=== PATIENT | female | born 1945 | race Caucasian/White ===

== ENCOUNTER 2019-05-21 06:50 | Observation (INO) | payer MEDICARE ==
[~2019-05-21] VITALS: Ht 149.9 cm; Wt 64.4 kg
--- OUTSIDE RECORDS SUMMARY | ~2019-05-21 | XMS | Clinical Summary ---
Demographics + + + | Address | [address] | | | [place] [address] | + + + | Home Phone | | + + + | Preferred Language | Unknown | + + + | Marital Status | | + + + | Shinto Affiliation | Unknown | + + + | Race | Unknown | + + + | Ethnic Group | Unknown | + + + Author + + + | Author | [employer] (Historical as of | | | 03-02-19) | + + + | Organization | [facility] [employer] (Historical as of | | | 03-02-19) | + + + | Address | Unknown | + + + | Phone | Unavailable | + + + Support + + +---------+ + | Name | Relationship | Address | Phone | + + +---------+ + | Sreedhar Nelson | ECON | Unknown | | + + +---------+ + Care Team Providers + +------+ + | Care Sleep Lab Technician Name | Role | Phone | + +------+ + | Tori Aquino MD | PP | | + +------+ + Allergies + + + + + + | Active Allergy | Reactions | Severity | Noted | Comments | | | | | Date | | + + + + + + | Morphine | Other (See Comments) | Medium | 08/15/19 | Nervous | | | | | 19 | | + + + + + + | Statins | Muscle Pain | | 08/15/19 | | | | | | 19 | | + + + + + + Current Medications + + +-------+---------+------+------+-------+ | Prescription | Sig. | Disp. | Refills | Star | End | Statu | | | | | | t | Date | s | | | | | | Date | | | + + +-------+---------+------+------+-------+ | pravastatin | Take 20 mg by mouth | | | | | Activ | | (PRAVACHOL) 20 MG | daily. | | | | | e | | tablet | | | | | | | + + +-------+---------+------+------+-------+ | gabapentin | Take 100 mg by mouth | | | | | Activ | | (NEURONTIN) 100 MG | 3 (three) times | | | | | e | | capsule | daily. | | | | | | + + +-------+---------+------+------+-------+ | | Take 1 tablet by | | | | | Activ | | losartan-hydrochloro | mouth daily. | | | | | e | | thiazide (HYZAAR) | | | | | | | | 100-25 MG per tablet | | | | | | | + + +-------+---------+------+------+-------+ | vitamin E 400 UNIT | Take 400 Units by | | | | | Activ | | capsule | mouth daily. | | | | | e | + + +-------+---------+------+------+-------+ | Ascorbic Acid | Take 1 capsule by | | | | | Activ | | (VITAMIN C) 500 MG | mouth daily. | | | | | e | | CAPS | | | | | | | + + +-------+---------+------+------+-------+ | amLODIPine | Take 5 mg by mouth | | | | | Activ | | (NORVASC) 5 MG | daily. | | | | | e | | tablet | | | | | | | + + +-------+---------+------+------+-------+ | cyanocobalamin | Take 1,000 mcg by | | | | | Activ | | (VITAMIN B-12) 1000 | mouth daily. | | | | | e | | MCG tablet | | | | | | | + + +-------+---------+------+------+-------+ | aspirin 81 MG | Take 81 mg by mouth | | | | | Activ | | tablet | daily. | | | | | e | + + +-------+---------+------+------+-------+ | omeprazole | Take 20 mg by mouth | | | | | Activ | | (PRILOSEC) 20 MG | every morning before | | | | | e | | capsule | breakfast. | | | | | | + + +-------+---------+------+------+-------+ | PRAMIPEXOLE | Take 0.25 mg by | | | | | Activ | | DIHYDROCHLORIDE PO | mouth every other | | | | | e | | | day. | | | | | | + + +-------+---------+------+------+-------+ | Cholecalciferol | Take 1,000 Units by | | | | | Activ | | 1000 units capsule | mouth daily. | | | | | e | + + +-------+---------+------+------+-------+ | fish oil omega-3 | Take 1 g by mouth | | | | | Activ | | fatty acids 1000 MG | daily. | | | | | e | | capsule | | | | | | | + + +-------+---------+------+------+-------+ | Naproxen Sodium | Take by mouth as | | | | | Activ | | (ALEVE PO) | needed. | | | | | e | + + +-------+---------+------+------+-------+ Active Problems + + + | Problem | Noted Date | + + + | Essential hypertension | 08/15/2018 | + + + | Coronary artery calcification | 08/15/2018 | + + + | PVC (premature ventricular contraction) | 08/15/2018 | + + + | Fibromyalgia | 08/15/2018 | + + + Family History + + +------+ + | Medical History | Relation | Name | Comments | + + +------+ + | Stroke | Father | | | + + +------+ + | Cancer | Mother | | lung, thyroid | + + +------+ + + +------+ + + | Relation | Name | Status | Comments | + +------+ + + | Father | | | | + +------+ + + | Mother | | | | + +------+ + + Social History + +-------+ +--------+------+ | Tobacco Use | Types | Packs/Day | Years | Date | | | | | Used | | + +-------+ +--------+------+ | Current Every Day | | 0.75 | | | | Smoker | | | | | + +-------+ +--------+------+ + +---+---+---+ | Smokeless Tobacco: | | | | | Never Used | | | | + +---+---+---+ + + +---------+ + | Alcohol Use | Drinks/We | oz/Week | Comments | | | ek | | | + + +---------+ + | No | | | | + + +---------+ + + + + | Sex Assigned at | Date Recorded | | | | + + + | Not on file | | + + + Last Filed Vital Signs + + + + | Vital Sign | Reading | Time Taken | + + + + | Blood Pressure | 120/60 | 08/15/2018 12:56 PM PST | + + + + | Pulse | 99 | 08/15/2018 12:56 PM PST | + + + + | Temperature | - | - | + + + + | Respiratory Rate | - | - | + + + + | Oxygen Saturation | 95% | 08/15/2018 12:56 PM PST | + + + + | Inhaled Oxygen | - | - | | Concentration | | | + + + + | Weight | 67.8 kg (149 lb 6.4 | 08/15/2018 12:56 PM PST | | | oz) | | + + + + | Height | 149.9 cm (4' 11") | 08/15/2018 12:56 PM PST | + + + + | Body Mass Index | 30.18 | 08/15/2018 12:56 PM PST | + + + + Plan of Treatment +--------+---------+ + + + | Date | Type | Specialty | Care Team | Description | +--------+---------+ + + + | 08/21/ | Office | | [place] [facility], | | | 2019 | Visit | | [address] | | | | | | [address] [place], | | | | | | [place] [address] | | | | | | [phone] | | | | | | | | +--------+---------+ + + + + + + + + | Health Maintenance | Due Date | Last Done | Comments | + + + + + | Vaccine: | | | | | Dtap/Tdap/Td (1 - | 6 | | | | Tdap) | | | | + + + + + | Breast Cancer | | | | | Screening | 7 | | | | (Mammogram) | | | | + + + + + | Colon Cancer | | | | | Screening | 7 | | | | (Colonoscopy) | | | | + + + + + | Vaccine: Zoster (1 | | | | | of 2) | 7 | | | + + + + + | DEXA SCAN SCREENING | | | | | | 2 | | | + + + + + | Vaccine: | | | | | Pneumococcal 65+ | 2 | | | | Low/Medium Risk (1 | | | | | of 2 - PCV13) | | | | + + + + + | Vaccine: Influenza | | | | | (#1) | 9 | | | + + + + + Results Not on filefrom Last 3 Months Insurance + +--------+ +--------+-------+---------+ | Payer | Benefi | Subscriber | Type | Phone | Address | | | t Plan | ID | | | | | | / | | | | | | | Group | | | | | + +--------+ +--------+-------+---------+ | [place] | [place] - | [id number] | Medica | | | | | MODA | | re | | | | | | | | | | | | | | | | | | | | | | | | | | | | | | | | | | | | | | | | [place] - | | | | | | | [place] | | | | | + +--------+ +--------+-------+---------+ + +--------+ +--------+ + + | Guarantor Name | Accoun | Relation to | Date | Phone | Billing Address | | | t Type | Patient | of | | | | | | | | | | + +--------+ +--------+ + + | JAZ NELSON | Person | Self [birth year] Home: | [address] | | | al/Fam | | 1945 | [phone] [place], [place] | | | [place]lexa | | | [phone] | [phone] | + +--------+ +--------+ + +
--- OUTSIDE RECORDS SUMMARY | ~2019-05-21 | XMS | Clinical Summary ---
Demographics + + + | Address | [address] | | | [address] | | | [place] [address] | + + + | Home Phone | | + + + | Preferred Language | Unknown | + + + | Marital Status | M | + + + | Taoism Affiliation | Unknown | + + + | Race | White | + + + | Ethnic Group | Not or | + + + Author + + + | Author | [facility] | + + + | Organization | [facility] | + + + | Address | [address] | | | [place] [address] | + + + | Phone | Unavailable | + + + Care Team Providers + +------+ + | Care Winery Cellar Hand Name | Role | Phone | + +------+ + | Son Segura MD | PCP | | + +------+ + Conditions or Problems +---------+---------+---------+---------+---------+---------+---------+---------+---------+ | Problem | Problem | Onset | Status | Entry | Provide | Comment | Standar | Annotat | | Name | Code | Date | | Date | r | | d | e | | | | | | | | | Descrip | | | | | | | | | | tion | | +---------+---------+---------+---------+---------+---------+---------+---------+---------+ | OA, | [id number] | | Active | | Claudine | | Degener | | | SHOULDE | | | | /10 | | | ative | | | R, | (SNOMED | | | | Crouche | | joint | | | RIGHT | CT) | | | | r NCMA | | disease | | | | | | | | | | of | | | | | | | | | | shoulde | | | | | | | | | | r | | | | | | | | | | region | | +---------+---------+---------+---------+---------+---------+---------+---------+---------+ | OA, | [id number] | | Active | | Claudine | | Osteoar | | | KNEE, | | | | /10 | | | thritis | | | LEFT | (SNOMED | | | | Crouche | | of | | | | CT) | | | | r NCMA | | knee | | +---------+---------+---------+---------+---------+---------+---------+---------+---------+ | LEG | [id number] | | Active | | Claudine | | Pain in | | | PAIN, | 08 | /07 | | /07 | | | left | | | LEFT | (SNOMED | | | | Crouche | | lower | | | | CT) | | | | r NCMA | | limb | | +---------+---------+---------+---------+---------+---------+---------+---------+---------+ | SHOULDE | [id number] | | Active | | Claudine | | Pain in | | | R PAIN, | | /07 | | /07 | | | right | | | RIGHT | (ICD-10 | | | | Crouche | | shoulde | | | | -CM) | | | | r NCMA | | r | | +---------+---------+---------+---------+---------+---------+---------+---------+---------+ | OTHER | [id number] | | Active | | Lynn | | Screeni | | | SCREENI | 2 | /03 | | /03 | L Benavides | | ng | | | NG | (SNOMED | | | | MD | | mammogr | | | MAMMOGR | CT) | | | | | | aphy | | | AM | | | | | | | | | +---------+---------+---------+---------+---------+---------+---------+---------+---------+ | HYPERCA | [id number] | | Resolve | | Lynn | | Hyperca | | | LCEMIA | 9 | /29 | d | /29 | L Benavides | | lcemia | | | | (SNOMED | | | | MD | | | | | | CT) | | | | | | | | +---------+---------+---------+---------+---------+---------+---------+---------+---------+ | VAGINAL | [id number] | | Resolve | | Lynn | | Vaginal | recent | | | 06 | | d | /10 | L Benavides | | | | | DISCHAR | (SNOMED | | | | MD | | dischar | | | GE | CT) | | | | | | ge | | +---------+---------+---------+---------+---------+---------+---------+---------+---------+ | HAND | [id number] | | Resolve | | Lynn | | Hand | | | PAIN, | 4 | /25 | d | /25 | L Benavides | | pain | | | BILATER | (SNOMED | | | | MD | | | | | AL | CT) | | | | | | | | +---------+---------+---------+---------+---------+---------+---------+---------+---------+ | NICOTIN | [id number] | | Resolve | | Lynn | | Nicotin | | | E | 8 | /23 | d | /23 | L Benavides | | e | | | ADDICTI | (SNOMED | | | | MD | | depende | | | ON | CT) | | | | | | nce | | +---------+---------+---------+---------+---------+---------+---------+---------+---------+ | ARTHRIT | [id number] | | Resolve | | Lynn | | Arthrit | | | IS | | /25 | d | /25 | L Kennedy | | is | | | | (SNOMED | | | | MD | | | | | | CT) | | | | | | | | +---------+---------+---------+---------+---------+---------+---------+---------+---------+ | DEGENER | [id number] | | Resolve | | Lynn | | Osteoar | | | ATIVE | 07 | /10 | d | /10 | L Kennedy | | thritis | | | JOINT | (SNOMED | | | | MD | | of | | | DISEASE | CT) | | | | | | knee | | | , KNEE, | | | | | | | | | | RIGHT, | | | | | | | | | | SEVERE | | | | | | | | | +---------+---------+---------+---------+---------+---------+---------+---------+---------+ | HIP | [id number] | | Resolve | | Lynn | | Hip | | | PAIN, | 2 | /10 | d | /10 | L Benavides | | pain | | | RIGHT | (SNOMED | | | | MD | | | | | | CT) | | | | | | | | +---------+---------+---------+---------+---------+---------+---------+---------+---------+ | DYSURIA | [id number] | | Resolve | | Lynn | | Dysuria | | | | 1 | /11 | d | /11 | L Kennedy | | | | | | (SNOMED | | | | MD | | | | | | CT) | | | | | | | | +---------+---------+---------+---------+---------+---------+---------+---------+---------+ | STATUS, | [id number] | | Resolve | | Lynn | | Implant | | | KNEE | 03 | /11 | d | /11 | L Benavides | | ation | | | JOINT | (SNOMED | | | | MD | | of | | | REPLACE | CT) | | | | | | joint | | | MENT | | | | | | | prosthe | | | | | | | | | | sis | | | | | | | | | | into | | | | | | | | | | knee | | | | | | | | | | joint | | +---------+---------+---------+---------+---------+---------+---------+---------+---------+ | CONSTIP | [id number] | | Resolve | | Lynn | | Constip | | | ATION | 8 | /11 | d | /11 | L Benavides | | ation | | | | (SNOMED | | | | MD | | | | | | CT) | | | | | | | | +---------+---------+---------+---------+---------+---------+---------+---------+---------+ | ABDOMIN | [id number] | | Resolve | | Lynn | | Abdomin | | | AL PAIN | 1 | /21 | d | /21 | L Benavides | | al pain | | | | (SNOMED | | | | MD | | | | | | CT) | | | | | | | | +---------+---------+---------+---------+---------+---------+---------+---------+---------+ | NEOPLAS | [id number] | | Resolve | | Lynn | | Neoplas | | | M, | 4 | /09 | d | /09 | L Benavides | | m of | | | SKIN, | (SNOMED | | | | MD | | uncerta | | | UNCERTA | CT) | | | | | | in | | | IN | | | | | | | behavio | | | BEHAVIO | | | | | | | r of | | | R | | | | | | | skin | | +---------+---------+---------+---------+---------+---------+---------+---------+---------+ | DYSPHAG | [id number] | | Resolve | | Lynn | | Dysphag | | | IA | 0 | /06 | d | /06 | L Benavides | | ia | | | | (SNOMED | | | | MD | | | | | | CT) | | | | | | | | +---------+---------+---------+---------+---------+---------+---------+---------+---------+ | RECTAL | [id number] | | Resolve | | Lynn | | Rectal | | | BLEEDIN | 2 | /06 | d | /06 | L Benavides | | hemorrh | | | G | (SNOMED | | | | MD | | age | | | | CT) | | | | | | | | +---------+---------+---------+---------+---------+---------+---------+---------+---------+ | COLONIC | [id number] | | Resolve | | Lynn | | Adenoma | | | | 06 | /06 | d | /06 | L Kennedy | | tous | | | POLYPS, | (SNOMED | | | | MD | | polyp | | | | CT) | | | | | | of | | | ADENOMA | | | | | | | colon | | | TOUS | | | | | | | | | +---------+---------+---------+---------+---------+---------+---------+---------+---------+ | FAMILY | [id number] | | Resolve | | Lynn | | Family | Niece, | | HISTORY | | | d | | L Kennedy | | history | | | OF | (SNOMED | | | | MD | | of | from it | | COLON | CT) | | | | | | cancer | | | CANCER | | | | | | | of | | | | | | | | | | colon | | +---------+---------+---------+---------+---------+---------+---------+---------+---------+ | HYPERCA | [id number] | | Active | | Lynn | | Hyperca | | | LCEMIA | 9 | /03 | | /03 | L Kennedy | | lcemia | | | | (SNOMED | | | | MD | | | | | | CT) | | | | | | | | +---------+---------+---------+---------+---------+---------+---------+---------+---------+ | HX OF | [id number] | | Active | | Claudine | | History | | | RIGHT | | / | | /02 | | | of | | | KNEE | (SNOMED | | | | Crouche | | operati | | | ARTHROP | CT) | | | | r NCMA | | ve | | | LASTY | | | | | | | procedu | | | | | | | | | | re on | | | | | | | | | | knee | | +---------+---------+---------+---------+---------+---------+---------+---------+---------+ | FAMILY | [id number] | | Removed | | Lynn | | Family | Nijerrica, | | HISTORY | | / | | | Tamanna Benavides | | history | | | OF | (SNOMED | | | | MD | | of | from it | | COLON | CT) | | | | | | cancer | | | CANCER | | | | | | | of | | | | | | | | | | colon | | +---------+---------+---------+---------+---------+---------+---------+---------+---------+ | CONNER | [id number] | | Active | | Lynn | | Conner | | | 'S | 06 | /19 | | /19 | L Benavides | | 's | | | ESOPHAG | (SNOMED | | | | MD | | esophag | | | US | CT) | | | | | | us | | +---------+---------+---------+---------+---------+---------+---------+---------+---------+ | COLONIC | [id number] | | Removed | | Son | | Adenoma | | | | 06 | / | | /06 | Petre | | tous | | | POLYPS, | (SNOMED | | | | MD | | polyp | | | | CT) | | | | | | of | | | ADENOMA | | | | | | | colon | | | TOUS | | | | | | | | | +---------+---------+---------+---------+---------+---------+---------+---------+---------+ | RECTAL | [id number] | | Removed | | Son | | Rectal | | | BLEEDIN | 2 | /06 | | /06 | Petre | | hemorrh | | | G | (SNOMED | | | | MD | | age | | | | CT) | | | | | | | | +---------+---------+---------+---------+---------+---------+---------+---------+---------+ | DYSPHAG | [id number] | | Removed | | Son | | Dysphag | | | IA | 0 | /06 | | /06 | Petre | | ia | | | | (SNOMED | | | | MD | | | | | | CT) | | | | | | | | +---------+---------+---------+---------+---------+---------+---------+---------+---------+ | HEARTBU | [id number] | | Active | | Son | | Heartbu | | | RN | 0 | /06 | | / | Petre | | rn | | | | (SNOMED | | | | MD | | | | | | CT) | | | | | | | | +---------+---------+---------+---------+---------+---------+---------+---------+---------+ | NEOPLAS | [id number] | | Removed | | Lynn | | Neoplas | | | M, | 4 | / | | /09 | L Benavides | | m of | | | SKIN, | (SNOMED | | | | MD | | uncerta | | | UNCERTA | CT) | | | | | | in | | | IN | | | | | | | behavio | | | BEHAVIO | | | | | | | r of | | | R | | | | | | | skin | | +---------+---------+---------+---------+---------+---------+---------+---------+---------+ | COUGH | [id number] | | Resolve | | Lynn | | Cough | | | | 2 | /21 | d | /21 | L Kennedy | | | | | | (SNOMED | | | | MD | | | | | | CT) | | | | | | | | +---------+---------+---------+---------+---------+---------+---------+---------+---------+ | TOBACCO | [id number] | | Active | | Lynn | | Tobacco | | | ABUSE | 5 | /21 | | /21 | L Kennedy | | | | | | (SNOMED | | | | MD | | depende | | | | CT) | | | | | | nce | | | | | | | | | | syndrom | | | | | | | | | | e | | +---------+---------+---------+---------+---------+---------+---------+---------+---------+ | COUGH | [id number] | | Removed | | Lynn | | Cough | | | | 2 | /21 | | /21 | L Kennedy | | | | | | (SNOMED | | | | MD | | | | | | CT) | | | | | | | | +---------+---------+---------+---------+---------+---------+---------+---------+---------+ | ABDOMIN | [id number] | | Removed | | Lynn | | Abdomin | | | AL PAIN | 1 | /21 | | /21 | L Kennedy | | al pain | | | | (SNOMED | | | | MD | | | | | | CT) | | | | | | | | +---------+---------+---------+---------+---------+---------+---------+---------+---------+ | FAMILY | [id number] | | Active | | Lynn | | Family | | | HISTORY | 05 | | | /07 | L Kennedy | | history | | | OF | (SNOMED | | | | MD | | of | | | THYROID | CT) | | | | | | maligna | | | CANCER | | | | | | | nt | | | | | | | | | | neoplas | | | | | | | | | | m of | | | | | | | | | | thyroid | | +---------+---------+---------+---------+---------+---------+---------+---------+---------+ | THYROID | [id number] | | Active | | Lynn | | Thyroid | | | NODULE | 05 | | | /07 | L Kennedy | | nodule | | | | (SNOMED | | | | MD | | | | | | CT) | | | | | | | | +---------+---------+---------+---------+---------+---------+---------+---------+---------+ | CONSTIP | [id number] | | Removed | | Lynn | | Constip | | | ATION | 8 | /11 | | /11 | L Kennedy | | ation | | | | (SNOMED | | | | MD | | | | | | CT) | | | | | | | | +---------+---------+---------+---------+---------+---------+---------+---------+---------+ | STATUS, | [id number] | | Removed | | Lynn | | Implant | | | KNEE | 03 | /11 | | /11 | L Kennedy | | ation | | | JOINT | (SNOMED | | | | MD | | of | | | REPLACE | CT) | | | | | | joint | | | MENT | | | | | | | prosthe | | | | | | | | | | sis | | | | | | | | | | into | | | | | | | | | | knee | | | | | | | | | | joint | | +---------+---------+---------+---------+---------+---------+---------+---------+---------+ | KNEE | [id number] | | Resolve | | Lynn | | Knee | | | PAIN | 3 | /25 | d | /25 | L Benavides | | pain | | | | (SNOMED | | | | MD | | | | | | CT) | | | | | | | | +---------+---------+---------+---------+---------+---------+---------+---------+---------+ | PREOPER | [id number] | | Resolve | | Lynn | | Preoper | | | ATIVE | 05 | /03 | d | /03 | L Kennedy | | ative | | | EXAMINA | (SNOMED | | | | MD | | procedu | | | TION | CT) | | | | | | res | | +---------+---------+---------+---------+---------+---------+---------+---------+---------+ | PREOPER | [id number] | | Resolve | | Lynn | | Preoper | | | ATIVE | 05 | /10 | d | /10 | L Kennedy | | ative | | | EXAMINA | (SNOMED | | | | MD | | procedu | | | TION | CT) | | | | | | res | | +---------+---------+---------+---------+---------+---------+---------+---------+---------+ | DYSURIA | [id number] | | Removed | | Lynn | | Dysuria | | | | 1 | /11 | | /11 | L Benavides | | | | | | (SNOMED | | | | MD | | | | | | CT) | | | | | | | | +---------+---------+---------+---------+---------+---------+---------+---------+---------+ | HIP | [id number] | | Removed | | Alice | | Hip | | | PAIN, | 2 | /10 | | /10 | [place] | | pain | | | RIGHT | (SNOMED | | | | NCMA | | | | | | CT) | | | | | | | | +---------+---------+---------+---------+---------+---------+---------+---------+---------+ | PREOPER | [id number] | | Removed | | Claudine | | Preoper | | | ATIVE | 05 | /10 | | /10 | | | ative | | | EXAMINA | (SNOMED | | | | Crouche | | procedu | | | TION | CT) | | | | r NCMA | | res | | +---------+---------+---------+---------+---------+---------+---------+---------+---------+ | DEGENER | [id number] | | Removed | | Claudine | | Osteoar | | | ATIVE | 07 | /10 | | /10 | | | thritis | | | JOINT | (SNOMED | | | | Crouche | | of | | | DISEASE | CT) | | | | r NCMA | | knee | | | , KNEE, | | | | | | | | | | RIGHT, | | | | | | | | | | SEVERE | | | | | | | | | +---------+---------+---------+---------+---------+---------+---------+---------+---------+ | LEW | R79.89 | | Active | | Lynn | | Other | | | POSITIV | (ICD-10 | | | / | L Kennedy | | specifi | | | E - | -CM) | | | | MD | | ed | | | RHEUM | | | | | | | abnorma | | | EVAL | | | | | | | l | | | NEGATIV | | | | | | | finding | | | E | | | | | | | s of | | | | | | | | | | blood | | | | | | | | | | atmospheric chemist | | | | | | | | | | ry | | +---------+---------+---------+---------+---------+---------+---------+---------+---------+ | PREOPER | [id number] | | Removed | | Lynn | | Preoper | | | ATIVE | 05 | / | | /03 | L Benavides | | ative | | | EXAMINA | (SNOMED | | | | MD | | procedu | | | TION | CT) | | | | | | res | | +---------+---------+---------+---------+---------+---------+---------+---------+---------+ | LEW | [id number] | | Inactiv | | Lynn | | Raised | | | POSITIV | 08 | /03 | e | /03 | L Benavides | | antinuc | | | E | (SNOMED | | | | MD | | lear | | | | CT) | | | | | | antibod | | | | | | | | | | y | | +---------+---------+---------+---------+---------+---------+---------+---------+---------+ | FIBROMY | [id number] | | Active | | Cynthia | | Fibromy | | | ALGIA | 7 | /25 | | /25 | M | | ositis | | | | (SNOMED | | | | [facility] | | | | | | CT) | | | | NCMA | | | | +---------+---------+---------+---------+---------+---------+---------+---------+---------+ | KNEE | [id number] | | Removed | | Cynthia | | Knee | | | PAIN | 3 | /25 | | /25 | M | | pain | | | | (SNOMED | | | | [facility] | | | | | | CT) | | | | NCMA | | | | +---------+---------+---------+---------+---------+---------+---------+---------+---------+ | ARTHRIT | [id number] | | Removed | | Cynthia | | Arthrit | | | IS | | /25 | | /25 | M | | is | | | | (SNOMED | | | | [facility] | | | | | | CT) | | | | NCMA | | | | +---------+---------+---------+---------+---------+---------+---------+---------+---------+ | OSTEOAR | [id number] | | Resolve | | Lynn | | Degener | | | THRITIS | 7 | /12 | d | /12 | L Benavides | | ative | | | , | (SNOMED | | | | MD | | joint | | | HANDS, | CT) | | | | | | disease | | | BILATER | | | | | | | of | | | AL | | | | | | | hand | | +---------+---------+---------+---------+---------+---------+---------+---------+---------+ | OSTEOAR | [id number] | | Resolve | | Lynn | | Osteoar | | | THRITIS | 02 | /24 | d | /24 | L Benavides | | thritis | | | , HIPS, | (SNOMED | | | | MD | | of hip | | | | CT) | | | | | | | | | BILATER | | | | | | | | | | AL | | | | | | | | | +---------+---------+---------+---------+---------+---------+---------+---------+---------+ | HYPERLI | [id number] | | Active | | Lynn | | Hyperli | | | PIDEMIA | 4 | /29 | | /29 | L Benavides | | pidemia | | | - | (SNOMED | | | | MD | | | | | STATIN | CT) | | | | | | | | | INTOLER | | | | | | | | | | ANT | | | | | | | | | +---------+---------+---------+---------+---------+---------+---------+---------+---------+ | HYPERCH | [id number] | | Resolve | | Lynn | | Hyperch | | | OLESTER | 9 | /24 | d | /24 | L Benavides | | olester | | | OLEMIA | (SNOMED | | | | MD | | olemia | | | | CT) | | | | | | | | +---------+---------+---------+---------+---------+---------+---------+---------+---------+ | HYPERCA | [id number] | | Removed | | Lynn | | Hyperca | | | LCEMIA | 9 | /29 | | /29 | L Benavides | | lcemia | | | | (SNOMED | | | | MD | | | | | | CT) | | | | | | | | +---------+---------+---------+---------+---------+---------+---------+---------+---------+ | DEPRESS | [id number] | | Active | | Lynn | | Depress | | | ION | 7 | /29 | | /29 | L Benavides | | james | | | | (SNOMED | | | | MD | | disorde | | | | CT) | | | | | | r | | +---------+---------+---------+---------+---------+---------+---------+---------+---------+ | VISUAL | [id number] | | Resolve | | Lynn | | Visual | | | SCOTOMA | 6 | /24 | d | /24 | L Kennedy | | field | | | TA | (SNOMED | | | | MD | | scotoma | | | | CT) | | | | | | | | +---------+---------+---------+---------+---------+---------+---------+---------+---------+ | BASAL | [id number] | | Resolve | | Lynn | | Basal | | | CELL | 04 | / | d | /22 | L Benavides | | cell | | | CARCINO | (SNOMED | | | | MD | | carcino | | | MA OF | CT) | | | | | | ma of | | | SCALP | | | | | | | scalp | | | AND | | | | | | | | | | SKIN OF | | | | | | | | | | NECK | | | | | | | | | +---------+---------+---------+---------+---------+---------+---------+---------+---------+ | HYPERLI | [id number] | | Resolve | | Lynn | | Hyperli | | | PIDEMIA | 4 | /03 | d | /10 | L Benavides | | pidemia | | | | (SNOMED | | | | MD | | | | | | CT) | | | | | | | | +---------+---------+---------+---------+---------+---------+---------+---------+---------+ | SHOULDE | [id number] | | Resolve | | Lynn | | Shoulde | | | R PAIN | 0 | /10 | d | /10 | L Benavides | | r pain | | | | (SNOMED | | | | MD | | | | | | CT) | | | | | | | | +---------+---------+---------+---------+---------+---------+---------+---------+---------+ | FOOT | [id number] | | Resolve | | Lynn | | Foot | | | PAIN, | 7 | /10 | d | /10 | L Benavides | | pain | | | LEFT | (SNOMED | | | | MD | | | | | | CT) | | | | | | | | +---------+---------+---------+---------+---------+---------+---------+---------+---------+ | PES | [id number] | | Resolve | | Lynn | | Pes | | | PLANUS | 7 | /10 | d | /10 | L Benavides | | planus | | | | (SNOMED | | | | MD | | | | | | CT) | | | | | | | | +---------+---------+---------+---------+---------+---------+---------+---------+---------+ | HAMMER | [id number] | | Resolve | | Lynn | | Hammer | | | TOE | 08 | /10 | d | /10 | L Benavides | | toe | | | | (SNOMED | | | | MD | | | | | | CT) | | | | | | | | +---------+---------+---------+---------+---------+---------+---------+---------+---------+ | SHOULDE | [id number] | | Resolve | | Lynn | | Impinge | | | R | 07 | /10 | d | /13 | L Benavides | | ment | | | IMPINGE | (SNOMED | | | | MD | | syndrom | | | MENT | CT) | | | | | | e of | | | SYNDROM | | | | | | | shoulde | | | E, LEFT | | | | | | | r | | | | | | | | | | region | | +---------+---------+---------+---------+---------+---------+---------+---------+---------+ | ABDOMIN | [id number] | | Resolve | | Lynn | | Abdomin | | | AL PAIN | 1 | /10 | d | /10 | L Benavides | | al pain | | | | (SNOMED | | | | MD | | | | | | CT) | | | | | | | | +---------+---------+---------+---------+---------+---------+---------+---------+---------+ | LOW | [id number] | | Resolve | | Lynn | | Chronic | | | BACK | 09 | /10 | d | /10 | L Kennedy | | low | | | PAIN, | (SNOMED | | | | MD | | back | | | CHRONIC | CT) | | | | | | pain | | +---------+---------+---------+---------+---------+---------+---------+---------+---------+ | URINARY | [id number] | | Resolve | | Lynn | | Increas | | | | 03 | /10 | d | /10 | L Benavides | | ed | | | FREQUEN | (SNOMED | | | | MD | | frequen | | | CY | CT) | | | | | | cy of | | | | | | | | | | urinati | | | | | | | | | | on | | +---------+---------+---------+---------+---------+---------+---------+---------+---------+ | HEMATUR | R31.9 | | Resolve | | Lynn | | Hematur | | | IA | (ICD-10 | | d | /10 | L Benavides | | ia, | | | UNSPECI | -CM) | | | | MD | | unspeci | | | FIED | | | | | | | fied | | +---------+---------+---------+---------+---------+---------+---------+---------+---------+ | HYPERCH | [id number] | | Resolve | | Lynn | | Hyperch | | | OLESTER | 9 | / | d | /25 | L Benavides | | olester | | | OLEMIA | (SNOMED | | | | MD | | olemia | | | | CT) | | | | | | | | +---------+---------+---------+---------+---------+---------+---------+---------+---------+ | ROUTINE | [id number] | | Resolve | | Lynn | | Gynecol | | | | 1 | /01 | d | /01 | L Kennedy | | ogic | | | GYNECOL | (SNOMED | | | | MD | | examina | | | OGICAL | CT) | | | | | | tion | | | EXAMINA | | | | | | | | | | TION | | | | | | | | | +---------+---------+---------+---------+---------+---------+---------+---------+---------+ | OTHER | [id number] | | Resolve | | Lynn | | Screeni | | | SCREENI | 2 | /30 | d | /30 | L Kennedy | | ng | | | NG | (SNOMED | | | | MD | | mammogr | | | MAMMOGR | CT) | | | | | | aphy | | | AM | | | | | | | | | +---------+---------+---------+---------+---------+---------+---------+---------+---------+ | UNSPECI | M12.9 | | Resolve | | Lynn | | Arthrop | | | FIED | (ICD-10 | / | d | | L Benavides | | athy, | | | ARTHROP | -CM) | | | | MD | | unspeci | | | ATHY | | | | | | | fied | | | MULTIPL | | | | | | | | | | E SITES | | | | | | | | | +---------+---------+---------+---------+---------+---------+---------+---------+---------+ | ACTINIC | [id number] | | Resolve | | Lynn | | Actinic | | | | 07 | | d | / | L Kennedy | | | | | KERATOS | (SNOMED | | | | MD | | keratos | | | IS | CT) | | | | | | is | | +---------+---------+---------+---------+---------+---------+---------+---------+---------+ | UNSPECI | [phone] | | Resolve | | Lynn | | Disorde | | | FIED | 6 | /25 | d | /25 | L Benavides | | r of | | | DISORDE | (SNOMED | | | | MD | | autonom | | | R OF | CT) | | | | | | ic | | | AUTONOM | | | | | | | nervous | | | IC | | | | | | | system | | | NERVOUS | | | | | | | | | | SYSTEM | | | | | | | | | +---------+---------+---------+---------+---------+---------+---------+---------+---------+ | NECK | [id number] | | Resolve | | Lynn | | Neck | | | PAIN | 5 | /25 | d | /25 | L Benavides | | pain | | | | (SNOMED | | | | MD | | | | | | CT) | | | | | | | | +---------+---------+---------+---------+---------+---------+---------+---------+---------+ | PLANTAR | [id number] | | Resolve | | Lynn | | Plantar | | | | 2 | /21 | d | /21 | L Benavides | | | | | FIBROMA | (SNOMED | | | | MD | | fascial | | | TOSIS | CT) | | | | | | | | | | | | | | | | fibroma | | | | | | | | | | tosis | | +---------+---------+---------+---------+---------+---------+---------+---------+---------+ | ACCIDEN | [id number] | | Resolve | | Lynn | | Acciden | | | T | 07 | /12 | d | /12 | L Kennedy | | t | | | CAUSED | (SNOMED | | | | MD | | caused | | | BY | [place]) | | | | | | by | | | UNSPECI | | | | | | | firearm | | | FIED | | | | | | | | | | FIREARM | | | | | | | missile | | | | | | | | | | | | | MISSILE | | | | | | | | | +---------+---------+---------+---------+---------+---------+---------+---------+---------+ | NEOPLAS | [id number] | | Resolve | | Lynn | | Neoplas | | | M, | 4 | /12 | d | /12 | L Benavides | | m of | | | SKIN, | (SNOMED | | | | MD | | uncerta | | | UNCERTA | CT) | | | | | | in | | | IN | | | | | | | behavio | | | BEHAVIO | | | | | | | r of | | | R | | | | | | | skin | | +---------+---------+---------+---------+---------+---------+---------+---------+---------+ | ENCOUNT | [id number] | | Resolve | | Lynn | | Removal | | | ER FOR | 1 | /08 | d | /10 | L Benavides | | of | | | REMOVAL | (SNOMED | | | | MD | | suture | | | OF | CT) | | | | | | | | | SUTURES | | | | | | | | | +---------+---------+---------+---------+---------+---------+---------+---------+---------+ | ENCOUNT | [id number] | | Resolve | | Lynn | | Removal | | | ER FOR | 1 | /22 | d | /22 | L Benavides | | of | | | REMOVAL | (SNOMED | | | | MD | | suture | | | OF | CT) | | | | | | | | | SUTURES | | | | | | | | | +---------+---------+---------+---------+---------+---------+---------+---------+---------+ | NEED | Z23 | | Resolve | | Lynn | | Encount | | | PROPHYL | (ICD-10 | /24 | d | /24 | L Benavides | | er for | | | ACTIC | -CM) | | | | MD | | immuniz | | | VACCINA | | | | | | | ation | | | TION&IN | | | | | | | | | | OCULATI | | | | | | | | | | ON FLU | | | | | | | | | +---------+---------+---------+---------+---------+---------+---------+---------+---------+ | TRANSIE | [id number] | | Resolve | | Lynn | | Transie | | | NT | 5 | /24 | d | /24 | L Benavides | | nt | | | VISUAL | (SNOMED | | | | MD | | visual | | | LOSS | CT) | | | | | | loss | | +---------+---------+---------+---------+---------+---------+---------+---------+---------+ | SCREENI | [id number] | | Resolve | | Lynn | | Screeni | | | NG, | 04 | /24 | d | /24 | L Benavides | | ng for | | | COLON | (SNOMED | | | | MD | | maligna | | | CANCER | CT) | | | | | | nt | | | | | | | | | | neoplas | | | | | | | | | | m of | | | | | | | | | | colon | | +---------+---------+---------+---------+---------+---------+---------+---------+---------+ | NEPHREC | Z90.5 | | Active | | Lynn | | Acquire | | | GUS, | (ICD-10 | / | | /13 | L Benavides | | d | | | HX OF - | -CM) | | | | MD | | absence | | | FOR | | | | | | | of | | | NON-MAL | | | | | | | kidney | | | IGNANT | | | | | | | | | | MASS | | | | | | | | | +---------+---------+---------+---------+---------+---------+---------+---------+---------+ | NEPHREC | [id number] | | Inactiv | | Pretty | | Kidney | | | GUS, | | / | e | /13 | [facility] | | excisio | | | HX OF | (SNOMED | | | | en DO | | n | | | | CT) | | | | | | | | +---------+---------+---------+---------+---------+---------+---------+---------+---------+ | FATIGUE | [id number] | | Inactiv | | Pretty | | Fatigue | | | | 1 | | e | | [facility] | | | | | | (SNOMED | | | | en DO | | | | | | CT) | | | | | | | | +---------+---------+---------+---------+---------+---------+---------+---------+---------+ | OTHER | [id number] | | Inactiv | | Pretty | | Screeni | | | SCREENI | 2 | /18 | e | /18 | [facility] | | ng | | | NG | (SNOMED | | | | en DO | | mammogr | | | MAMMOGR | CT) | | | | | | aphy | | | AM | | | | | | | | | +---------+---------+---------+---------+---------+---------+---------+---------+---------+ | SCREENI | [id number] | | Removed | | Pretty | | Screeni | | | NG, | | | | | [facility] | | ng for | | | COLON | (SNOMED | | | | en DO | | maligna | | | CANCER | CT) | | | | | | nt | | | | | | | | | | neoplas | | | | | | | | | | m of | | | | | | | | | | colon | | +---------+---------+---------+---------+---------+---------+---------+---------+---------+ | CARPAL | [id number] | | Inactiv | | Ky | | Carpal | | | TUNNEL | 9 | /15 | e | /15 | Bitter | | tunnel | | | SYNDROM | (SNOMED | | | | MD | | syndrom | | | E | CT) | | | | | | e | | +---------+---------+---------+---------+---------+---------+---------+---------+---------+ | OSTEOAR | [id number] | | Resolve | | Ky | | General | | | THRITIS | 07 | /15 | d | /15 | Bitter | | ized | | | , | (SNOMED | | | | MD | | osteoar | | | GENERAL | CT) | | | | | | thritis | | | IZED, | | | | | | | of the | | | HAND | | | | | | | hand | | +---------+---------+---------+---------+---------+---------+---------+---------+---------+ | TRIGGER | [id number] | | Resolve | | Ky | | Acquire | right | | FINGER | | /23 | d | /23 | Bitter | | d | thumb | | | (SNOMED | | | | MD | | trigger | | | | CT) | | | | | | finger | | +---------+---------+---------+---------+---------+---------+---------+---------+---------+ | NICOTIN | [id number] | | Removed | | Ky | | Nicotin | | | E | 8 | | | / | Bitter | | e | | | ADDICTI | (SNOMED | | | | MD | | depende | | | ON | CT) | | | | | | nce | | +---------+---------+---------+---------+---------+---------+---------+---------+---------+ | TRIGGER | [id number] | | Removed | | Ky | | Acquire | right | | FINGER | | /23 | | /23 | Bitter | | d | thumb | | | (SNOMED | | | | MD | | trigger | | | | CT) | | | | | | finger | | +---------+---------+---------+---------+---------+---------+---------+---------+---------+ | OSTEOAR | [id number] | | Removed | | Pretty | | General | | | THRITIS | 07 | /15 | | /15 | [facility] | | ized | | | , | (SNOMED | | | | en DO | | osteoar | | | GENERAL | CT) | | | | | | thritis | | | IZED, | | | | | | | of the | | | HAND | | | | | | | hand | | +---------+---------+---------+---------+---------+---------+---------+---------+---------+ | CARPAL | [id number] | | Removed | | Pretty | | Carpal | | | TUNNEL | 9 | /15 | | /15 | [facility] | | tunnel | | | SYNDROM | (SNOMED | | | | en DO | | syndrom | | | E | CT) | | | | | | e | | +---------+---------+---------+---------+---------+---------+---------+---------+---------+ | SINUSIT | [id number] | | Inactiv | | Pretty | | Acute | | | IS, | 5 | / | e | /07 | [facility] | | ethmoid | | | ACUTE | (SNOMED | | | | en DO | | al | | | ETHMOID | CT) | | | | | | sinusit | | | AL | | | | | | | is | | +---------+---------+---------+---------+---------+---------+---------+---------+---------+ | SACROIL | [id number] | | Inactiv | | Pretty | | Inflamm | | | IITIS | | | e | | [facility] | | ation | | | | (SNOMED | | | | en DO | | of | | | | CT) | | | | | | sacroil | | | | | | | | | | iac | | | | | | | | | | joint | | +---------+---------+---------+---------+---------+---------+---------+---------+---------+ | OSTEOAR | [id number] | | Removed | | Emelina | | Osteoar | | | THRITIS | | | | | [facility] | | thritis | | | , HIPS, | (SNOMED | | | | MA | | of hip | | | | CT) | | | | | | | | | BILATER | | | | | | | | | | AL | | | | | | | | | +---------+---------+---------+---------+---------+---------+---------+---------+---------+ | HYPERCH | [id number] | | Removed | | Emelina | | Hyperch | | | OLESTER | 9 | /24 | | /24 | [facility] | | olester | | | OLEMIA | (SNOMED | | | | MA | | olemia | | | | CT) | | | | | | | | +---------+---------+---------+---------+---------+---------+---------+---------+---------+ | TRANSIE | [id number] | | Removed | | Emelina | | Transie | | | NT | 5 | /24 | | / | [facility] | | nt | | | VISUAL | (SNOMED | | | | MA | | visual | | | LOSS | CT) | | | | | | loss | | +---------+---------+---------+---------+---------+---------+---------+---------+---------+ | VISUAL | [id number] | | Removed | | Emelina | | Visual | | | SCOTOMA | 6 | /24 | | /24 | [facility] | | field | | | TA | (SNOMED | | | | MA | | scotoma | | | | CT) | | | | | | | | +---------+---------+---------+---------+---------+---------+---------+---------+---------+ | HEADACH | [id number] | | Inactiv | | Emelina | | Headach | | | E | 2 | / | e | / | [facility] | | e | | | | (SNOMED | | | | MA | | | | | | CT) | | | | | | | | +---------+---------+---------+---------+---------+---------+---------+---------+---------+ | NEED | Z23 | | Removed | | Eva | | Encount | | | PROPHYL | (ICD-10 | | | | [place] | | er for | | | ACTIC | -CM) | | | | | | immuniz | | | VACCINA | | | | | | | ation | | | TION&IN | | | | | | | | | | OCULATI | | | | | | | | | | ON FLU | | | | | | | | | +---------+---------+---------+---------+---------+---------+---------+---------+---------+ | VITAMIN | [id number] | | Inactiv | | Pretty | | Vitamin | | | D | 6 | | e | | [facility] | | D | | | DEFICIE | (SNOMED | | | | en DO | | deficie | | | NCY | CT) | | | | | | ncy | | +---------+---------+---------+---------+---------+---------+---------+---------+---------+ | ENCOUNT | [id number] | | Removed | | Pretty | | Removal | | | ER FOR | | / | | | [facility] | | of | | | REMOVAL | (SNOMED | | | | en DO | | suture | | | OF | CT) | | | | | | | | | SUTURES | | | | | | | | | +---------+---------+---------+---------+---------+---------+---------+---------+---------+ | BASAL | [id number] | | Removed | | Lynn | | Basal | | | CELL | | | | | Navera | | cell | | | CARCINO | (SNOMED | | | | | | carcino | | | MA OF | CT) | | | | | | ma of | | | SCALP | | | | | | | scalp | | | AND | | | | | | | | | | SKIN OF | | | | | | | | | | NECK | | | | | | | | | +---------+---------+---------+---------+---------+---------+---------+---------+---------+ | ENCOUNT | [id number] | | Removed | | Emelina | | Removal | | | ER FOR | 1 | /08 | | /10 | [facility] | | of | | | REMOVAL | (SNOMED | | | | MA | | suture | | | OF | CT) | | | | | | | | | SUTURES | | | | | | | | | +---------+---------+---------+---------+---------+---------+---------+---------+---------+ | NEOPLAS | [id number] | | Removed | | Pretty | | Neoplas | | | M, | 4 | / | | / | [facility] | | m of | | | SKIN, | (SNOMED | | | | en DO | | uncerta | | | UNCERTA | CT) | | | | | | in | | | IN | | | | | | | behavio | | | BEHAVIO | | | | | | | r of | | | R | | | | | | | skin | | +---------+---------+---------+---------+---------+---------+---------+---------+---------+ | ACCIDEN | [id number] | | Removed | | Pretty | | Acciden | | | T | 07 | /12 | | /12 | [facility] | | t | | | CAUSED | (SNOMED | | | | en DO | | caused | | | BY | CT) | | | | | | by | | | UNSPECI | | | | | | | firearm | | | FIED | | | | | | | | | | FIREARM | | | | | | | missile | | | | | | | | | | | | | MISSILE | | | | | | | | | +---------+---------+---------+---------+---------+---------+---------+---------+---------+ | KNEE | [id number] | | Inactiv | | Pretty | | Knee | | | PAIN, | 3 | /12 | e | /12 | [facility] | | pain | | | BILATER | (SNOMED | | | | en DO | | | | | AL | CT) | | | | | | | | +---------+---------+---------+---------+---------+---------+---------+---------+---------+ | HIP | [id number] | | Inactiv | | Pretty | | Hip | | | PAIN | 2 | /12 | e | /12 | [facility] | | pain | | | | (SNOMED | | | | en DO | | | | | | CT) | | | | | | | | +---------+---------+---------+---------+---------+---------+---------+---------+---------+ | OSTEOAR | [id number] | | Removed | | Pretty | | Degener | | | THRITIS | 7 | /12 | | /12 | [facility] | | ative | | | , | (SNOMED | | | | en DO | | joint | | | HANDS, | CT) | | | | | | disease | | | BILATER | | | | | | | of | | | AL | | | | | | | hand | | +---------+---------+---------+---------+---------+---------+---------+---------+---------+ | CLAUDIC | [id number] | | Inactiv | | Pretty | | Claudic | | | ATION | 00 | /12 | e | /12 | [facility] | | ation | | | | (SNOMED | | | | en DO | | | | | | CT) | | | | | | | | +---------+---------+---------+---------+---------+---------+---------+---------+---------+ | PERIPHE | [id number] | | Inactiv | | Pretty | | Periphe | | | RAL | | | e | /12 | [facility] | | ral | | | VASCULA | (SNOMED | | | | en DO | | vascula | | | R | CT) | | | | | | r | | | DISEASE | | | | | | | disease | | +---------+---------+---------+---------+---------+---------+---------+---------+---------+ | LEG | [id number] | | Inactiv | | Pretty | | Cramp | | | CRAMPS | 04 | /12 | e | /12 | [facility] | | in | | | | (SNOMED | | | | en DO | | lower | | | | CT) | | | | | | limb | | +---------+---------+---------+---------+---------+---------+---------+---------+---------+ | PLANTAR | [id number] | | Removed | | Lionel | | Plantar | | | | 2 | /21 | | / | Siepert | | | | | FIBROMA | (SNOMED | | | | DPM | | fascial | | | TOSIS | CT) | | | | | | | | | | | | | | | | fibroma | | | | | | | | | | tosis | | +---------+---------+---------+---------+---------+---------+---------+---------+---------+ | MYALGIA | [id number] | | Inactiv | | Pretty | | Muscle | | | | 1 | /20 | e | /20 | [facility] | | pain | | | | (SNOMED | | | | en DO | | | | | | CT) | | | | | | | | +---------+---------+---------+---------+---------+---------+---------+---------+---------+ | NECK | [id number] | | Removed | | Pretty | | Neck | | | PAIN | 5 | /25 | | /25 | [facility] | | pain | | | | (SNOMED | | | | en DO | | | | | | CT) | | | | | | | | +---------+---------+---------+---------+---------+---------+---------+---------+---------+ | HAND | [id number] | | Removed | | Pretty | | Hand | | | PAIN, | 4 | | | / | [facility] | | pain | | | BILATER | (SNOMED | | | | en DO | | | | | AL | CT) | | | | | | | | +---------+---------+---------+---------+---------+---------+---------+---------+---------+ | ARTHRIT | [id number] | | Inactiv | | Pretty | | Arthrit | | | IS | | | e | | [facility] | | is | | | | (SNOMED | | | | en DO | | | | | | CT) | | | | | | | | +---------+---------+---------+---------+---------+---------+---------+---------+---------+ | UNSPECI | [id number] | | Removed | 2012/10 | Pretty | | Disorde | | | FIED | 6 | /25 | | /25 | [facility] | | r of | | | DISORDE | (SNOMED | | | | en DO | | autonom | | | R OF | CT) | | | | | | ic | | | AUTONOM | | | | | | | nervous | | | IC | | | | | | | system | | | NERVOUS | | | | | | | | | | SYSTEM | | | | | | | | | +---------+---------+---------+---------+---------+---------+---------+---------+---------+ | VACCINE | [id number] | | Inactiv | | Pretty | | Influen | | | | 6 | | e | | [facility] | | za | | | AGAINST | (SNOMED | | | | en DO | | vaccina | | | | CT) | | | | | | tion | | | INFLUEN | | | | | | | | | | ZA | | | | | | | | | +---------+---------+---------+---------+---------+---------+---------+---------+---------+ | HYPERCH | [id number] | | Removed | | Pretty | | Hyperch | | | OLESTER | 9 | | | | [facility] | | olester | | | OLEMIA | (SNOMED | | | | en DO | | olemia | | | | CT) | | | | | | | | +---------+---------+---------+---------+---------+---------+---------+---------+---------+ | ACTINIC | [id number] | | Removed | | Pretty | | Actinic | | | | 07 | / | | / | [facility] | | | | | KERATOS | (SNOMED | | | | en DO | | keratos | | | IS | CT) | | | | | | is | | +---------+---------+---------+---------+---------+---------+---------+---------+---------+ | GERD | [id number] | | Active | | Pretty | | Gastroe | | | | 09 | / | | /25 | [facility] | | sophage | | | | (SNOMED | | | | en DO | | al | | | | CT) | | | | | | reflux | | | | | | | | | | disease | | +---------+---------+---------+---------+---------+---------+---------+---------+---------+ | SCREENI | Z13.220 | | Inactiv | | Sandra | | Encount | | | NG FOR | | /30 | e | /30 | [facility] | | er for | | | LIPOID | (ICD-10 | | | | INTAKE CLERK | | screeni | | | DISORDE | -CM) | | | | | | ng for | | | RS | | | | | | | lipoid | | | | | | | | | | disorde | | | | | | | | | | rs | | +---------+---------+---------+---------+---------+---------+---------+---------+---------+ | SCREENI | Z13.1 | | Inactiv | | Sandra | | Encount | | | NG FOR | (ICD-10 | | e | /30 | [facility]ler | | er for | | | DIABETE | -CM) | | | | INTAKE CLERK | | screeni | | | S | | | | | | | ng for | | | MELLITU | | | | | | | diabete | | | S | | | | | | | s | | | | | | | | | | mellitu | | | | | | | | | | s | | +---------+---------+---------+---------+---------+---------+---------+---------+---------+ | UNSPECI | M12.9 | | Removed | | Sandra | | Arthrop | | | FIED | (ICD-10 | /30 | | /30 | [facility] | | athy, | | | ARTHROP | -CM) | | | | INTAKE CLERK | | unspeci | | | ATHY | | | | | | | fied | | | MULTIPL | | | | | | | | | | E SITES | | | | | | | | | +---------+---------+---------+---------+---------+---------+---------+---------+---------+ | ARTHRIT | [id number] | | Inactiv | | Sandra | | Arthrit | | | IS | | /30 | e | /30 | [facility] | | is | | | | (SNOMED | | | | INTAKE CLERK | | | | | | CT) | | | | | | | | +---------+---------+---------+---------+---------+---------+---------+---------+---------+ | OTHER | [id number] | | Removed | | Sandra | | Screeni | | | SCREENI | 2 | /30 | | /30 | [facility] | | ng | | | NG | (SNOMED | | | | INTAKE CLERK | | mammogr | | | MAMMOGR | CT) | | | | | | aphy | | | AM | | | | | | | | | +---------+---------+---------+---------+---------+---------+---------+---------+---------+ | ROUTINE | [id number] | | Removed | | Sandra | | Gynecol | | | | 1 | / | | / | [facility] | | ogic | | | GYNECOL | (SNOMED | | | | INTAKE CLERK | | examina | | | OGICAL | CT) | | | | | | tion | | | EXAMINA | | | | | | | | | | TION | | | | | | | | | +---------+---------+---------+---------+---------+---------+---------+---------+---------+ | HYPERLI | [id number] | | Removed | | Sandra | | Hyperli | | | PIDEMIA | 4 | /03 | | /10 | [facility] | | pidemia | | | | (SNOMED | | | | [employer] | | | | | | CT) | | | | | | | | +---------+---------+---------+---------+---------+---------+---------+---------+---------+ | VAGINAL | [id number] | | Removed | | Lars | | Vaginal | recent | | | 06 | | | | Ramirez | | | | | DISCHAR | (SNOMED | | | | DO | | dischar | | | GE | CT) | | | | | | ge | | +---------+---------+---------+---------+---------+---------+---------+---------+---------+ | HEMATUR | R31.9 | | Removed | | Lars | | Hematur | | | IA | (ICD- | | | | Ramirez | | ia, | | | UNSPECI | -CM) | | | | DO | | unspeci | | | FIED | | | | | | | fied | | +---------+---------+---------+---------+---------+---------+---------+---------+---------+ | URINARY | [id number] | | Removed | | Lars | | Increas | | | | 03 | | | | Ramirez | | ed | | | FREQUEN | (SNOMED | | | | DO | | frequen | | | CY | CT) | | | | | | cy of | | | | | | | | | | urinati | | | | | | | | | | on | | +---------+---------+---------+---------+---------+---------+---------+---------+---------+ | LOW | [id number] | | Removed | | Lars | | Chronic | | | BACK | | | | | Ramirez | | low | | | PAIN, | (SNOMED | | | | DO | | back | | | CHRONIC | CT) | | | | | | pain | | +---------+---------+---------+---------+---------+---------+---------+---------+---------+ | ABDOMIN | [id number] | | Removed | | Carly | | Abdomin | | | AL PAIN | 1 | | | | Tony | | al pain | | | | (SNOMED | | | | FUNERAL HOME MANAGER | | | | | | CT) | | | | | | | | +---------+---------+---------+---------+---------+---------+---------+---------+---------+ | SHOULDE | [id number] | | Removed | | Pretty | | Impinge | | | R | 07 | /10 | | /13 | [facility] | | ment | | | IMPINGE | (SNOMED | | | | en DO | | syndrom | | | MENT | CT) | | | | | | e of | | | SYNDROM | | | | | | | shoulde | | | E, LEFT | | | | | | | r | | | | | | | | | | region | | +---------+---------+---------+---------+---------+---------+---------+---------+---------+ | HAMMER | [id number] | | Removed | | Pretty | | Hammer | | | TOE | 08 | /10 | | /10 | [facility] | | toe | | | | (SNOMED | | | | en DO | | | | | | CT) | | | | | | | | +---------+---------+---------+---------+---------+---------+---------+---------+---------+ | PES | [id number] | | Removed | | Pretty | | Pes | | | PLANUS | 7 | /10 | | /10 | [facility] | | planus | | | | (SNOMED | | | | en DO | | | | | | CT) | | | | | | | | +---------+---------+---------+---------+---------+---------+---------+---------+---------+ | FOOT | [id number] | | Removed | | Pretty | | Foot | | | PAIN, | 7 | /10 | | /10 | [facility] | | pain | | | LEFT | (SNOMED | | | | en DO | | | | | | CT) | | | | | | | | +---------+---------+---------+---------+---------+---------+---------+---------+---------+ | SHOULDE | [id number] | | Removed | | Pretty | | Shoulde | | | R PAIN | 0 | /10 | | /10 | [facility] | | r pain | | | | (SNOMED | | | | en DO | | | | | | CT) | | | | | | | | +---------+---------+---------+---------+---------+---------+---------+---------+---------+ | HYPERTE | [id number] | | Active | | Pretty | | Hyperte | | | NSION, | 3 | /04 | | /04 | [facility] | | nsive | | | UNSPECI | (SNOMED | | | | en DO | | disorde | | | FIED | CT) | | | | | | r | | +---------+---------+---------+---------+---------+---------+---------+---------+---------+ Medications + + + + + + + + | Medication | Instructio | Start Date | Stop Date | Generic | NDC | Provider | | | ns | | | Name | | | + + + + + + + + | BALANCE | 1 po bid | | | BALANCE | | Pretty | | COMPLETE | for hot | | | COMPLETE | | Norah | | | flashes | | | | | DO | + + + + + + + + | LIVALO 2 | 1 tab | | | PITAVASTAT | [phone] | Patience | | MG TABS | three | | | IN CALCIUM | 0 | Ramesh | | | nights a | | | | | NCMA | | | week for | | | | | | | | cholestero | | | | | | | | l - take | | | | | | | | with | | | | | | | | Co-Q-10 | | | | | | | | over the | | | | | | | | counter | | | | | | + + + + + + + + | CEPHALEXIN | 1 cap | | | CEPHALEXIN | [id number] | Lynn L | | 500 MG | twice a | | | | 8 | Kennedy MD | | CAPS | day for 7 | | | | | | | | days | | | | | | + + + + + + + + | BIDROCIRAL | 1 po QOD | | | BIDROCIRAL | | Sandra | | 50 MG | | | | 50 MG | | Collins [employer] | + + + + + + + + | METOPROLOL | 1/2 po | | | METOPROLOL | [id number] | Pretty | | SUCCINATE | daily | | | SUCCINATE | 1 | Norah | | ER 50 MG | | | | | | DO | | [id number] | | | | | | | + + + + + + + + | ASPIRIN 81 | 1 every | | | ASPIRIN | [id number] | Pretty | | MG TABS | other | | | | 0 | Norah | | | night with | | | | | DO | | | food to | | | | | | | | prevent | | | | | | | | mini-strok | | | | | | | | es | | | | | | + + + + + + + + | NITROGLYCE | 1 SL every | | | NITROGLYCE | | Pretty | | RIN 0.4 MG | 5 min as | | | RIN | | Norah | | SUBL | needed for | | | | | DO | | | chest | | | | | | | | pain, max | | | | | | | | 3 doses | | | | | | | | per | | | | | | | | episode | | | | | | + + + + + + + + | CALCIUM | 2 tablets | | | CALCIUM | [id number] | Lynn L | | 600 MG | daily. 1 | | | | 8 | Kennedy MD | | TABS | in morning | | | | | | | | and 1 at | | | | | | | | bedtime | | | | | | + + + + + + + + | MULTI-AIMEE | 1 tab po q | | | MULTIPLE | [id number] | Son | | MIN TABS | day | | | VITAMIN | 0 | Imelda MD | + + + + + + + + | HYZAAR | 1 by mouth | | | LOSARTAN | [id number] | Pretty | | 100-25 MG | every day | | | POTASSIUM- | 0 | Norah | | TABS | for blood | | | HCTZ | | DO | | | pressure | | | | | | + + + + + + + + | ALEVE 220 | 1 po Q day | | | NAPROXEN | [id number] | Isabel | | MG TABS | for | | | SODIUM | 4 | Lucius RICO | | | arthritis | | | | | | | | PRN | | | | | | + + + + + + + + | NASONEX 50 | 2 sprays | | | MOMETASONE | [id number] | Lynn L | | MCG/ACT | each | | | FUROATE | 1 | Kennedy RICO | | SUSP | nostril | | | | | | | | every day | | | | | | + + + + + + + + | METRONIDAZ | 1 bid x 10 | | | METRONIDAZ | [id number] | Sandra | | OLE 500 MG | days | | | OLE | 8 | Collins 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 CLERK | | TABS | | | | | | | + + + + + + + + | ASPIRIN 81 | 1 every | | | ASPIRIN | [id number] | Son | | MG TABS | other day | | | | 0 | Imelda MD | | | by mouth | | | | | | | | every | | | | | | | | other day | | | | | | + + + + + + + + | TYLENOL | 1 po qd | | | ACETAMINOP | [id number] | Pretty | | ARTHRITIS | prn | | | HEN | 0 | Norah | | PAIN 650 | | | | | | DO | | MG CR-TABS | | | | | | | + + + + + + + + | ZITHROMAX | 2 p.o | | | AZITHROMYC | [id number] | Lynn L | | Z-SHAILESH 250 | humphrey 1 | | | IN | 5 | Kennedy MD | | MG TABS | then 1 p.o | | | | | | | | dialy day | | | | | | | | 2 to 5 | | | | | | + + + + + + + + | OXYCODONE- | take 1 | | | OXYCODONE- | [id number] | Lynn L | | ACETAMINOP | tablets by | | | ACETAMINOP | 1 | Kennedy MD | | HEN 10-325 | mouth | | | HEN | | | | MG TABS | every 4-6 | | | | | | | | hours prn | | | | | | | | pain | | | | | | + + + + + + + + | ASPIRIN 81 | 1 QOD by | | | ASPIRIN | [id number] | Pretty | | MG TABS | mouth | | | | 0 | Norah | | | every | | | | | DO | | | other day | | | | | | + + + + + + + + | ALEVE 220 | 1 tab once | | | NAPROXEN | [id number] | Lynn L | | MG TABS | a day as | | | SODIUM | 4 | Knenedy RICO | | | needed for | | | | | | | | arthritis | | | | | | | | pain - | | | | | | | | take with | | | | | | | | food | | | | | | + + + + + + + + | ALEVE 220 | 1 tab once | | | NAPROXEN | [id number] | Lynn L | | MG TABS | a day as | | | SODIUM | 4 | Kennedy MD | | | needed for | | | | | | | | arthritis | | | | | | | | pain - | | | | | | | | take with | | | | | | | | food | | | | | | + + + + + + + + | NORCO | take 1 - 2 | | | HYDROCODON | [id number] | Lynn L | | 10-325 MG | tablets | | | E-ACETAMIN | 0 | Kennedy MD | | TABS | by mouth | | | OPHEN | | | | | every 4-6 | | | | | | | | hours prn | | | | | | | | pain | | | | | | + + + + + + + + | NITROGLYCE | 1 SL every | | | NITROGLYCE | [id number] | Pretty | | RIN 0.4 MG | 5 min as | | | RIN | 5 | Norah | | SUBL | needed for | | | | | DO | | | chest | | | | | | | | pain, max | | | | | | | | 3 doses | | | | | | | | per | | | | | | | | episode | | | | | | + + + + + + + + | PENNSAID | apply to | | | DICLOFENAC | [id number] | Crystal | | 1.5 % SOLN | affected | | | SODIUM | 5 | Noel | | | area qid | | | | | PROTECTIVE SERVICES CASE WORKER | | | prn | | | | | | + + + + + + + + | ASPIRIN 81 | 1 by mouth | | | ASPIRIN | [id number] | Pretty | | MG TABS | every day | | | | 0 | Norah | | | | | | | | DO | + + + + + + + + | EQL | Daily | | | [place] | [phone] | Eva | | VITAMIN | | | | PHOSPHATE- | 2 | Mima | | D-3 HIGH | | | | CHOLECALCI | | | | POTENCY | | | | FEROL | | | | 115-2000 | | | | | | | | MG-UNIT | | | | | | | | TABS | | | | | | | + + + + + + + + | ASCORBIC | 1 po qd | | | ASCORBIC | [id number] | Pretty | | ACID 1000 | | | | ACID | 0 | Norah | | MG TABS | | | | | | DO | + + + + + + + + | HYDROCHLOR | Take 1 po | | | HYDROCHLOR | [id number] | Sandra | | OTHIAZIDE | qod | | | OTHIAZIDE | 0 | Collins INTAKE CLERK | | 25 MG TABS | | | | | | | + + + + + + + + | TYLENOL | 1 po qd | | | ACETAMINOP | [id number] | Pretty | | ARTHRITIS | prn | | | HEN | 0 | Norah | | PAIN 650 | | | | | | DO | | MG CR-TABS | | | | | | | + + + + + + + + | ALEVE 220 | 1 po QD | | | NAPROXEN | [id number] | Pretty | | MG TABS | for | | | SODIUM | 4 | Norah | | | arthritis | | | | | DO | | | PRN | | | | | | + + + + + + + + | PRILOSEC | one po qd | | | OMEPRAZOLE | [id number] | Pretty | | OTC 20 MG | | | | MAGNESIUM | 0 | Norah | | TBEC | | | | | | DO | + + + + + + + + | ALEVE 220 | 1 po bid | | | NAPROXEN | [id number] | Pretty | | MG TABS | for | | | SODIUM | 4 | Norah | | | arthritis | | | | | DO | + + + + + + + + | ASPIRIN 81 | 1 every | | | ASPIRIN | [id number] | Lynn L | | MG TABS | other | | | | 0 | Kennedy MD | | | night with | | | | | | | | food to | | | | | | | | prevent | | | | | | | | mini-strok | | | | | | | | es | | | | | | + + + + + + + + | ALEVE 220 | 1 po bid | | | NAPROXEN | [id number] | Eva | | MG TABS | for | | | SODIUM | 0 | [place] | | | arthritis | | | | | | | | PRN | | | | | | + + + + + + + + | EXFORGE | 1 by mouth | | | EXFORGE | | Sandra | | 5-320 | two times | | | 5-320 | | Collisn INTAKE CLERK | | | per day | | | | | | + + + + + + + + | GABAPENTIN | 1 at hs | | | GABAPENTIN | [id number] | Sandra | | 100 MG | for low | | | | 7 | Kusler [employer] SE[employer]ER | | CAPS | back pain | | | | | | | | may | | | | | | | | incerease | | | | | | | | by one | | | | | | | | caps q 4-5 | | | | | | | | days up | | | | | | | | to 3 at hs | | | | | | | | if no ill | | | | | | | | side | | | | | | | | affects | | | | | | + + + + + + + + | MULTI-AIMEE | 1 tab po q | | | MULTIPLE | [id number] | Lynn L | | MIN TABS | day | | | VITAMIN | 0 | Benavides MD | + + + + + + + + | HYDROCODON | ONE TAB | | | HYDROCODON | [id number] | Ky | | E-ACETAMIN | Q4-6HR PRN | | | E-ACETAMIN | 1 | Bitter MD | | OPHEN | PAIN | | | OPHEN | | | | 7.5-325 MG | | | | | | | | TABS | | | | | | | + + + + + + + + | MOVIPREP | mix and | | | PEG-KCL-NA | [id number] | Lynn L | | 100 GM | drink one | | | CL-NASULF- | 5 | Kennedy MD | | SOLR | set of | | | NA ASC-C | | | | | solution | | | | | | | | 5pm day | | | | | | | | before | | | | | | | | procedure. | | | | | | | | Mix and | | | | | | | | drink 2nd | | | | | | | | set of | | | | | | | | solution 4 | | | | | | | | hours | | | | | | | | before | | | | | | | | check in | | | | | | | | time | | | | | | + + + + + + + + | PRILOSEC | 2 caps | | | OMEPRAZOLE | 7752149003 | Pretty | | 20 MG CPDR | twice | | | | 4 | Norah | | | daily for | | | | | DO | | | 2 weeks, | | | | | | | | then 1 cap | | | | | | | | twice | | | | | | | | daily for | | | | | | | | 2 weeks, | | | | | | | | then 1 cap | | | | | | | | once | | | | | | | | daily | | | | | | + + + + + + + + | NORVASC 5 | one tablet | | | AMLODIPINE | 9603411009 | Pretty | | MG TABS | by mouth | | | BESYLATE | 9 | Norah | | | daily | | | | | DO | + + + + + + + + | LIVALO 4 | 1/2 p.o | | | PITAVASTAT | 6640352578 | Crystal | | MG TABS | daily | | | IN CALCIUM | 0 | Noel | | | | | | | | PROTECTIVE SERVICES CASE WORKER | + + + + + + + + | ASCORBIC | 1 po qd | | | ASCORBIC | [id number] | Emelina | | ACID 1000 | | | | ACID | 0 | Fanugao MA | | MG TABS | | | | | | | + + + + + + + + | EQL | Daily | | | CA | [phone] | Lynn L | | VITAMIN | | | | PHOSPHATE- | 2 | Kennedy MD | | D-3 HIGH | | | | CHOLECALCI | | | | POTENCY | | | | FEROL | | | | 115-2000 | | | | | | | | MG-UNIT | | | | | | | | TABS | | | | | | | + + + + + + + + | BIDROCIRAL | 1 po QOD | | | BIDROCIRAL | | Pretty | | 50 MG | | | | 50 MG | | Norah | | | | | | | | DO | + + + + + + + + | OXYCODONE- | take 1-2 | | | OXYCODONE- | [id number] | Claudine | | ACETAMINOP | tablets by | | | ACETAMINOP | 1 | Croucher | | HEN 10-325 | mouth | | | HEN | | NCMA | | MG TABS | every 4-6 | | | | | | | | hours prn | | | | | | | | pain | | | | | | + + + + + + + + | BALANCE | 1 po bid | | | BALANCE | | Pretty | | COMPLETE | for hot | | | COMPLETE | | Norah | | | flashes | | | | | DO | + + + + + + + + | ATORVASTAT | 07/18 p.o | | | ATORVASTAT | 3535184426 | Pretty | | IN CALCIUM | daily | | | IN CALCIUM | 7 | Norah | | 10 MG | | | | | | DO | | TABS | | | | | | | + + + + + + + + | HYDROCHLOR | Take 1 po | | | HYDROCHLOR | [id number] | Pretty | | OTHIAZIDE | qod | | | OTHIAZIDE | 0 | Norah | | 25 MG TABS | | | | | | DO | + + + + + + + + | EXFORGE | 1 po qd | | | AMLODIPINE | 5516275008 | Sandra | | 5-160 MG | along | | | | 5 | Kusler INTAKE CLERK | | TABS | | | | BESYLATE-V | | | | | 160mg | | | ALSARTAN | | | | | diovan | | | | | | + + + + + + + + | ALEVE 220 | 1 by mouth | | | NAPROXEN | 0527763161 | Pretty | | MG TABS | a day as | | | SODIUM | 0 | Norah | | | needed | | | | | DO | + + + + + + + + | D 1000 | 1,000 | | | CHOLECALCI | 1539773241 | Lynn L | | 1000 UNIT | internatio | | | FEROL | 7 | Benavides MD | | TABS | nal units | | | | | | | | once a day | | | | | | + + + + + + + + | ASPIRIN 81 | 1 by mouth | | | ASPIRIN | 2584138639 | Sandra | | MG TABS | every | | | | 5 | Kusler [employer] | | | other day | | | | | | + + + + + + + + | VITAMIN D | one tablet | | | VITAMIN D | | Sandra | | 2000 UNIT | by mouth | | | 2000 UNIT | | Kusler [employer]ER | | CAPS | daily | | | CAPS | | | | (ERGOCALCI | | | | (ERGOCALCI | | | | FEROL) | | | | FEROL) | | | + + + + + + + + | METOPROLOL | 1/2 po | | | METOPROLOL | [id number] | Pretty | | SUCCINATE | daily | | | SUCCINATE | 1 | Norah | | ER 50 MG | | | | | | DO | | [id number] | | | | | | | + + + + + + + + | CELEBREX | take 1 | | | CELECOXIB | [id number] | Lnyn L | | 100 MG | tablet by | | | | 0 | Benavides MD | | CAPS | mouth once | | | | | | | | daily | | | | | | + + + + + + + + | LIVALO 2 | 07/18 tab by | | | PITAVASTAT | 5619297287 | Cynthia M | | MG TABS | mouth | | | IN CALCIUM | 0 | Mckeon | | | twice a | | | | | NCMA | | | week at | | | | | | | | night for | | | | | | | | cholestero | | | | | | | | l - take | | | | | | | | CoQ-10 | | | | | | | | every | | | | | | | | night | | | | | | + + + + + + + + | ULTRACET | 1 to 2 p.o | | | TRAMADOL-A | 6122818470 | Lynn L | | 37.5-325 | bid prn | | | CETAMINOPH | 8 | Benavides MD | | MG TABS | | | | EN | | | + + + + + + + + | CALCIUM | 2 tablets | | | CALCIUM | 8967199711 | Ky | | 600 MG | daily. 1 | | | | 8 | Bitter MD | | TABS | in morning | | | | | | | | and 1 at | | | | | | | | bedtime | | | | | | + + + + + + + + | PRAVASTATI | take 07/18 | | | PRAVASTATI | [id number] | Sandra | | N SODIUM | po daily | | | N SODIUM | 0 | Collins INTAKE CLERK | | 80 MG TABS | | | | | | | + + + + + + + + | PREMARIN | 1 by mouth | | | ESTROGENS | 4195465480 | Pretty | | 0.625 MG | every day | | | CONJUGATED | 0 | Norah | | TABS | | | | | | DO | + + + + + + + + | LIVALO 2 | 07/18 tab by | | | PITAVASTAT | 9162829285 | Lynn L | | MG TABS | mouth | | | IN CALCIUM | 0 | Benavides MD | | | twice a | | | | | | | | week at | | | | | | | | night for | | | | | | | | cholestero | | | | | | | | l - take | | | | | | | | CoQ-10 | | | | | | | | every | | | | | | | | night | | | | | | + + + + + + + + | SUPREP | mix and | | | NA | [phone] | Esperanza | | BOWEL PREP | drink one | | | SULFATE-K | 1 | Little | | KIT | bottle at | | | SULFATE-MG | | CCMA | | 17.5-3.13- | 5pm day | | | SULF | | | | 1.6 | before | | | | | | | GM/180ML | procedure. | | | | | | | SOLN | mix and | | | | | | | | drink 2nd | | | | | | | | bottle 4 | | | | | | | | hours | | | | | | | | before | | | | | | | | check in | | | | | | | | time | | | | | | + + + + + + + + | MULTI-AIMEE | 1 tab po | | | MULTIPLE | 6778024825 | Pretty | | MIN TABS | qd | | | VITAMIN | 0 | Norah | | | | | | | | DO | + + + + + + + + | DULOXETINE | 1 tablet | | | DULOXETINE | 6827432610 | Patience | | HCL 30 MG | by mouth | | | HCL | 6 | Ramesh | | CPEP | daily | | | | | NCMA | + + + + + + + + | D 1000 | 1,000 | | | CHOLECALCI | 4634042369 | Patience | | 1000 UNIT | internatio | | | FEROL | 7 | Ramesh | | TABS | nal units | | | | | NCMA | | | once a day | | | | | | + + + + + + + + | ALEVE 220 | 1 po Q day | | | NAPROXEN | 9856614369 | Son | | MG TABS | for | | | SODIUM | 4 | Imelda RICO | | | arthritis | | | | | | | | PRN | | | | | | + + + + + + + + | PREMARIN | 1 by mouth | | | ESTROGENS | 1287314389 | Pretty | | 0.625 MG | every day | | | CONJUGATED | 0 | Norah | | TABS | | | | | | DO | + + + + + + + + | ULTRACET | 1 to 2 p.o | | | TRAMADOL-A | 4231398566 | Isabel | | 37.5-325 | bid prn | | | CETAMINOPH | 8 | Lucius MD | | MG TABS | | | | EN | | | + + + + + + + + | LIVALO 4 | 1/2 p.o | | | PITAVASTAT | 7766527015 | Pretty | | MG TABS | daily | | | IN CALCIUM | 0 | Norah | | | | | | | | DO | + + + + + + + + | HYDROCODON | 1 tab once | | | HYDROCODON | 5858339079 | Lynn L | | E-ACETAMIN | a day as | | | E-ACETAMIN | 0 | Kennedy RICO | | OPHEN | needed for | | | OPHEN | | | | 5-325 MG | severe | | | | | | | TABS | back pain | | | | | | | | - she has | | | | | | | | taken | | | | | | | | before | | | | | | + + + + + + + + | GABAPENTIN | 1 cap by | | | GABAPENTIN | 5961706003 | Lynn L | | 100 MG | mouth in | | | | 5 | Kennedy RICO | | CAPS | the | | | | | | | | morning | | | | | | | | for pain | | | | | | + + + + + + + + | ZITHROMAX | 2 p.o | | | AZITHROMYC | 3186178775 | Pretty | | Z-SHAILESH 250 | dialy 1 | | | IN | 5 | Norah | | MG TABS | then 1 p.o | | | | | DO | | | dialy day | | | | | | | | 2 to 5 | | | | | | + + + + + + + + | SUPREP | mix and | | | NA | [phone] | Son | | BOWEL PREP | drink one | | | SULFATE-K | 1 | Petrjenny MD | | KIT | bottle at | | | SULFATE-MG | | | | 17.5-3.13- | 5pm day | | | SULF | | | | 1.6 | before | | | | | | | GM/180ML | procedure. | | | | | | | SOLN | mix and | | | | | | | | drink 2nd | | | | | | | | bottle 4 | | | | | | | | hours | | | | | | | | before | | | | | | | | check in | | | | | | | | time | | | | | | + + + + + + + + | JOSE LUISZAAR | 1 by mouth | | | LOSARTAN | 8136507008 | Lynn L | | 100-25 MG | every day | | | POTASSIUM- | 0 | Kennedy RICO | | TABS | for blood | | | HCTZ | | | | | pressure | | | | | | + + + + + + + + | NORVASC 5 | one tablet | | | AMLODIPINE | 3104596136 | Lynn L | | MG TABS | by mouth | | | BESYLATE | 9 | Kennedy RICO | | | daily | | | | | | + + + + + + + + | PRILOSEC | 2 caps | | | OMEPRAZOLE | 6890586873 | Lynn L | | 20 MG CPDR | twice | | | | 4 | Kennedy RICO | | | daily for | | | | | | | | 2 weeks, | | | | | | | | then 1 cap | | | | | | | | twice | | | | | | | | daily for | | | | | | | | 2 weeks, | | | | | | | | then 1 cap | | | | | | | | once | | | | | | | | daily | | | | | | + + + + + + + + | MIRAPEX | 1 every | | | PRAMIPEXOL | [id number] | Lynn L | | 0.25 MG | other | | | E | 1 | Kennedy RICO | | TABS | night for | | | DIHYDROCHL | | | | | restless | | | ORIDE | | | | | legs | | | | | | + + + + + + + + | HYDROCODON | 1 tab once | | | HYDROCODON | [id number] | Lynn Nolen | | E-ACETAMIN | a day as | | | E-ACETAMIN | 4 | Kennedy RICO | | OPHEN | needed for | | | OPHEN | | | | 5-325 MG | severe | | | | | | | TABS | back pain | | | | | | | | - she has | | | | | | | | taken | | | | | | | | before | | | | | | + + + + + + + + | GABAPENTIN | 1 cap by | | | GABAPENTIN | 7988862807 | Lynn L | | 100 MG | mouth in | | | | 5 | Kennedy MD | | CAPS | the | | | | | | | | morning | | | | | | | | for pain | | | | | | + + + + + + + + | GABAPENTIN | 1 cap by | | | GABAPENTIN | 9738935283 | Magali | | 100 MG | mouth in | | | | 1 | Felix RICO | | CAPS | the | | | | | | | | morning | | | | | | | | and 2 caps | | | | | | | | by mouth | | | | | | | | in the | | | | | | | | evening. | | | | | | + + + + + + + + | NORCO | take 1 - 2 | | | HYDROCODON | [id number] | Magali | | 10-325 MG | tablets | | | E-ACETAMIN | 0 | Felix RICO | | TABS | by mouth | | | OPHEN | | | | | every 4-6 | | | | | | | | hours prn | | | | | | | | pain | | | | | | + + + + + + + + | DULOXETINE | 1 tablet | | | DULOXETINE | [id number] | Lynn L | | HCL 30 MG | by mouth | | | HCL | 6 | Kennedy RICO | | CPEP | daily | | | | | | + + + + + + + + | OXYCODONE- | take 1 | | | OXYCODONE- | 4271101747 | Magali | | ACETAMINOP | tablets by | | | ACETAMINOP | 1 | Felix RICO | | HEN 10-325 | mouth | | | HEN | | | | MG TABS | every 4-6 | | | | | | | | hours prn | | | | | | | | pain | | | | | | + + + + + + + + | CEPHALEXIN | 1 cap | | | CEPHALEXIN | [id number] | Lynn L | | 500 MG | twice a | | | | 8 | Kennedy RICO | | CAPS | day for 7 | | | | | | | | days | | | | | | + + + + + + + + | NORCO | 1-2 po q | | | NORCO | | Lynn L | | 5-325 MG | 12 hrs prn | | | 5-325 MG | | Kennedy RICO | | TABS | | | | TABS | | | | (ACETAMINO | | | | (ACETAMINO | | | | PHEN-HYDRO | | | | PHEN-HYDRO | | | | CODONE) | | | | CODONE) | | | + + + + + + + + | LIVALO 2 | 1 tab | | | PITAVASTAT | 9859465251 | Lynn L | | MG TABS | three | | | IN CALCIUM | 0 | Benavides MD | | | nights a | | | | | | | | week for | | | | | | | | cholestero | | | | | | | | l - take | | | | | | | | with | | | | | | | | Co-Q-10 | | | | | | | | over the | | | | | | | | counter | | | | | | + + + + + + + + | OMEPRAZOLE | 1 by mouth | | | OMEPRAZOLE | 6359548984 | Kal | | 20 MG | two times | | | | 0 | Chyna | | CPDR | per day. | | | | | MD | | | Take one | | | | | | | | hour | | | | | | | | before | | | | | | | | meals | | | | | | + + + + + + + + | CELEBREX | take 1 | | | CELECOXIB | 8939008009 | Lynn L | | 100 MG | tablet by | | | | 0 | Benavides MD | | CAPS | mouth once | | | | | | | | daily | | | | | | + + + + + + + + | MIRAPEX | 1 p.o | | | PRAMIPEXOL | [id number] | Pretty | | 0.25 MG | every | | | E | 0 | Norah | | TABS | other day | | | DIHYDROCHL | | DO | | | - bedtime | | | ORIDE | | | + + + + + + + + | HYZAAR | 1 by mouth | | | LOSARTAN | 0088826854 | Pretty | | 100-25 MG | every day | | | POTASSIUM- | 1 | Norah | | TABS | | | | HCTZ | | DO | + + + + + + + + | PRILOSEC | 1 by mouth | | | OMEPRAZOLE | 7849055380 | Pretty | | 20 MG CPDR | every day | | | | 4 | Norah | | | | | | | | DO | + + + + + + + + | MOVIPREP | mix and | | | PEG-KCL-NA | 1655962160 | Son | | 100 GM | drink one | | | CL-NASULF- | 5 | Petre MD | | SOLR | set of | | | NA ASC-C | | | | | solution | | | | | | | | 5pm day | | | | | | | | before | | | | | | | | procedure. | | | | | | | | Mix and | | | | | | | | drink 2nd | | | | | | | | set of | | | | | | | | solution 4 | | | | | | | | hours | | | | | | | | before | | | | | | | | check in | | | | | | | | time | | | | | | + + + + + + + + | MIRAPEX | 1 p.o qod- | | | PRAMIPEXOL | [id number] | Pretty | | 0.25 MG | bedtime | | | E | 0 | Norah | | TABS | | | | DIHYDROCHL | | DO | | | | | | ORIDE | | | + + + + + + + + | VICODIN | 1-2 po q | | | ACETAMINOP | 4887252573 | Pretty | | 5-500 MG | 12 hrs prn | | | HEN-HYDROC | 4 | Norah | | TABS | | | | ODONE | | DO | + + + + + + + + | HYDROCODON | ONE TAB | | | HYDROCODON | 1438691560 | Ky | | E-ACETAMIN | Q4-6HR PRN | | | E-ACETAMIN | 1 | Bitter MD | | OPHEN | PAIN | | | OPHEN | | | | 7.5-325 MG | | | | | | | | TABS | | | | | | | + + + + + + + + | ATORVASTAT | 1/2 p.o | | | ATORVASTAT | 5217249409 | Pretty | | IN CALCIUM | daily | | | IN CALCIUM | 7 | Norah | | 10 MG | | | | | | DO | | TABS | | | | | | | + + + + + + + + | AUGMENTIN | 2 two | | | AMOXICILLI | 0806784575 | Pretty | | XR | times per | | | N-POT | 1 | Norah | | 1000-62.5 | day | | | CLAVULANAT | | DO | | MG | | | | E | | | | [id number] | | | | | | | + + + + + + + + | NASONEX 50 | 2 sprays | | | MOMETASONE | 4943457289 | Pretty | | MCG/ACT | each | | | FUROATE | 1 | Norah | | SUSP | nostril | | | | | DO | | | every day | | | | | | + + + + + + + + | ULTRACET | 1 to 2 p.o | | | TRAMADOL-A | 6201390441 | Pretty | | 37.5-325 | bid prn | | | CETAMINOPH | 8 | Norah | | MG TABS | | | | EN | | DO | + + + + + + + + | NITROGLYCE | 1 SL every | | | NITROGLYCE | | Pretty | | RIN 0.4 MG | 5 min as | | | RIN | | Norah | | SUBL | needed for | | | | | DO | | | chest | | | | | | | | pain, max | | | | | | | | 3 doses | | | | | | | | per | | | | | | | | episode | | | | | | + + + + + + + + | MIRAPEX | 1 p.o qhs | | | PRAMIPEXOL | [id number] | Pretty | | 0.25 MG | | | | E | 1 | Norah | | TABS | | | | DIHYDROCHL | | DO | | | | | | ORIDE | | | + + + + + + + + | PENNSAID | apply to | | | DICLOFENAC | [id number] | Pretty | | 1.5 % SOLN | affected | | | SODIUM | 5 | Norah | | | area qid | | | | | DO | | | prn | | | | | | + + + + + + + + | LIVALO 4 | 1 p.o | | | PITAVASTAT | [id number] | Pretty | | MG TABS | daily | | | IN CALCIUM | 0 | Norah | | | | | | | | DO | + + + + + + + + | VICODIN | 1-2 po q | | | ACETAMINOP | [id number] | Sandra | | 5-500 MG | 12 hrs | | | HEN-HYDROC | 4 | Sylvesterschaya INTAKE CLERK | | TABS | | | | ODONE | | | + + + + + + + + | DIOVAN 160 | one tablet | | | VALSARTAN | 1453373411 | Sandra | | MG TABS | by mouth | | | | 3 | Sylvestersler INTAKE CLERK | | | daily | | | | | | + + + + + + + + | METOPROLOL | take one | | | METOPROLOL | [id number] | Sandra | | SUCCINATE | po daily | | | SUCCINATE | 1 | Collins INTAKE CLERK | | ER 50 MG | | | | | | | | [id number] | | | | | | | + + + + + + + + | PRAVASTATI | take 07/18 | | | PRAVASTATI | [id number] | Sandra | | N SODIUM | po daily | | | N SODIUM | 0 | Sylvestersler [employer] SE[employer] | | 80 MG TABS | | | | | | | + + + + + + + + | GABAPENTIN | 1 at hs | | | GABAPENTIN | [id number] | Lars | | 100 MG | for low | | | | 7 | Ramirez DO | | CAPS | back pain | | | | | | | | may | | | | | | | | incerease | | | | | | | | by one | | | | | | | | caps q 4-5 | | | | | | | | days up | | | | | | | | to 3 at hs | | | | | | | | if no ill | | | | | | | | side | | | | | | | | affects | | | | | | + + + + + + + + | METRONIDAZ | 1 bid x 10 | | | METRONIDAZ | [id number] | Lars | | OLE 500 MG | days | | | OLE | 8 | Ramirez DO | | TABS | | | | | | | + + + + + + + + | TOPROL XL | 1 by mouth | | | METOPROLOL | [id number] | Pretty | | 50 MG | every day | | | SUCCINATE | 9 | Norah | | [id number]-VLO | | | | | | DO | + + + + + + + + | VICODIN | 1 by mouth | | | ACETAMINOP | [id number] | Pretty | | 5-500 MG | every 4 | | | HEN-HYDROC | 1 | Norah | | TABS | to 6 hours | | | ODONE | | DO | | | as needed | | | | | | + + + + + + + + | DIOVAN 160 | 1/2 po qd | | | VALSARTAN | [id number] | Pretty | | MG TABS | along | | | | 5 | Norah | | | w/exforge | | | | | DO | | | 5/160mg | | | | | | + + + + + + + + | EXFORGE | 1 po qd | | | AMLODIPINE | [id number] | Pretty | | 5-160 MG | along | | | | 5 | Norah | | TABS | w/1/2 | | | BESYLATE-V | | DO | | | 160mg | | | ALSARTAN | | | | | diovan | | | | | | + + + + + + + + | EXFORGE | 1 by mouth | | | EXFORGE | | Pretty | | 5-320 | two times | | | 5-320 | | Norah | | | per day | | | | | DO | + + + + + + + + | NITROGLYCE | 1 SL every | | | NITROGLYCE | [id number] | Aniko | | RIN 0.4 MG | 5 min as | | | RIN | 5 | Angulo RN | | SUBL | needed for | | | | | | | | chest | | | | | | | | pain, max | | | | | | | | 3 doses | | | | | | | | per | | | | | | | | episode | | | | | | + + + + + + + + | EXFORGE | 1 by mouth | | | EXFORGE | | Pretty | | 10320 | two times | | | 10320 | | Norah | | | per day | | | | | DO | + + + + + + + + Medications Administered No information available. Allergies, Adverse Reactions, Alerts + + + + + + + | Allergy Name | Reaction | Start Date | Severity | Status | Provider | | | Description | | | | | + + + + + + + | CYMBALTA | diarrhea | | Critical | | Patience Chandler | | | | | | | NCMA | + + + + + + + | MORPHINE | | | Moderate | No Longer | Claudine | | | | | | Active | Croucher | | | | | | | NCMA | + + + + + + + | MORPHINE | extreme | | Severe | | Ky | | | nervousness | | | | Bitter MD | | | - | | | | | | | hallucinatio | | | | | | | ns | | | | | + + + + + + + | ATORVASTATIN | about | | Critical | | Pretty | | CALCIUM | crippled pt | | | | Norah DO | + + + + + + + | STATIN | fatigue, | | Severe | | Sandra Wagnerler | | | muscle/joint | | | | INTAKE CLERK | | | pain | | | | | + + + + + + + | LOTREL | | | Moderate | | Corynn | | | | | | | Norah MA | + + + + + + + | MORPHINE | | | Moderate | No Longer | Corynn | | | | | | Active | Norah RODRIGUEZ | + + + + + + + Results +------+------+-------+------+-------+------+ + | Date | Name | Value | Unit | Range | Flag | Descriptio | | | | | | | | n | +------+------+-------+------+-------+------+ + + + | Lab Report: VITAMIN D2 D3, 25-HYDROXY | + + + + +------+-------+ +---+ + | | VITD 25OH | 49.1 | | 24.0-80.0 | N | VITAMIN D, | | | TO | | | | | 25 OH, | | | | | | | | TOTAL | + + +------+-------+ +---+ + | | 25HD3 | 49.1 | ng/mL | | N | Vitamin D, | | | | | | | | 25 | | | | | | | | Hydroxy D3 | + + +------+-------+ +---+ + | | 25HD2 | <4.0 | ng/mL | | N | Vitamin D, | | | | | | | | 25 | | | | | | | | Hydroxy D2 | + + +------+-------+ +---+ + + + | Lab Report: Parathyroid Hormone, Intact | + + + + +----+-------+-------+---+ + | | PTHBIOINTA | 42 | pg/mL | 12-88 | N | Parathormo | | | CT | | | | | ne | | | | | | | | (parathyro | | | | | | | | id | | | | | | | | hormone), | | | | | | | | bio-intact | + + +----+-------+-------+---+ + + + | Lab Report: Comprehensive Metabolic Panel, Coronary Risk Panel, Thyroid ... | + + + + +---------+ + +---+ + | | T4, FREE | 1.20 | ng/dL | 0.70-1.60 | N | thyroxine, | | | | | | | | serum, | | | | | | | | free | + + +---------+ + +---+ + | | T3 FREE | 3.30 | pg/mL | 2.18-3.98 | N | triiodothy | | | | | | | | ronine, | | | | | | | | free, | | | | | | | | serum | + + +---------+ + +---+ + | | TSH ULTRA | 1.330 | u[iU]/mL | 0.360-4.80 | N | thyroid | | | | | | 0 | | stimulatin | | | | | | | | g hormone | | | | | | | | (TSH), | | | | | | | | ultra | | | | | | | | sensitive | + + +---------+ + +---+ + | | C-LDL/C-HD | 5.2 | | | N | LDL/HDL | | | L | | | | | ratio, | | | | | | | | serum | + + +---------+ + +---+ + | | CHOL/HDL | 7.8 | | | N | cholestero | | | | | | | | l/HDL | | | | | | | | ratio, | | | | | | | | serum | + + +---------+ + +---+ + | | VLDL | 65 | mg/dL | 6-32 | H | very low | | | | | | | | density | | | | | | | | lipoprotei | | | | | | | | ns | + + +---------+ + +---+ + | | LDL | 207 | mg/dL | 0-110 | H | Cholestero | | | | | | | | l in LDL | | | | | | | | [Mass/volu | | | | | | | | me] in | | | | | | | | Serum or | | | | | | | | Plasma | + + +---------+ + +---+ + | | HDL | 40 | mg/dL | >39 | N | Cholestero | | | | | | | | l in HDL | | | | | | | | [Mass/volu | | | | | | | | me] in | | | | | | | | Serum or | | | | | | | | Plasma | + + +---------+ + +---+ + | | TRIGLYCERI | 328 | mg/dL | 30-160 | H | Triglyceri | | | DE | | | | | de | | | | | | | | [Mass/volu | | | | | | | | me] in | | | | | | | | Serum or | | | | | | | | Plasma | + + +---------+ + +---+ + | | CHOLESTERO | 313 | mg/dL | 50-200 | H | Cholestero | | | L | | | | | l | | | | | | | | [Mass/volu | | | | | | | | me] in | | | | | | | | Serum or | | | | | | | | Plasma | + + +---------+ + +---+ + | | ZZ-GE-UNK | Fasting | | | N | GE use | | | | | | | | only - for | | | | | | | | [employer] | | | | | | | | import | | | | | | | | when terms | | | | | | | | are not | | | | | | | | otherwise | | | | | | | | specified | + + +---------+ + +---+ + | | SGPT (ALT) | 26 | U/L | 12-78 | N | alanine | | | | | | | | aminotrans | | | | | | | | ferase | | | | | | | | (SGPT), | | | | | | | | serum | + + +---------+ + +---+ + | | SGOT (AST) | 20 | U/L | 12-37 | N | aspartate | | | | | | | | aminotrans | | | | | | | | ferase | | | | | | | | (SGOT), | | | | | | | | serum | + + +---------+ + +---+ + | | ALK PHOS | 123 | U/L | 50-136 | N | alkaline | | | | | | | | phosphatas | | | | | | | | e, serum | + + +---------+ + +---+ + | | BILI TOTAL | 0.5 | mg/dL | 0.1-1.0 | N | bilirubin, | | | | | | | | serum, | | | | | | | | total | + + +---------+ + +---+ + | | A/G RATIO | 1.0 | | 0.8-1.8 | N | albumin/gl | | | | | | | | obulin | | | | | | | | ratio, | | | | | | | | serum | + + +---------+ + +---+ + | | GLOBULIN | 4.1 | g/dL | 2.2-4.0 | H | globulins, | | | TOT | | | | | serum, | | | | | | | | total | + + +---------+ + +---+ + | | ALBUMIN | 4.0 | g/dL | 3.4-5.0 | N | albumin, | | | | | | | | serum | + + +---------+ + +---+ + | | PROTEIN, | 8.1 | g/dL | 6.4-8.2 | N | protein, | | | TOT | | | | | total, | | | | | | | | serum | + + +---------+ + +---+ + | | CALCIUM | 10.2 | mg/dL | 8.5-10.1 | H | calcium, | | | | | | | | serum | + + +---------+ + +---+ + | | GFRC | >60 | mL/min/1.7 | 60- | N | Glomerular | | | | | 3m2 | | | | | | | | | | | Filtration | | | | | | | | Rate | | | | | | | | Calculatio | | | | | | | | n | + + +---------+ + +---+ + | | BUN/CREAT | 23.4 % | | 12.0-20.0 | H | urea | | | | | | | | nitrogen/c | | | | | | | | reatinine | | | | | | | | ratio, | | | | | | | | serum | + + +---------+ + +---+ + | | CREATININE | 0.90 | mg/dL | 0.40-1.00 | N | creatinine | | | | | | | | , serum | + + +---------+ + +---+ + | | BUN | 21 | mg/dL | 8-24 | N | urea | | | | | | | | nitrogen, | | | | | | | | blood | + + +---------+ + +---+ + | | GLUCOSE | 101 | mg/dL | 70-99 | H | blood | | | SER | | | | | glucose | + + +---------+ + +---+ + | | ANION GAP | 9 | mmol/L | 6-16 | N | anion gap, | | | | | | | | serum | + + +---------+ + +---+ + | | CO2 | 27 | mmol/L | 21-32 | N | carbon | | | | | | | | dioxide, | | | | | | | | venous | | | | | | | | blood | + + +---------+ + +---+ + | | CHLORIDE | 104 | mmol/L | 98-108 | N | chloride, | | | | | | | | serum | + + +---------+ + +---+ + | | POTASSIUM | 3.9 | mmol/L | 3.5-5.5 | N | potassium, | | | | | | | | serum | + + +---------+ + +---+ + | | SODIUM | 140 | mmol/L | 136-145 | N | sodium, | | | | | | | | serum | + + +---------+ + +---+ + + + | Lab Report: CBC with Auto Diff | + + + + +------+ + +---+ + | | ABSOLUTE | 0.05 | 10*3/uL | 0.00-0.23 | N | Absolute | | | BAS | | | | | Basophils | + + +------+ + +---+ + | | EOS ABSLT | 0.51 | 10*3/uL | 0.00-0.68 | N | Eosinophil | | | | | | | | Absolute | | | | | | | | Count | + + +------+ + +---+ + | | ABSOLUTE | 0.50 | 10*3/uL | 0.16-1.47 | N | Absolute | | | MON | | | | | Monocytes | + + +------+ + +---+ + | | LYMPHOCYTA | 2.32 | 10*3/uL | 0.84-5.20 | N | lymphocyte | | | BS | | | | | s, | | | | | | | | absolute | + + +------+ + +---+ + | | ANC | 4.32 | 10*3/mm3 | 1.96-9.15 | N | neutrophil | | | | | | | | count, | | | | | | | | blood | + + +------+ + +---+ + | | NRBCS/100W | 0.0 | % | 0.0-0.2 | N | nucleated | | | BC | | | | | red blood | | | | | | | | cells as | | | | | | | | percent of | | | | | | | | blood | | | | | | | | leukocytes | + + +------+ + +---+ + | | IMM GRANU | 0 | % | 0-1 | N | immature | | | % | | | | | granulocyt | | | | | | | | es, | | | | | | | | percentage | | | | | | | | of total | | | | | | | | cells, | | | | | | | | blood | + + +------+ + +---+ + | | BASOPHIL % | 1 | % | 0-2 | N | basophils | | | | | | | | as percent | | | | | | | | of blood | | | | | | | | leukocytes | + + +------+ + +---+ + | | EOSINOPHIL | 7 | % | 0-6 | H | eosinophil | | | % | | | | | s as | | | | | | | | percent of | | | | | | | | blood | | | | | | | | leukocytes | + + +------+ + +---+ + | | MONOCYTE % | 7 | % | 4-13 | N | monocytes | | | | | | | | as percent | | | | | | | | of blood | | | | | | | | leukocytes | + + +------+ + +---+ + | | LYMPHS % | 30 | % | 21-46 | N | lymphocyte | | | | | | | | s as | | | | | | | | percent of | | | | | | | | blood | | | | | | | | leukocytes | + + +------+ + +---+ + | | PMN % | 56 | % | 41-73 | N | neutrophil | | | | | | | | s as | | | | | | | | percent of | | | | | | | | blood | | | | | | | | leukocytes | + + +------+ + +---+ + | | MPV | 9.7 | fL | 9.1-12.4 | N | mean | | | | | | | | platelet | | | | | | | | volume | + + +------+ + +---+ + | | PLATELETS | 298 | 10*3/mm3 | 150-400 | N | platelet | | | | | | | | count | + + +------+ + +---+ + | | RDW | 14.2 | % | 11.7-14.2 | N | red blood | | | | | | | | cell | | | | | | | | distributi | | | | | | | | on width | + + +------+ + +---+ + | | RDW-SD | 44.8 | fL | 35.1-46.3 | N | red blood | | | | | | | | cell | | | | | | | | distributi | | | | | | | | on width, | | | | | | | | size | | | | | | | | density | + + +------+ + +---+ + | | MCHC RBC | 32.7 | g/dL | 31.5-36.5 | N | mean | | | | | | | | corpuscula | | | | | | | | r | | | | | | | | hemoglobin | | | | | | | | | | | | | | | | concentrat | | | | | | | | ion, RBC | + + +------+ + +---+ + | | MCH | 28.3 | pg | 26.0-34.0 | N | mean | | | | | | | | corpuscula | | | | | | | | r | | | | | | | | hemoglobin | | | | | | | | , RBC | + + +------+ + +---+ + | | MCV | 87 | fL | 80-100 | N | mean | | | | | | | | corpuscula | | | | | | | | r volume, | | | | | | | | RBC | + + +------+ + +---+ + | | HCT | 44.7 | % | 33.0-51.0 | N | hematocrit | | | | | | | | , blood | + + +------+ + +---+ + | | HGB | 14.6 | g/dL | 11.5-16.0 | N | hemoglobin | | | | | | | | , blood | + + +------+ + +---+ + | | RBC | 5.16 | 10*6/mm3 | 3.80-5.20 | N | erythrocyt | | | | | | | | e (RBC) | | | | | | | | count | + + +------+ + +---+ + | | WBC | 7.72 | 10*3/mm3 | 4.00-11.30 | N | leukocyte | | | | | | | | count, | | | | | | | | blood | + + +------+ + +---+ + + + | Office Visit: Follow up RIGHT shoulder and LEFT knee pain | + + + + + +---+---+---+ + | | ORTHIMAGIN | XR | | | | Imaging | | | G | Shoulder | | | | test | | | | Min | | | | results | | | | 2V-RightPa | | | | pertinent | | | | tient | | | | to | | | | Name: | | | | orthopedic | | | | CHERI WOODS | | | | s | | | | Y Ant | | | | | | | | Phys: | | | | | | | | Hortensia [place] | | | | | | | | ry Mary MD | | | | | | | | Exam | | | | | | | | Date:[facility] | | | | | | | | | | | | | | | | [facility] | | | | | | | | M # | | | | | | | | | | | | | | | | TYPE/EXAM | | | | | | | | | | | | | | | | | | | | | | | | | | | | | | | | | | | | | | | | | | | | | | | | | | | | | | | | [id number] | | | | | | | | 24.001 | | | | | | | | RAD/XR | | | | | | | | Shoulder | | | | | | | | Min | | | | | | | | 2V-Right | | | | | | | | | | | | | | | | Accession: | | | | | | | | | | | | | | | | [id number] | | | | | | | | MMRRIGHT | | | | | | | | SHOULDER | | | | | | | | X-RAY | | | | | | | | 02/22/2017 | | | | | | | | HISTORY: | | | | | | | | Pain.FINDI | | | | | | | | NGS: Four | | | | | | | | views | | | | | | | | obtained. | | | | | | | | There is | | | | | | | | no | | | | | | | | fracture, | | | | | | | | dislocatio | | | | | | | | n, or | | | | | | | | separation | | | | | | | | .No | | | | | | | | abnormal | | | | | | | | focal bone | | | | | | | | lesion. | | | | | | | | Mild | | | | | | | | narrowing | | | | | | | | and | | | | | | | | eburnation | | | | | | | | at the | | | | | | | | glenohumer | | | | | | | | aljoint. | | | | | | | | No | | | | | | | | deformity | | | | | | | | to the | | | | | | | | shape of | | | | | | | | the | | | | | | | | humeral | | | | | | | | head. AC | | | | | | | | joint has | | | | | | | | some | | | | | | | | mildnarrow | | | | | | | | ing and | | | | | | | | eburnation | | | | | | | | . Not well | | | | | | | | profiled | | | | | | | | on the | | | | | | | | images | | | | | | | | obtained.I | | | | | | | | MPRESSION: | | | | | | | | There is | | | | | | | | probably | | | | | | | | some mild | | | | | | | | arthritis | | | | | | | | in both | | | | | | | | the | | | | | | | | glenohumer | | | | | | | | al andAC | | | | | | | | joints. | | | | | | | | Otherwise | | | | | | | | unremarkab | | | | | | | | le | | | | | | | | study.[id number] | | | | | | | | [phone] | | | | | | | | 08Electron | | | | | | | | ically | | | | | | | | Signed On: | | | | | | | | | | | | | | | | 02/22/2017 | | | | | | | | | | | | | | | | 12:53:18El | | | | | | | | ectronical | | | | | | | | ly Signed | | | | | | | | By: LINKE | | | | | | | | Rigo | | | | | | | | LindenDict | | | | | | | | ated by: | | | | | | | | ColinRigo | | | | | | | | neth L MD | | | | | | | | 08/09/17 | | | | | | | | [id number] | | | | | | | | <Electr | | | | | | | | onically | | | | | | | | signed by | | | | | | | | Walter L | | | | | | | | MD Colin | | | | | | | | in OV>CC: | | | | | | | | NO PCP | | | | | | | | DOCTOR; | | | | | | | | [place] | | | | | | | | ry T | | | | | | | | [facility] | | | | | | | | [facility] | | | | | | | | | | | | | | | | [id number] | | | | | | | | [address] | | | | | | | [address] | | | | | | | | [address] | | | | | | | | [address] | | | | | | | | [place], [place] | | | | | | | | [id number] | | | | | + + + +---+---+---+ + | | FALL SCR | 14 | | | | Fall risk | | | | | | | | assessment | + + + +---+---+---+ + | | MEDS | Done | | | | Documentat | | | REVIEW | | | | | ion of | | | | | | | | current | | | | | | | | medication | | | | | | | | s | | | | | | | | (procedure | | | | | | | | ) | + + + +---+---+---+ + | | SMOK | Current | | | | Tobacco | | | STATUS | every day | | | | use CPHS | | | | smoker | | | | | + + + +---+---+---+ + + + | Office Visit: AWV | + + + + + +---+---+---+ + | | SMOK | Current | | | | Tobacco | | | STATUS | every day | | | | use CPHS | | | | smoker | | | | | + + + +---+---+---+ + | | FALL SCR | 8 | | | | Fall risk | | | | | | | | assessment | + + + +---+---+---+ + | | MEDS | Done | | | | Documentat | | | REVIEW | | | | | ion of | | | | | | | | current | | | | | | | | medication | | | | | | | | s | | | | | | | | (procedure | | | | | | | | ) | + + + +---+---+---+ + + + | Rx Refill: Sherrell Request for NEURONTIN 100MG CAPS | + + + +--------+ +---+---+---+ + | | ESM_RR | [phone] | | | B | e-scripts | | | | 1`NEURONTI | | | | messenger | | | | N 100MG | | | | refill | | | | CAPS```90 | | | | request | | | | Unspecifie | | | | | | | | d`90`TAKE | | | | | | | | ONE | | | | | | | | CAPSULE BY | | | | | | | | MOUTH | | | | | | | | EVERY | | | | | | | | MORNING | | | | | | | | FOR | | | | | | | | PAIN``4`0` | | | | | | | | 02/09/2017 | | | | | | | | ` | | | | | | | | 7`[facility] - | | | | | | | | | | | | | | | | [place]*` | | | | | | | | [phone] | | | | | | | | `[id number] | | | | | | | | 24``GABAPE | | | | | | | | NTIN 100MG | | | | | | | | CAPS | | | | | | | | Quantity: | | | | | | | | 90 | | | | | | | | Unspecifie | | | | | | | | d | | | | | | | | Instructio | | | | | | | | ns: TAKE | | | | | | | | ONE | | | | | | | | CAPSULE BY | | | | | | | | MOUTH | | | | | | | | EVERY | | | | | | | | MORNING | | | | | | | | FOR PAIN | | | | | + +--------+ +---+---+---+ + + + | Office Visit | + + + +--------+ +---+---+---+ + | | MEDS | Done | | | | Documentat | | | REVIEW | | | | | ion of | | | | | | | | current | | | | | | | | medication | | | | | | | | s | | | | | | | | (procedure | | | | | | | | ) | + +--------+ +---+---+---+ + | | SMOK | Current | | | | Tobacco | | | STATUS | every day | | | | use CPHS | | | | smoker | | | | | + +--------+ +---+---+---+ + + + | Imaging Report: ENT Ultrasound | + + + +---------+ +---+---+---+ + | | US NECK | Thyroid | | | | ultrasound | | | | ultrasound | | | | of neck | | | | | | | | | | | | report|[place] | | | | | | | | gnostic | | | | | | | | ultrasound | | | | | | | | of | | | | | | | | thyroid | | | | | | | | and soft | | | | | | | | tissues of | | | | | | | | | | | | | | | | neck.|Mult | | | | | | | | iple real | | | | | | | | time | | | | | | | | longitudin | | | | | | | | al and | | | | | | | | transverse | | | | | | | | images | | | | | | | | were | | | | | | | | obtained | | | | | | | | using high | | | | | | | | | | | | | | | | resolution | | | | | | | | grayscale | | | | | | | | and | | | | | | | | color-flow | | | | | | | | | | | | | | | | ultrasound | | | | | | | | with a | | | | | | | | linear | | | | | | | | transducer | | | | | | | | .|9/16 | | | | | | | | USFNA|Thyr | | | | | | | | oid | | | | | | | | nodule|Mar | | | | | | | | y is an | | | | | | | | oval-shape | | | | | | | | d, | | | | | | | | heterogene | | | | | | | | ous, | | | | | | | | nodule in | | | | | | | | the left | | | | | | | | thyroid | | | | | | | | that | | | | | | | | measures 2 | | | | | | | | x 1.5 cm | | | | | | | | in size. | | | | | | | | Multiple | | | | | | | | other | | | | | | | | subcentime | | | | | | | | ter | | | | | | | | nodules | | | | | | | | are noted | | | | | | | | bilaterall | | | | | | | | y.|Probabl | | | | | | | | e | | | | | | | | multinodul | | | | | | | | ar goiter | | | | | | | | with | | | | | | | | dominant | | | | | | | | nodule on | | | | | | | | the left. | | | | | | | | Previous | | | | | | | | FNA was | | | | | | | | benign. | | | | | | | | Continued | | | | | | | | observatio | | | | | | | | n is | | | | | | | | recommende | | | | | | | | d with | | | | | | | | repeat | | | | | | | | ultrasound | | | | | | | | in one | | | | | | | | year.||| | | | | | + +---------+ +---+---+---+ + + + | Office Visit: F/U- Thyroid Nodule | + + + +--------+ +---+---+---+ + | | SMOK | Current | | | | Tobacco | | | STATUS | every day | | | | use CPHS | | | | smoker | | | | | + +--------+ +---+---+---+ + + + | Office Visit | + + + +--------+ +---+---+---+ + | | MEDS | Done | | | | Documentat | | | REVIEW | | | | | ion of | | | | | | | | current | | | | | | | | medication | | | | | | | | s | | | | | | | | (procedure | | | | | | | | ) | + +--------+ +---+---+---+ + | | SMOK | Current | | | | Tobacco | | | STATUS | every day | | | | use CPHS | | | | smoker | | | | | + +--------+ +---+---+---+ + + + | Office Visit: 6 months | + + + +--------+------+---+---+---+ + | | MEDS | Done | | | | Documentat | | | REVIEW | | | | | ion of | | | | | | | | current | | | | | | | | medication | | | | | | | | s | | | | | | | | (procedure | | | | | | | | ) | + +--------+------+---+---+---+ + + + | Rx Refill: eRx Request for HYZAAR 100-25MG TABS | + + + +--------+ +---+---+---+ + | | ESM_RR | [phone] | | | B | e-scripts | | | | 1`HYZAAR | | | | messenger | | | | 100-25MG | | | | refill | | | | TABS```90 | | | | request | | | | Unspecifie | | | | | | | | d`90`TAKE | | | | | | | | ONE TABLET | | | | | | | | BY MOUTH | | | | | | | | EVERY DAY | | | | | | | | FOR BLOOD | | | | | | | | PRESSURE`` | | | | | | | | 4`0`07/25/ | | | | | | | | 2016`05/02 | | | | | | | | /2015`[facility] | | | | | | | | rt - | | | | | | | | [place]*` | | | | | | | | [id number] | | | | | | | | `[id number] | | | | | | | | 30`06210`L | | | | | | | | OSARTAN | | | | | | | | POTASSIUM- | | | | | | | | HCTZ | | | | | | | | 100-25 | | | | | | | | TABS | | | | | | | | Quantity: | | | | | | | | 90 | | | | | | | | Unspecifie | | | | | | | | d | | | | | | | | Instructio | | | | | | | | ns: TAKE | | | | | | | | ONE TABLET | | | | | | | | BY MOUTH | | | | | | | | EVERY DAY | | | | | | | | FOR BLOOD | | | | | | | | PRESSURE | | | | | + +--------+ +---+---+---+ + + + | Rx Refill: eRx Request for NORVASC 5MG TABS | + + + +--------+ +---+---+---+ + | | ESM_RR | [id number] | | | B | e-scripts | | | | 1`NORVASC | | | | messenger | | | | 5MG | | | | refill | | | | TABS```90 | | | | request | | | | Unspecifie | | | | | | | | d`90`TAKE | | | | | | | | ONE TABLET | | | | | | | | BY MOUTH | | | | | | | | EVERY | | | | | | | | DAY``4`0`1 | | | | | | | | 09/05/2015` | | | | | | | | 03/31/2016 | | | | | | | | `[facility] - | | | | | | | | [place]*` | | | | | | | | [phone] | | | | | | | | `[id number] | | | | | | | | 03``AMLODI | | | | | | | | PINE | | | | | | | | BESYLATE | | | | | | | | 5MG TABS | | | | | | | | Quantity: | | | | | | | | 90 | | | | | | | | Unspecifie | | | | | | | | d | | | | | | | | Instructio | | | | | | | | ns: TAKE | | | | | | | | ONE TABLET | | | | | | | | BY MOUTH | | | | | | | | EVERY DAY | | | | | + +--------+ +---+---+---+ + + + | Office Visit: f/u CT | + + + +--------+------+---+---+---+ + | | MEDS | Done | | | | Documentat | | | REVIEW | | | | | ion of | | | | | | | | current | | | | | | | | medication | | | | | | | | s | | | | | | | | (procedure | | | | | | | | ) | + +--------+------+---+---+---+ + + + | Lab Report: CBC With Differential/Platelet, Comp. Metabolic Panel (14) | + + + + + + + +---+ + | | SGPT (ALT) | 13 | U/L | 0-32 | | alanine | | | | | | | | aminotrans | | | | | | | | ferase | | | | | | | | (SGPT), | | | | | | | | serum | + + + + + +---+ + | | SGOT (AST) | 19 | U/L | 0-40 | | aspartate | | | | | | | | aminotrans | | | | | | | | ferase | | | | | | | | (SGOT), | | | | | | | | serum | + + + + + +---+ + | | ALK PHOS | 112 | U/L | 39-117 | | alkaline | | | | | | | | phosphatas | | | | | | | | e, serum | + + + + + +---+ + | | BILI TOTAL | 0.2 | mg/dL | 0.0-1.2 | | bilirubin, | | | | | | | | serum, | | | | | | | | total | + + + + + +---+ + | | ALB/GLOB | 1.7 | | 1.1-2.5 | | albumin/gl | | | S*R | | | | | obulin | | | | | | | | ratio, | | | | | | | | serum, | | | | | | | | from | | | | | | | | reference | | | | | | | | lab | + + + + + +---+ + | | ZZ-GE-UNK | 2.7 | g/dL | 1.5-4.5 | | GE use | | | | | | | | only - for | | | | | | | | [employer] | | | | | | | | import | | | | | | | | when terms | | | | | | | | are not | | | | | | | | otherwise | | | | | | | | specified | + + + + + +---+ + | | ALBUMIN | 4.5 | g/dL | 3.6-4.8 | | albumin, | | | | | | | | serum | + + + + + +---+ + | | PROTEIN, | 7.2 | g/dL | 6.0-8.5 | | protein, | | | TOT | | | | | total, | | | | | | | | serum | + + + + + +---+ + | | CALCIUM | 10.7 | mg/dL | 8.7-10.3 | H | calcium, | | | | | | | | serum | + + + + + +---+ + | | CO2 | 24 | mmol/L | 18-29 | | carbon | | | | | | | | dioxide, | | | | | | | | venous | | | | | | | | blood | + + + + + +---+ + | | CHLORIDE | 99 | mmol/L | 97-106 | | chloride, | | | | | | | | serum | + + + + + +---+ + | | POTASSIUM | 3.9 | mmol/L | 3.5-5.2 | | potassium, | | | | | | | | serum | + + + + + +---+ + | | SODIUM | 141 | mmol/L | 136-144 | | sodium, | | | | | | | | serum | + + + + + +---+ + | | BUN/CREAT | 23 | | 11-26 | | urea | | | | | | | | nitrogen/c | | | | | | | | reatinine | | | | | | | | ratio, | | | | | | | | serum | + + + + + +---+ + | | CREATININE | 0.99 | mg/dL | 0.57-1.00 | | creatinine | | | | | | | | , serum | + + + + + +---+ + | | BUN | 23 | mg/dL | 8-27 | | urea | | | | | | | | nitrogen, | | | | | | | | blood | + + + + + +---+ + | | GLUCOSE | 120 | mg/dL | 65-99 | H | blood | | | SER | | | | | glucose | + + + + + +---+ + | | ZZ-GE-UNK | 0.0 | | 0.0-0.1 | | GE use | | | | x10E3/uL | | | | only - for | | | | | | | | [employer] | | | | | | | | import | | | | | | | | when terms | | | | | | | | are not | | | | | | | | otherwise | | | | | | | | specified | + + + + + +---+ + | | BASOPH | 0.1 | 10*3/mm3 | 0.0-0.2 | | basophil | | | COUNT | X10E3/UL | | | | count, | | | | | | | | blood | + + + + + +---+ + | | EOS COUNT | 0.3 | 10*3/mm3 | 0.0-0.4 | | eosinophil | | | | X10E3/UL | | | | count, | | | | | | | | blood | + + + + + +---+ + | | MONOCYTE | 0.6 | 10*3/mm3 | 0.1-0.9 | | monocyte | | | CNT | X10E3/UL | | | | count, | | | | | | | | blood | + + + + + +---+ + | | LYMPH | 3.3 | 10*3/mm3 | 0.7-3.1 | H | lymphocyte | | | COUNT | X10E3/UL | | | | count, | | | | | | | | blood | + + + + + +---+ + | | NEUTRO | 6.6 | 10*3/mm3 | 1.4-7.0 | | neutrophil | | | COUNT | X10E3/UL | | | | count, | | | | | | | | blood | + + + + + +---+ + | | BASOPHIL % | 1 | % | | | basophils | | | | | | | | as percent | | | | | | | | of blood | | | | | | | | leukocytes | + + + + + +---+ + | | EOSINOPHIL | 3 | % | | | eosinophil | | | % | | | | | s as | | | | | | | | percent of | | | | | | | | blood | | | | | | | | leukocytes | + + + + + +---+ + | | MONOCYTE % | 6 | % | | | monocytes | | | | | | | | as percent | | | | | | | | of blood | | | | | | | | leukocytes | + + + + + +---+ + | | LYMPHS % | 30 | % | | | lymphocyte | | | | | | | | s as | | | | | | | | percent of | | | | | | | | blood | | | | | | | | leukocytes | + + + + + +---+ + | | PMN % | 60 | % | | | neutrophil | | | | | | | | s as | | | | | | | | percent of | | | | | | | | blood | | | | | | | | leukocytes | + + + + + +---+ + | | PLATELETS | 327 | 10*3/mm3 | 150-379 | | platelet | | | | X10E3/UL | | | | count | + + + + + +---+ + | | RDW | 14.1 | % | 12.3-15.4 | | red blood | | | | | | | | cell | | | | | | | | distributi | | | | | | | | on width | + + + + + +---+ + | | MCHC | 33.0 G/DL | % | 31.5-35.7 | | mean | | | | | | | | corpuscula | | | | | | | | r | | | | | | | | hemoglobin | | | | | | | | | | | | | | | | concentrat | | | | | | | | ion, RBC | + + + + + +---+ + | | MCH | 28.5 | pg | 26.6-33.0 | | mean | | | | | | | | corpuscula | | | | | | | | r | | | | | | | | hemoglobin | | | | | | | | , RBC | + + + + + +---+ + | | MCV | 86 | fL | 79-97 | | mean | | | | | | | | corpuscula | | | | | | | | r volume, | | | | | | | | RBC | + + + + + +---+ + | | HCT | 41.8 | % | 34.0-46.6 | | hematocrit | | | | | | | | , blood | + + + + + +---+ + | | HGB | 13.8 | g/dL | 11.1-15.9 | | hemoglobin | | | | | | | | , blood | + + + + + +---+ + | | RBC | 4.85 | 10*6/mm3 | 3.77-5.28 | | erythrocyt | | | | X10E6/UL | | | | e (RBC) | | | | | | | | count | + + + + + +---+ + | | WBC | 10.9 | 10*3/mm3 | 3.4-10.8 | H | leukocyte | | | | X10E3/UL | | | | count, | | | | | | | | blood | + + + + + +---+ + + + | Office Visit: Abdomen pain | + + + +--------+ +---+---+---+ + | | SMOK | Current | | | | Tobacco | | | STATUS | every day | | | | use [facility] | | | | smoker | | | | | + +--------+ +---+---+---+ + | | MEDS | Done | | | | Documentat | | | REVIEW | | | | | ion of | | | | | | | | current | | | | | | | | medication | | | | | | | | s | | | | | | | | (procedure | | | | | | | | ) | + +--------+ +---+---+---+ + + + | Office Visit: F/U- New Prob- Thyroid Nodule | + + + +--------+ +---+---+---+ + | | SMOK | Current | | | | Tobacco | | | STATUS | every day | | | | use [facility] | | | | smoker | | | | | + +--------+ +---+---+---+ + Plan of Care + + + + | Type | Date | Detail | + + + + | Appointment | 01:00 PM | Magali Washington MD, [address] | | | | [facility] [address], | | | | [place], [id number], | | | | | + + + + | Appointment | 11:00 AM | Lynn Benavides MD, [address] | | | | [facility] [address], | | | | [place], [address], | | | | | + + + + | Referral | | PT Evaluation & Treat | | | | [facility], [address] | | | | [address], | | | | [place], [address] | | | | | + + + + | Referral | | PT Evaluation & Treat | | | | [facility], [address] | | | | [address], | | | | [place], [address] | | | | | + + + + | Referral | | PT Evaluation & Treat | | | | [facility], [address] | | | | [address] [place], | | | | [place], [address] | | | | | + + + + +---+ + | | Referral excluded from report: | +---+ + + + + + | Referral | | DEXA Bone Density | | | | Lab - Rad | + + + + | Referral | | DEXA Bone Density | | | | Lab - Rad | + + + + | Referral | | Consult Referral | | | | Aliza Weaver MD, [address] | | [address] [place], | | | | [place], [address] | | | | | + + + + | Referral | | Consult Referral | | | | Son Segura MD, [id number] | | | | [address] | | | | [address], [place], [address] | | | | | | | | | + + + + | Referral | | Consult Referral | | | | MD Chyna Bowden, | | | | [address] [facility], | | | | [place], [address] | | | | | + + + + | Referral | | PT Evaluation & Treat | | | | [facility], [address] | | | | [address] [place] [address], | | | | [place], [address] | | | | | + + + + | Referral | | Consult Referral | | | | MD Kevin Forbes, | | | | [address], | | | | [place], [address] | | | | | + + + + | Referral | | Consult Referral | + + + + | Referral | | Consult Referral | | | | Panda Good MD, [address] | | | | [place] [address], | | | | [place], [address] | | | | | + + + + +---+ + | | Referral excluded from report: | +---+ + + + + + | Referral | | Consult Referral | + + + + +---+ + | | Referral excluded from report: | +---+ + + + + + | Referral | | Consult Referral | | | | Panda Good MD, [address] | | | | [address] [place] [address], | | | | [place], [address] | | | | | + + + + | Referral | | [facility] | [facility] | + + + + | Referral | | [facility] Consult | | | [facility] | + + + + | Referral | | Plastic Surgery Consult | | | | [address] | | | | [address] [place], | | | | [place], [address] | | | | | + + + + | Referral | | Plastic Surgery Consult | | | | [address] | | | | [address] [place] [address], | | | | [place], [address] | | | | | + + + + | Referral | | Neurology Consult | | | | MD Luna Bernal, [address] | | | | [address] [place] [address], | | | | [place], [address] | | | | | + + + + | Referral | | Neurology Consult | | | | MD Luna Bernal, [address] | | | | [address] [place], | | | | [place], [address] | | | | | + + + + | Pending order | | Urine Calcium 24 Hr | + + + + | Pending order | | XR Shoulder min 2V-Rt | + + + + | Pending order | | XR Tibia 2V-Lt | + + + + | Pending order | | Comprehensive Metabolic | | | | Panel | + + + + | Pending order | | DENZEL Dunbar Scr-James | + + + + | Pending order | | Basic Metabolic Panel | + + + + | Pending order | | DENZEL Dunbar Scr-James | + + + + | Pending order | | Vitamin D, 25-OH by | | | | LC-MS/MS | + + + + | Pending order | | PTH (Whole Molecule) | + + + + | Pending order | | CBC w/ Auto Diff | + + + + | Pending order | | Lipid Profile | + + + + | Pending order | | Glyco Hemoglobin, A1C | + + + + | Pending order | | T4 Free | + + + + | Pending order | | T3 Free | + + + + | Pending order | | TSH | + + + + | Pending order | | XR Knee 3V-Rt | + + + + | Pending order | | XR Knee 1 or 2V-Lt | + + + + | Pending order | | EGD (dilation) | + + + + | Pending order | | Colonoscopy diagnostic | + + + + | Pending order | | Lipid Profile | + + + + | Pending order | | Comprehensive Metabolic | | | | Panel | + + + + | Pending order | | XR Chest-2V | + + + + | Pending order | | CT Abdomen and Pelvis-W Con | + + + + | Pending order | | CBC w/ Auto Diff | + + + + | Pending order | | TSH | + + + + | Pending order | | US Thyroid (Soft Tissue | | | | Head/Neck Exam) | + + + + | Pending order | | Basic Metabolic Panel | + + + + | Pending order | | T4 Free | + + + + | Pending order | | T3 Free | + + + + | Pending order | | XR Knee 3V-Rt | + + + + | Pending order | | XR Knee 1 or 2V-Lt | + + + + | Pending order | | XR Knee 3V-Rt | + + + + | Pending order | | Urinalysis Culture If | | | | Indicat | + + + + | Pending order | | XR Knee 1 or 2V-Lt | + + + + | Pending order | | XR Knee 3V-Rt | + + + + | Pending order | | T4 Free | + + + + | Pending order | | T3 Free | + + + + | Pending order | | TSH | + + + + | Pending order | | XR Pelvis-1-2V | + + + + | Pending order | | XR Pelvis-1-2V | + + + + +---+ + | | Pending Order excluded from report: | | | | +---+ + + + + + | Pending order | | XR Hip 2-3V-Left | + + + + +---+ + | | Pending Order excluded from report: | | | | +---+ + + + + + | Pending order | | XR Hip 2-3V-Right | + + + + +---+ + | | Pending Order excluded from report: | | | | +---+ + + + + + | Pending order | | XR Hip 2-3V-Right | + + + + | Pending order | | XR Hip 2-3V-Left | + + + + | Pending order | | Urinalysis Culture If | | | | Indicat | + + + + | Pending order | | Misc Order | + + + + | Pending order | | Type and Screen | | | | (Transfusion Related) | + + + + | Pending order | | PTT-Partial Thromboplastin | | | | Time | + + + + | Pending order | | Prothrombin Time | + + + + | Pending order | | CBC w/ Auto Diff | + + + + | Pending order | | Lipid Profile | + + + + | Pending order | | Basic Metabolic Panel | + + + + | Pending order | | Rheumatoid Factor, Screen | | | | Only | + + + + | Pending order | | XR Knee 1 or 2V-Rt | + + + + | Pending order | | XR Knee 1 or 2V-Lt | + + + + | Pending order | | Sedimentation Rate (ESR) | + + + + | Pending order | | LEW With Reflex Panel If | | | | POS | + + + + | Pending order | | Basic Metabolic Panel | + + + + | Pending order | | PTH (Whole Molecule) | + + + + | Pending order | | Comprehensive Metabolic | | | | Panel | + + + + | Pending order | | T4 Total | + + + + | Pending order | | TSH | + + + + | Pending order | | Lipid Profile | + + + + | Pending order | | CBC w/ Auto Diff | + + + + | Pending order | | Colonoscopy screening | + + + + | Pending order | | MX Mammo Dig Screen-Bilat | + + + + | Pending order | | MX Mammo Dig Screen-Bilat | + + + + | Pending order | | CT Head-W Con | + + + + | Pending order | | CT Head-W Con | + + + + | Pending order | | VL Carotid-Cerebral Duplex | + + + + | Pending order | | CMP (Comprehensive | | | | Metabolic Panel) | + + + + | Pending order | | XR Hip 2V-Rt | + + + + | Pending order | | XR Hip 2V-Lt | + + + + | Pending order | | VL Carotid-Cerebral Duplex | + + + + | Pending order | | CMP (Comprehensive | | | | Metabolic Panel) | + + + + | Pending order | | Vit D, 25 hydroxy | + + + + | Pending order | | Lipid Profile | + + + + | Pending order | | CBC w/ Diff - w/ platelets | + + + + | Pending order | | VL Lower Art Duplex-Lt | + + + + | Pending order | | VL Lower Art Duplex-Rt | + + + + | Pending order | | VL Lower Art Duplex-Lt | + + + + | Pending order | | VL Lower Art Duplex-Rt | + + + + | Pending order | | XR Hand 2V-Lt | + + + + | Pending order | | XR Spine-Cervical 2V | + + + + | Pending order | | XR Hand 2V-Rt | + + + + | Pending order | | MX Mammo Dig Screen-Bilat | + + + + | Pending order | | Rheumatoid Factor (qual) | + + + + | Pending order | | LEW | + + + + | Pending order | | Sedimentation Rate (ESR) | + + + + | Pending order | | T4 Free | + + + + | Pending order | | TSH | + + + + | Pending order | | Lipid Profile | + + + + | Pending order | | CMP (Comprehensive | | | | Metabolic Panel) | + + + + | Pending order | | Other or Misc Test/Lab | + + + + | Pending order | | Genital HSV Culture | + + + + | Pending order | | MX Mammo Dig Screen-Bilat | + + + + | Pending order | | MX Mammo Dig Screen-Bilat | + + + + +---+ + | | Pending Order excluded from report: | | | | +---+ + + + + + | Pending order | | CMP (Comprehensive | | | | Metabolic Panel) | + + + + +---+ + | | Pending Order excluded from report: | | | | +---+ + + + + + | Pending order | | Lipid Profile | + + + + +---+ + | | Pending Order excluded from report: | | | | +---+ + + + +-----+ | Pending order | | TSH | + + +-----+ +---+ + | | Pending Order excluded from report: | | | | +---+ + + + + + | Pending order | | TSH | + + + + | Pending order | | Lipid Profile | + + + + | Pending order | | CMP (Comprehensive | | | | Metabolic Panel) | + + + + | Pending order | | UA Dipstick (Office) | + + + + | Pending order | | UA Dipstick (Office) | + + + + +---+ + | | Pending Order excluded from report: | | | | +---+ + + + + + | Pending order | | CBC w/ Diff - w/ platelets | + + + + | Pending order | | CMP (Comprehensive | | | | Metabolic Panel) | + + + + | Pending order | | X-Ray- Shoulder | + + + + | Pending order | | X-Ray- Foot (3+ views) | + + + + | Patient education | | hydrocodone%2facetaminophen | | | | %20(oral)%20(capsule%2c%20l | | | | iquid%2c%20tablet) | + + + + | Patient education | | Medications | + + + + | Patient education | | Medications | + + + + | Patient education | | knee%20pain, fibromyalgia, | | | | fibromyalgia | + + + + | Patient education | | hypercalcemia | + + + + | Patient education | | gastroesophageal%20reflux%2 | | | | 0disease | + + + + Procedures + + + + + | Code | Procedure Name | Date | Entry Date | + + + + + | CPT-G0439 | Annual Wellness | | | | | Visit (Medicare) | | | | | Subsqnt visit | | | + + + + + | CHEM 8 93167 | Basic Metabolic | | | | | Panel | | | + + + + + | VIT D2+D3 06783 | Vitamin D, 25-OH by | | | | | LC-MS/MS | | | + + + + + | PTH INT 05651 | PTH (Whole | | | | | Molecule) | | | + + + + + | CBC AUTO 26308 | CBC w/ Auto Diff | | | + + + + + | RISK 57387 | Lipid Profile | | | + + + + + | GLYCO HGB 25657 | Glyco Hemoglobin, | | | | | A1C | | | + + + + + | FREE T4 01028 | T4 Free | | | + + + + + | T3 FREE 05241 | T3 Free | | | + + + + + | TSH 06511 | TSH | | | + + + + + | CHEM PROF | Comprehensive | | | | | Metabolic Panel | | | + + + + + | SCT- | Medication | | | | [id number] | Reconcilliation | | | + + + + + | CPT- 43208 | Diagnostic | | | | | Ultrasound Neck | | | | | (41921) | | | + + + + + | SCT- | Medication | | | | [id number] | Reconcilliation | | | + + + + + | RISK 92219 | Lipid Profile | | | + + + + + | 45510 | CT Abdomen and | | | | | Pelvis-W Con | | | + + + + + | CBC AUTO 58365 | CBC w/ Auto Diff | | | + + + + + | CHEM PROF | Comprehensive | | | | | Metabolic Panel | | | + + + + + | 33865 | XR Chest-2V | | | + + + + + | CPT-27422 | FNA with Image | | | | | Guidance (52540) | | | + + + + + | CPT- 53943 | US Guidance for | | | | | Needle Placement | | | | | (01726) | | | + + + + + | CPT-G0439 | Annual Wellness | | | | | Visit (Medicare) | | | | | Subsqnt visit | | | + + + + + | CHEM 8 | Basic Metabolic | | | | | Panel | | | + + + + + | FREE T4 30133 | T4 Free | | | + + + + + | T3 FREE 21199 | T3 Free | | | + + + + + | TSH 59789 | TSH | | | + + + + + | 92920 | US Thyroid (Soft | | | | | Tissue Head/Neck | | | | | Exam) | | | + + + + + | UA CULT IF MULTIPLE | Urinalysis Culture | | | | | If Indicat | | | + + + + + | FREE T4 47742 | T4 Free | | | + + + + + | T3 FREE 08366 | T3 Free | | | + + + + + | TSH 43489 | TSH | | | + + + + + | 74808 | XR Hip 2-3V-Right | | | + + + + + +---+ + | | Order excluded from report: | +---+ + +-------+ + + + | 56108 | XR Pelvis-1-2V | | | +-------+ + + + +---+ + | | Order excluded from report: | +---+ + +-------+ + + + | 54963 | XR Hip 2-3V-Left | | | +-------+ + + + +---+ + | | Order excluded from report: | +---+ + + + + + + | CBC AUTO 58951 | CBC w/ Auto Diff | | | + + + + + | RISK 65031 | Lipid Profile | | | + + + + + | CHEM 8 | Basic Metabolic | | | | | Panel | | | + + + + + | CPT-31536 | Fiberoptic Diag | | | | | Laryng (35463) | | | + + + + + | RA BURTON ONLY 93644 | Rheumatoid Factor, | | | | | Screen Only | | | + + + + + | 78791 | XR Knee 1 or 2V-Rt | | | + + + + + | 95316 | XR Knee 1 or 2V-Lt | | | + + + + + | ESR 77057 | Sedimentation Rate | | | | | (ESR) | | | + + + + + | LEW IF 06934 | LEW With Reflex | | | | | Panel If POS | | | + + + + + | CPT-G0439 | Annual Wellness | | | | | Visit (Medicare) | | | | | Subsqnt visit | | | + + + + + | PTH INT 12338 | PTH (Whole | | | | | Molecule) | | | + + + + + | CHEM 8 | Basic Metabolic | | | | | Panel | | | + + + + + | CPT-95218 | UA Dipstick | | | + + + + + | [id number] | [Recorded for CQM] | | | | | Documentation of | | | | | current medications | | | | | (procedure) | | | + + + + + | [id number] | [facility] Generic Patient | | | | | Encounter Service | | | | | (from patch) | | | + + + + + | [phone] | [Recorded for CQM] | | | | | Documentation of | | | | | current medications | | | | | (procedure) | | | + + + + + | [id number] | [Recorded for CQ] | | | | | Health-related | | | | | behavior | | | + + + + + | CPT-38629 | Lesion, 2-14 | | | | | (41576) | | | + + + + + | [id number] | [Recorded for CQ] | | | | | Documentation of | | | | | current medications | | | | | (procedure) | | | + + + + + | CPT-21941 | Lesion, 1 (64698) | | | + + + + + | CPT-G8427 | Current Medications | | | | | Documented | | | + + + + + | [id number] | [Recorded for CQM] | | | | | Documentation of | | | | | current medications | | | | | (procedure) | | | + + + + + | [id number] | [facility] Generic Patient | | | | | Encounter Service | | | | | (from patch) | | | + + + + + | CPT-G8427 | Current Medications | | | | | Documented | | | + + + + + | [id number] | [Recorded for CQM] | | | | | Smokes tobacco | | | | | daily (finding) | | | + + + + + | [id number] | [Recorded for CQM] | | | | | Current every day | | | | | smoker | | | + + + + + | [id number] | [Recorded for CQM] | | | | | Documentation of | | | | | current medications | | | | | (procedure) | | | + + + + + | [id number] | [Recorded for CQM] | | | | | Tobacco use and | | | | | exposure | | | + + + + + | 641910215 | [Recorded for CQM] | | | | | Smoking cessation | | | | | education | | | | | (procedure) | | | + + + + + | [id number] | [Recorded for CQM] | | | | | Documentation of | | | | | current medications | | | | | (procedure) | | | + + + + + | CPT-Q2038 | Fluzone (Inf) High | | | | | dose Med/Atrio | | | + + + + + | CPT-65429 | Vaccine, Influenza | | | | | >3 yrs (V04.81) | | | + + + + + | CPT-49548 | Biopsy, lesion | | | + + + + + | CPT-21647 | Biopsy, lesion | | | + + + + + | CPT-67939 | X-Ray Heel | | | + + + + + | CPT-G8553 | eRx sent | | | + + + + + | CPT-02591 | Lipid Panel | | | | | (Cholesterol) | | | + + + + + | CPT-49481 | Lesion, 2-14 | | | | | (74297) | | | + + + + + | CPT-02713 | Lesion, 1 (62558) | | | + + + + + | CPT-G0008 | Admin Flu Vac | | | | | (mdc/atrio) | | | + + + + + | CPT-71913 | Lesion, 2-14 | | | | | (82605) | | | + + + + + | CPT-19464 | Lesion, 1 (59488) | | | + + + + + | CPT-40518 | Vaccine, Influenza | | | | | >3 yrs (V04.81) | | | + + + + + | 61930 G0202 | MX Mammo Dig | | | | | Screen-Bilat | | | + + + + + | RA SCREEN 90218 | Rheumatoid Factor | | | | | (qual) | | | + + + + + | LEW 01466 | LEW | | | + + + + + | ESR 87446 | Sedimentation Rate | | | | | (ESR) | | | + + + + + | FREE T4 11739 | T4 Free | | | + + + + + | TSH 35327 | TSH | | | + + + + + | RISK 61723 | Lipid Profile | | | + + + + + | CHEM PROF 82884 | CMP (Comprehensive | | | | | Metabolic Panel) | | | + + + + + | MISC TEST PENDING | Other or Misc | | | | | Test/Lab | | | + + + + + | M GEN HSV 32426 | Genital HSV Culture | | | + + + + + | CPT-22672 | LULY Dipstick | | | + + + + + | 88025 G0202 | MX Mammo Dig | | | | | Screen-Bilat | | | + + + + + +---+ + | | Order excluded from report: | +---+ + + + + + + | CHEM PROF 89829 | CMP (Comprehensive | | | | | Metabolic Panel) | | | + + + + + +---+ + | | Order excluded from report: | +---+ + + + + + + | RISK 54207 | Lipid Profile | | | + + + + + +---+ + | | Order excluded from report: | +---+ + + +-----+ + + | TSH 95921 | TSH | | | + +-----+ + + +---+ + | | Order excluded from report: | +---+ + + + + + + | CPT-56840 | Glucose by monitor | | | + + + + + | CPT-02900 | UA Dipstick | | | + + + + + | CPT-58596 | [facility] | | | | | (Office) | | | + + + + + +---+ + | | Order excluded from report: | +---+ + + + + + + | CPT-33997 | Guiaic Stools ([place] | | | | | Care) | | | + + + + + | CPT-18355 | Inj/Asp Large Joint | | | + + + + + Vital Signs + + +-------+---------+ + | Date | Name | Value | Unit | Description | + + +-------+---------+ + | | BMI (Body Mass | 28.54 | kg/m2 | Body Mass Index | | | Index) | | | [Ratio] | + + +-------+---------+ + | | BP Diastolic | 87 | mm[Hg] | blood pressure, | | | | | | diastolic | + + +-------+---------+ + | | BP Diastolic | 87 | mm[Hg] | blood pressure, | | | | | | diastolic, | | | | | | second | | | | | | observation | + + +-------+---------+ + | | BP Systolic | 133 | mm[Hg] | blood pressure, | | | | | | systolic | + + +-------+---------+ + | | BP Systolic | 133 | mm[Hg] | blood pressure, | | | | | | systolic, | | | | | | second | | | | | | observation | + + +-------+---------+ + | | Heart Rate | 101 | /min | pulse rate E&M | + + +-------+---------+ + | | Height | 60 | [in_us] | height E&M | + + +-------+---------+ + | | Weight Measured | 145.6 | [lb_av] | weight E&M | + + +-------+---------+ + | | BMI (Body Mass | 28.81 | kg/m2 | Body Mass Index | | | Index) | | | [Ratio] | + + +-------+---------+ + | | BP Diastolic | 82 | mm[Hg] | blood pressure, | | | | | | diastolic | + + +-------+---------+ + | | BP Diastolic | 82 | mm[Hg] | blood pressure, | | | | | | diastolic, | | | | | | second | | | | | | observation | + + +-------+---------+ + | | BP Systolic | 144 | mm[Hg] | blood pressure, | | | | | | systolic | + + +-------+---------+ + | | BP Systolic | 144 | mm[Hg] | blood pressure, | | | | | | systolic, | | | | | | second | | | | | | observation | + + +-------+---------+ + | | Heart Rate | 105 | /min | pulse rate E&M | + + +-------+---------+ + | | Height | 60 | [in_us] | height E&M | + + +-------+---------+ + | | Weight Measured | 147 | [lb_av] | weight E&M | + + +-------+---------+ + | | BMI (Body Mass | 28.62 | kg/m2 | Body Mass Index | | | Index) | | | [Ratio] | + + +-------+---------+ + | | BP Diastolic | 90 | mm[Hg] | blood pressure, | | | | | | diastolic | + + +-------+---------+ + | | BP Diastolic | 90 | mm[Hg] | blood pressure, | | | | | | diastolic, | | | | | | second | | | | | | observation | + + +-------+---------+ + | | BP Systolic | 114 | mm[Hg] | blood pressure, | | | | | | systolic | + + +-------+---------+ + | | BP Systolic | 114 | mm[Hg] | blood pressure, | | | | | | systolic, | | | | | | second | | | | | | observation | + + +-------+---------+ + | | Heart Rate | 72 | /min | pulse rate E&M | + + +-------+---------+ + | | Height | 60 | [in_us] | height E&M | + + +-------+---------+ + | | Weight Measured | 146 | [lb_av] | weight E&M | + + +-------+---------+ + | | Height | 60 | [in_us] | height E&M | + + +-------+---------+ + | | BMI (Body Mass | 29.40 | kg/m2 | Body Mass Index | | | Index) | | | [Ratio] | + + +-------+---------+ + | | BP Diastolic | 72 | mm[Hg] | blood pressure, | | | | | | diastolic | + + +-------+---------+ + | | BP Systolic | 112 | mm[Hg] | blood pressure, | | | | | | systolic | + + +-------+---------+ + | | Heart Rate | 76 | /min | pulse rate E&M | + + +-------+---------+ + | | Height | 60 | [in_us] | height E&M | + + +-------+---------+ + | | Weight Measured | 150 | [lb_av] | weight E&M | + + +-------+---------+ + | | BP Diastolic | 80 | mm[Hg] | blood pressure, | | | | | | diastolic | + + +-------+---------+ + | | BP Diastolic | 80 | mm[Hg] | blood pressure, | | | | | | diastolic, | | | | | | second | | | | | | observation | + + +-------+---------+ + | | BP Systolic | 122 | mm[Hg] | blood pressure, | | | | | | systolic | + + +-------+---------+ + | | BP Systolic | 122 | mm[Hg] | blood pressure, | | | | | | systolic, | | | | | | second | | | | | | observation | + + +-------+---------+ + | | Heart Rate | 112 | /min | pulse rate E&M | + + +-------+---------+ + | | BMI (Body Mass | 31.62 | kg/m2 | Body Mass Index | | | Index) | | | [Ratio] | + + +-------+---------+ + | | BP Diastolic | 82 | mm[Hg] | blood pressure, | | | | | | diastolic | + + +-------+---------+ + | | BP Diastolic | 82 | mm[Hg] | blood pressure, | | | | | | diastolic, | | | | | | second | | | | | | observation | + + +-------+---------+ + | | BP Systolic | 130 | mm[Hg] | blood pressure, | | | | | | systolic | + + +-------+---------+ + | | BP Systolic | 130 | mm[Hg] | blood pressure, | | | | | | systolic, | | | | | | second | | | | | | observation | + + +-------+---------+ + | | Heart Rate | 113 | /min | pulse rate E&M | + + +-------+---------+ + | | Weight Measured | 156 | [lb_av] | weight E&M | + + +-------+---------+ + | | BMI (Body Mass | 31.22 | kg/m2 | Body Mass Index | | | Index) | | | [Ratio] | + + +-------+---------+ + | | BP Diastolic | 72 | mm[Hg] | blood pressure, | | | | | | diastolic | + + +-------+---------+ + | | BP Diastolic | 72 | mm[Hg] | blood pressure, | | | | | | diastolic, | | | | | | second | | | | | | observation | + + +-------+---------+ + | | BP Systolic | 124 | mm[Hg] | blood pressure, | | | | | | systolic | + + +-------+---------+ + | | BP Systolic | 124 | mm[Hg] | blood pressure, | | | | | | systolic, | | | | | | second | | | | | | observation | + + +-------+---------+ + | | Body | 97.6 | [degF] | temperature E&M | | | Temperature | | | | + + +-------+---------+ + | | Heart Rate | 110 | /min | pulse rate E&M | + + +-------+---------+ + | | Weight Measured | 154 | [lb_av] | weight E&M | + + +-------+---------+ + | | Height | 59 | [in_us] | height E&M | + + +-------+---------+ + Social History + + + +-------+ + | Concept | Observation | Observation | Units | Start Date | | Description | Name | Value | | | + + + +-------+ + | Current every | SMOK STATUS | Current every | | | | day smoker | | day smoker | | | + + + +-------+ + | Tobacco use and | PAS CIG SMOK | no | | | | exposure | | | | | + + + +-------+ + | Current every | SMOK STATUS | Current every | | | | day smoker | | day smoker | | | + + + +-------+ + | Tobacco use and | PAS CIG SMOK | no | | | | exposure | | | | | + + + +-------+ + | Current every | SMOK STATUS | Current every | | | | day smoker | | day smoker | | | + + + +-------+ + | Tobacco use and | PAS CIG SMOK | no | | | | exposure | | | | | + + + +-------+ + | Current every | SMOK STATUS | Current every | | | | day smoker | | day smoker | | | + + + +-------+ + | Tobacco use and | PAS CIG SMOK | no | | | | exposure | | | | | + + + +-------+ + | Current every | SMOK STATUS | Current every | | | | day smoker | | day smoker | | | + + + +-------+ + | Tobacco use and | PAS CIG SMOK | no | | | | exposure | | | | | + + + +-------+ + | Tobacco use and | PAS CIG SMOK | no | | | | exposure | | | | | + + + +-------+ + | Tobacco use and | PAS CIG SMOK | no | | | | exposure | | | | | + + + +-------+ + | Current every | SMOK STATUS | Current every | | | | day smoker | | day smoker | | | + + + +-------+ + | Tobacco use and | PAS CIG SMOK | no | | | | exposure | | | | | + + + +-------+ + | Current every | SMOK STATUS | Current every | | | | day smoker | | day smoker | | | + + + +-------+ + | Tobacco use and | PAS CIG SMOK | no | | | | exposure | | | | | + + + +-------+ + | Current every | SMOK STATUS | Current every | | | | day smoker | | day smoker | | | + + + +-------+ + | Tobacco use and | PAS CIG SMOK | no | | | | exposure | | | | | + + + +-------+ + | Current every | SMOK STATUS | Current every | | | | day smoker | | day smoker | | | + + + +-------+ + | Tobacco use and | PAS CIG SMOK | no | | | | exposure | | | | | + + + +-------+ + | Current every | SMOK STATUS | Current every | | | | day smoker | | day smoker | | | + + + +-------+ + | Current every | SMOK STATUS | Current every | | | | day smoker | | day smoker | | | + + + +-------+ + | Current every | SMOK STATUS | Current every | | | | day smoker | | day smoker | | | + + + +-------+ + | Current every | SMOK STATUS | Current every | | | | day smoker | | day smoker | | | + + + +-------+ + | Current every | SMOK STATUS | Current every | | | | day smoker | | day smoker | | | + + + +-------+ + | Current every | SMOK STATUS | Current every | | | | day smoker | | day smoker | | | + + + +-------+ + | Current every | SMOK STATUS | Current every | | | | day smoker | | day smoker | | | + + + +-------+ + | Feeling down, | PHQ9 Q2 | 2 | | | | depressed, or | | | | | | hopeless? | | | | | + + + +-------+ + | Little interest | PHQ9 Q1 | 2 | | | | or pleasure in | | | | | | doing things? | | | | | + + + +-------+ + | Tobacco use and | SMOK ADVICE | yes | | | | exposure | | | | | + + + +-------+ + | Health-related | HIV RSK EVAL | No | | | | behavior | | | | | + + + +-------+ + | Current every | SMOK STATUS | current every | | | | day smoker | | day smoker | | | + + + +-------+ + | Tobacco use and | SMOK ADVICE | yes | | | | exposure | | | | | + + + +-------+ + | Tobacco use and | PAS CIG SMOK | no | | | | exposure | | | | | + + + +-------+ + | Tobacco use and | SMOK ADVICE | yes | | | | exposure | | | | | + + + +-------+ +"
--- OUTSIDE RECORDS SUMMARY | ~2019-05-21 | XMS | Clinical Summary ---
Demographics + + + | Address | [address] | | | [place] [address] | + + + | Home Phone | | + + + | Preferred Language | Unknown | + + + | Marital Status | | + + + | Caodaism Affiliation | NON | + + + | Race | White | + + + | Ethnic Group | Unknown | + + + Author + + + | Organization | Unknown | + + + | Address | Unknown | + + + | Phone | Unavailable | + + + Care Team Providers + +------+ + | Care Coding Clerks Supervisor Name | Role | Phone | + +------+ + PCP | Unavailable | + +------+ + Source Comments MARGARITA is fully live on both [facility] Ambulatory and [facility] InPatient.[facility] Allergies Not on File Medications Not on file Active Problems Not on file Social History + +-------+ +--------+------+ | Tobacco Use | Types | Packs/Day | Years | Date | | | | | Used | | + +-------+ +--------+------+ | Never Assessed | | | | | + +-------+ +--------+------+ + + + | Sex Assigned at | Date Recorded | | | | + + + | Not on file | | + + + + + + + | Job Start Date | Occupation | Industry | + + + + | Not on file | Not on file | Not on file | + + + + + + + + | Travel History | Travel Start | Travel End | + + + + + + | No recent travel history available. | + + Last Filed Vital Signs Not on file Plan of Treatment + + + + + | Health Maintenance | Due Date | Last Done | Comments | + + + + + | Pneumococcal | | | | | vaccination (1 of 2 | 2 | | | | - PCV13) | | | | + + + + + | Influenza (Flu) | | | | | vaccination (#1) | 9 | | | + + + + + Results Not on filefrom Last 3 Months"
--- OUTSIDE RECORDS SUMMARY | ~2019-05-21 | XMS | Clinical Summary ---
Demographics + + + | Address | [address] | | | [address] | | | [place] [address] | + + + | Home Phone | | + + + | Preferred Language | Unknown | + + + | Marital Status | M | + + + | Hinduism Affiliation | Unknown | + + + | Race | White | + + + | Ethnic Group | Not or | + + + Author + + + | Author [facility] | + + + | Organization | [facility] | + + + | Address | [address] | | | [place] [address] | + + + | Phone | Unavailable | + + + Care Team Providers + +------+ + | Care Eyelet Maker Name | Role | Phone | + +------+ + | Lynn Benavides MD | PCP | | + +------+ + Conditions or Problems +---------+---------+---------+--------+---------+---------+---------+---------+---------+ | Problem | Problem | Onset | Status | Entry | Provide | Comment | Standar | Annotat | | Name | Code | Date | | Date | r | | d | e | | | | | | | | | Descrip | | | | | | | | | | tion | | +---------+---------+---------+--------+---------+---------+---------+---------+---------+ | OA, | [id number] | | Active | | Claudine | | Degener | | | SHOULDE | 1 | /09 | | /10 | | | ative [...] | | | | region | | +---------+---------+---------+--------+---------+---------+---------+---------+---------+ | OA, | [id number] | | Active | | Claudine | | Osteoar | | | KNEE, | 07 | /09 | | /10 | | | thritis | | | LEFT | (SNOMED | | | | Crouche | | of | | | | CT) | | | | r NCMA | | knee | | +---------+---------+---------+--------+---------+---------+---------+---------+---------+ | LEG | [id number] | | Active | | Claudine | | Pain in | | | PAIN, | 08 | /07 | | /07 | | | left | | | LEFT | (SNOMED | | | | Crouche | | lower | | | | CT) | | | | r NCMA | | limb | | +---------+---------+---------+--------+---------+---------+---------+---------+---------+ | SHOULDE | M25.511 | | Active | | Claudine | | Pain in | | | R PAIN, | | /07 | | /07 | | | right | | | RIGHT | (ICD-10 | | | | Crouche | | shoulde | | | | -CM) | | | | r NCMA | | r | | +---------+---------+---------+--------+---------+---------+---------+---------+---------+ | OTHER | [id number] | | Active | | Lynn | [...] | | | | | | | +---------+---------+---------+--------+---------+---------+---------+---------+---------+ | HYPERCA | [id number] | | Active | | Lynn | | Hyperca | | | LCEMIA | 9 | /03 | | /03 | L Kennedy | | lcemia | | | | (SNOMED | | | | MD | | | | | | CT) | | | | | | | | +---------+---------+---------+--------+---------+---------+---------+---------+---------+ | HX OF | [id number] | | Active | | Claudine | | History | | | RIGHT | 07 | /02 | | /02 | | | of [...] | | | | knee | | +---------+---------+---------+--------+---------+---------+---------+---------+---------+ | GERONIMO | [id number] | | Active | | Lynn | | Geronimo | | | 'S | 06 | /19 | | /19 | L Kennedy | | 's | | | ESOPHAG | (SNOMED | | | | MD | | esophag | | | US | CT) | | | | | | us | | +---------+---------+---------+--------+---------+---------+---------+---------+---------+ | HEARTBU | [id number] | | Active | | Son | | Heartbu | | | RN | 0 | /06 | | /06 | Petre | | rn | | | | (SNOMED | | | | MD | | | | | | CT) | | | | | | | | +---------+---------+---------+--------+---------+---------+---------+---------+---------+ | TOBACCO | [id number] | | Active | | Lynn | | Tobacco | | | ABUSE | | / | | / | L Kennedy | | | | | | (SNOMED | | | | MD | | depende | | | | CT) | | | | | | nce | | | | | | | | | | syndrom | | | | | | | | | | e | | +---------+---------+---------+--------+---------+---------+---------+---------+---------+ | FAMILY | [id number] | | Active | | Lynn | | Family | | | HISTORY | 05 | / | | /07 | L Kennedy | [...] | | | | thyroid | | +---------+---------+---------+--------+---------+---------+---------+---------+---------+ | THYROID | [id number] | | Active | | Lynn | | Thyroid | | | NODULE | | | | /07 | L Benavides | | nodule | | | | (SNOMED | | | | MD | | | | | | CT) | | | | | | | | +---------+---------+---------+--------+---------+---------+---------+---------+---------+ | LEW | R79.89 | | Active | | Lynn | | Other | | | POSITIV | (ICD- | | | /03 | L Benavides | | specifi | | | E [...] | | | | | | | 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 | | | | | | | | | | ry | | +---------+---------+---------+--------+---------+---------+---------+---------+---------+ | FIBROMY | [id number] | | Active | | Cynthia | | Fibromy | | | ALGIA | 7 | / | | /25 | M | | ositis | | | | (SNOMED | | | | Mckeon | | | | | | CT) | | | | NCMA | | | | +---------+---------+---------+--------+---------+---------+---------+---------+---------+ | HYPERLI | [id number] | | Active | | Lynn | [...] | | | | | | | +---------+---------+---------+--------+---------+---------+---------+---------+---------+ | DEPRESS | [id number] | | Active | | Lynn | | Depress | | | ION | 7 | /29 | | /29 | L Benavides | | james | | | | (SNOMED | | | | MD | | disorde | | | | CT) | | | | | | r | | +---------+---------+---------+--------+---------+---------+---------+---------+---------+ | NEPHREC | Z90.5 | | Active [...] | | | | | | | +---------+---------+---------+--------+---------+---------+---------+---------+---------+ | GERD | [id number] | | Active | | Pretty | | Gastroe | | | | | | | | Jorgens | | sophage | | | | (SNOMED | | | | en DO | | al | | | | CT) | | | | | | reflux | | | | | | | | | | disease | | +---------+---------+---------+--------+---------+---------+---------+---------+---------+ | HYPERTE | [id number] | | Active | | Pretty | | Hyperte | | | NSION, | 3 | /04 | | /04 | Jorgens | | nsive | | | UNSPECI | (SNOMED | | | | en DO | | disorde | | | FIED | CT) | | | | | | r | | +---------+---------+---------+--------+---------+---------+---------+---------+---------+ Medications + + + + + + + + | Medication | Instructio | Start Date | Stop Date | Generic | NDC | Provider | | | ns | | | Name | | | + + + + + + + + | ASPIRIN 81 | 1 every | | | ASPIRIN | [id number] | Pretty | | MG TABS | other | | | | 5 | Norah | | | night with [...] SL every | | | NITROGLYCE | [id number] | Pretty | | RIN 0.4 MG | 5 min as | | | RIN | 1 | Norah | | SUBL | needed [...] tab once | | | HYDROCODON | [id number] | Lynn L | | E-ACETAMIN | a day as | | | E-ACETAMIN | 1 | Kennedy RICO | | OPHEN | [...] by mouth | | | LOSARTAN | [id number] | Lynn L | | 100-25 MG | every day | | | POTASSIUM- | 1 | Kennedy RICO | | TABS | for blood | | | HCTZ | | | | | pressure | | | | | | + + + + + + + + | MIRAPEX | 1 every | | | PRAMIPEXOL | [id number] | Lynn L | | 0.25 MG | other | | | E | 0 | Kennedy MD | | TABS | night for | | | DIHYDROCHL | | | | | restless | | | ORIDE | | | | | legs | | | | | | + + + + + + + + | NORVASC 5 | one tablet | | | AMLODIPINE | [id number] | Lynn L | | MG TABS | by mouth | | | BESYLATE | 8 | Kennedy MD | | | daily | | | | | | + + + + + + + + | PRILOSEC | 2 caps | | | OMEPRAZOLE | [id number] | Lynn L | | 20 MG [...] cap by | | | GABAPENTIN | [id number] | Lynn L | | 100 MG | mouth in | | | | 1 | Benavides MD | | CAPS | the | | | | | | | | morning | | | | | | | | for pain | | | | | | + + + + + + + + Medications Administered No information available. Allergies, Adverse Reactions, Alerts + + + + +--------+ + | Allergy Name | Reaction | Start Date | Severity | Status | Provider | | | Description | | | | | + + + + +--------+ + | CYMBALTA | diarrhea | | Critical | | Patience Chandler | | | | | | | NCMA | + + + + +--------+ + | MORPHINE | extreme | | Severe | | Ky | | | nervousness | | | | Bitter MD | | | - | | | | | | | hallucinatio | | | | | | | ns | | | | | + + + + +--------+ + | ATORVASTATIN | about | | Critical | | Pretty | | CALCIUM | crippled pt | | | | Norah DO | + + + + +--------+ + | STATIN | fatigue, | | Severe | | Sandra Guadalupe | | | muscle/joint | | | | STRIP DEBURRER | | | pain | | | | | + + + + +--------+ + | LOTREL | | | Moderate | | Corynn | | | | | | | Norah MA | + + + + +--------+ + Results No information available. Plan of Care + + + + | Type | Date | Detail | + + + + | Referral | | PT Evaluation & Treat | | | | [facility], [address] | | | | [facility] [address], | | | | [place], [address] | | | | | + + + + | Referral | | PT Evaluation & Treat | | | | [facility], [address] | | | | [facility] [address], | | | | [place], [address] | | | | | + + + + | Referral | | Surgical Consult | | | [facility] | + + + + | Referral | | Plastic Surgery Consult | | | | [address] | | | | [place], | | | | [place], [address] | | | | | + + + + | Referral | | Neurology Consult | | | | MD [facility], [address] | | | | [address] [place], | | | | [place], [address] | | | | | + + [...] | + + + + + | [id number] | Overweight | | | + + + + + | CPT- 63964 | Diagnostic | | | | | Ultrasound Neck | | | | | (44060) | | | + + + + + | CPT-G0439 | Annual Wellness | | | | | Visit (Medicare) | | | | | Subsqnt visit | | | + + + + + | CHEM 8 51502 | Basic Metabolic | | | | | Panel | | | + + + + + | VIT D2+D3 27309 | Vitamin D, 25-OH by | | | | | LC-MS/MS | | | + + + + + | PTH INT 32392 | PTH (Whole | | | | | Molecule) | | | + + + + + | CBC AUTO 17976 | CBC w/ Auto Diff | | | + + + + + | RISK 06051 | Lipid Profile | | | + + + + + | GLYCO HGB 86378 | Glyco Hemoglobin, | | | | | A1C | | | + + + + + | FREE T4 54800 | T4 Free | | | + + + + + | T3 FREE 10375 | T3 Free | | | + + + + + | TSH 94775 | TSH | | | + + + + + | CHEM PROF | Comprehensive | | | | | Metabolic Panel | | | + + + + + | O7561 35245 | DENZEL TomoHD Scr-James | | | + + + + + | CPT-08904 | DEXA Bone Density | | | + + + + + | SCT- | Medication | | | | [id number] | Reconcilliation | | | + + + + + | CPT- 38340 | Diagnostic | | | | | Ultrasound Neck | | | | | (96827) | | | + + + + + | SCT- | Medication | | | | [id number] | Reconcilliation | | | + + + + + | RISK 45068 | Lipid Profile | | | + + + + + | 60887 | CT Abdomen and | | | | | Pelvis-W Con | | | + + + + + | CBC AUTO 96561 | CBC w/ Auto Diff | | | + + + + + | CHEM PROF | Comprehensive | | | | | Metabolic Panel | | | + + + + + | 46569 | XR Chest-2V | | | + + + + + | CPT-07783 | FNA with Image | | | | | Guidance (60897) | | | + + + + + | CPT- 79165 | US Guidance for | | | | | Needle Placement | | | | | (72302) | | | + + + + + | CPT-G0439 | Annual Wellness | | | | | Visit (Medicare) | | | | | Subsqnt visit | | | + + + + + | CHEM 8 | Basic Metabolic | | | | | Panel | | | + + + + + | FREE T4 81577 | T4 Free | | | + + + + + | T3 FREE 92698 | T3 Free | | | + + + + + | TSH 63645 | TSH | | | + + + + + | 54676 | US Thyroid (Soft | | | | | Tissue Head/Neck | | | | | Exam) | | | + + + + + | UA CULT IF MULTIPLE | Urinalysis Culture | | | | | If Indicat | | | + + + + + | FREE T4 82370 | T4 Free | | | + + + + + | T3 FREE 57246 | T3 Free | | | + + + + + | TSH 71382 | TSH | | | + + + + + | CBC AUTO 85111 | CBC w/ Auto Diff | | | + + + + + | RISK 34015 | Lipid Profile | | | + + + + + | CHEM 8 | Basic Metabolic | | | | | Panel | | | + + + + + | CPT-64210 | Fiberoptic Diag | | | | | Laryng (17423) | | | + + + + + | RA SC ONLY 23756 | Rheumatoid Factor, | | | | | Screen Only | | | + + + + + | 57884 | XR Knee 1 or 2V-Rt | | | + + + + + | 15788 | XR Knee 1 or 2V-Lt | | | + + + + + | ESR 30672 | Sedimentation Rate | | | | | (ESR) | | | + + + + + | LEW IF 22736 | LEW With Reflex | | | | | Panel If POS | | | + + + + + | CPT-G0439 | Annual Wellness | | | | | Visit (Medicare) | | | | | Subsqnt visit | | | + + + + + | PTH INT 34423 | PTH (Whole | | | | | Molecule) | | | + + + + + | CHEM 8 | Basic Metabolic | | | | | Panel | | | + + + + + | CPT-32506 | UA Dipstick | | | + + + + + | [id number] | [Recorded for CQM] | | | | | Documentation of | | | | | current medications | | | | | (procedure) | | | + + + + + | [id number] | MU Generic Patient | | | | | Encounter Service | | | | | (from patch) | | | + + + + + | [id number] | [Recorded for CQM] | | | | | Documentation of | | | | | current medications | | | | | (procedure) | | | + + + + + | [id number] | [Recorded for CQM] | | | | | Health-related | | | | | behavior | | | + + + + + | CPT-59102 | Lesion, 2-14 | | | | | (38954) | | | + + + + + | [id number] | [Recorded for CQM] | | | | | Documentation of | | | | | current medications | | | | | (procedure) | | | + + + + + | CPT-61694 | Lesion, 1 (81640) | | | + + + + + | CPT-G8427 | Current Medications | | | | | Documented | | | + + + + + | [id number] | [Recorded for CQM] | | | | | Documentation of | | | | | current medications | | | | | (procedure) | | | + + + + + | [id number] | MU Generic Patient | | | | | Encounter Service | | | | | (from patch) | | | + + + + + | CPT-G8427 | Current Medications | | | | | Documented | | | + + + + + | [id number] | [Recorded for CQM] | | | | | Smokes tobacco | | | | | daily (finding) | | | + + + + + | [id number] | [Recorded for CQM] | | | | | Current every day | | | | | smoker | | | + + + + + | [id number] | [Recorded for CQM] | | | | | Documentation of | | | | | current medications | | | | | (procedure) | | | + + + + + | [id number] | [Recorded for CQM] | | | | | Tobacco use and | | | | | exposure | | | + + + + + | [id number] | [Recorded for CQM] | | | | | Smoking cessation | | | | | education | | | | | (procedure) | | | + + + + + | [id number] | [Recorded for CQM] | | | | | Documentation of | | | | | current medications | | | | | (procedure) | | | + + + + + | CPT-Q2038 | Fluzone (Inf) High | | | | | dose Med/Atrio | | | + + + + + | CPT-20725 | Vaccine, Influenza | | | | | >3 yrs (V04.81) | | | + + + + + | CPT-96857 | Biopsy, lesion | | | + + + + + | CPT-25165 | Biopsy, lesion | | | + + + + + | CPT-56881 | X-Ray Heel | | | + + + + + | CPT-G8553 | eRx sent | | | + + + + + | CPT-01941 | Lipid Panel | | | | | (Cholesterol) | | | + + + + + | CPT-00317 | Lesion, 2-14 | | | | | (92456) | | | + + + + + | CPT-16303 | Lesion, 1 (54848) | | | + + + + + | CPT-G0008 | Admin Flu Vac | | | | | (mdc/atrio) | | | + + + + + | CPT-25072 | Lesion, 2-14 | | | | | (47813) | | | + + + + + | CPT-36940 | Lesion, 1 (87390) | | | + + + + + | CPT-85919 | Vaccine, Influenza | | | | | >3 yrs (V04.81) | | | + + + + + | 99155 G0202 | MX Mammo Dig | | | | | Screen-Bilat | | | + + + + + | RA SCREEN 49612 | Rheumatoid Factor | | | | | (qual) | | | + + + + + | LEW 64261 | LEW | | | + + + + + | ESR 75101 | Sedimentation Rate | | | | | (ESR) | | | + + + + + | FREE T4 41092 | T4 Free | | | + + + + + | TSH 38755 | TSH | | | + + + + + | RISK 96391 | Lipid Profile | | | + + + + + | CHEM PROF 20803 | CMP (Comprehensive | | | | | Metabolic Panel) | | | + + + + + | MISC TEST PENDING | Other or Misc | | | | | Test/Lab | | | + + + + + | M GEN HSV 19211 | Genital HSV Culture | | | + + + + + | CPT-94425 | UA Dipstick | | | + + + + + | CPT-46292 | Glucose by monitor | | | + + + + + | CPT-57675 | UA Dipstick | | | + + + + + | CPT-94499 | Guiaic Stools (Basehor | | | | | Care) | | | + + + + + | CPT- | Inj/Asp Large Joint | | | [...]
--- OUTSIDE RECORDS SUMMARY | ~2019-05-21 | XMS | Clinical Summary ---
Demographics + + + | Address | [address] | | | [address] | | | [place] [address] | + + + | Home Phone | | + + + | Preferred Language | Unknown | + + + | Marital Status | M | + + + | Yarsani Affiliation | Unknown | + + + | Race | White | + + + | Ethnic Group | Not or | + + + Author + + + | Author | [facility] | + + + | Organization | [facility] | + + + | Address | [address] | | | [place] [address] | + + + | Phone | Unavailable | + + + Care Team Providers + +------+ + | Care Relay Technician Name | Role | Phone | [...] | | tion | | +---------+---------+---------+---------+---------+---------+---------+---------+---------+ | OTHER | [id number] | | Active | | Lynn | [...] | | | +---------+---------+---------+---------+---------+---------+---------+---------+---------+ | HYPERCA | [id number] | | Resolve | | Lynn | | Hyperca | | | LCEMIA | 9 | /29 | d | /29 | L Benavides | | lcemia | | | | (SNOMED | | | | MD | | | | | | CT) | | | | | | | | +---------+---------+---------+---------+---------+---------+---------+---------+---------+ | VAGINAL | [id number] | | Resolve | | Lynn | | Vaginal | recent | | | 06 | /10 | d | /10 | L Benavides | | | | | DISCHAR | (SNOMED | | | | MD | | dischar | | | GE | CT) | | | | | | ge | | +---------+---------+---------+---------+---------+---------+---------+---------+---------+ | HAND | [id number] | | Resolve | | Lynn | | Hand | | | PAIN, | 4 | /25 | d | /25 | L Benavides | | pain | | | BILATER | (SNOMED | | | | MD | | | | | AL | CT) | | | | | | | | +---------+---------+---------+---------+---------+---------+---------+---------+---------+ | NICOTIN | [id number] | | Resolve | | Lynn | | Nicotin | | | E | 8 | /23 | d | /23 | L Benavides | | e | | | ADDICTI | (SNOMED | | | | MD | | depende | | | ON | CT) | | | | | | nce | | +---------+---------+---------+---------+---------+---------+---------+---------+---------+ | ARTHRIT | [id number] | | Resolve | | Lynn | | Arthrit | | | IS | | /25 | d | /25 | L Benavides | | is | | | | (SNOMED | | | | MD | | | | | | CT) | | | | | | | | +---------+---------+---------+---------+---------+---------+---------+---------+---------+ | DEGENER | [id number] | | Resolve | | Lynn | [...] | | | +---------+---------+---------+---------+---------+---------+---------+---------+---------+ | HIP | [id number] | | Resolve | | Lynn | | Hip | | | PAIN, | 2 | /10 | d | /10 | L Benavides | | pain | | | RIGHT | (SNOMED | | | | MD | | | | | | CT) | | | | | | | | +---------+---------+---------+---------+---------+---------+---------+---------+---------+ | DYSURIA | [id number] | | Resolve | | Lynn | | Dysuria | | | | 1 | /11 | d | /11 | L Benavides | | | | | | (SNOMED | | | | MD | | | | | | CT) | | | | | | | | +---------+---------+---------+---------+---------+---------+---------+---------+---------+ | STATUS, | [id number] | | Resolve | | Lynn | [...] joint | | +---------+---------+---------+---------+---------+---------+---------+---------+---------+ | CONSTIP | [id number] | | Resolve | | Lynn | | Constip | | | ATION | 8 | /11 | d | /11 | L Benavides | | ation | | | | (SNOMED | | | | MD | | | | | | CT) | | | | | | | | +---------+---------+---------+---------+---------+---------+---------+---------+---------+ | ABDOMIN | [id number] | | Resolve | | Lynn | | Abdomin | | | AL PAIN | 1 | / | d | /21 | L Benavides | | al pain | | | | (SNOMED | | | | MD | | | | | | CT) | | | | | | | | +---------+---------+---------+---------+---------+---------+---------+---------+---------+ | NEOPLAS | [id number] | | Resolve | | Lynn | [...] skin | | +---------+---------+---------+---------+---------+---------+---------+---------+---------+ | DYSPHAG | [id number] | | Resolve | | Lynn | | Dysphag | | | IA | 0 | /06 | d | /06 | L Kennedy | | ia | | | | (SNOMED | | | | MD | | | | | | CT) | | | | | | | | +---------+---------+---------+---------+---------+---------+---------+---------+---------+ | RECTAL | [id number] | | Resolve | | Lynn | | Rectal | | | BLEEDIN | 2 | /06 | d | /06 | L Kennedy | | hemorrh | | | G | (SNOMED | | | | MD | | age | | | | CT) | | | | | | | | +---------+---------+---------+---------+---------+---------+---------+---------+---------+ | COLONIC | [id number] | | Resolve | | Lynn | [...] | | | +---------+---------+---------+---------+---------+---------+---------+---------+---------+ | FAMILY | [id number] | | Resolve | | Lynn | [...] colon | | +---------+---------+---------+---------+---------+---------+---------+---------+---------+ | HYPERCA | [id number] | | Active | | Lynn | | Hyperca | | | LCEMIA | 9 | / | | /03 | L Kennedy | | lcemia | | | | (SNOMED | | | | MD | | | | | | CT) | | | | | | | | +---------+---------+---------+---------+---------+---------+---------+---------+---------+ | HX OF | [id number] | | Active | | Claudine | | History | | | RIGHT | | | | /02 | | | of [...] knee | | +---------+---------+---------+---------+---------+---------+---------+---------+---------+ | FAMILY | [id number] | | Removed | | Lynn | | Family | Niece, | | HISTORY | | | | | L Benavides | | history | | | OF | (SNOMED | | | | MD | | of | from it | | COLON | CT) | | | | | | cancer | | | CANCER | | | | | | | of | | | | | | | | | | colon | | +---------+---------+---------+---------+---------+---------+---------+---------+---------+ | CONNER | [id number] | | Active | | Lynn | | Conner | | | 'S | | | | | L Benavides | | 's | | | ESOPHAG | (SNOMED | | | | MD | | esophag | | | US | CT) | | | | | | us | | +---------+---------+---------+---------+---------+---------+---------+---------+---------+ | COLONIC | [id number] | | Removed | | Son | | Adenoma | | | | 06 | | | / | Petre | | tous | | | POLYPS, | (SNOMED | | | | MD | | polyp | | | | CT) | | | | | | of | | | ADENOMA | | | | | | | colon | | | TOUS | | | | | | | | | +---------+---------+---------+---------+---------+---------+---------+---------+---------+ | RECTAL | [id number] | | Removed | | Son | | Rectal | | | BLEEDIN | 2 | / | | /06 | Petre | | hemorrh | | | G | (SNOMED | | | | MD | | age | | | | CT) | | | | | | | | +---------+---------+---------+---------+---------+---------+---------+---------+---------+ | DYSPHAG | [id number] | | Removed | | Son | | Dysphag | | | IA | 0 | | | | Petre | | ia | | | | (SNOMED | | | | MD | | | | | | CT) | | | | | | | | +---------+---------+---------+---------+---------+---------+---------+---------+---------+ | HEARTBU | [id number] | | Active | | Son | | Heartbu | | | RN | 0 | /06 | | | Petre | | rn | | | | (SNOMED | | | | MD | | | | | | CT) | | | | | | | | +---------+---------+---------+---------+---------+---------+---------+---------+---------+ | NEOPLAS | [id number] | | Removed | | Lynn | | Neoplas | | | M, | 4 | /09 | | /09 | L Benavides | [...] skin | | +---------+---------+---------+---------+---------+---------+---------+---------+---------+ | COUGH | [id number] | | Resolve | | Lynn | | Cough | | | | 2 | /21 | d | /21 | L Kennedy | | | | | | (SNOMED | | | | MD | | | | | | CT) | | | | | | | | +---------+---------+---------+---------+---------+---------+---------+---------+---------+ | TOBACCO | [id number] | | Active | | Lynn | [...] e | | +---------+---------+---------+---------+---------+---------+---------+---------+---------+ | COUGH | [id number] | | Removed | | Lynn | | Cough | | | | 2 | | | | L Kennedy | | | | | | (SNOMED | | | | MD | | | | | | CT) | | | | | | | | +---------+---------+---------+---------+---------+---------+---------+---------+---------+ | ABDOMIN | [id number] | | Removed | | Lynn | | Abdomin | | | AL PAIN | 1 | | | | L Kennedy | | al pain | | | | (SNOMED | | | | MD | | | | | | CT) | | | | | | | | +---------+---------+---------+---------+---------+---------+---------+---------+---------+ | FAMILY | [id number] | | Active | | Lynn | | Family | | | HISTORY | 05 | /07 | | /07 | L Benavides | | history | | | [...] thyroid | | +---------+---------+---------+---------+---------+---------+---------+---------+---------+ | THYROID | [id number] | | Active | | Lynn | | Thyroid | | | NODULE | 05 | | | / | L Kennedy | | nodule | | | | (SNOMED | | | | MD | | | | | | CT) | | | | | | | | +---------+---------+---------+---------+---------+---------+---------+---------+---------+ | CONSTIP | [id number] | | Removed | | Lynn | | Constip | | | ATION | 8 | /11 | | /11 | L Kennedy | | ation | | | | (SNOMED | | | | MD | | | | | | CT) | | | | | | | | +---------+---------+---------+---------+---------+---------+---------+---------+---------+ | STATUS, | [id number] | | Removed | | Lynn | | Implant | | | KNEE | 03 | / | | /11 | L Kennedy | [...] joint | | +---------+---------+---------+---------+---------+---------+---------+---------+---------+ | KNEE | [id number] | | Resolve | | Lynn | | Knee | | | PAIN | 3 | /25 | d | /25 | L Kennedy | | pain | | | | (SNOMED | | | | MD | | | | | | CT) | | | | | | | | +---------+---------+---------+---------+---------+---------+---------+---------+---------+ | PREOPER | [id number] | | Resolve | | Lynn | | Preoper | | | ATIVE | 05 | /03 | d | /03 | L Kennedy | | ative | | | EXAMINA | (SNOMED | | | | MD | | procedu | | | TION | CT) | | | | | | res | | +---------+---------+---------+---------+---------+---------+---------+---------+---------+ | PREOPER | [id number] | | Resolve | | Lynn | | Preoper | | | ATIVE | 05 | /10 | d | /10 | L Kennedy | | ative | | | EXAMINA | (SNOMED | | | | MD | | procedu | | | TION | CT) | | | | | | res | | +---------+---------+---------+---------+---------+---------+---------+---------+---------+ | DYSURIA | [id number] | | Removed | | Lynn | | Dysuria | | | | 1 | /11 | | /11 | L Kennedy | | | | | | (SNOMED | | | | MD | | | | | | CT) | | | | | | | | +---------+---------+---------+---------+---------+---------+---------+---------+---------+ | HIP | [id number] | | Removed | | Alice | | Hip | | | PAIN, | 2 | /10 | | /10 | [place] | | pain | | | RIGHT | (SNOMED | | | | NCMA | | | | | | CT) | | | | | | | | +---------+---------+---------+---------+---------+---------+---------+---------+---------+ | PREOPER | [id number] | | Removed | | Claudine | | Preoper | | | ATIVE | 05 | /10 | | /10 | | | ative | | | EXAMINA | (SNOMED | | | | Crouche | | procedu | | | TION | CT) | | | | r NCMA | | res | | +---------+---------+---------+---------+---------+---------+---------+---------+---------+ | DEGENER | [id number] | | Removed | | Claudine | [...] | | | POSITIV | (ICD-10 | / | | /03 | L [...] | | | | | | | 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 | | | | | | | | | | ry | | +---------+---------+---------+---------+---------+---------+---------+---------+---------+ | PREOPER | [id number] | | Removed | | Lynn | | Preoper | | | ATIVE | 05 | /03 | | /03 | L Benavides | | ative | | | EXAMINA | (SNOMED | | | | MD | | procedu | | | TION | CT) | | | | | | res | | +---------+---------+---------+---------+---------+---------+---------+---------+---------+ | LEW | [id number] | | Inactiv | | Lynn | [...] y | | +---------+---------+---------+---------+---------+---------+---------+---------+---------+ | FIBROMY | [id number] | | Active | | Cynthia | | Fibromy | | | ALGIA | 7 | /25 | | /25 | M | | ositis | | | | (SNOMED | | | | [facility] | | | | | | CT) | | | | NCMA | | | | +---------+---------+---------+---------+---------+---------+---------+---------+---------+ | KNEE | [id number] | | Removed | | Cynthia | | Knee | | | PAIN | 3 | /25 | | /25 | M | | pain | | | | (SNOMED | | | | [facility] | | | | | | CT) | | | | NCMA | | | | +---------+---------+---------+---------+---------+---------+---------+---------+---------+ | ARTHRIT | [id number] | | Removed | | Cynthia | | Arthrit | | | IS | | /25 | | /25 | M | | is | | | | (SNOMED | | | | [facility] | | | | | | CT) | | | | NCMA | | | | +---------+---------+---------+---------+---------+---------+---------+---------+---------+ | OSTEOAR | [id number] | | Resolve | | Lynn | [...] hand | | +---------+---------+---------+---------+---------+---------+---------+---------+---------+ | OSTEOAR | [id number] | | Resolve | | Lynn | [...] | | | +---------+---------+---------+---------+---------+---------+---------+---------+---------+ | HYPERLI | [id number] | | Active | | Lynn | | Hyperli | | | PIDEMIA | 4 | / | | /29 | L Benavides | | pidemia | | | - | (SNOMED | | | | MD | | | | | STATIN | CT) | | | | | | | | | INTOLER | | | | | | | | | | ANT | | | | | | | | | +---------+---------+---------+---------+---------+---------+---------+---------+---------+ | HYPERCH | [id number] | | Resolve | | Lynn | | Hyperch | | | OLESTER | 9 | /24 | d | /24 | L Benavides | | olester | | | OLEMIA | (SNOMED | | | | MD | | olemia | | | | CT) | | | | | | | | +---------+---------+---------+---------+---------+---------+---------+---------+---------+ | HYPERCA | [id number] | | Removed | | Lynn | | Hyperca | | | LCEMIA | 9 | /29 | | /29 | L Benavides | | lcemia | | | | (SNOMED | | | | MD | | | | | | CT) | | | | | | | | +---------+---------+---------+---------+---------+---------+---------+---------+---------+ | DEPRESS | [id number] | | Active | | Lynn | | Depress | | | ION | 7 | /29 | | /29 | L Benavides | | james | | | | (SNOMED | | | | MD | | disorde | | | | CT) | | | | | | r | | +---------+---------+---------+---------+---------+---------+---------+---------+---------+ | VISUAL | [id number] | | Resolve | | Lynn | | Visual | | | SCOTOMA | 6 | /24 | d | /24 | L Benavides | | field | | | TA | (SNOMED | | | | MD | | scotoma | | | | CT) | | | | | | | | +---------+---------+---------+---------+---------+---------+---------+---------+---------+ | BASAL | [id number] | | Resolve | | Lynn | | Basal | | | CELL | 04 | | d | | L Benavides | | cell | [...] | | | +---------+---------+---------+---------+---------+---------+---------+---------+---------+ | HYPERLI | [id number] | | Resolve | | Lynn | | Hyperli | | | PIDEMIA | 4 | /03 | d | /10 | L Benavides | | pidemia | | | | (SNOMED | | | | MD | | | | | | CT) | | | | | | | | +---------+---------+---------+---------+---------+---------+---------+---------+---------+ | SHOULDE | [id number] | | Resolve | | Lynn | | Shoulde | | | R PAIN | 0 | /10 | d | /10 | L Benavides | | r pain | | | | (SNOMED | | | | MD | | | | | | CT) | | | | | | | | +---------+---------+---------+---------+---------+---------+---------+---------+---------+ | FOOT | [id number] | | Resolve | | Lynn | | Foot | | | PAIN, | 7 | /10 | d | /10 | L Benavides | | pain | | | LEFT | (SNOMED | | | | MD | | | | | | CT) | | | | | | | | +---------+---------+---------+---------+---------+---------+---------+---------+---------+ | PES | [id number] | | Resolve | | Lynn | | Pes | | | PLANUS | 7 | /10 | d | /10 | L Benavides | | planus | | | | (SNOMED | | | | MD | | | | | | CT) | | | | | | | | +---------+---------+---------+---------+---------+---------+---------+---------+---------+ | HAMMER | [id number] | | Resolve | | Lynn | | Hammer | | | TOE | 08 | /10 | d | /10 | L Benavides | | toe | | | | (SNOMED | | | | MD | | | | | | CT) | | | | | | | | +---------+---------+---------+---------+---------+---------+---------+---------+---------+ | SHOULDE | [id number] | | Resolve | | Lynn | [...] region | | +---------+---------+---------+---------+---------+---------+---------+---------+---------+ | ABDOMIN | [id number] | | Resolve | | Lynn | | Abdomin | | | AL PAIN | 1 | /10 | d | /10 | L Benavides | | al pain | | | | (SNOMED | | | | MD | | | | | | CT) | | | | | | | | +---------+---------+---------+---------+---------+---------+---------+---------+---------+ | LOW | [id number] | | Resolve | | Lynn | | Chronic | | | BACK | 09 | 10 | d | /10 | L Kennedy | | low | | | PAIN, | (SNOMED | | | | MD | | back | | | CHRONIC | CT) | | | | | | pain | | +---------+---------+---------+---------+---------+---------+---------+---------+---------+ | URINARY | [id number] | | Resolve | | Lynn | | Increas | | | | 03 | /10 | d | /10 | L Kennedy | | ed | | | FREQUEN [...] | | IA | (ICD- | | d | /10 | L Benavides | | ia, | | | UNSPECI | -CM) | | | | MD | | unspeci | | | FIED | | | | | | | fied | | +---------+---------+---------+---------+---------+---------+---------+---------+---------+ | HYPERCH | [id number] | | Resolve | | Lynn | | Hyperch | | | OLESTER | 9 | / | d | /25 | L Benavides | | olester | | | OLEMIA | (SNOMED | | | | MD | | olemia | | | | CT) | | | | | | | | +---------+---------+---------+---------+---------+---------+---------+---------+---------+ | ROUTINE | [id number] | | Resolve | | Lynn | | Gynecol | | | | 1 | /01 | d | /01 | L Benavides | | ogic | | | GYNECOL | (SNOMED | | | | MD | | examina | | | OGICAL | CT) | | | | | | tion | | | EXAMINA | | | | | | | | | | TION | | | | | | | | | +---------+---------+---------+---------+---------+---------+---------+---------+---------+ | OTHER | [id number] | | Resolve | | Lynn | | Screeni | | | SCREENI | 2 | /30 | d | /30 | L Benavides | | ng | [...] | FIED | (ICD-10 | /30 | d | /30 | L Benavides | | athy, | | | ARTHROP | -CM) | | | | MD | | unspeci | | | ATHY | | | | | | | fied | | | MULTIPL | | | | | | | | | | E SITES | | | | | | | | | +---------+---------+---------+---------+---------+---------+---------+---------+---------+ | ACTINIC | [id number] | | Resolve | | Lynn | | Actinic | | | | 07 | /25 | d | /25 | L Benavides | | | | | KERATOS | (SNOMED | | | | MD | | keratos | | | IS | CT) | | | | | | is | | +---------+---------+---------+---------+---------+---------+---------+---------+---------+ | UNSPECI | [id number] | | Resolve | | Lynn | | Disorde | | | FIED | 6 | / | d | /25 | [...] | | | +---------+---------+---------+---------+---------+---------+---------+---------+---------+ | NECK | [id number] | | Resolve | | Lynn | | Neck | | | PAIN | 5 | | d | /25 | L Benavides | | pain | | | | (SNOMED | | | | MD | | | | | | CT) | | | | | | | | +---------+---------+---------+---------+---------+---------+---------+---------+---------+ | PLANTAR | [id number] | | Resolve | | Lynn | [...] tosis | | +---------+---------+---------+---------+---------+---------+---------+---------+---------+ | ACCIDEN | [id number] | | Resolve | | Lynn | [...] | | | +---------+---------+---------+---------+---------+---------+---------+---------+---------+ | NEOPLAS | [id number] | | Resolve | | Lynn | | Neoplas | | | M, | 4 | /12 | d | /12 | L Kennedy | | m of | | | [...] skin | | +---------+---------+---------+---------+---------+---------+---------+---------+---------+ | ENCOUNT | [id number] | | Resolve | | Lynn | [...] | | | +---------+---------+---------+---------+---------+---------+---------+---------+---------+ | ENCOUNT | [id number] | | Resolve | | Lynn | | Removal | | | ER FOR | 1 | /22 | d | /22 | L Kennedy | | of | | | REMOVAL [...] | | | +---------+---------+---------+---------+---------+---------+---------+---------+---------+ | TRANSIE | [id number] | | Resolve | | Lynn | | Transie | | | NT | 5 | 24 | d | /24 | L Benavides | | nt | | | VISUAL | (SNOMED | | | | MD | | visual | | | LOSS | CT) | | | | | | loss | | +---------+---------+---------+---------+---------+---------+---------+---------+---------+ | SCREENI | [id number] | | Resolve | | Lynn | [...] | | | +---------+---------+---------+---------+---------+---------+---------+---------+---------+ | NEPHREC | [id number] | | Inactiv | | Pretty | | Kidney | | | GUS, | | | e | | Rah | | ashleeisio | | | HX OF | (SNOMED | | | | en DO | | n | | | | CT) | | | | | | | | +---------+---------+---------+---------+---------+---------+---------+---------+---------+ | FATIGUE | [id number] | | Inactiv | | Pretty | | Fatigue | | | | 1 | | e | | Jorgens | | | | | | (SNOMED | | | | en DO | | | | | | CT) | | | | | | | | +---------+---------+---------+---------+---------+---------+---------+---------+---------+ | OTHER | [id number] | | Inactiv | | Pretty | | Screeni | | | SCREENI | 2 | /18 | e | 18 | Jorgens | | ng | | | NG | (SNOMED | | | | en DO | | mammogr | | | MAMMOGR | CT) | | | | | | aphy | | | AM | | | | | | | | | +---------+---------+---------+---------+---------+---------+---------+---------+---------+ | SCREENI | [id number] | | Removed | | Pretty | | Screeni | | | NG, | 04 | | | | Jorgens | | [...] colon | | +---------+---------+---------+---------+---------+---------+---------+---------+---------+ | CARPAL | [id number] | | Inactiv | | Ky | | Carpal | | | TUNNEL | 9 | /15 | e | /15 | Bitter | | tunnel | | | SYNDROM | (SNOMED | | | | MD | | syndrom | | | E | CT) | | | | | | e | | +---------+---------+---------+---------+---------+---------+---------+---------+---------+ | OSTEOAR | [id number] | | Resolve | | Ky | [...] hand | | +---------+---------+---------+---------+---------+---------+---------+---------+---------+ | TRIGGER | [id number] | | Resolve | | Ky | | Acquire | right | | FINGER | | /23 | d | /23 | Bitter | | d | thumb | | | (SNOMED | | | | MD | | trigger | | | | CT) | | | | | | finger | | +---------+---------+---------+---------+---------+---------+---------+---------+---------+ | NICOTIN | [id number] | | Removed | | Ky | | Nicotin | | | E | 8 | / | | | Bitter | | e | | | ADDICTI | (SNOMED | | | | MD | | depende | | | ON | CT) | | | | | | nce | | +---------+---------+---------+---------+---------+---------+---------+---------+---------+ | TRIGGER | [id number] | | Removed | | Ky | | Acquire | right | | FINGER | | | | | Bitter | | d | thumb | | | (SNOMED | | | | MD | | trigger | | | | CT) | | | | | | finger | | +---------+---------+---------+---------+---------+---------+---------+---------+---------+ | OSTEOAR | [id number] | | Removed | | Pretty | [...] hand | | +---------+---------+---------+---------+---------+---------+---------+---------+---------+ | CARPAL | [id number] | | Removed | | Pretty | | Carpal | | | TUNNEL | 9 | /15 | | /15 | Jorgens | | tunnel | | | SYNDROM | (SNOMED | | | | en DO | | syndrom | | | E | CT) | | | | | | e | | +---------+---------+---------+---------+---------+---------+---------+---------+---------+ | SINUSIT | [id number] | | Inactiv | | Pretty | [...] is | | +---------+---------+---------+---------+---------+---------+---------+---------+---------+ | SACROIL | [id number] | | Inactiv | | Pretty | | Inflamm | | | IITIS | 9 | | e | / | Jorgens | | ation | | | | (SNOMED | | | | en DO | | of | | | | CT) | | | | | | sacroil | | | | | | | | | | iac | | | | | | | | | | joint | | +---------+---------+---------+---------+---------+---------+---------+---------+---------+ | OSTEOAR | [id number] | | Removed | | Emelina | | Osteoar | | | THRITIS | 02 | / | | /24 | Fanug[facility] | | thritis | | | , HIPS, | (SNOMED | | | | MA | | of hip | | | | CT) | | | | | | | | | BILATER | | | | | | | | | | AL | | | | | | | | | +---------+---------+---------+---------+---------+---------+---------+---------+---------+ | HYPERCH | [id number] | | Removed | | Emelina | | Hyperch | | | OLESTER | | | | | [facility] | | olester | | | OLEMIA | (SNOMED | | | | MA | | olemia | | | | CT) | | | | | | | | +---------+---------+---------+---------+---------+---------+---------+---------+---------+ | TRANSIE | [id number] | | Removed | | Emelina | | Transie | | | NT | 5 | / | | / | [facility] | | nt | | | VISUAL | (SNOMED | | | | MA | | visual | | | LOSS | CT) | | | | | | loss | | +---------+---------+---------+---------+---------+---------+---------+---------+---------+ | VISUAL | [id number] | | Removed | | Emelina | | Visual | | | SCOTOMA | 6 | /24 | | /24 | [facility] | | field | | | TA | (SNOMED | | | | MA | | scotoma | | | | CT) | | | | | | | | +---------+---------+---------+---------+---------+---------+---------+---------+---------+ | HEADACH | [id number] | | Inactiv | | Emelina | | Headach | | | E | 2 | | e | / | [facility] | | e | | | | (SNOMED | | | | MA | | | | | | CT) | | | | | | | | +---------+---------+---------+---------+---------+---------+---------+---------+---------+ | NEED | [id number] | | Removed | | Eva | | Encount | | | PROPHYL | (ICD-10 | | | | Mima | | er for | | | [...] | | | +---------+---------+---------+---------+---------+---------+---------+---------+---------+ | VITAMIN | [id number] | | Inactiv | | Pretty | | Vitamin | | | D | 6 | | e | | Jorgens | | D | | | DEFICIE | (SNOMED | | | | en DO | | deficie | | | NCY | CT) | | | | | | ncy | | +---------+---------+---------+---------+---------+---------+---------+---------+---------+ | ENCOUNT | [id number] | | Removed | | Pretty | | Removal | | | ER FOR | | | | | Jorgens | | of | | | REMOVAL | (SNOMED | | | | en DO | | suture | | | OF | CT) | | | | | | | | | SUTURES | | | | | | | | | +---------+---------+---------+---------+---------+---------+---------+---------+---------+ | BASAL | [id number] | | Removed | | Lynn | | Basal | | | CELL | 04 | / | | / | Navera | | cell | | [...] | | | +---------+---------+---------+---------+---------+---------+---------+---------+---------+ | ENCOUNT | [id number] | | Removed | | Emelina | | Removal | | | ER FOR | 1 | /08 | | / | Fanugao | | of | | | REMOVAL | (SNOMED | | | | MA | | suture | | | OF | CT) | | | | | | | | | SUTURES | | | | | | | | | +---------+---------+---------+---------+---------+---------+---------+---------+---------+ | NEOPLAS | [id number] | | Removed | | Pretty | [...] skin | | +---------+---------+---------+---------+---------+---------+---------+---------+---------+ | ACCIDEN | [id number] | | Removed | | Pretty | [...] | | | +---------+---------+---------+---------+---------+---------+---------+---------+---------+ | KNEE | [id number] | | Inactiv | | Pretty | | Knee | | | PAIN, | 3 | /12 | e | /12 | [facility] | | pain | | | BILATER | (SNOMED | | | | en DO | | | | | AL | CT) | | | | | | | | +---------+---------+---------+---------+---------+---------+---------+---------+---------+ | HIP | [id number] | | Inactiv | | Pretty | | Hip | | | PAIN | 2 | /12 | e | /12 | [facility] | | pain | | | | (SNOMED | | | | en DO | | | | | | CT) | | | | | | | | +---------+---------+---------+---------+---------+---------+---------+---------+---------+ | OSTEOAR | [id number] | | Removed | | Pretty | [...] hand | | +---------+---------+---------+---------+---------+---------+---------+---------+---------+ | CLAUDIC | [id number] | | Inactiv | | Pretty | | Claudic | | | ATION | 00 | /12 | e | /12 | [facility] | | ation | | | | (SNOMED | | | | en DO | | | | | | CT) | | | | | | | | +---------+---------+---------+---------+---------+---------+---------+---------+---------+ | PERIPHE | [id number] | | Inactiv | | Pretty | | Periphe | | | RAL | 06 | /12 | e | /12 | [facility] | | ral | | | VASCULA | (SNOMED | | | | en DO | | vascula | | | R | CT) | | | | | | r | | | DISEASE | | | | | | | disease | | +---------+---------+---------+---------+---------+---------+---------+---------+---------+ | LEG | [id number] | | Inactiv | | Pretty | | Cramp | | | CRAMPS | 04 | 12 | e | /12 | [facility] | | in | | | | (SNOMED | | | | en DO | | lower | | | | CT) | | | | | | limb | | +---------+---------+---------+---------+---------+---------+---------+---------+---------+ | PLANTAR | [id number] | | Removed | | Lionel | [...] tosis | | +---------+---------+---------+---------+---------+---------+---------+---------+---------+ | MYALGIA | [id number] | | Inactiv | | Pretty | | Muscle | | | | 1 | /20 | e | /20 | [facility] | | pain | | | | (SNOMED | | | | en DO | | | | | | CT) | | | | | | | | +---------+---------+---------+---------+---------+---------+---------+---------+---------+ | NECK | [id number] | | Removed | | Pretty | | Neck | | | PAIN | 5 | /25 | | /25 | [facility] | | pain | | | | (SNOMED | | | | en DO | | | | | | CT) | | | | | | | | +---------+---------+---------+---------+---------+---------+---------+---------+---------+ | HAND | [id number] | | Removed | | Pretty | | Hand | | | PAIN, | 4 | /25 | | /25 | [facility] | | pain | | | BILATER | (SNOMED | | | | en DO | | | | | AL | CT) | | | | | | | | +---------+---------+---------+---------+---------+---------+---------+---------+---------+ | ARTHRIT | [id number] | | Inactiv | | Pretty | | Arthrit | | | IS | | / | e | | [facility] | | is | | | | (SNOMED | | | | en DO | | | | | | CT) | | | | | | | | +---------+---------+---------+---------+---------+---------+---------+---------+---------+ | UNSPECI | [id number] | | Removed | | Pretty | | Disorde | | | FIED | 6 | | | | [facility] | | r of | [...] | | | +---------+---------+---------+---------+---------+---------+---------+---------+---------+ | VACCINE | [id number] | | Inactiv | | Pretty | [...] | | | +---------+---------+---------+---------+---------+---------+---------+---------+---------+ | HYPERCH | [id number] | | Removed | | Pretty | | Hyperch | | | OLESTER | 9 | | | / | [facility] | | olester | | | OLEMIA | (SNOMED | | | | en DO | | olemia | | | | CT) | | | | | | | | +---------+---------+---------+---------+---------+---------+---------+---------+---------+ | ACTINIC | | | Removed | | Pretty | | Actinic | | | | 07 | / | | / | [facility] | | | | | KERATOS | (SNOMED | | | | en DO | | keratos | | | IS | CT) | | | | | | is | | +---------+---------+---------+---------+---------+---------+---------+---------+---------+ | GERD | [id number] | | Active | | Pretty | | Gastroe | | | | 09 | /25 | | /25 | [facility] [...] | | | NG FOR | | / | e | /30 | Kusler | | er for | | | LIPOID | (ICD-10 | | | | TECHNICAL PRODUCT MANAGER | | screeni | | | DISORDE [...] | | NG FOR | (ICD-10 | /30 | e | /30 | Kusler | | er for | | | DIABETE | -CM) | | | | TECHNICAL PRODUCT MANAGER | | screeni | | | S [...] ARTHROP | -CM) | | | | TECHNICAL PRODUCT MANAGER | | unspeci | | | ATHY | | | | | | | fied | | | MULTIPL | | | | | | | | | | E SITES | | | | | | | | | +---------+---------+---------+---------+---------+---------+---------+---------+---------+ | ARTHRIT | [id number] | | Inactiv | | Sandra | | Arthrit | | | IS | | /30 | e | /30 | Kusler | | is | | | | (SNOMED | | | | TECHNICAL PRODUCT MANAGER | | | | | | CT) | | | | | | | | +---------+---------+---------+---------+---------+---------+---------+---------+---------+ | OTHER | [id number] | | Removed | | Sandra | | Screeni | | | SCREENI | 2 | /30 | | /30 | Kusler | | ng | | | NG | (SNOMED | | | | TECHNICAL PRODUCT MANAGER | | mammogr | | | MAMMOGR | CT) | | | | | | aphy | | | AM | | | | | | | | | +---------+---------+---------+---------+---------+---------+---------+---------+---------+ | ROUTINE | [id number] | | Removed | | Sandra | | Gynecol | | | | 1 | | | | Kusler | | ogic | | | GYNECOL | (SNOMED | | | | TECHNICAL PRODUCT MANAGER | | examina | | | OGICAL | CT) | | | | | | tion | | | EXAMINA | | | | | | | | | | TION | | | | | | | | | +---------+---------+---------+---------+---------+---------+---------+---------+---------+ | HYPERLI | [id number] | | Removed | | Sandra | | Hyperli | | | PIDEMIA | 4 | / | | | Kusler | | pidemia | | | | (SNOMED | | | | ORNAMENTAL IRON WORKER APPRENTICE | | | | | | CT) | | | | | | | | +---------+---------+---------+---------+---------+---------+---------+---------+---------+ | VAGINAL | [id number] | | Removed | | Lars | | Vaginal | recent | | | | | | | Ramirez | | | | | DISCHAR | (SNOMED | | | | DO | | dischar | | | GE | CT) | | | | | | ge | | +---------+---------+---------+---------+---------+---------+---------+---------+---------+ | HEMATUR | R31.9 | | Removed | | Lars | | Hematur | | | IA | (ICD- | | | Ramirez | | ia, | | | UNSPECI | -) | | | | DO | | unspeci | | | FIED | | | | | | | fied | | +---------+---------+---------+---------+---------+---------+---------+---------+---------+ | URINARY | [id number] | | Removed | | Lars | [...] on | | +---------+---------+---------+---------+---------+---------+---------+---------+---------+ | LOW | [id number] | | Removed | | Lars | | Chronic | | | BACK | 09 | | | / | Ramirez | | low | | | PAIN, | (SNOMED | | | | DO | | back | | | CHRONIC | CT) | | | | | | pain | | +---------+---------+---------+---------+---------+---------+---------+---------+---------+ | ABDOMIN | [id number] | | Removed | | Carly | | Abdomin | | | AL PAIN | 1 | | | | Tony | | al pain | | | | (SNOMED | | | | TYPEWRITER OPERATOR AUTOMATIC | | | | | | CT) | | | | | | | | +---------+---------+---------+---------+---------+---------+---------+---------+---------+ | SHOULDE | [id number] | | Removed | | Pretty | | Impinge | | | R | 07 | / | | /13 | [facility] | | [...] region | | +---------+---------+---------+---------+---------+---------+---------+---------+---------+ | HAMMER | [id number] | | Removed | | Pretty | | Hammer | | | TOE | 08 | /10 | | /10 | [facility] | | toe | | | | (SNOMED | | | | en DO | | | | | | CT) | | | | | | | | +---------+---------+---------+---------+---------+---------+---------+---------+---------+ | PES | [id number] | | Removed | | Pretty | | Pes | | | PLANUS | 7 | /10 | | /10 | [facility] | | planus | | | | (SNOMED | | | | en DO | | | | | | CT) | | | | | | | | +---------+---------+---------+---------+---------+---------+---------+---------+---------+ | FOOT | [id number] | | Removed | | Pretty | | Foot | | | PAIN, | 7 | /10 | | /10 | [facility] | | pain | | | LEFT | (SNOMED | | | | en DO | | | | | | CT) | | | | | | | | +---------+---------+---------+---------+---------+---------+---------+---------+---------+ | SHOULDE | [id number] | | Removed | | Pretty | | Shoulde | | | R PAIN | 0 | /10 | | /10 | [facility] | | r pain | | | | (SNOMED | | | | en DO | | | | | | CT) | | | | | | | | +---------+---------+---------+---------+---------+---------+---------+---------+---------+ | HYPERTE | [id number] | | Active | | Pretty | [...] 1 tab | | | PITAVASTAT | [id number] | Patience | | MG TABS | [...] 1 cap | | | CEPHALEXIN | 3580569589 | Lynn L | | 500 MG | twice a | | | | 8 | Benavides MD | | CAPS | day for 7 | | | | | | | | days | | | | | | + + + + + + + + | BIDROCIRAL | 1 po QOD | | | BIDROCIRAL | | Sandra | | 50 MG | | | | 50 MG | | Bernardler ORNAMENTAL IRON WORKER APPRENTICE | + + + + + + + + | METOPROLOL | 1/2 po | | | METOPROLOL | 9593799836 | Pretty | | SUCCINATE | daily | | | SUCCINATE | 1 | Norah | | ER 50 MG | | | | | | DO | | [id number] | | | | | | | + + + + + + + + | ASPIRIN 81 | 1 every | | | ASPIRIN | 0424158366 | Pretty | | MG TABS | [...] 2 tablets | | | CALCIUM | 1205470665 | Lynn L | | 600 MG | daily. 1 | | | | 8 | Kennedy RICO | | TABS | in morning | | | | | | | | and 1 at | | | | | | | | bedtime | | | | | | + + + + + + + + | MULTI-AIMEE | 1 tab po q | | | MULTIPLE | 5217318033 | Son | | MIN TABS | day | | | VITAMIN | 0 | Petrjenny MD | + + + + + + + + | HYZAAR | 1 by mouth | | | LOSARTAN | 0843402138 | Pretty | | 100-25 MG | every day | | | POTASSIUM- | 0 | Norah | | TABS | for blood | | | HCTZ | | DO | | | pressure | | | | | | + + + + + + + + | ALEVE 220 | 1 po Q day | | | NAPROXEN | 9548875459 | Isabel | | MG TABS | for | | | SODIUM | 4 | Lucius RICO | | | arthritis | | | | | | | | PRN | | | | | | + + + + + + + + | NASONEX 50 | 2 sprays | | | MOMETASONE | 5460347523 | Lynn L | | MCG/ACT | each | | | FUROATE | 1 | Kennedy RICO | | SUSP | nostril | | | | | | | | every day | | | | | | + + + + + + + + | METRONIDAZ | 1 bid x 10 | | | METRONIDAZ | 4396048748 | Sandra | | OLE 500 MG | days | | | OLE | 8 | Bernardler TECHNICAL PRODUCT MANAGER | | TABS | | | | | | | + + + + + + + + | ASPIRIN 81 | 1 every | | | ASPIRIN | 2876203216 | Son | | MG TABS | other day | | | | 0 | Tomase MD | | | by mouth | | | | | | | | every | | | | | | | | other day | | | | | | + + + + + + + + | TYLENOL | 1 po qd | | | ACETAMINOP | 6077066070 | Pretty | | ARTHRITIS | prn | | | HEN | 0 | Norah | | PAIN 650 | | | | | | DO | | MG CR-TABS | | | | | | | + + + + + + + + | ZITHROMAX | 2 p.o | | | AZITHROMYC | 5101921911 | Lynn Nolen | | Z-SHAILESH 250 | dialy 1 | | | IN | 5 | Kennedy RICO | | MG TABS | then 1 p.o | | | | | | | | dialy day | | | | | | | | 2 to 5 | | | | | | + + + + + + + + | OXYCODONE- | take 1 | | | OXYCODONE- | 2633181974 | Lynn Nolen | | ACETAMINOP | tablets by | | | ACETAMINOP | 1 | Kennedy RICO | | HEN 10-325 | mouth [...] QOD by | | | ASPIRIN | 6859197665 | Pretty | | MG TABS | mouth | | | | 0 | Norah | | | every | | | | | DO | | | other day | | | | | | + + + + + + + + | ALEVE 220 | 1 tab once | | | NAPROXEN | 9463708791 | Lynn L | | MG TABS [...] tab once | | | NAPROXEN | 1956443731 | Lynn L | | MG TABS [...] - 2 | | | HYDROCODON | 1236229429 | Lynn L | | 10-325 MG [...] SL every | | | NITROGLYCE | 5504569213 | Pretty | | RIN 0.4 MG [...] apply to | | | DICLOFENAC | 2184049360 | Crystal | | 1.5 % SOLN | affected | | | SODIUM | 5 | Noel | | | area qid | | | | | PROFILE SAW SETUP OPERATOR | | | prn | | | | | | + + + + + + + + | ASPIRIN 81 | 1 by mouth | | | ASPIRIN | 7016654351 | Pretty | | MG TABS | every day | | | | 0 | Norah | | | | | | | | DO | + + + + + + + + | EQL | Daily | | | CA | 4423351304 | Eva | | VITAMIN | | [...] po qd | | | ASCORBIC | 3852182208 | Pretty | | ACID 1000 | | | | ACID | 0 | Norah | | MG TABS | | | | | | DO | + + + + + + + + | HYDROCHLOR | Take 1 po | | | HYDROCHLOR | 7296283257 | Sandra | | OTHIAZIDE | qod | | | OTHIAZIDE | 0 | Kusler TECHNICAL PRODUCT MANAGER | | 25 MG TABS | | | | | | | + + + + + + + + | TYLENOL | 1 po qd | | | ACETAMINOP | 4361768320 | Pretty | | ARTHRITIS | prn | | | HEN | 0 | Norah | | PAIN 650 | | | | | | DO | | MG CR-TABS | | | | | | | + + + + + + + + | ALEVE 220 | 1 po QD | | | NAPROXEN | 0666319515 | Pretty | | MG TABS | for | | | SODIUM | 4 | Norah | | | arthritis | | | | | DO | | | PRN | | | | | | + + + + + + + + | PRILOSEC | one po qd | | | OMEPRAZOLE | 8039252271 | Pretty | | OTC 20 MG | | | | MAGNESIUM | 0 | Norah | | TBEC | | | | | | DO | + + + + + + + + | ALEVE 220 | 1 po bid | | | NAPROXEN | 8487126484 | Pretty | | MG TABS | for | | | SODIUM | 4 | Norah | | | arthritis | | | | | DO | + + + + + + + + | ASPIRIN 81 | 1 every | | | ASPIRIN | 5404536616 | Lynn L | | MG TABS | other | | | | 0 | Kennedy RICO | | | night with | | [...] po bid | | | NAPROXEN | 0664416126 | Eva | | MG TABS | for | | | SODIUM | 0 | [place] | | | arthritis | | | | | | | | PRN | | | | | | + + + + + + + + | EXFORGE | 1 by mouth | | | EXFORGE | | Sandra | | 5-320 | two times | | | 5-320 | | Collins TECHNICAL PRODUCT MANAGER | | | per day | | | | | | + + + + + + + + | GABAPENTIN | 1 at hs | | | GABAPENTIN | 3644274925 | Sandra | | 100 MG | for low | | | | 7 | Collins ORNAMENTAL IRON WORKER APPRENTICE | | CAPS | back pain | [...] po q | | | MULTIPLE | 6220774394 | Lynn L | | MIN TABS | day | | | VITAMIN | 0 | Kennedy MD | + + + + + + + + | HYDROCODON | ONE TAB | | | HYDROCODON | 7587502893 | Ky | | E-ACETAMIN | Q4-6HR [...] mix and | | | PEG-KCL-NA | 8767938923 | Lynn L | | 100 GM | drink one | | | CL-NASULF- | 5 | Benavides MD | | SOLR | set of [...] 2 caps | | | OMEPRAZOLE | 4454565474 | Pretty | | 20 MG CPDR [...] one tablet | | | AMLODIPINE | 9218345923 | Pretty | | MG TABS | by mouth | | | BESYLATE | 9 | Norah | | | daily | | | | | DO | + + + + + + + + | LIVALO 4 | 1/2 p.o | | | PITAVASTAT | 5396432641 | Crystal | | MG TABS | daily | | | IN CALCIUM | 0 | Noel | | | | | | | | PROFILE SAW SETUP OPERATOR | + + + + + + + + | ASCORBIC | 1 po qd | | | ASCORBIC | 0488221336 | Emelina | | ACID 1000 | | | | ACID | 0 | Milano [place] | | MG TABS | | | | | | | + + + + + + + + | EQL | Daily | | | CA | 4951864820 | Lynn L | | VITAMIN | | | | PHOSPHATE- | 2 | Kennedy MD | | D-3 HIGH | | | | CHOLECALCI | | | | POTENCY | | | | FEROL | | | | 115-1999 | | | | | | | [...] take 1-2 | | | OXYCODONE- | 5620946951 | Claudine | | ACETAMINOP | tablets by | | | ACETAMINOP | 1 | Samanta | | HEN 10-325 | mouth | [...] + + + + | ATORVASTAT | 2 p.o | | | ATORVASTAT | 7644245101 | Pretty | | IN CALCIUM | daily | | | IN CALCIUM | 7 | Norah | | 10 MG | | | | | | DO | | TABS | | | | | | | + + + + + + + + | HYDROCHLOR | Take 1 po | | | HYDROCHLOR | 5432156023 | Pretty | | OTHIAZIDE | qod | | | OTHIAZIDE | 0 | Norah | | 25 MG TABS | | | | | | DO | + + + + + + + + | EXFORGE | 1 po qd | | | AMLODIPINE | 3188721169 | Sandra | | 5-160 MG | along | | | | 5 | Kusler TECHNICAL PRODUCT MANAGER | | TABS | | | | BESYLATE-V | | | | | 160mg | | | ALSARTAN | | | | | diovan | | | | | | + + + + + + + + | ALEVE 220 | 1 by mouth | | | NAPROXEN | 1025627357 | Pretty | | MG TABS | a day as | | | SODIUM | 0 | Norah | | | needed | | | | | DO | + + + + + + + + | D 1000 | 1,000 | | | CHOLECALCI | 3773563386 | Lynn L | | 1000 UNIT | internatio | | | FEROL | 7 | Benavides MD | | TABS | nal units | | | | | | | | once a day | | | | | | + + + + + + + + | ASPIRIN 81 | 1 by mouth | | | ASPIRIN | 9099389980 | Sandra | | MG TABS | every | | | | 5 | Kusler ORNAMENTAL IRON WORKER APPRENTICE | | | other day | | | | | | + + + + + + + + | VITAMIN D | one tablet | | | VITAMIN D | | Sandra | | 2000 UNIT | by mouth | | | 2000 UNIT | | Collins ORNAMENTAL IRON WORKER APPRENTICE | | CAPS | daily | | | CAPS | | | | (ERGOCALCI | | | | (ERGOCALCI | | | | FEROL) | | | | FEROL) | | | + + + + + + + + | METOPROLOL | 07/18 po | | | METOPROLOL | 7160249314 | Pretty | | SUCCINATE | daily | | | SUCCINATE | 1 | Norah | | ER 50 MG | | | | | | DO | | [id number] | | | | | | | + + + + + + + + | CELEBREX | take 1 | | | CELECOXIB | 0047789728 | Lynn L | | 100 MG | tablet by | | | | 0 | Kennedy MD | | CAPS | mouth once | | | | | | | | daily | | | | | | + + + + + + + + | LIVALO 2 | 07/18 tab by | | | PITAVASTAT | 3777385108 | Cynthia M | | MG TABS [...] 2 p.o | | | TRAMADOL-A | 8590339606 | Lynn L | | 37.5-325 | bid prn | | | CETAMINOPH | 8 | Benavides MD | | MG TABS | | | | EN | | | + + + + + + + + | CALCIUM | 2 tablets | | | CALCIUM | 8660998005 | Ky | | 600 MG | daily. 1 | | | | 8 | Vicente MD | | TABS | in morning | | | | | | | | and 1 at | | | | | | | | bedtime | | | | | | + + + + + + + + | PRAVASTATI | take 07/18 | | | PRAVASTATI | 2065641416 | Sandra | | N SODIUM | po daily | | | N SODIUM | 0 | Bernardler TECHNICAL PRODUCT MANAGER | | 80 MG TABS | | | | | | | + + + + + + + + | PREMARIN | 1 by mouth | | | ESTROGENS | 3689520694 | Pretty | | 0.625 MG | every day | | | CONJUGATED | 0 | Norah | | TABS | | | | | | DO | + + + + + + + + | LIVALO 2 | 07/18 tab by | | | PITAVASTAT | 0990735056 | Lynn L | | MG TABS | mouth | | | IN CALCIUM | 0 | Kennedy MD | | | twice a | [...] mix and | | | NA | 7391245465 | Esperanza | | BOWEL PREP | [...] tab po | | | MULTIPLE | 6397582534 | Pretty | | MIN TABS | qd | | | VITAMIN | 0 | Norah | | | | | | | | DO | + + + + + + + + | DULOXETINE | 1 tablet | | | DULOXETINE | 4155932340 | Patience | | HCL 30 MG | by mouth | | | HCL | 6 | Ramesh | | CPEP | daily | | | | | NCMA | + + + + + + + + | D 1000 | 1,000 | | | CHOLECALCI | 1021187655 | Patience | | 1000 UNIT | internatio | | | FEROL | 7 | Ramesh | | TABS | nal units | | | | | NCMA | | | once a day | | | | | | + + + + + + + + | ALEVE 220 | 1 po Q day | | | NAPROXEN | 9899332362 | Son | | MG TABS | for | | | SODIUM | 4 | Petre MD | | | arthritis | | | | | | | | PRN | | | | | | + + + + + + + + | PREMARIN | 1 by mouth | | | ESTROGENS | 7856587355 | Pretty | | 0.625 MG | every day | | | CONJUGATED | 0 | Norah | | TABS | | | | | | DO | + + + + + + + + | ULTRACET | 1 to 2 p.o | | | TRAMADOL-A | 9372221556 | Isabel | | 37.5-325 | bid prn | | | CETAMINOPH | 8 | Lucius MD | | MG TABS | | | | EN | | | + + + + + + + + | LIVALO 4 | /2 p.o | | | PITAVASTAT | 5511370077 | Pretty | | MG TABS | daily | | | IN CALCIUM | 0 | Norah | | | | | | | | DO | + + + + + + + + | HYDROCODON | 1 tab once | | | HYDROCODON | 9019270786 | Lynn L | | E-ACETAMIN | [...] cap by | | | GABAPENTIN | 0732581722 | Lynn L | | 100 MG [...] 2 p.o | | | AZITHROMYC | 9385834474 | Pretty | | Z-SHAILESH 250 | [...] mix and | | | NA | 9862267455 | Son | | BOWEL PREP | drink one | | | SULFATE-K | 1 | Petre MD | | KIT | bottle at [...] by mouth | | | LOSARTAN | 7340719609 | Lynn Nolen | | 100-25 MG | every day | | | POTASSIUM- | 0 | Kennedy RICO | | TABS | for blood | | | HCTZ | | | | | pressure | | | | | | + + + + + + + + | NORVASC 5 | one tablet | | | AMLODIPINE | 0375709726 | Lynn L | | MG TABS | by mouth | | | BESYLATE | 9 | Kennedy RICO | | | daily | | | | | | + + + + + + + + | PRILOSEC | 2 caps | | | OMEPRAZOLE | 3707595491 | Lynn L | | 20 MG CPDR | twice | | | | 4 | Kennedy MD | | | daily for | | [...] 1 every | | | PRAMIPEXOL | 6315012415 | Lynn L | | 0.25 MG [...] tab once | | | HYDROCODON | 0761014403 | Lynn L | | E-ACETAMIN | a day as | | | E-ACETAMIN | 4 | Kennedy MD | | OPHEN | needed for | [...] cap by | | | GABAPENTIN | 4224272734 | Lynn L | | 100 MG [...] cap by | | | GABAPENTIN | 7548521418 | Magali | | 100 MG | [...] - 2 | | | HYDROCODON | 2039794750 | Magali | | 10-325 MG | [...] 1 tablet | | | DULOXETINE | 8920888346 | Lynn L | | HCL 30 MG | by mouth | | | HCL | 6 | Kennedy RICO | | CPEP | daily | | | | | | + + + + + + + + | OXYCODONE- | take 1 | | | OXYCODONE- | 8463786129 | Magali | | ACETAMINOP | tablets [...] 1 cap | | | CEPHALEXIN | 2486267660 | Lynn L | | 500 MG [...] | | 5-325 MG | | Kennedy MD | | TABS | | | | TABS | | | | (ACETAMINO | | | | (ACETAMINO | | | | PHEN-HYDRO | | | | PHEN-HYDRO | | | | CODONE) | | | | CODONE) | | | + + + + + + + + | LIVALO 2 | 1 tab | | | PITAVASTAT | 3910041027 | Lynn L | | MG TABS | three | | | IN CALCIUM | 0 | Kennedy MD | | | nights a | [...] by mouth | | | OMEPRAZOLE | 8368544725 | Kal | | 20 MG | [...] take 1 | | | CELECOXIB | 1240863643 | Lynn L | | 100 MG | tablet by | | | | 0 | Kennedy RICO | | CAPS | mouth once | | | | | | | | daily | | | | | | + + + + + + + + | MIRAPEX | 1 p.o | | | PRAMIPEXOL | 1870832488 | Pretty | | 0.25 MG | every | | | E | 0 | Norah | | TABS | other day | | | DIHYDROCHL | | DO | | | - bedtime | | | ORIDE | | | + + + + + + + + | HYZAAR | 1 by mouth | | | LOSARTAN | 9352649970 | Pretty | | 100-25 MG | every day | | | POTASSIUM- | 1 | Norah | | TABS | | | | HCTZ | | DO | + + + + + + + + | PRILOSEC | 1 by mouth | | | OMEPRAZOLE | [id number] | Pretty | | 20 MG CPDR | every day | | | | 4 | Norah | | | | | | | | DO | + + + + + + + + | MOVIPREP | mix and | | | PEG-KCL-NA | [id number] | Son | | 100 GM | [...] p.o qod- | | | PRAMIPEXOL | [id number] | Pretty | | 0.25 MG | bedtime | | | E | 0 | Norah | | TABS | | | | DIHYDROCHL | | DO | | | | | | ORIDE | | | + + + + + + + + | VICODIN | 1-2 po q | | | ACETAMINOP | [id number] | Pretty | | 5-500 MG | 12 hrs prn | | | HEN-HYDROC | 4 | Norah | | TABS | | | | ODONE | | DO | + + + + + + + + | HYDROCODON | ONE TAB | | | HYDROCODON | [id number] | Ky | | E-ACETAMIN | Q4-6HR [...] 1/2 p.o | | | ATORVASTAT | [id number] | Pretty | | IN CALCIUM | daily | | | IN CALCIUM | 7 | Norah | | 10 MG | | | | | | DO | | TABS | | | | | | | + + + + + + + + | AUGMENTIN | 2 two | | | AMOXICILLI | [id number] | Pretty | | XR | times per | | | N-POT | 1 | Norah | | 1000-62.5 | day | | | CLAVULANAT | | DO | | MG | | | | E | | | | [id number] | | | | | | | + + + + + + + + | NASONEX 50 | 2 sprays | | | MOMETASONE | [id number] | Pretty | | MCG/ACT | each | | | FUROATE | 1 | Norah | | SUSP | nostril | | | | | DO | | | every day | | | | | | + + + + + + + + | ULTRACET | 1 to 2 p.o | | | TRAMADOL-A | [id number] | Pretty | | 37.5-325 | bid [...] p.o qhs | | | PRAMIPEXOL | [id number] | Pretty | | 0.25 MG | | | | E | 1 | Norah | | TABS | | | | DIHYDROCHL | | DO | | | | | | ORIDE | | | + + + + + + + + | PENNSAID | apply to | | | DICLOFENAC | [id number] | Pretty | | 1.5 % SOLN | affected | | | SODIUM | 5 | Norah | | | area qid | | | | | DO | | | prn | | | | | | + + + + + + + + | LIVALO 4 | 1 p.o | | | PITAVASTAT | [id number] | Pretty | | MG TABS | daily | | | IN CALCIUM | 0 | Norah | | | | | | | | DO | + + + + + + + + | VICODIN | 1-2 po q | | | ACETAMINOP | [id number] | Sandra | | 5-500 MG | 12 hrs | | | HEN-HYDROC | 4 | [employer] | | TABS | | | | ODONE | | | + + + + + + + + | DIOVAN 160 | one tablet | | | VALSARTAN | [id number] | Sandra | | MG TABS | by mouth | | | | 3 | [employer] | | | daily | | | | | | + + + + + + + + | METOPROLOL | take one | | | METOPROLOL | [id number] | Sandra | | SUCCINATE | po daily | | | SUCCINATE | 1 | [employer] | | ER 50 MG | | | | | | | | [id number] | | | | | | | + + + + + + + + | PRAVASTATI | take 07/18 | | | PRAVASTATI | [id number] | Sandra | | N SODIUM | po daily | | | N SODIUM | 0 | [employer] | | 80 MG TABS | | | | | | | + + + + + + + + | GABAPENTIN | 1 at hs | | | GABAPENTIN | [id number] | Lars | | 100 MG | [...] x 10 | | | METRONIDAZ | [id number] | Lars | | OLE 500 MG | days | | | OLE | 8 | Ramirez DO | | TABS | | | | | | | + + + + + + + + | TOPROL XL | 1 by mouth | | | METOPROLOL | [id number] | Pretty | | 50 MG | every day | | | SUCCINATE | 9 | Norah | | [id number] | | | | | | DO | + + + + + + + + | VICODIN | 1 by mouth | | | ACETAMINOP | [id number] | Pretty | | 5-500 MG | every 4 | | | HEN-HYDROC | 1 | Norah | | TABS | to 6 hours | | | ODONE | | DO | | | as needed | | | | | | + + + + + + + + | DIOVAN 160 | 1/2 po qd | | | VALSARTAN | [id number] | Pretty | | MG TABS | along | | | | 5 | Norah | | | w/exforge | | | | | DO | | | 5/160mg | | | | | | + + + + + + + + | EXFORGE | 1 po qd | | | AMLODIPINE | [id number] | Pretty | | 5-160 MG | along | | | | 5 | Norah | | TABS | | | | BESYLATE-V | | DO [...] SL every | | | NITROGLYCE | [id number] | Aniko | | RIN 0.4 MG | 5 min as | | | RIN | 5 | Kev RN | | SUBL | needed for [...] | EXFORGE | | Pretty | | | two times | | | | | Norah | | | per [...] | | 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 | | | | | + + + + + + + | LOTREL | | | Moderate | | Corynn | | | | | | | Norah RODRIGUEZ | + + + [...] n | +------+------+-------+------+-------+------+ + + + | Office Visit: AWV [...] +--------+ +---+---+---+ + | | ESM_RR | [id number] | | | B | e-scripts | [...] | | | | | | | [place]*` | | | | | | | | [id number] | | | | | | | | `[id number] | | | | | | | [...] +--------+ +---+---+---+ + | | ESM_RR | [id number] | | | B | e-scripts | [...] | | | | | | | /2015`Remigioa | | | | | | | | rt - | | | | | | | | [place]*` | | | | | | | | [id number] | | | | | | | | `[id number] | | | | | | | | 30`84607`L | | | | | | | [...] +--------+ +---+---+---+ + | | ESM_RR | [id number] | | | B | e-scripts | [...] | | | | | | | [place]*` | | | | | | | | [id number] | | | | | | | | `[id number] | | | | | | | [...] + +--------+ +---+---+---+ + + + | Lab Report: [id number]-[id number] | + + + + +----+---+---+---+ + | | ZZ-GE-UNK | 1S | | | | GE use | | | [...] | | | specified | + + +----+---+---+---+ + | | MGMRESULTS | 1S | | | | Breast | | | | | | | | Mammogram | | | | | | | | screening | + + +----+---+---+---+ + Plan of Care + + + + | Type | Date | Detail | + + + + | Appointment | 11:00 AM | Magali Washington MD, [address] | | | | [facility] [address], | | | | [place], [address], | | | | | + + + + | Referral | | DEXA Bone Density | + + + + | Referral | | Consult Referral | | | | Aliza Weaver MD, [address] | | | [address], [place], | | | | [place], [address] | | | | | + + + + | Referral | | Consult Referral | | | | Son Segura MD, [address] | | | [address], [place], [address] | | | | | | | | | + + + + | Referral | | Consult Referral | | | | MD Chyna Bowden, | | | | [address] [facility], | | | | [place], [address] | | | | | + + + + | Referral | | PT Evaluation & Treat | | | | [facility], [address] | | | | [address] [place] [address], | | | | [place], [address] | | | | | + + + + | Referral | | Consult Referral | | | | MD Kevin Forbes, | | | | [address], | | | | [place], [address] | | | | | + + + + | Referral | | Consult Referral | + + + + | Referral | | Consult Referral | | | | Panda Good MD, [address] | | [address] [address], | | | | [place], [address] | | | | | + + [...] MD, [address] | | | | [address], | | | | [place], [address] | | | | | + + + + | Referral | | Surgical Consult | | [facility] | + + + + | Referral | | Surgical Consult | | | [facility] | + + + + | Referral | | Plastic Surgery Consult | | | | [address] | [address], [place], | | | | [place], [address] | | | | | + + + + | Referral | | Plastic Surgery Consult | | | | [address] | [address], [place], | | | | [place], [address] | | | | | + + + + | Referral | | Neurology Consult | | | | MD Luna Bernal, [address] | | | [address] [place] [address], | | | | [place], [address] | | | | | + + + + | Referral | | Neurology Consult | | | | MD Luna Bernal, [address] | | | [address] [place], | | | | [place], [address] | | | | | + + + + | Pending order | | Comprehensive Metabolic | | | | Panel | + + + + | Pending order | | Basic Metabolic Panel | + + + + | Pending order | | DENZEL TomoHD Scr-James | + + + + | [...] SCT- | Medication | | | | [id number] | Reconcilliation | | | + + + + + | CPT- 75741 | Diagnostic | | | | | Ultrasound Neck | | | | | (56982) | | | + + + + + | SCT- | Medication | | | | [id number] | Reconcilliation | | | + + + + + | RISK 25013 | Lipid Profile | | | + + + + + | 92851 | CT Abdomen and | | | | | Pelvis-W Con | | | + + + + + | CBC AUTO 60394 | CBC w/ Auto Diff | | | + + + + + | CHEM PROF | Comprehensive | | | | | Metabolic Panel | | | + + + + + | 64081 | XR Chest-2V | | | + + + + + | CPT-78765 | FNA with Image | | | | | Guidance (78853) | | | + + + + + | CPT- 62349 | US Guidance for | | | | | Needle Placement | | | | | (70620) | | | + + + + + | CPT-G0439 | Annual Wellness | | | | | Visit (Medicare) | | | | | Subsqnt visit | | | + + + + + | CHEM 8 | Basic Metabolic | | | | | Panel | | | + + + + + | FREE T4 76679 | T4 Free | | | + + + + + | T3 FREE 99236 | T3 Free | | | + + + + + | TSH 75506 | TSH | | | + + + + + | 60179 | US Thyroid (Soft | | | | | Tissue Head/Neck | | | | | Exam) | | | + + + + + | UA CULT IF MULTIPLE | Urinalysis Culture | | | | | If Indicat | | | + + + + + | FREE T4 35583 | T4 Free | | | + + + + + | T3 FREE 94128 | T3 Free | | | + + + + + | TSH 08621 | TSH | | | + + + + + | 21495 | XR Hip 2-3V-Right | | | + + + + + +---+ + | | Order excluded from report: | +---+ + +-------+ + + + | 08667 | XR Pelvis-1-2V | | | +-------+ + + + +---+ + | | Order excluded from report: | +---+ + +-------+ + + + | 10835 | XR Hip 2-3V-Left | | | +-------+ + + + +---+ + | | Order excluded from report: | +---+ + + + + + + | CBC AUTO 52873 | CBC w/ Auto Diff | | | + + + + + | RISK 73246 | Lipid Profile | | | + + + + + | CHEM 8 | Basic Metabolic | | | | | Panel | | | + + + + + | CPT-00643 | Fiberoptic Diag | | | | | Laryng (87166) | | | + + + + + | RA SC ONLY 30181 | Rheumatoid Factor, | | | | | Screen Only | | | + + + + + | 74318 | XR Knee 1 or 2V-Rt | | | + + + + + | 58547 | XR Knee 1 or 2V-Lt | | | + + + + + | ESR 62304 | Sedimentation Rate | | | | | (ESR) | | | + + + + + | LEW IF 99581 | LEW With Reflex | | | | | Panel If POS | | | + + + + + | CPT-G0439 | Annual Wellness | | | | | Visit (Medicare) | | | | | Subsqnt visit | | | + + + + + | PTH INT 28131 | PTH (Whole | | | | | Molecule) | | | + + + + + | CHEM 8 | Basic Metabolic | | | | | Panel | | | + + + + + | CPT-57729 | LULY Eddyick | | | + + + + + | [id number] | [Recorded for CQM] | | | | | Documentation of | | | | | current medications | | | | | (procedure) | | | + + + + + | [id number] | MU Generic Patient | | | | | Encounter Service | | | | | (from patch) | | | + + + + + | [id number] | [Recorded for CQM] | | | | | Documentation of | | | | | current medications | | | | | (procedure) | | | + + + + + | [id number] | [Recorded for CQM] | | | | | Health-related | | | | | behavior | | | + + + + + | CPT-95160 | Lesion, 2-14 | | | | | (68624) | | | + + + + + | [id number] | [Recorded for CQ] | | | | | Documentation of | | | | | current medications | | | | | (procedure) | | | + + + + + | CPT-32683 | Lesion, 1 (79619) | | | + + + + + | CPT-G8427 | Current Medications | | | | | Documented | | | + + + + + | [id number] | [Recorded for CQ] | | | | | Documentation of | | | | | current medications | | | | | (procedure) | | | + + + + + | [id number] | MU Generic Patient | | | | | Encounter Service | | | | | (from patch) | | | + + + + + | CPT-G8427 | Current Medications | | | | | Documented | | | + + + + + | [id number] | [Recorded for CQM] | | | | | Smokes tobacco | | | | | daily (finding) | | | + + + + + | 711752764 | [Recorded for CQM] | | | | | Current every day | | | | | smoker | | | + + + + + | [id number] | [Recorded for CQM] | | | | | Documentation of | | | | | current medications | | | | | (procedure) | | | + + + + + | [id number] | [Recorded for CQM] | | | | | Tobacco use and | | | | | exposure | | | + + + + + | [id number] | [Recorded for CQM] | | | | | Smoking cessation | | | | | education | | | | | (procedure) | | | + + + + + | [id number] | [Recorded for CQM] | | | | | Documentation of | | | | | current medications | | | | | (procedure) | | | + + + + + | CPT-Q2038 | Fluzone (Inf) High | | | | | dose Med/Atrio | | | + + + + + | CPT-21339 | Vaccine, Influenza | | | | | >3 yrs (V04.81) | | | + + + + + | CPT-13477 | Biopsy, lesion | | | + + + + + | CPT-78549 | Biopsy, lesion | | | + + + + + | CPT-93739 | X-Ray Heel | | | + + + + + | CPT-G8553 | eRx sent | | | + + + + + | CPT-33487 | Lipid Panel | | | | | (Cholesterol) | | | + + + + + | CPT-93914 | Lesion, 2-14 | | | | | (13223) | | | + + + + + | CPT-78111 | Lesion, 1 (47702) | | | + + + + + | CPT-G0008 | Admin Flu Vac | | | | | (mdc/atrio) | | | + + + + + | CPT-38266 | Lesion, 2-14 | | | | | (82289) | | | + + + + + | CPT-52131 | Lesion, 1 (91765) | | | + + + + + | CPT-65275 | Vaccine, Influenza | | | | | >3 yrs (V04.81) | | | + + + + + | 70174 G0202 | MX Mammo Dig | | | | | Screen-Bilat | | | + + + + + | RA SCREEN 44498 | Rheumatoid Factor | | | | | (qual) | | | + + + + + | LEW 78941 | LEW | | | + + + + + | ESR 73183 | Sedimentation Rate | | | | | (ESR) | | | + + + + + | FREE T4 59598 | T4 Free | | | + + + + + | TSH 66895 | TSH | | | + + + + + | RISK 98867 | Lipid Profile | | | + + + + + | CHEM PROF 22973 | CMP (Comprehensive | | | | | Metabolic Panel) | | | + + + + + | MISC TEST PENDING | Other or Misc | | | | | Test/Lab | | | + + + + + | M GEN HSV 24938 | Genital HSV Culture | | | + + + + + | CPT-22927 | UA Dipstick | | | + + + + + | 77994 G0202 | MX Mammo Dig | | | | | Screen-Bilat | | | + + + + + +---+ + | | Order excluded from report: | +---+ + + + + + + | CHEM PROF 44696 | CMP (Comprehensive | | | | | Metabolic Panel) | | | + + + + + +---+ + | | Order excluded from report: | +---+ + + + + + + | RISK 62078 | Lipid Profile | | | + + + + + +---+ + | | Order excluded from report: | +---+ + + +-----+ + + | TSH 93489 | TSH | | | + +-----+ + + +---+ + | | Order excluded from report: | +---+ + + + + + + | CPT-23864 | Glucose by monitor | | | + + + + + | CPT-84482 | UA Dipstick | | | + + + + + | CPT-15555 | UA Dipstick | | | | | (Office) | | | + + + + + +---+ + | | Order excluded from report: | +---+ + + + + + + | CPT-10111 | Guiaic Stools ([place] | | | | | Care) | | | + + + + + | CPT-73337 | Inj/Asp Large Joint | | | [...]
--- OUTSIDE RECORDS SUMMARY | ~2019-05-21 | XMS | Clinical Summary ---
Demographics + + + | Address | [address] | | | [place] [address] | + + + | Home Phone | | + + + | Preferred Language | Unknown | + + + | Marital Status | | + + + | Gnosticist Affiliation | Unknown | + + + | Race | Unknown | + + + | Ethnic Group | Unknown | + + + Author + + + | Author | [facility] | | | and [place] | + + + | Organization | [facility] | | | and [place] | + + + | Address | Unknown | + + + | Phone | Unavailable | + + + Support + + +---------+ + | Name | Relationship | Address | Phone | + + +---------+ + | SREEDHAR NELSON | ECON | Unknown | | + + +---------+ + | Sreedhar Nelson | ECON | Unknown | | + + +---------+ + Care Team Providers + +------+ + | Care Cad Librarian Name | Role | Phone | + +------+ + | Tori Aquino MD | PCP | | + +------+ + Allergies + [...] + + + + | Statins | Myalgia | | 08/15/19 | Muscle Pain | | | | | 19 | | + + + + + + Medications + + + +---------+------+------+-------+ | Medication | Sig | Dispensed | Refills | Star | End | Statu | | | | | | t | Date | s | | | | | | Date | | | + + + +---------+------+------+-------+ | PRAMIPEXOLE | Take 0.25 mg by | | 0 | 07/19 | | Activ | | DIHYDROCHLORIDE PO | mouth every other | | | 0/20 | | e | | | day. | | | 19 | | | + + + +---------+------+------+-------+ | Naproxen Sodium | Take by mouth as | | 0 | 01/3 | | Activ | | (ALEVE PO) | needed. | | | 0/20 | | e | | | | | | 19 | | | + + + +---------+------+------+-------+ | pravastatin | Take 20 mg by mouth | | 0 | 01/3 | | Activ | | (PRAVACHOL) 20 mg | daily. | | | 0/20 | | e | | tablet | | | | 19 | | | + + + +---------+------+------+-------+ | gabapentin | Take 100 mg by mouth | | 0 | 01/3 | | Activ | | (NEURONTIN) 100 mg | 3 (three) times | | | 0/20 | | e | | capsule | daily. | | | 19 | | | + + + +---------+------+------+-------+ | | Take 1 tablet by | | 0 | 01/3 | | Activ | | losartan-hydrochloro | mouth daily. | | | 0/20 | | e | | thiazide (HYZAAR) | | | | 19 | | | | 100-25 MG per tablet | | | | | | | + + + +---------+------+------+-------+ | tocopherol | Take 400 Units by | | 0 | 01/3 | | Activ | | (VITAMIN E) 400 | mouth daily. | | | 0/20 | | e | | units capsule | | | | 19 | | | + + + +---------+------+------+-------+ | Ascorbic Acid | Take 1 capsule by | | 0 | 01/3 | | Activ | | (VITAMIN C) 500 MG | mouth daily. | | | 0/20 | | e | | CAPS | | | | 19 | | | + + + +---------+------+------+-------+ | amLODIPine | Take 5 mg by mouth | | 0 | 01/3 | | Activ | | (NORVASC) 5 mg | daily. | | | 0/20 | | e | | tablet | | | | 19 | | | + + + +---------+------+------+-------+ | cyanocobalamin | Take 1,000 mcg by | | 0 | 01/3 | | Activ | | (VITAMIN B-12) 1000 | mouth daily. | | | 0/20 | | e | | MCG tablet | | | | 19 | | | + + + +---------+------+------+-------+ | aspirin 81 MG | Take 81 mg by mouth | | 0 | 01/3 | | Activ | | tablet | daily. | | | 0/20 | | e | | | | | | 19 | | | + + + +---------+------+------+-------+ | omeprazole | Take 20 mg by mouth | | 0 | 01/3 | | Activ | | (PRILOSEC) 20 mg | every morning before | | | 0/20 | | e | | capsule | breakfast. | | | 19 | | | + + + +---------+------+------+-------+ | cholecalciferol | Take 1,000 Units by | | 0 | 01/3 | | Activ | | (VITAMIN D-3) 1,000 | mouth daily. | | | 0/20 | | e | | units capsule | | | | 19 | | | + + + +---------+------+------+-------+ | Fish Oil 1000 MG | Take 1 g by mouth | | 0 | 01/3 | | Activ | | delayed release | daily. | | | 0/20 | | e | | capsule | | | | 19 | | | + + + +---------+------+------+-------+ Active Problems + + + | Problem [...] | | + +------+ + + | Father [...] | + + Last Filed Vital Signs + + + + | Vital Sign | Reading | Time Taken | + + + + | Blood Pressure | 120/60 | 08/15/2018 1308 PST | + + + + | Pulse | 99 | 08/15/2018 1308 PST | + + + + | Temperature | - | - | + + + + | Respiratory Rate | - | - | + + + + | Oxygen Saturation | - | - | + + + + | Inhaled Oxygen | - | - | | Concentration | | | + + + + | Weight | 67.8 kg (149 lb 6.4 | 08/15/20188 PST | | | oz) | | + + + + | Height | 149.9 cm (4' 11") | 08/15/20181307 PST | + + + + | Body Mass Index | 30.18 | 08/15/20181307 PST | + + + + Plan of Treatment +--------+---------+ + + + | Date | Type | Specialty | Care Team | Description | +--------+---------+ + + + | 08/21/ | Office | Cardiology | Indy Paige, | | | 2019 | Visit | | MD Buck PEREZ | | | | | | [place] | | | | | | [address] | | | | | | | | +--------+---------+ + + + + + + + + | Health Maintenance | Due Date | Last Done | Comments | + + + + + | Hepatitis C | | | | | Screening | 7 | | | + + + + + | Vaccine: | | | | | Dtap/Tdap/Td (1 - | 6 | | | | Tdap) | | | | + + + + + | Colorectal Cancer | | | | | Screening | 7 | | | | (Colonoscopy) | | | | + + + + + | Vaccine: Zoster (1 | | | | | of 2) | 7 | | | + + + + + | Breast Cancer | | | | | Screening | 2 | | | + + [...] | + + + + + | Adult Annual | | | | | Wellness Visit | 9 | | | + + + + + Results Not on filefrom Last 3 Months Advance Directives Patient has advance care planning documents on file. For more information, please contact:[facility] [place] [address]
--- OUTSIDE RECORDS SUMMARY | ~2019-05-21 | XMS | Encounter Summary ---
Demographics + + + | Address | [address] | | | [place] [address] | + + + | Home Phone | | + + + | Preferred Language | Unknown | + + + | Marital Status | | + + + | Restoration Affiliation | NON | + + + | Race | White | + + + | Ethnic Group | Unknown | + + + Author + + + | Author | [facility] | + + + | Organization | [facility] | + + + | Address | Unknown | + + + | Phone | Unavailable | + + + Care Team Providers + +------+ + | Care Channeler Insole Name | Role | Phone | + +------+ + PCP | Unavailable | + +------+ + Encounter Details +--------+ + + + + | Date | Type | Department | Care Team | Description | +--------+ + + + + | 02/27/ | Results | NON-[facility] | Shantal Dunn, | | | 2007 | Only | Department | [facility] | | | | | | [facility] | | | | | | Care [address] | | | | | | [address] | | | | | | [place] [address] | | | | | | [phone] | | | | | | | | +--------+ + + + + Social History + +-------+ +--------+------+ [...] recent travel history available. | + + documented as of this encounter Plan of Treatment Not on filedocumented as of this encounter Procedures + +--------+ + + + | Procedure Name | Priori | Date/Time | Associated Diagnosis | Comments | | | ty | | | | + +--------+ + + + | MAMMOGRAM 2 SIDE | Routin | 02/28/2008 | | Results for this | | [id number] | e | 9:58 AM | | procedure are in the | | | | PDT | | results section. | + +--------+ + + + documented in this encounter Results MAMMOGRAM 2 SIDE [id number] (02/28/2008 9:58 AM PDT) + + | Specimen | + + | | + + + + + | Narrative | Performed At | + + + | BILATERAL DIAGNOSTIC MAMMOGRAM: INDICATION: Bilateral breast pain | [facility] | | laterally. Weak family history of breast cancer (aunt). History | DEPARTMENT OF | | of benign right breast biopsy. History of bilateral breast | RADIOLOGY | | reduction surgery in 1984. FINDINGS: Bilateral MLO and CC views are | | | compared to an 03/05/04 study. There is no evidence of evolving | | | mass or spiculated lesion, clustered malignant-type | | | microcalcifications, skin or nipple retraction, or other signs of | | | malignancy. Small bilateral axillary lymph nodes are again noted. | | | There are faint vascular calcifications in the left breast, as | | | before. IMPRESSION: BI-RADS: 1. No signs of malignancy. Annual | | | mammographic followup is recommended. BI-RADS 1: The final | | | assessment is negative. There is nothing to suggest the presence of | | | malignancy at this time. A negative x-ray report should not delay | | | biopsy if a dominant mass is present. 10% of cancers are not | | | identified by x-ray. #[id number] | | + + + + + | Procedure Note | + + | Interface, Radiology Results - 03/06/2015 1:14 PM PDT BILATERAL DIAGNOSTIC | | MAMMOGRAM:INDICATION: Bilateral breast pain laterally. Weak family history ofbreast | | cancer (aunt). History of benign right breast biopsy. Historyof bilateral breast | | reduction surgery in 1984.FINDINGS: Bilateral MLO and CC views are compared to an | | 03/05/04study. There is no evidence of evolving mass or spiculated lesion,clustered | | malignant-type microcalcifications, skin or nippleretraction, or other signs of | | malignancy. Small bilateral axillarylymph nodes are again noted. There are faint | | vascular calcificationsin the left breast, as before.IMPRESSION:BI-RADS: 1. No signs of | | malignancy. Annual mammographic followup isrecommended.BI-RADS 1: The final | | assessment is negative. There is nothing tosuggest the presence of malignancy at this | | time.A negative x-ray report should not delay biopsy if a dominant mass ispresent. 10% | | of cancers are not identified by x-ray.#[id number] | |recommended. | |BI-RADS 1: The final assessment is negative. There is nothing to | |suggest the presence of malignancy at this time. | |A negative x-ray report should not delay biopsy if a dominant mass is | |present. 10% of cancers are not identified by x-ray. | |#[id number] | + + + +---------+ + + | Performing | Address | City/State/Zipcode | Phone Number | | Organization | | | | + +---------+ + + | [facility] DEPARTMENT OF | | | | | RADIOLOGY | | | | + +---------+ + + documented in this encounter Visit Diagnoses Not on filedocumented in this encounter"
--- OUTSIDE RECORDS SUMMARY | ~2019-05-21 | XMS | Clinical Summary ---
Demographics + + + | Address | [address] | | | [address] | | | [place] [address] | + + + | Home Phone | | + + + | Preferred Language | Unknown | + + + | Marital Status | M | + + + | Yazdanism Affiliation | Unknown | + + + | Race | White | + + + | Ethnic Group | Not or | + + + Author + + + | Author | [facility] | + + + | Organization | [facility] | + + + | Address | [address] | | | [place] [address] | + + + | Phone | Unavailable | + + + Care Team Providers + +------+ + | Care Board Operator Name | Role | Phone | + [...] tion | | +---------+---------+---------+---------+---------+---------+---------+---------+---------+ | OA, | [id number] | | Active | | Claudine | | Degener | | | SHOULDE | 1 | / | | /10 | | | ative [...] region | | +---------+---------+---------+---------+---------+---------+---------+---------+---------+ | OA, | [id number] | | Active | | Claudine | | Osteoar | | | KNEE, | | / | | /10 | | | thritis | | | LEFT | (SNOMED | | | | Crouche | | of | | | | CT) | | | | r NCMA | | knee | | +---------+---------+---------+---------+---------+---------+---------+---------+---------+ | LEG | [id number] | | Active | | Claudine | [...] r | | +---------+---------+---------+---------+---------+---------+---------+---------+---------+ | OTHER | [id number] | | Active | | Lynn | [...] | | | +---------+---------+---------+---------+---------+---------+---------+---------+---------+ | HYPERCA | [id number] | | Resolve | | Lynn | | Hyperca | | | LCEMIA | 9 | /29 | d | /29 | L Benavides | | lcemia | | | | (SNOMED | | | | MD | | | | | | CT) | | | | | | | | +---------+---------+---------+---------+---------+---------+---------+---------+---------+ | VAGINAL | [id number] | | Resolve | | Lynn | | Vaginal | recent | | | 06 | | d | /10 | L Benavides | | | | | DISCHAR | (SNOMED | | | | MD | | dischar | | | GE | CT) | | | | | | ge | | +---------+---------+---------+---------+---------+---------+---------+---------+---------+ | HAND | [id number] | | Resolve | | Lynn | | Hand | | | PAIN, | 4 | /25 | d | /25 | L Benavides | | pain | | | BILATER | (SNOMED | | | | MD | | | | | AL | CT) | | | | | | | | +---------+---------+---------+---------+---------+---------+---------+---------+---------+ | NICOTIN | [id number] | | Resolve | | Lynn | | Nicotin | | | E | 8 | /23 | d | /23 | L Benavides | | e | | | ADDICTI | (SNOMED | | | | MD | | depende | | | ON | CT) | | | | | | nce | | +---------+---------+---------+---------+---------+---------+---------+---------+---------+ | ARTHRIT | [id number] | | Resolve | | Lynn | | Arthrit | | | IS | | /25 | d | /25 | L Kennedy | | is | | | | (SNOMED | | | | MD | | | | | | CT) | | | | | | | | +---------+---------+---------+---------+---------+---------+---------+---------+---------+ | DEGENER | [id number] | | Resolve | | Lynn | [...] | | | +---------+---------+---------+---------+---------+---------+---------+---------+---------+ | HIP | [id number] | | Resolve | | Lynn | | Hip | | | PAIN, | 2 | /10 | d | /10 | L Benavides | | pain | | | RIGHT | (SNOMED | | | | MD | | | | | | CT) | | | | | | | | +---------+---------+---------+---------+---------+---------+---------+---------+---------+ | DYSURIA | [id number] | | Resolve | | Lynn | | Dysuria | | | | 1 | /11 | d | /11 | L Kennedy | | | | | | (SNOMED | | | | MD | | | | | | CT) | | | | | | | | +---------+---------+---------+---------+---------+---------+---------+---------+---------+ | STATUS, | [id number] | | Resolve | | Lynn | [...] joint | | +---------+---------+---------+---------+---------+---------+---------+---------+---------+ | CONSTIP | [id number] | | Resolve | | Lynn | | Constip | | | ATION | 8 | /11 | d | /11 | L Benavides | | ation | | | | (SNOMED | | | | MD | | | | | | CT) | | | | | | | | +---------+---------+---------+---------+---------+---------+---------+---------+---------+ | ABDOMIN | [id number] | | Resolve | | Lynn | | Abdomin | | | AL PAIN | 1 | /21 | d | /21 | L Benavides | | al pain | | | | (SNOMED | | | | MD | | | | | | CT) | | | | | | | | +---------+---------+---------+---------+---------+---------+---------+---------+---------+ | NEOPLAS | [id number] | | Resolve | | Lynn | [...] skin | | +---------+---------+---------+---------+---------+---------+---------+---------+---------+ | DYSPHAG | [id number] | | Resolve | | Lynn | | Dysphag | | | IA | 0 | /06 | d | /06 | L Benavides | | ia | | | | (SNOMED | | | | MD | | | | | | CT) | | | | | | | | +---------+---------+---------+---------+---------+---------+---------+---------+---------+ | RECTAL | [id number] | | Resolve | | Lynn | | Rectal | | | BLEEDIN | 2 | /06 | d | /06 | L Benavides | | hemorrh | | | G | (SNOMED | | | | MD | | age | | | | CT) | | | | | | | | +---------+---------+---------+---------+---------+---------+---------+---------+---------+ | COLONIC | [id number] | | Resolve | | Lynn | [...] | | | +---------+---------+---------+---------+---------+---------+---------+---------+---------+ | FAMILY | [id number] | | Resolve | | Lynn | [...] colon | | +---------+---------+---------+---------+---------+---------+---------+---------+---------+ | HYPERCA | [id number] | | Active | | Lynn | | Hyperca | | | LCEMIA | 9 | / | | /03 | L Kennedy | | lcemia | | | | (SNOMED | | | | MD | | | | | | CT) | | | | | | | | +---------+---------+---------+---------+---------+---------+---------+---------+---------+ | HX OF | [id number] | | Active | | Claudine | | History | | | RIGHT | 07 | / | | /02 | | [...] knee | | +---------+---------+---------+---------+---------+---------+---------+---------+---------+ | FAMILY | [id number] | | Removed | | Lynn | | Family | Nijerrica, | | HISTORY | | | | | Tamanna Benavides | | [...] colon | | +---------+---------+---------+---------+---------+---------+---------+---------+---------+ | CONNER | [id number] | | Active | | Lynn | | Conner | | | 'S | 06 | /19 | | /19 | L Benavides | | 's | | | ESOPHAG | (SNOMED | | | | MD | | esophag | | | US | CT) | | | | | | us | | +---------+---------+---------+---------+---------+---------+---------+---------+---------+ | COLONIC | [id number] | | Removed | | Son | | Adenoma | | | | 06 | /06 | | /06 | Petre [...] | | | +---------+---------+---------+---------+---------+---------+---------+---------+---------+ | RECTAL | [id number] | | Removed | | Son | | Rectal | | | BLEEDIN | 2 | /06 | | /06 | Petre | | hemorrh | | | G | (SNOMED | | | | MD | | age | | | | CT) | | | | | | | | +---------+---------+---------+---------+---------+---------+---------+---------+---------+ | DYSPHAG | [id number] | | Removed | | Son | | Dysphag | | | IA | 0 | /06 | | /06 | Petre | | ia | | | | (SNOMED | | | | MD | | | | | | CT) | | | | | | | | +---------+---------+---------+---------+---------+---------+---------+---------+---------+ | HEARTBU | [id number] | | Active | | Son | | Heartbu | | | RN | 0 | /06 | | / | Petre | | rn | | | | (SNOMED | | | | MD | | | | | | CT) | | | | | | | | +---------+---------+---------+---------+---------+---------+---------+---------+---------+ | NEOPLAS | [id number] | | Removed | | Lynn | [...] skin | | +---------+---------+---------+---------+---------+---------+---------+---------+---------+ | COUGH | [id number] | | Resolve | | Lynn | | Cough | | | | 2 | /21 | d | /21 | L Kennedy | | | | | | (SNOMED | | | | MD | | | | | | CT) | | | | | | | | +---------+---------+---------+---------+---------+---------+---------+---------+---------+ | TOBACCO | [id number] | | Active | | Lynn | [...] e | | +---------+---------+---------+---------+---------+---------+---------+---------+---------+ | COUGH | [id number] | | Removed | | Lynn | | Cough | | | | 2 | /21 | | /21 | L Kennedy | | | | | | (SNOMED | | | | MD | | | | | | CT) | | | | | | | | +---------+---------+---------+---------+---------+---------+---------+---------+---------+ | ABDOMIN | [id number] | | Removed | | Lynn | | Abdomin | | | AL PAIN | 1 | /21 | | /21 | L Kennedy | | al pain | | | | (SNOMED | | | | MD | | | | | | CT) | | | | | | | | +---------+---------+---------+---------+---------+---------+---------+---------+---------+ | FAMILY | [id number] | | Active | | Lynn | | Family | | | HISTORY | 05 | | | | L Kennedy | | history [...] thyroid | | +---------+---------+---------+---------+---------+---------+---------+---------+---------+ | THYROID | [id number] | | Active | | Lynn | | Thyroid | | | NODULE | 05 | | | /07 | L Kennedy | | nodule | | | | (SNOMED | | | | MD | | | | | | CT) | | | | | | | | +---------+---------+---------+---------+---------+---------+---------+---------+---------+ | CONSTIP | [id number] | | Removed | | Lynn | | Constip | | | ATION | 8 | /11 | | /11 | L Kennedy | | ation | | | | (SNOMED | | | | MD | | | | | | CT) | | | | | | | | +---------+---------+---------+---------+---------+---------+---------+---------+---------+ | STATUS, | [id number] | | Removed | | Lynn | [...] joint | | +---------+---------+---------+---------+---------+---------+---------+---------+---------+ | KNEE | [id number] | | Resolve | | Lynn | | Knee | | | PAIN | 3 | /25 | d | /25 | L Benavides | | pain | | | | (SNOMED | | | | MD | | | | | | CT) | | | | | | | | +---------+---------+---------+---------+---------+---------+---------+---------+---------+ | PREOPER | [id number] | | Resolve | | Lynn | | Preoper | | | ATIVE | 05 | /03 | d | /03 | L Kennedy | | ative | | | EXAMINA | (SNOMED | | | | MD | | procedu | | | TION | CT) | | | | | | res | | +---------+---------+---------+---------+---------+---------+---------+---------+---------+ | PREOPER | [id number] | | Resolve | | Lynn | | Preoper | | | ATIVE | 05 | /10 | d | /10 | L Kennedy | | ative | | | EXAMINA | (SNOMED | | | | MD | | procedu | | | TION | CT) | | | | | | res | | +---------+---------+---------+---------+---------+---------+---------+---------+---------+ | DYSURIA | [id number] | | Removed | | Lynn | | Dysuria | | | | 1 | /11 | | /11 | L Benavides | | | | | | (SNOMED | | | | MD | | | | | | CT) | | | | | | | | +---------+---------+---------+---------+---------+---------+---------+---------+---------+ | HIP | [id number] | | Removed | | Alice | | Hip | | | PAIN, | 2 | /10 | | /10 | [place] | | pain | | | RIGHT | (SNOMED | | | | NCMA | | | | | | CT) | | | | | | | | +---------+---------+---------+---------+---------+---------+---------+---------+---------+ | PREOPER | [id number] | | Removed | | Claudine | | Preoper | | | ATIVE | 05 | /10 | | /10 | | | ative | | | EXAMINA | (SNOMED | | | | Crouche | | procedu | | | TION | CT) | | | | r NCMA | | res | | +---------+---------+---------+---------+---------+---------+---------+---------+---------+ | DEGENER | [id number] | | Removed | | Claudine | [...] | | POSITIV | (ICD- | | / | L Kennedy | [...] | | | | | | | team psychologist | | | | | | | | | | ry | | +---------+---------+---------+---------+---------+---------+---------+---------+---------+ | PREOPER | [id number] | | Removed | | Lynn | | Preoper | | | ATIVE | 05 | | | /03 | L Benavides | | ative | | | EXAMINA | (SNOMED | | | | MD | | procedu | | | TION | CT) | | | | | | res | | +---------+---------+---------+---------+---------+---------+---------+---------+---------+ | LEW | [id number] | | Inactiv | | Lynn | [...] y | | +---------+---------+---------+---------+---------+---------+---------+---------+---------+ | FIBROMY | [id number] | | Active | | Cynthia | | Fibromy | | | ALGIA | 7 | /25 | | /25 | M | | ositis | | | | (SNOMED | | | | [facility] | | | | | | CT) | | | | NCMA | | | | +---------+---------+---------+---------+---------+---------+---------+---------+---------+ | KNEE | [id number] | | Removed | | Cynthia | | Knee | | | PAIN | 3 | /25 | | /25 | M | | pain | | | | (SNOMED | | | | [facility] | | | | | | CT) | | | | NCMA | | | | +---------+---------+---------+---------+---------+---------+---------+---------+---------+ | ARTHRIT | [id number] | | Removed | | Cynthia | | Arthrit | | | IS | | /25 | | /25 | M | | is | | | | (SNOMED | | | | [facility] | | | | | | CT) | | | | NCMA | | | | +---------+---------+---------+---------+---------+---------+---------+---------+---------+ | OSTEOAR | [id number] | | Resolve | | Lynn | [...] hand | | +---------+---------+---------+---------+---------+---------+---------+---------+---------+ | OSTEOAR | [id number] | | Resolve | | Lynn | [...] | | | +---------+---------+---------+---------+---------+---------+---------+---------+---------+ | HYPERLI | [id number] | | Active | | Lynn | [...] | | | +---------+---------+---------+---------+---------+---------+---------+---------+---------+ | HYPERCH | [id number] | | Resolve | | Lynn | | Hyperch | | | OLESTER | 9 | /24 | d | /24 | L Benavides | | olester | | | OLEMIA | (SNOMED | | | | MD | | olemia | | | | CT) | | | | | | | | +---------+---------+---------+---------+---------+---------+---------+---------+---------+ | HYPERCA | [id number] | | Removed | | Lynn | | Hyperca | | | LCEMIA | 9 | /29 | | /29 | L Benavides | | lcemia | | | | (SNOMED | | | | MD | | | | | | CT) | | | | | | | | +---------+---------+---------+---------+---------+---------+---------+---------+---------+ | DEPRESS | [id number] | | Active | | Lynn | | Depress | | | ION | 7 | /29 | | /29 | L Benavides | | james | | | | (SNOMED | | | | MD | | disorde | | | | CT) | | | | | | r | | +---------+---------+---------+---------+---------+---------+---------+---------+---------+ | VISUAL | [id number] | | Resolve | | Lynn | | Visual | | | SCOTOMA | 6 | /24 | d | /24 | L Kennedy | | field | | | TA | (SNOMED | | | | MD | | scotoma | | | | CT) | | | | | | | | +---------+---------+---------+---------+---------+---------+---------+---------+---------+ | BASAL | [id number] | | Resolve | | Lnyn | | Basal | | | CELL [...] | | | +---------+---------+---------+---------+---------+---------+---------+---------+---------+ | HYPERLI | [id number] | | Resolve | | Lynn | | Hyperli | | | PIDEMIA | 4 | /03 | d | /10 | L Benavides | | pidemia | | | | (SNOMED | | | | MD | | | | | | CT) | | | | | | | | +---------+---------+---------+---------+---------+---------+---------+---------+---------+ | SHOULDE | [id number] | | Resolve | | Lynn | | Shoulde | | | R PAIN | 0 | /10 | d | /10 | L Benavides | | r pain | | | | (SNOMED | | | | MD | | | | | | CT) | | | | | | | | +---------+---------+---------+---------+---------+---------+---------+---------+---------+ | FOOT | [id number] | | Resolve | | Lynn | | Foot | | | PAIN, | 7 | /10 | d | /10 | L Benavides | | pain | | | LEFT | (SNOMED | | | | MD | | | | | | CT) | | | | | | | | +---------+---------+---------+---------+---------+---------+---------+---------+---------+ | PES | [id number] | | Resolve | | Lynn | | Pes | | | PLANUS | 7 | /10 | d | /10 | L Benavides | | planus | | | | (SNOMED | | | | MD | | | | | | CT) | | | | | | | | +---------+---------+---------+---------+---------+---------+---------+---------+---------+ | HAMMER | [id number] | | Resolve | | Lynn | | Hammer | | | TOE | 08 | /10 | d | /10 | L Benavides | | toe | | | | (SNOMED | | | | MD | | | | | | CT) | | | | | | | | +---------+---------+---------+---------+---------+---------+---------+---------+---------+ | SHOULDE | [id number] | | Resolve | | Lynn | [...] region | | +---------+---------+---------+---------+---------+---------+---------+---------+---------+ | ABDOMIN | [id number] | | Resolve | | Lynn | | Abdomin | | | AL PAIN | 1 | /10 | d | /10 | L Benavides | | al pain | | | | (SNOMED | | | | MD | | | | | | CT) | | | | | | | | +---------+---------+---------+---------+---------+---------+---------+---------+---------+ | LOW | [id number] | | Resolve | | Lynn | | Chronic | | | BACK | 09 | /10 | d | /10 | L Kennedy | | low | | | PAIN, | (SNOMED | | | | MD | | back | | | CHRONIC | CT) | | | | | | pain | | +---------+---------+---------+---------+---------+---------+---------+---------+---------+ | URINARY | [id number] | | Resolve | | Lynn | [...] fied | | +---------+---------+---------+---------+---------+---------+---------+---------+---------+ | HYPERCH | [id number] | | Resolve | | Lynn | | Hyperch | | | OLESTER | 9 | / | d | /25 | L Benavides | | olester | | | OLEMIA | (SNOMED | | | | MD | | olemia | | | | CT) | | | | | | | | +---------+---------+---------+---------+---------+---------+---------+---------+---------+ | ROUTINE | [id number] | | Resolve | | Lynn | [...] | | | +---------+---------+---------+---------+---------+---------+---------+---------+---------+ | OTHER | [id number] | | Resolve | | Lynn | [...] | (ICD-10 | /30 | d | / | L Benavides | | athy, | | | ARTHROP | -CM) | | | | MD | | unspeci | | | ATHY | | | | | | | fied | | | MULTIPL | | | | | | | | | | E SITES | | | | | | | | | +---------+---------+---------+---------+---------+---------+---------+---------+---------+ | ACTINIC | [id number] | | Resolve | | Lynn | | Actinic | | | | 07 | / | d | / | L Kennedy | | | | | KERATOS | (SNOMED | | | | MD | | keratos | | | IS | CT) | | | | | | is | | +---------+---------+---------+---------+---------+---------+---------+---------+---------+ | UNSPECI | [id number] | | Resolve | | Lynn | | Disorde | | | FIED | 6 | /25 | d | /25 | L Kennedy | | r of | | | [...] | | | +---------+---------+---------+---------+---------+---------+---------+---------+---------+ | NECK | [id number] | | Resolve | | Lynn | | Neck | | | PAIN | 5 | /25 | d | /25 | L Benavides | | pain | | | | (SNOMED | | | | MD | | | | | | CT) | | | | | | | | +---------+---------+---------+---------+---------+---------+---------+---------+---------+ | PLANTAR | [id number] | | Resolve | | Lynn | [...] tosis | | +---------+---------+---------+---------+---------+---------+---------+---------+---------+ | ACCIDEN | [id number] | | Resolve | | Lynn | [...] | | | +---------+---------+---------+---------+---------+---------+---------+---------+---------+ | NEOPLAS | [id number] | | Resolve | | Lynn | [...] skin | | +---------+---------+---------+---------+---------+---------+---------+---------+---------+ | ENCOUNT | [id number] | | Resolve | | Lynn | [...] | | | +---------+---------+---------+---------+---------+---------+---------+---------+---------+ | ENCOUNT | [id number] | | Resolve | | Lynn | [...] | | | PROPHYL | (ICD-10 | / | d | /24 | L Benavides [...] | | | +---------+---------+---------+---------+---------+---------+---------+---------+---------+ | TRANSIE | [id number] | | Resolve | | Lynn | | Transie | | | NT | 5 | /24 | d | /24 | L Benavides | | nt | | | VISUAL | (SNOMED | | | | MD | | visual | | | LOSS | CT) | | | | | | loss | | +---------+---------+---------+---------+---------+---------+---------+---------+---------+ | SCREENI | [id number] | | Resolve | | Lynn | [...] | | | GUS, | (ICD-10 | /13 | | /13 | L Benavides | [...] | | | +---------+---------+---------+---------+---------+---------+---------+---------+---------+ | NEPHREC | [id number] | | Inactiv | | Pretty | | Kidney | | | GUS, | | / | e | /13 | Jorgens | | excisio | | | HX OF | (SNOMED | | | | en DO | | n | | | | CT) | | | | | | | | +---------+---------+---------+---------+---------+---------+---------+---------+---------+ | FATIGUE | [id number] | | Inactiv | | Pretty | | Fatigue | | | | 1 | / | e | | Jorgens | | | | | | (SNOMED | | | | en DO | | | | | | CT) | | | | | | | | +---------+---------+---------+---------+---------+---------+---------+---------+---------+ | OTHER | [id number] | | Inactiv | | Pretty | [...] | | | +---------+---------+---------+---------+---------+---------+---------+---------+---------+ | SCREENI | [id number] | | Removed | | Pretty | [...] colon | | +---------+---------+---------+---------+---------+---------+---------+---------+---------+ | CARPAL | [id number] | | Inactiv | | Ky | | Carpal | | | TUNNEL | 9 | /15 | e | /15 | Bitter | | tunnel | | | SYNDROM | (SNOMED | | | | MD | | syndrom | | | E | CT) | | | | | | e | | +---------+---------+---------+---------+---------+---------+---------+---------+---------+ | OSTEOAR | [id number] | | Resolve | | Ky | [...] hand | | +---------+---------+---------+---------+---------+---------+---------+---------+---------+ | TRIGGER | [id number] | | Resolve | | Ky | | Acquire | right | | FINGER | | /23 | d | /23 | Bitter | | d | thumb | | | (SNOMED | | | | MD | | trigger | | | | CT) | | | | | | finger | | +---------+---------+---------+---------+---------+---------+---------+---------+---------+ | NICOTIN | [id number] | | Removed | | Ky | | Nicotin | | | E | 8 | | | | Bitter | | e | | | ADDICTI | (SNOMED | | | | MD | | depende | | | ON | CT) | | | | | | nce | | +---------+---------+---------+---------+---------+---------+---------+---------+---------+ | TRIGGER | [id number] | | Removed | | Ky | | Acquire | right | | FINGER | | /23 | | /23 | Bitter | | d | thumb | | | (SNOMED | | | | MD | | trigger | | | | CT) | | | | | | finger | | +---------+---------+---------+---------+---------+---------+---------+---------+---------+ | OSTEOAR | [id number] | | Removed | | Pretty | [...] hand | | +---------+---------+---------+---------+---------+---------+---------+---------+---------+ | CARPAL | [id number] | | Removed | | Pretty | | Carpal | | | TUNNEL | 9 | /15 | | /15 | Jorgens | | tunnel | | | SYNDROM | (SNOMED | | | | en DO | | syndrom | | | E | CT) | | | | | | e | | +---------+---------+---------+---------+---------+---------+---------+---------+---------+ | SINUSIT | [id number] | | Inactiv | | Pretty | [...] is | | +---------+---------+---------+---------+---------+---------+---------+---------+---------+ | SACROIL | [id number] | | Inactiv | | Pretty | | Inflamm | | | IITIS | | e | | Jorgens | | ation | | | | (SNOMED | | | | en DO | | of | | | | CT) | | | | | | sacroil | | | | | | | | | | iac | | | | | | | | | | joint | | +---------+---------+---------+---------+---------+---------+---------+---------+---------+ | OSTEOAR | [id number] | | Removed | | Emelina | [...] | | | +---------+---------+---------+---------+---------+---------+---------+---------+---------+ | HYPERCH | [id number] | | Removed | | Emelina | | Hyperch | | | OLESTER | 9 | /24 | | /24 | [facility] | | olester | | | OLEMIA | (SNOMED | | | | MA | | olemia | | | | CT) | | | | | | | | +---------+---------+---------+---------+---------+---------+---------+---------+---------+ | TRANSIE | [id number] | | Removed | | Emelina | | Transie | | | NT | 5 | /24 | | / | [facility] | | nt | | | VISUAL | (SNOMED | | | | MA | | visual | | | LOSS | CT) | | | | | | loss | | +---------+---------+---------+---------+---------+---------+---------+---------+---------+ | VISUAL | [id number] | | Removed | | Emelina | | Visual | | | SCOTOMA | 6 | /24 | | /24 | Fan[facility] | | field | | | TA | (SNOMED | | | | MA | | scotoma | | | | CT) | | | | | | | | +---------+---------+---------+---------+---------+---------+---------+---------+---------+ | HEADACH | [id number] | | Inactiv | | Emelina | | Headach | | | E | 2 | / | e | | [facility] | | e | | | | (SNOMED | | | | MA | | | | | | CT) | | | | | | | | +---------+---------+---------+---------+---------+---------+---------+---------+---------+ | NEED | Z23 | | Removed | | Eva | | Encount | | | PROPHYL | (ICD-10 | | | | Peterson | | er for | | | [...] | | | +---------+---------+---------+---------+---------+---------+---------+---------+---------+ | VITAMIN | [id number] | | Inactiv | | Pretty | | Vitamin | | | D | 6 | | e | | Jorgens | | D | | | DEFICIE | (SNOMED | | | | en DO | | deficie | | | NCY | CT) | | | | | | ncy | | +---------+---------+---------+---------+---------+---------+---------+---------+---------+ | ENCOUNT | [id number] | | Removed | | Pretty | [...] | | | +---------+---------+---------+---------+---------+---------+---------+---------+---------+ | BASAL | [id number] | | Removed | | Lynn | [...] | | | +---------+---------+---------+---------+---------+---------+---------+---------+---------+ | ENCOUNT | [id number] | | Removed | | Emelina | [...] | | | +---------+---------+---------+---------+---------+---------+---------+---------+---------+ | NEOPLAS | [id number] | | Removed | | Pretty | [...] skin | | +---------+---------+---------+---------+---------+---------+---------+---------+---------+ | ACCIDEN | [id number] | | Removed | | Pretty | | Acciden | | | T | 07 | / | | /12 | Jorgens | | [...] | | | +---------+---------+---------+---------+---------+---------+---------+---------+---------+ | KNEE | [id number] | | Inactiv | | Pretty | | Knee | | | PAIN, | 3 | /12 | e | /12 | [facility] | | pain | | | BILATER | (SNOMED | | | | en DO | | | | | AL | CT) | | | | | | | | +---------+---------+---------+---------+---------+---------+---------+---------+---------+ | HIP | [id number] | | Inactiv | | Pretty | | Hip | | | PAIN | 2 | /12 | e | /12 | [facility] | | pain | | | | (SNOMED | | | | en DO | | | | | | CT) | | | | | | | | +---------+---------+---------+---------+---------+---------+---------+---------+---------+ | OSTEOAR | [id number] | | Removed | | Pretty | [...] hand | | +---------+---------+---------+---------+---------+---------+---------+---------+---------+ | CLAUDIC | [id number] | | Inactiv | | Pretty | | Claudic | | | ATION | 00 | /12 | e | /12 | [facility] | | ation | | | | (SNOMED | | | | en DO | | | | | | CT) | | | | | | | | +---------+---------+---------+---------+---------+---------+---------+---------+---------+ | PERIPHE | [id number] | | Inactiv | | Pretty | | Periphe | | | RAL | 06 | | e | /12 | [facility] | | ral | | | VASCULA | (SNOMED | | | | en DO | | vascula | | | R | CT) | | | | | | r | | | DISEASE | | | | | | | disease | | +---------+---------+---------+---------+---------+---------+---------+---------+---------+ | LEG | [id number] | | Inactiv | | Pretty | | Cramp | | | CRAMPS | 04 | | e | /12 | [facility] | | in | | | | (SNOMED | | | | en DO | | lower | | | | CT) | | | | | | limb | | +---------+---------+---------+---------+---------+---------+---------+---------+---------+ | PLANTAR | [id number] | | Removed | | Lionel | | Plantar | | | | 2 | / | | | Siepert | | | | | FIBROMA | (SNOMED | | | | DPM | | fascial | | | TOSIS | CT) | | | | | | | | | | | | | | | | fibroma | | | | | | | | | | tosis | | +---------+---------+---------+---------+---------+---------+---------+---------+---------+ | MYALGIA | [id number] | | Inactiv | | Pretty | | Muscle | | | | 1 | / | e | / | [facility] | | pain | | | | (SNOMED | | | | en DO | | | | | | CT) | | | | | | | | +---------+---------+---------+---------+---------+---------+---------+---------+---------+ | NECK | [id number] | | Removed | | Pretty | | Neck | | | PAIN | 5 | /25 | | /25 | [facility] | | pain | | | | (SNOMED | | | | en DO | | | | | | CT) | | | | | | | | +---------+---------+---------+---------+---------+---------+---------+---------+---------+ | HAND | [id number] | | Removed | | Pretty | | Hand | | | PAIN, | 4 | | | / | [facility] | | pain | | | BILATER | (SNOMED | | | | en DO | | | | | AL | CT) | | | | | | | | +---------+---------+---------+---------+---------+---------+---------+---------+---------+ | ARTHRIT | [id number] | | Inactiv | | Pretty | | Arthrit | | | IS | | | e | | [facility] | | is | | | | (SNOMED | | | | en DO | | | | | | CT) | | | | | | | | +---------+---------+---------+---------+---------+---------+---------+---------+---------+ | UNSPECI | [id number] | | Removed | | Pretty | [...] | | | +---------+---------+---------+---------+---------+---------+---------+---------+---------+ | VACCINE | [id number] | | Inactiv | | Pretty | [...] | | | +---------+---------+---------+---------+---------+---------+---------+---------+---------+ | HYPERCH | [id number] | | Removed | | Pretty | | Hyperch | | | OLESTER | 9 | | | | [facility] | | olester | | | OLEMIA | (SNOMED | | | | en DO | | olemia | | | | CT) | | | | | | | | +---------+---------+---------+---------+---------+---------+---------+---------+---------+ | ACTINIC | [id number] | | Removed | | Pretty | | Actinic | | | | 07 | /25 | | /25 | [facility] | | | | | KERATOS | (SNOMED | | | | en DO | | keratos | | | IS | CT) | | | | | | is | | +---------+---------+---------+---------+---------+---------+---------+---------+---------+ | GERD | [id number] | | Active | | Pretty | [...] LIPOID | (ICD-10 | | | | ADMITTING COORDINATOR | | screeni | | | DISORDE [...] DIABETE | -CM) | | | | ADMITTING COORDINATOR | | screeni | | | S [...] | | | FIED | (ICD-10 | 30 | | /30 | Kusler | | athy, | | | ARTHROP | -CM) | | | | ADMITTING COORDINATOR | | unspeci | | | ATHY | | | | | | | fied | | | MULTIPL | | | | | | | | | | E SITES | | | | | | | | | +---------+---------+---------+---------+---------+---------+---------+---------+---------+ | ARTHRIT | [id number] | | Inactiv | | Sandra | | Arthrit | | | IS | | /30 | e | /30 | Kusler | | is | | | | (SNOMED | | | | ADMITTING COORDINATOR | | | | | | CT) | | | | | | | | +---------+---------+---------+---------+---------+---------+---------+---------+---------+ | OTHER | [id number] | | Removed | | Sandra | | Screeni | | | SCREENI | 2 | /30 | | /30 | Kusler | | ng | | | NG | (SNOMED | | | | ADMITTING COORDINATOR | | mammogr | | | MAMMOGR | CT) | | | | | | aphy | | | AM | | | | | | | | | +---------+---------+---------+---------+---------+---------+---------+---------+---------+ | ROUTINE | [id number] | | Removed | | Sandra | | Gynecol | | | | 1 | / | | / | Kusler | | ogic | | | GYNECOL | (SNOMED | | | | ADMITTING COORDINATOR | | examina | | | OGICAL | CT) | | | | | | tion | | | EXAMINA | | | | | | | | | | TION | | | | | | | | | +---------+---------+---------+---------+---------+---------+---------+---------+---------+ | HYPERLI | [id number] | | Removed | | Sandra | | Hyperli | | | PIDEMIA | 4 | /03 | | /10 | Kusler | | pidemia | | | | (SNOMED | | | | MOTORMAN/WOMAN | | | | | | CT) | | | | | | | | +---------+---------+---------+---------+---------+---------+---------+---------+---------+ | VAGINAL | [id number] | | Removed | | Lars | [...] fied | | +---------+---------+---------+---------+---------+---------+---------+---------+---------+ | URINARY | [id number] | | Removed | | Lars | [...] on | | +---------+---------+---------+---------+---------+---------+---------+---------+---------+ | LOW | [id number] | | Removed | | Lars | | Chronic | | | BACK | | | | | Ramirez | | low | | | PAIN, | (SNOMED | | | | DO | | back | | | CHRONIC | CT) | | | | | | pain | | +---------+---------+---------+---------+---------+---------+---------+---------+---------+ | ABDOMIN | [id number] | | Removed | | Carly | | Abdomin | | | AL PAIN | 1 | | | | Tony | | al pain | | | | (SNOMED | | | | COLD MEAT CHEF | | | | | | CT) | | | | | | | | +---------+---------+---------+---------+---------+---------+---------+---------+---------+ | SHOULDE | [id number] | | Removed | | Pretty | [...] region | | +---------+---------+---------+---------+---------+---------+---------+---------+---------+ | HAMMER | [id number] | | Removed | | Pretty | | Hammer | | | TOE | 08 | /10 | | /10 | [facility] | | toe | | | | (SNOMED | | | | en DO | | | | | | CT) | | | | | | | | +---------+---------+---------+---------+---------+---------+---------+---------+---------+ | PES | [id number] | | Removed | | Pretty | | Pes | | | PLANUS | 7 | /10 | | /10 | [facility] | | planus | | | | (SNOMED | | | | en DO | | | | | | CT) | | | | | | | | +---------+---------+---------+---------+---------+---------+---------+---------+---------+ | FOOT | [id number] | | Removed | | Pretty | | Foot | | | PAIN, | 7 | /10 | | /10 | [facility] | | pain | | | LEFT | (SNOMED | | | | en DO | | | | | | CT) | | | | | | | | +---------+---------+---------+---------+---------+---------+---------+---------+---------+ | SHOULDE | [id number] | | Removed | | Pretty | | Shoulde | | | R PAIN | 0 | /10 | | /10 | [facility] | | r pain | | | | (SNOMED | | | | en DO | | | | | | CT) | | | | | | | | +---------+---------+---------+---------+---------+---------+---------+---------+---------+ | HYPERTE | [id number] | | Active | | Pretty | [...] 1 tab | | | PITAVASTAT | [id number] | Patience | | MG TABS | [...] 1 cap | | | CEPHALEXIN | [id number] | Lynn L | | 500 MG | twice a | | | | 1 | Kennedy MD | | CAPS | day for 7 | | | | | | | | days | | | | | | + + + + + + + + | BIDROCIRAL | 1 po QOD | | | BIDROCIRAL | | Sandra | | 50 MG | | | | 50 MG | | Kusler MOTORMAN/WOMAN | + + + + + + + + | METOPROLOL | 1/2 po | | | METOPROLOL | 7741759609 | Pretty | | SUCCINATE | daily | | | SUCCINATE | 1 | Norah | | ER 50 MG | | | | | | DO | | [id number] | | | | | | | + + + + + + + + | ASPIRIN 81 | 1 every | | | ASPIRIN | 0924415922 | Pretty | | MG TABS | [...] SL every | | | NITROGLYCE | 9382687532 | Pretty | | RIN 0.4 MG [...] 2 tablets | | | CALCIUM | 7059799205 | Lynn L | | 600 MG | daily. 1 | | | | 3 | Kennedy RICO | | TABS | in morning | | | | | | | | and 1 at | | | | | | | | bedtime | | | | | | + + + + + + + + | MULTI-AIMEE | 1 tab po q | | | MULTIPLE | 1549543300 | Son | | MIN TABS | day | | | VITAMIN | 0 | Imelda MD | + + + + + + + + | HYZAAR | 1 by mouth | | | LOSARTAN | 7532379945 | Pretty | | 100-25 MG | every day | | | POTASSIUM- | 1 | Norah | | TABS | for blood | | | HCTZ | | DO | | | pressure | | | | | | + + + + + + + + | ALEVE 220 | 1 po Q day | | | NAPROXEN | 6743157448 | Isabel | | MG TABS | for | | | SODIUM | 2 | Lucius MD | | | arthritis | | | | | | | | PRN | | | | | | + + + + + + + + | NASONEX 50 | 2 sprays | | | MOMETASONE | 2473617282 | Lynn L | | MCG/ACT | each | | | FUROATE | 1 | Kennedy MD | | SUSP | nostril | | | | | | | | every day | | | | | | + + + + + + + + | METRONIDAZ | 1 bid x 10 | | | METRONIDAZ | 4343322095 | Sandra | | OLE 500 MG | days | | | OLE | 5 | Sylvestersler ADMITTING COORDINATOR | | TABS | | | | | | | + + + + + + + + | ASPIRIN 81 | 1 every | | | ASPIRIN | 9191585319 | Son | | MG TABS | other day | | | | 5 | Imelda MD | | | by mouth | | | | | | | | every | | | | | | | | other day | | | | | | + + + + + + + + | TYLENOL | 1 po qd | | | ACETAMINOP | 4379348551 | Pretty | | ARTHRITIS | prn | | | HEN | 0 | Norah | | PAIN 650 | | | | | | DO | | MG CR-TABS | | | | | | | + + + + + + + + | ZITHROMAX | 2 p.o | | | AZITHROMYC | 3705928377 | Lynn Nolen | | Z-SHAILESH 250 [...] take 1 | | | OXYCODONE- | 5817127732 | Lynn Nolen | | ACETAMINOP | [...] QOD by | | | ASPIRIN | 4432865297 | Pretty | | MG TABS | mouth | | | | 5 | Norah | | | every | | | | | DO | | | other day | | | | | | + + + + + + + + | ALEVE 220 | 1 tab once | | | NAPROXEN | 2597680585 | Lynn L | | MG TABS | a day as | | | SODIUM | 2 | Kennedy MD | | | needed [...] tab once | | | NAPROXEN | 0952502335 | Lynn L | | MG TABS | a day as | | | SODIUM | 2 | Benavides MD | | | needed for | [...] - 2 | | | HYDROCODON | 9745026124 | Lynn L | | 10-325 MG | tablets | | | E-ACETAMIN | 1 | Kennedy MD | | TABS | [...] SL every | | | NITROGLYCE | 2552682934 | Pretty | | RIN 0.4 MG [...] apply to | | | DICLOFENAC | 2581449793 | Crystal | | 1.5 % SOLN | affected | | | SODIUM | 3 | Noel | | | area qid | | | | | PIT SHOVELER | | | prn | | | | | | + + + + + + + + | ASPIRIN 81 | 1 by mouth | | | ASPIRIN | 3037366881 | Pretty | | MG TABS | every day | | | | 5 | Norah | | | | | | | | DO | + + + + + + + + | EQL | Daily | | | CA | 8274871582 | Eva | | VITAMIN | | | | PHOSPHATE- | 2 | Peterson | | D-3 HIGH | | | [...] po qd | | | ASCORBIC | 0202571908 | Pretty | | ACID 1000 | | | | ACID | 7 | Norah | | MG TABS | | | | | | DO | + + + + + + + + | HYDROCHLOR | Take 1 po | | | HYDROCHLOR | 5776732830 | Sandra | | OTHIAZIDE | qod | | | OTHIAZIDE | 0 | Sylvestersler ADMITTING COORDINATOR | | 25 MG TABS | | | | | | | + + + + + + + + | TYLENOL | 1 po qd | | | ACETAMINOP | 7246868044 | Pretty | | ARTHRITIS | prn | | | HEN | 0 | Norah | | PAIN 650 | | | | | | DO | | MG CR-TABS | | | | | | | + + + + + + + + | ALEVE 220 | 1 po QD | | | NAPROXEN | 9719909079 | Pretty | | MG TABS | for | | | SODIUM | 2 | Norah | | | arthritis | | | | | DO | | | PRN | | | | | | + + + + + + + + | PRILOSEC | one po qd | | | OMEPRAZOLE | 0546070019 | Pretty | | OTC 20 MG | | | | MAGNESIUM | 5 | Norah | | TBEC | | | | | | DO | + + + + + + + + | ALEVE 220 | 1 po bid | | | NAPROXEN | 7995711264 | Pretty | | MG TABS | for | | | SODIUM | 2 | Norah | | | arthritis | | | | | DO | + + + + + + + + | ASPIRIN 81 | 1 every | | | ASPIRIN | 7279720374 | Lynn L | | MG TABS | other | | | | 5 | Kennedy MD | | | night [...] po bid | | | NAPROXEN | 7856290255 | Eva | | MG TABS | for | | | SODIUM | 2 | Mima | | | arthritis | | | | | | | | PRN | | | | | | + + + + + + + + | EXFORGE | 1 by mouth | | | EXFORGE | | Sandra | | 5-320 | two times | | | 5-320 | | Collins ADMITTING COORDINATOR | | | per day | | | | | | + + + + + + + + | GABAPENTIN | 1 at hs | | | GABAPENTIN | 8410445844 | Sandra | | 100 MG | for low | | | | 1 | Bernardler MOTORMAN/WOMAN | | CAPS | back pain | [...] po q | | | MULTIPLE | 5538053330 | Lynn L | | MIN TABS | day | | | VITAMIN | 0 | Kennedy MD | + + + + + + + + | HYDROCODON | ONE TAB | | | HYDROCODON | 3733324241 | Ky | | E-ACETAMIN | Q4-6HR PRN | | | E-ACETAMIN | 1 | Vicente MD | | OPHEN | PAIN | | | OPHEN | | | | 7.5-325 MG | | | | | | | | TABS | | | | | | | + + + + + + + + | MOVIPREP | mix and | | | PEG-KCL-NA | 4690890089 | Lynn L | | 100 GM [...] one tablet | | | AMLODIPINE | 5493858448 | Pretty | | MG TABS | by mouth | | | BESYLATE | 8 | Norah | | | daily | | | | | DO | + + + + + + + + | LIVALO 4 | 1/2 p.o | | | PITAVASTAT | 0713808735 | Crystal | | MG TABS | daily | | | IN CALCIUM | 0 | Noel | | | | | | | | PIT SHOVELER | + + + + + + + + | ASCORBIC | 1 po qd | | | ASCORBIC | 8173007074 | Emelina | | ACID 1000 | | | | ACID | 7 | Claudette MA | | MG TABS | | | | | | | + + + + + + + + | EQL | Daily | | | CA | 2804622088 | Lynn L | | VITAMIN | [...] take 1-2 | | | OXYCODONE- | 5643305235 | Claudine | | ACETAMINOP | tablets by | | | ACETAMINOP | 1 | Heatherucher | | HEN 10-325 | mouth | [...] 1/2 p.o | | | ATORVASTAT | 4096906990 | Pretty | | IN CALCIUM | daily | | | IN CALCIUM | 8 | Norah | | 10 MG | | | | | | DO | | TABS | | | | | | | + + + + + + + + | HYDROCHLOR | Take 1 po | | | HYDROCHLOR | 4102898975 | Pretty | | OTHIAZIDE | qod | | | OTHIAZIDE | 0 | Norah | | 25 MG TABS | | | | | | DO | + + + + + + + + | EXFORGE | 1 po qd | | | AMLODIPINE | 6641481554 | Sandra | | 5-160 MG | along | | | | 5 | Kusler ADMITTING COORDINATOR | | TABS | w/07/18 | | | BESYLATE-V | | | | | 160mg | | | ALSARTAN | | | | | diovan | | | | | | + + + + + + + + | ALEVE 220 | 1 by mouth | | | NAPROXEN | 8129065970 | Pretty | | MG TABS | a day as | | | SODIUM | 2 | Norah | | | needed | | | | | DO | + + + + + + + + | D 1000 | 1,000 | | | CHOLECALCI | 8039379297 | Lynn L | | 1000 UNIT | internatio | | | FEROL | 7 | Benavides MD | | TABS | nal units | | | | | | | | once a day | | | | | | + + + + + + + + | ASPIRIN 81 | 1 by mouth | | | ASPIRIN | 7173253100 | Sandra | | MG TABS | every | | | | 5 | Kusler MOTORMAN/WOMAN | | | other day | | | | | | + + + + + + + + | VITAMIN D | one tablet | | | VITAMIN D | | Sandra | | 2000 UNIT | by mouth | | | 2000 UNIT | | Kusler MOTORMAN/WOMAN | | CAPS | daily | | | CAPS | | | | (ERGOCALCI | | | | (ERGOCALCI | | | | FEROL) | | | | FEROL) | | | + + + + + + + + | METOPROLOL | 1/2 po | | | METOPROLOL | 1970221958 | Pretty | | SUCCINATE | daily | | | SUCCINATE | 1 | Norah | | ER 50 MG | | | | | | DO | | [id number] | | | | | | | + + + + + + + + | CELEBREX | take 1 | | | CELECOXIB | 5188643537 | Lynn L | | 100 MG | tablet by | | | | 1 | Kennedy MD | | CAPS | mouth once | | | | | | | | daily | | | | | | + + + + + + + + | LIVALO 2 | 07/18 tab by | | | PITAVASTAT | 8302455257 | Cynthia M | | MG TABS [...] 2 p.o | | | TRAMADOL-A | 8560250404 | Lynn L | | 37.5-325 | bid prn | | | CETAMINOPH | 0 | Benavides MD | | MG TABS | | | | EN | | | + + + + + + + + | CALCIUM | 2 tablets | | | CALCIUM | 7627994724 | Ky | | 600 MG | daily. 1 | | | | 3 | Bitter MD | | TABS | in morning | | | | | | | | and 1 at | | | | | | | | bedtime | | | | | | + + + + + + + + | PRAVASTATI | take / | | | PRAVASTATI | 8306049081 | Sandra | | N SODIUM | po daily | | | N SODIUM | 0 | Collins ADMITTING COORDINATOR | | 80 MG TABS | | | | | | | + + + + + + + + | PREMARIN | 1 by mouth | | | ESTROGENS | 0214086494 | Pretty | | 0.625 MG | every day | | | CONJUGATED | 1 | Norah | | TABS | | | | | | DO | + + + + + + + + | LIVALO 2 | 07/18 tab by | | | PITAVASTAT | 2650339017 | Lynn L | | MG TABS [...] mix and | | | NA | 4732952263 | Esperanza | | BOWEL PREP | [...] tab po | | | MULTIPLE | 4883918120 | Pretty | | MIN TABS | qd | | | VITAMIN | 0 | Norah | | | | | | | | DO | + + + + + + + + | DULOXETINE | 1 tablet | | | DULOXETINE | 3690927710 | Patience | | HCL 30 MG | by mouth | | | HCL | 6 | Ramesh | | CPEP | daily | | | | | NCMA | + + + + + + + + | D 1000 | 1,000 | | | CHOLECALCI | 4826338918 | Patience | | 1000 UNIT | internatio | | | FEROL | 7 | Ramesh | | TABS | nal units | | | | | NCMA | | | once a day | | | | | | + + + + + + + + | ALEVE 220 | 1 po Q day | | | NAPROXEN | 5853357602 | Son | | MG TABS | for | | | SODIUM | 2 | Petre MD | | | arthritis | | | | | | | | PRN | | | | | | + + + + + + + + | PREMARIN | 1 by mouth | | | ESTROGENS | 8462569524 | Pretty | | 0.625 MG | every day | | | CONJUGATED | 1 | Norah | | TABS | | | | | | DO | + + + + + + + + | ULTRACET | 1 to 2 p.o | | | TRAMADOL-A | 9624516167 | Isabel | | 37.5-325 | bid prn | | | CETAMINOPH | 0 | Lucius MD | | MG TABS | | | | EN | | | + + + + + + + + | LIVALO 4 | 1/2 p.o | | | PITAVASTAT | 8298412361 | Pretty | | MG TABS | [...] 2 caps | | | OMEPRAZOLE | 0597152731 | Lynn L | | 20 MG [...] tab once | | | HYDROCODON | 4928593950 | Lynn L | | E-ACETAMIN | [...] cap by | | | GABAPENTIN | 9717912696 | Lynn L | | 100 MG | mouth in | | | | 1 | Kennedy RICO | | CAPS | the | | | | | | | | morning | | | | | | | | for pain | | | | | | + + + + + + + + | ZITHROMAX | 2 p.o | | | AZITHROMYC | 0946979546 | Pretty | | Z-SHAILESH 250 | [...] mix and | | | NA | 9433110219 | Son | | BOWEL PREP | drink one | | | SULFATE-K | 1 | Imelda MD | | KIT | bottle at [...] + + + + + + | KEIKO | 1 by mouth | | | LOSARTAN | 5896469278 | Lynn L | | 100-25 MG | every day | | | POTASSIUM- | 1 | Kennedy MD | | TABS | for blood | | | HCTZ | | | | | pressure | | | | | | + + + + + + + + | NORVASC 5 | one tablet | | | AMLODIPINE | 1085580727 | Lynn L | | MG TABS | by mouth | | | BESYLATE | 8 | Kennedy RICO | | | daily | | | | | | + + + + + + + + | PRILOSEC | 2 caps | | | OMEPRAZOLE | 8571518748 | Lynn L | | 20 MG [...] 1 every | | | PRAMIPEXOL | 3334807646 | Lynn L | | 0.25 MG | other | | | E | 0 | Kennedy RICO | | TABS | night for | | | DIHYDROCHL | | | | | restless | | | ORIDE | | | | | legs | | | | | | + + + + + + + + | HYDROCODON | 1 tab once | | | HYDROCODON | 6118342030 | Lynn L | | E-ACETAMIN | [...] cap by | | | GABAPENTIN | 7959190336 | Lynn L | | 100 MG | mouth in | | | | 1 | Kennedy RICO | | CAPS | the | | | | | | | | morning | | | | | | | | for pain | | | | | | + + + + + + + + | GABAPENTIN | 1 cap by | | | GABAPENTIN | 6593192345 | Magali | | 100 MG | [...] - 2 | | | HYDROCODON | 5368781652 | Magali | | 10-325 MG | tablets | | | E-ACETAMIN | 1 | Felix RICO | | TABS | by mouth | | | OPHEN | | | | | every 4-6 | | | | | | | | hours prn | | | | | | | | pain | | | | | | + + + + + + + + | DULOXETINE | 1 tablet | | | DULOXETINE | 9771128944 | Lynn L | | HCL 30 MG | by mouth | | | HCL | 6 | Kennedy RICO | | CPEP | daily | | | | | | + + + + + + + + | OXYCODONE- | take 1 | | | OXYCODONE- | 3082630336 | Magali | | ACETAMINOP | tablets [...] 1 cap | | | CEPHALEXIN | 3911361041 | Lynn L | | 500 MG | twice a | | | | 1 | Kennedy RICO | | CAPS | [...] 1 tab | | | PITAVASTAT | 6672277952 | Lynn L | | MG TABS [...] by mouth | | | OMEPRAZOLE | 6217003874 | Kal | | 20 MG | two times | | | | 1 | Chyna | | CPDR | per [...] take 1 | | | CELECOXIB | 2050271134 | Lynn L | | 100 MG | tablet by | | | | 1 | Benavides MD | | CAPS | mouth once | | | | | | | | daily | | | | | | + + + + + + + + | MIRAPEX | 1 p.o | | | PRAMIPEXOL | 7329673317 | Pretty | | 0.25 MG | every | | | E | 0 | Norah | | TABS | other day | | | DIHYDROCHL | | DO | | | - bedtime | | | ORIDE | | | + + + + + + + + | HYZAAR | 1 by mouth | | | LOSARTAN | 0660062114 | Pretty | | 100-25 MG | every day | | | POTASSIUM- | 1 | Norah | | TABS | | | | HCTZ | | DO | + + + + + + + + | PRILOSEC | 1 by mouth | | | OMEPRAZOLE | 6129841751 | Pretty | | 20 MG CPDR | every day | | | | 4 | Norah | | | | | | | | DO | + + + + + + + + | MOVIPREP | mix and | | | PEG-KCL-NA | 3064300086 | Son | | 100 GM | [...] p.o qod- | | | PRAMIPEXOL | 9909051655 | Pretty | | 0.25 MG | bedtime | | | E | 0 | Norah | | TABS | | | | DIHYDROCHL | | DO | | | | | | ORIDE | | | + + + + + + + + | VICODIN | 1-2 po q | | | ACETAMINOP | 9878829233 | Pretty | | 5-500 MG | 12 hrs prn | | | HEN-HYDROC | 4 | Norah | | TABS | | | | ODONE | | DO | + + + + + + + + | HYDROCODON | ONE TAB | | | HYDROCODON | 0372743028 | Ky | | E-ACETAMIN | Q4-6HR [...] 1/2 p.o | | | ATORVASTAT | 1815019722 | Pretty | | IN CALCIUM | daily | | | IN CALCIUM | 8 | Norah | | 10 MG | | | | | | DO | | TABS | | | | | | | + + + + + + + + | AUGMENTIN | 2 two | | | AMOXICILLI | 4741562937 | Pretty | | XR | times per | | | N-POT | 8 | Norah | | 1000-62.5 | day | | | CLAVULANAT | | DO | | MG | | | | E | | | | [id number] | | | | | | | + + + + + + + + | NASONEX 50 | 2 sprays | | | MOMETASONE | [id number] | Pretty | | MCG/ACT | each | | | FUROATE | 1 | Norah | | SUSP | nostril | | | | | DO | | | every day | | | | | | + + + + + + + + | ULTRACET | 1 to 2 p.o | | | TRAMADOL-A | [id number] | Pretty | | 37.5-325 | bid prn | | | CETAMINOPH | 0 | Norah | | MG TABS | | | | EN | | DO | + + + + + + + + | NITROGLYCE | 1 SL every | | | NITROGLYCE | [id number] | Pretty | | RIN 0.4 MG [...] p.o qhs | | | PRAMIPEXOL | [id number] | Pretty | | 0.25 MG | | | | E | 0 | Norah | | TABS | | | | DIHYDROCHL | | DO | | | | | | ORIDE | | | + + + + + + + + | PENNSAID | apply to | | | DICLOFENAC | [id number] | Pretty | | 1.5 % SOLN | affected | | | SODIUM | 3 | Norah | | | area qid | | | | | DO | | | prn | | | | | | + + + + + + + + | LIVALO 4 | 1 p.o | | | PITAVASTAT | [id number] | Pretty | | MG TABS | daily | | | IN CALCIUM | 0 | Norah | | | | | | | | DO | + + + + + + + + | VICODIN | 1-2 po q | | | ACETAMINOP | [id number] | Sandra | | 5-500 MG | 12 hrs | | | HEN-HYDROC | 4 | Collins ADMITTING COORDINATOR | | TABS | | | | ODONE | | | + + + + + + + + | DIOVAN 160 | one tablet | | | VALSARTAN | [id number] | Sandra | | MG TABS | by mouth | | | | 4 | Collins ADMITTING COORDINATOR | | | daily | | | | | | + + + + + + + + | METOPROLOL | take one | | | METOPROLOL | [id number] | Sandra | | SUCCINATE | po daily | | | SUCCINATE | 1 | Collins ADMITTING COORDINATOR | | ER 50 MG | | | | | | | | [id number] | | | | | | | + + + + + + + + | PRAVASTATI | take / | | | PRAVASTATI | [id number] | Sandra | | N SODIUM | po daily | | | N SODIUM | 0 | Collins MOTORMAN/WOMAN | | 80 MG TABS | | | | | | | + + + + + + + + | GABAPENTIN | 1 at hs | | | GABAPENTIN | [id number] | Lars | | 100 MG | for low | | | | 1 | Ramirez DO | | CAPS | [...] x 10 | | | METRONIDAZ | [id number] | Lars | | OLE 500 MG | days | | | OLE | 5 | Ramirez DO | | TABS | | | | | | | + + + + + + + + | TOPROL XL | 1 by mouth | | | METOPROLOL | [id number] | Pretty | | 50 MG | every day | | | SUCCINATE | 5 | Norah | | [id number] | | | | | | DO | + + + + + + + + | VICODIN | 1 by mouth | | | ACETAMINOP | [id number] | Pretty | | 5-500 MG | every 4 | | | HEN-HYDROC | 1 | Norah | | TABS | to 6 hours | | | ODONE | | DO | | | as needed | | | | | | + + + + + + + + | DIOVAN 160 | 1/2 po qd | | | VALSARTAN | [id number] | Pretty | | MG TABS | along | | | | 4 | Norah | | | w/exforge | | | | | DO | | | 5/160mg | | | | | | + + + + + + + + | EXFORGE | 1 po qd | | | AMLODIPINE | [id number] | Pretty | | 5-160 MG | [...] SL every | | | NITROGLYCE | [id number] | Aniko | | RIN 0.4 MG | 5 min as | | | RIN | 1 | Angulo RN | | SUBL | [...] fatigue, | | Severe | | Sandra Sylvestersler | | | muscle/joint | | | | ADMITTING COORDINATOR | | | pain | | | [...] +------+------+-------+------+-------+------+ + + + | Office Visit: [facility]- Thyroid | + + + +--------+ +---+---+---+ + | | SMOK | Current | | | | Tobacco | | | STATUS | every day | | | | use [facility] | | | | smoker | | | | | + +--------+ +---+---+---+ + + + | 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 | + + + +--------+ +---+---+---+ + | | SMOK | Current | | | | Tobacco | | | STATUS | every day | | | | use [facility] | | | | smoker | | | | | + +--------+ +---+---+---+ + + + | Lab Report: [facility] | + + + + +----+---+---+---+ + [...] | screening | + + +----+---+---+---+ + + + | Lab Report: VITAMIN [...] | | orthopedic | | | | WOODS,CHERI | | | | s | | | | Y JEANOrd | | | | | | | | Phys: | | | | | | | | [place] | | | | | | | | ry T MD | | | | | | [...] | | | | | | | [id number] | | | | | | | [...] | | | | | | | [id number] | | | | | | | [...] | | | | | | | [id number] | | | | | | | [...] | | | | | | Rigo Shaw | | | | | | | | neth L MD | | | | | | | | 02/22/17 | | | | | | | | 1256 | | | | | | | | <Electr | | | | | | | | onically | | | | | | | | signed by | | | | | | | | Walter L | | | | | | | | MD oClin | | | | | | | [...] | | | | | | | [id number] | | | | | | | | [address] | | | | | | | | [place] | | | | | | | | [address] | | | | | | | | [address] | | | | | | | | [place], [place] | | | | | | | | [address] | | | | | + + [...] + | Rx Refill: eRx Request for NEURONTIN 100MG CAPS | + + + +--------+ +---+---+---+ + | | ESM_RR | [id number] | | | B | e-scripts | [...] | | | | | | | [place]*` | | | | | | | | [phone] | | | | | | | | `[id number] | | | | | | | [...] +--------+ +---+---+---+ + | | ESM_RR | [id number] | | | B | e-scripts | [...] | | | | | | | [id number] | | | | | | | | `[id number] | | | | | | | | 30`90008`L | | | | | | | [...] +--------+ +---+---+---+ + | | ESM_RR | [id number] | | | B | e-scripts | [...] | | | | | | | [id number] | | | | | | | | `[id number] | | | | | | | [...] NW | | | | Miguel Laboy [facility] [address], | | | | [place], [address] | | | | | + + + + | Referral | | PT Evaluation & Treat | | | | [facility], [address] | | | | Miguel Laboy, [facility] [address], | | | | [place], [address] | | | | | + + + + | Referral | | PT Evaluation & Treat | | | | [facility], [address] | | | | Miguel [address] Laboy, | | | | [place], [address] | | | | | + + + + +---+ + | | Referral excluded from report: | +---+ + + + + + | Referral | | DEXA Bone Density | | | | Lab - Rad | + + + + | Referral | | Consult Referral | | | | Aliza Weaver MD, [address] | | | [address], | | | | [place], [address] | | | | | + + + + | Referral | | Consult Referral | | | | Son Segura MD, [address] | | | | [address] [facility] | | | | [address], [place], [place], [address] | | | | | | | | | + + + + | Referral | | Consult Referral | | | | MD Chyna Bowden, | | | | [address] [facility], | | | | [place], [address] | | | | | + + + + | Referral | | PT Evaluation & Treat | | | | [facility], [address] | | | | Miguel Lab[address] [place] [address], | | | | [place], [address] | | | | | + + + + | Referral | | Consult Referral | | | | MD Kevin Forbes, | | | | [address], | | | | [place], [address] | | | | | + + + + | Referral | | Consult Referral | + + + + | Referral | | Consult Referral | | | | Panda Good MD, [address] | | [address] [place], | | | | [place], [address] | | | | | + + [...] [place], | | | | [place], [address] | | | | | + + + + | Referral | | Surgical Consult | | [facility] | + + + + | Referral | | Surgical Consult | | | | [facility] | + + + + | Referral | | Plastic Surgery Consult | | | | [address] | | [address] [address], | | | | [place], [address] | | | | | + + + + | Referral | | Plastic Surgery Consult | | | | [address] | | [address], | | | | [place], [address] | | | | | + + + + | Referral | | Neurology Consult | | | | MD Luna Bernal, [address] | | | | [address] [place], | | | | [place], [address] | | | | | + + + + | Referral | | Neurology Consult | | | | MD Luna Bernal, [address] | | | | [address] [place], | | | | [place], [address] | | | | | + + [...] | + + + + + | [id number] | Overweight | | | + + + + + | CPT-G0439 | Annual Wellness | | | | | Visit (Medicare) | | | | | Subsqnt visit | | | + + + + + | CHEM 8 96253 | Basic Metabolic | | | | | Panel | | | + + + + + | VIT D2+D3 34867 | Vitamin D, 25-OH by | | | | | LC-MS/MS | | | + + + + + | PTH INT 74538 | PTH (Whole | | | | | Molecule) | | | + + + + + | CBC AUTO 07862 | CBC w/ Auto Diff | | | + + + + + | RISK 95609 | Lipid Profile | | | + + + + + | GLYCO HGB 35841 | Glyco Hemoglobin, | | | | | A1C | | | + + + + + | FREE T4 91637 | T4 Free | | | + + + + + | T3 FREE 39942 | T3 Free | | | + + + + + | TSH 68093 | TSH | | | + + + + + | CHEM PROF | Comprehensive | | | | | Metabolic Panel | | | + + + + + | D1840 91372 | DENZEL TomoHD Scr-James | | | + + + + + | CPT-11973 | DEXA Bone Density | | | + + + + + | SCT- | Medication | | | | [id number] | Reconcilliation | | | + + + + + | CPT- 72886 | Diagnostic | | | | | Ultrasound Neck | | | | | (15266) | | | + + + + + | SCT- | Medication | | | | [id number] | Reconcilliation | | | + + + + + | RISK 03058 | Lipid Profile | | | + + + + + | 95517 | CT Abdomen and | | | | | Pelvis-W Con | | | + + + + + | CBC AUTO 99206 | CBC w/ Auto Diff | | | + + + + + | CHEM PROF | Comprehensive | | | | | Metabolic Panel | | | + + + + + | 33669 | XR Chest-2V | | | + + + + + | CPT-03236 | FNA with Image | | | | | Guidance (14316) | | | + + + + + | CPT- 08437 | US Guidance for | | | | | Needle Placement | | | | | (97421) | | | + + + + + | CPT-G0439 | Annual Wellness | | | | | Visit (Medicare) | | | | | Subsqnt visit | | | + + + + + | CHEM 8 | Basic Metabolic | | | | | Panel | | | + + + + + | FREE T4 72956 | T4 Free | | | + + + + + | T3 FREE 24756 | T3 Free | | | + + + + + | TSH 98615 | TSH | | | + + + + + | 04496 | US Thyroid (Soft | | | | | Tissue Head/Neck | | | | | Exam) | | | + + + + + | UA CULT IF MULTIPLE | Urinalysis Culture | | | | | If Indicat | | | + + + + + | FREE T4 87162 | T4 Free | | | + + + + + | T3 FREE 92602 | T3 Free | | | + + + + + | TSH 72400 | TSH | | | + + + + + | 98243 | XR Hip 2-3V-Right | | | + + + + + +---+ + | | Order excluded from report: | +---+ + +-------+ + + + | 98122 | XR Pelvis-1-2V | | | +-------+ + + + +---+ + | | Order excluded from report: | +---+ + +-------+ + + + | 29606 | XR Hip 2-3V-Left | | | +-------+ + + + +---+ + | | Order excluded from report: | +---+ + + + + + + | CBC AUTO 93606 | CBC w/ Auto Diff | | | + + + + + | RISK 20679 | Lipid Profile | | | + + + + + | CHEM 8 | Basic Metabolic | | | | | Panel | | | + + + + + | CPT-59798 | Fiberoptic Diag | | | | | Laryng (19272) | | | + + + + + | RA SD ONLY 58288 | Rheumatoid Factor, | | | | | Screen Only | | | + + + + + | 81539 | XR Knee 1 or 2V-Rt | | | + + + + + | 34854 | XR Knee 1 or 2V-Lt | | | + + + + + | ESR 93774 | Sedimentation Rate | | | | | (ESR) | | | + + + + + | LEW IF 69320 | LEW With Reflex | | | | | Panel If POS | | | + + + + + | CPT-G0439 | Annual Wellness | | | | | Visit (Medicare) | | | | | Subsqnt visit | | | + + + + + | PTH INT 90230 | PTH (Whole | | | | | Molecule) | | | + + + + + | CHEM 8 | Basic Metabolic | | | | | Panel | | | + + + + + | CPT-67389 | UA Dipstick | | | + + + + + | [id number] | [Recorded for CQ] | | | | | Documentation of | | | | | current medications | | | | | (procedure) | | | + + + + + | [id number] | MU Generic Patient | | | | | Encounter Service | | | | | (from patch) | | | + + + + + | [id number] | [Recorded for CQM] | | | | | Documentation of | | | | | current medications | | | | | (procedure) | | | + + + + + | [id number] | [Recorded for CQM] | | | | | Health-related | | | | | behavior | | | + + + + + | CPT-60469 | Lesion, 2-14 | | | | | (27294) | | | + + + + + | [id number] | [Recorded for CQM] | | | | | Documentation of | | | | | current medications | | | | | (procedure) | | | + + + + + | CPT-82995 | Lesion, 1 (23721) | | | + + + + + | CPT-G8427 | Current Medications | | | | | Documented | | | + + + + + | [id number] | [Recorded for CQM] | | | | | Documentation of | | | | | current medications | | | | | (procedure) | | | + + + + + | [id number] | MU Generic Patient | | | | | Encounter Service | | | | | (from patch) | | | + + + + + | CPT-G8427 | Current Medications | | | | | Documented | | | + + + + + | [id number] | [Recorded for CQM] | | | | | Smokes tobacco | | | | | daily (finding) | | | + + + + + | [id number] | [Recorded for CQM] | | | | | Current every day | | | | | smoker | | | + + + + + | [id number] | [Recorded for CQM] | | | | | Documentation of | | | | | current medications | | | | | (procedure) | | | + + + + + | [id number] | [Recorded for CQM] | | | | | Tobacco use and | | | | | exposure | | | + + + + + | [id number] | [Recorded for CQM] | | | | | Smoking cessation | | | | | education | | | | | (procedure) | | | + + + + + | [id number] | [Recorded for [facility]] | | | | | Documentation of | | | | | current medications | | | | | (procedure) | | | + + + + + | CPT-Q2038 | Fluzone (Inf) High | | | | | dose Med/Atrio | | | + + + + + | CPT-57980 | Vaccine, Influenza | | | | | >3 yrs (V04.81) | | | + + + + + | CPT-32620 | Biopsy, lesion | | | + + + + + | CPT-35596 | Biopsy, lesion | | | + + + + + | CPT-15014 | X-Ray Heel | | | + + + + + | CPT-G8553 | eRx sent | | | + + + + + | CPT-70148 | Lipid Panel | | | | | (Cholesterol) | | | + + + + + | CPT-05301 | Lesion, 2-14 | | | | | (78270) | | | + + + + + | CPT-00226 | Lesion, 1 (46290) | | | + + + + + | CPT-G0008 | Admin Flu Vac | | | | | (mdc/atrio) | | | + + + + + | CPT-17813 | Lesion, 2-14 | | | | | (45260) | | | + + + + + | CPT-54090 | Lesion, 1 (25923) | | | + + + + + | CPT-43426 | Vaccine, Influenza | | | | | >3 yrs (V04.81) | | | + + + + + | 24705 G0202 | MX Mammo Dig | | | | | Screen-Bilat | | | + + + + + | RA SCREEN 30661 | Rheumatoid Factor | | | | | (qual) | | | + + + + + | LEW 14185 | LWE | | | + + + + + | ESR 18133 | Sedimentation Rate | | | | | (ESR) | | | + + + + + | FREE T4 22188 | T4 Free | | | + + + + + | TSH 84006 | TSH | | | + + + + + | RISK 48715 | Lipid Profile | | | + + + + + | CHEM PROF 99083 | CMP (Comprehensive | | | | | Metabolic Panel) | | | + + + + + | MISC TEST PENDING | Other or Misc | | | | | Test/Lab | | | + + + + + | M GEN HSV 63916 | Genital HSV Culture | | | + + + + + | CPT-61770 | LULY Dipstick | | | + + + + + | 56007 G0202 | MX Mammo Dig | | | | | Screen-Bilat | | | + + + + + +---+ + | | Order excluded from report: | +---+ + + + + + + | CHEM PROF 57484 | CMP (Comprehensive | | | | | Metabolic Panel) | | | + + + + + +---+ + | | Order excluded from report: | +---+ + + + + + + | RISK 11944 | Lipid Profile | | | + + + + + +---+ + | | Order excluded from report: | +---+ + + +-----+ + + | TSH 79989 | TSH | | | + +-----+ + + +---+ + | | Order excluded from report: | +---+ + + + + + + | CPT-44995 | Glucose by monitor | | | + + + + + | CPT-71427 | UA Dipstick | | | + + + + + | CPT-78964 | UA Dipstick | | | | | (Office) | | | + + + + + +---+ + | | Order excluded from report: | +---+ + + + + + + | CPT-38258 | Guiaic Stools ([place] | | | | | Care) | [...] rate E&M | + + +-------+---------+ + Social [...]
--- OUTSIDE RECORDS SUMMARY | ~2019-05-21 | XMS | Continuity of Care Document ---
Demographics + + + | Address | [address] | | | [place] [address] | + + + | Home Phone | | + + + | Preferred Language | Unknown | + + + | Marital Status | Unknown | + + + | Anabaptist Affiliation | Unknown | + + + | Race | Unknown | + + + | Ethnic Group | Unknown | + + + Author + + + | Author | [facility] | + + + | Organization | [facility] | + + + | Address | [address] | | | [place] | + + + | Phone | Unavailable | + + + Support + + + + + | Name | Relationship | Address | Phone | + + + + + | Lynn Benavides MD | Caregiver | [address] | | | | | [place] | | + + + + + | Son Segura MD | Caregiver | [address] | | | | | [place] [address] | | + + + + + | TREASURE WOODS | Next Of Kin | [address] | | | | | [place] | | | | | [address] | | + + + + + Care Team Providers + + + + | Care Abatement Worker Name | Role | Phone | + + + + | Lynn Benavides MD | Unavailable | | + + + + Insurance Providers + + + + + | Payer Name | Policy Number | Subscriber Name | Relationship | + + + + + | FAIZAN CHERRY | [id number] | [employer] | SELF | + + + + + Advance Directives + + + + | Directive | Response | Recorded Date/Time | + + + + | Status of Advance | At Home | 11/10/16 8:41am | | Directive/ | | | + + + + Problems Active Medical Problems + + + +--------+ | Problem | Onset Date | Recorded Date | Status | + + + +--------+ | Knee osteoarthritis | Unknown | 09/15/15 | Active | + + + +--------+ Medications Current Home Medications + +------+-------+-------+ + + +--------+ | Medicati | Dose | Units | Route | Directio | Days/Qty | Instruct | Start | | on | | | | ns | | ions | Date | + +------+-------+-------+ + + +--------+ | Amlodipi | 5 | MG | PO | Daily | | | | | ne | | | | | | | | | Besylate | | | | | | | | | | | | | | | | | | (Norvasc | | | | | | | | | ) 5 MG | | | | | | | | | TAB | | | | | | | | + +------+-------+-------+ + + +--------+ | Aspirin | 325 | MG | PO | Twice | 60 | | | | 325 MG | | | | Each Day | | | | | TAB | | | | | | | | + +------+-------+-------+ + + +--------+ | Duloxeti | 30 | MG | PO | Daily | | | | | ne Hcl | | | | | | | | | (Cymbalt | | | | | | | | | a) 30 MG | | | | | | | | | | | | | | | | | | CAPSULE. | | | | | | | | | DR | | | | | | | | + +------+-------+-------+ + + +--------+ | Hctz/Los | 1 | TAB | PO | Daily | | | | | silva | | | | | | | | | (Hyzaar) | | | | | | | | | 100 | | | | | | | | | MG/25 MG | | | | | | | | | TAB | | | | | | | | + +------+-------+-------+ + + +--------+ | Multivit | 1 | TAB | PO | Daily | | | | | amins/Mi | | | | | | | | | nerals | | | | | | | | | (Thera-M | | | | | | | | | | | | | | | | | | Vitamin) | | | | | | | | | 1 EA | | | | | | | | | TAB | | | | | | | | + +------+-------+-------+ + + +--------+ | Omeprazo | 20 | MG | PO | Daily | | | | | le | | | | | | | | | (Prilose | | | | | | | | | c) 20 MG | | | | | | | | | CAPCR | | | | | | | | + +------+-------+-------+ + + +--------+ | Oxycodon | 1-2 | TAB | PO | Every 4 | 60 | | | | e | | | | Hours as | | | | | Hcl/Acet | | | | Needed | | | | | aminophe | | | | PRN PAIN | | | | | n | | | | | | | | | (Percoce | | | | | | | | | t 10-325 | | | | | | | | | Mg | | | | | | | | | Tablet) | | | | | | | | | 1 EACH | | | | | | | | | TABLET | | | | | | | | + +------+-------+-------+ + + +--------+ | Pramipex | 0.25 | MG | PO | Every | | | | | ole | | | | Other | | | | | Di-Hcl | | | | Day | | | | | (Mirapex | | | | | | | | | ) 0.125 | | | | | | | | | MG TAB | | | | | | | | + +------+-------+-------+ + + +--------+ Past Home Medications + + + + + | Medication | Directions | Ordered | Status | + + + + + | Alprazolam (Xanax) | Two Times A Day As | 03/06/07 | Discontinued | | 0.25 Mg Tab Tab, | Needed | | | | 0.25 Mg Po | | | | + + + + + | Aspirin 81 Mg Chew | Daily | Unknown | Discontinued | | Chew, 81 Mg Po | | | | + + + + + | Aspirin 81 Mg Chew | | Unknown | Discontinued | | Chew, | | | | + + + + + | Hydrocodone/Apap | Every 12 Hours as | Unknown | Discontinued | | 5-325 Mg ([place]ane | Needed PRN PAIN | | | | 5-325 Mg) 1 Each | | | | | Tablet Tablet, 1-2 | | | | | Tab Po | | | | + + + + + | Metoprolol | | Unknown | Discontinued | | Succinate (Toprol | | | | | Xl) 50 Mg Tabcr | | | | | Tabcr, | | | | + + + + + | Naproxen Sodium | Daily PRN PAIN | Unknown | Discontinued | | (Aleve) 220 Mg | | | | | Capsule Capsule, | | | | | 220 Mg Po | | | | + + + + + | Nitroglycerin | PRN CHEST PAIN | Unknown | Discontinued | | (Nitroquick) 0.4 Mg | | | | | Tab Tab, 0.4 Mg Sl | | | | + + + + + | Omeprazole | | Unknown | Discontinued | | (Prilosec) 10 Mg | | | | | Capcr Capcr, | | | | + + + + + | Omeprazole | Twice Each Day | Unknown | Discontinued | | (Prilosec) 20 Mg | | | | | Capcr Capcr, | | | | + + + + + | Valsartan (Diovan) | | Unknown | Discontinued | | 80 Mg Tab Tab, | | | | + + + + + Social History + + + + | Problem | Response | Recorded Date | + + + + | MENTAL HEALTH PROBLEMS/ | Yes | 11/10/16 | + + + + + + + + + | Query | Response | Start Date | Stop Date | + + + + + | Smoking status/ | Current Every Day | | | | | Smoker | | | + + + + + Hospital Discharge Instructions No hospital discharge instructions. Plan of Care No plan of care. Functional Status No functional status results. Allergies, Adverse Reactions, Alerts + +---------+ + +--------+ + | Allergen | Type | Severity | Reaction | Status | Last Updated | + +---------+ + +--------+ + | morphine | Allergy | Unknown | LOC CHANGES | Active | 09/15/15 | + +---------+ + +--------+ + | benazepril | Allergy | Mild | COUGH | Active | 09/15/15 | + +---------+ + +--------+ + | amlodipine | Allergy | Mild | COUGH | Active | 09/15/15 | + +---------+ + +--------+ + | atorvastatin | Allergy | Unknown | | Active | 08/24/15 | + +---------+ + +--------+ + | duloxetine | Allergy | Unknown | DIARRHEA | Active | 09/26/16 | + +---------+ + +--------+ + Immunizations No Known History of Immunizations. Vital Signs + + + + | Vital Reading | Collection Date/Time | Result | + + + + | Blood Pressure | 11/10/16 10:38am | 107/63 | + + + + | Blood Pressure Source | 09/17/15 3:53am | Left Arm | + + + + | Patient Temperature | 11/10/16 8:40am | 98.6 | + + + + | Respiratory Rate | 11/10/16 10:38am | 16 | + + + + | Pulse Rate | 11/10/16 10:38am | 101 | + + + + | Bedside Pulse Oximetry | 11/10/16 10:38am | 94 | + + + + | Height | 11/10/16 8:43am | 152.4 cm | + + + + | Height | 11/10/16 8:43am | 5 ft 0 in | + + + + | Weight | 11/10/16 8:43am | 65.68 kg | + + + + | Weight | 11/10/16 8:43am | 144.8 lb | + + + + | Body Mass Index | 11/10/16 8:43am | 28.3 | + + + + Results No known relevant diagnostic tests, laboratory data and/or discharge summary. Procedures No Known History of Procedures. Encounters + + + + + + | Encounter | Location | Arrival/Admit | Discharge/Depar | Attending | | | | Date | t Date | Provider | + + + + + + | Departed | [facility] | 11/10/16 7:49am | 11/10/16 | Son Segura | | Surgical Day | [facility] | | 10:37am | MD | | Care | | | | | + + + + + + + + + | Encounter Diagnosis | Onset Date | + + + | Knee osteoarthritis | | + + +"
--- OUTSIDE RECORDS SUMMARY | ~2019-05-21 | XMS | Clinical Summary ---
Demographics + + + | Address | [address] | | | [address] | | | [place] [address] | + + + | Home Phone | | + + + | Preferred Language | Unknown | + + + | Marital Status | M | + + + | Zoroastrian Affiliation | Unknown | + + + | Race | White | + + + | Ethnic Group | Not or | + + + Author + + + | Author | [facility] | + + + | Organization | [facility] | + + + | Address | [address] | | | [place] [address] | + + + | Phone | Unavailable | + + + Care Team Providers + +------+ + | Care Tool Design Checker Name | Role | Phone | + [...] tion | | +---------+---------+---------+---------+---------+---------+---------+---------+---------+ | OA, | [id number] | | Active | | Claudine | [...] region | | +---------+---------+---------+---------+---------+---------+---------+---------+---------+ | OA, | [id number] | | Active | | Claudine | | Osteoar | | | KNEE, | | / | | /10 | | | thritis | | | LEFT | (SNOMED | | | | Crouche | | of | | | | CT) | | | | r NCMA | | knee | | +---------+---------+---------+---------+---------+---------+---------+---------+---------+ | LEG | [id number] | | Active | | Claudine | [...] r | | +---------+---------+---------+---------+---------+---------+---------+---------+---------+ | OTHER | [id number] | | Active | | Lynn | [...] | | | +---------+---------+---------+---------+---------+---------+---------+---------+---------+ | HYPERCA | [id number] | | Resolve | | Lynn | | Hyperca | | | LCEMIA | 9 | /29 | d | /29 | L Benavides | | lcemia | | | | (SNOMED | | | | MD | | | | | | CT) | | | | | | | | +---------+---------+---------+---------+---------+---------+---------+---------+---------+ | VAGINAL | [id number] | | Resolve | | Lynn | | Vaginal | recent | | | 06 | | d | /10 | L Benavides | | | | | DISCHAR | (SNOMED | | | | MD | | dischar | | | GE | CT) | | | | | | ge | | +---------+---------+---------+---------+---------+---------+---------+---------+---------+ | HAND | [id number] | | Resolve | | Lynn | | Hand | | | PAIN, | 4 | /25 | d | /25 | L Benavides | | pain | | | BILATER | (SNOMED | | | | MD | | | | | AL | CT) | | | | | | | | +---------+---------+---------+---------+---------+---------+---------+---------+---------+ | NICOTIN | [id number] | | Resolve | | Lynn | | Nicotin | | | E | 8 | /23 | d | /23 | L Benavides | | e | | | ADDICTI | (SNOMED | | | | MD | | depende | | | ON | CT) | | | | | | nce | | +---------+---------+---------+---------+---------+---------+---------+---------+---------+ | ARTHRIT | [id number] | | Resolve | | Lynn | | Arthrit | | | IS | | /25 | d | /25 | L Kennedy | | is | | | | (SNOMED | | | | MD | | | | | | CT) | | | | | | | | +---------+---------+---------+---------+---------+---------+---------+---------+---------+ | DEGENER | [id number] | | Resolve | | Lynn | [...] | | | +---------+---------+---------+---------+---------+---------+---------+---------+---------+ | HIP | [id number] | | Resolve | | Lynn | | Hip | | | PAIN, | 2 | /10 | d | /10 | L Benavides | | pain | | | RIGHT | (SNOMED | | | | MD | | | | | | CT) | | | | | | | | +---------+---------+---------+---------+---------+---------+---------+---------+---------+ | DYSURIA | [id number] | | Resolve | | Lynn | | Dysuria | | | | 1 | /11 | d | /11 | L Kennedy | | | | | | (SNOMED | | | | MD | | | | | | CT) | | | | | | | | +---------+---------+---------+---------+---------+---------+---------+---------+---------+ | STATUS, | [id number] | | Resolve | | Lynn | [...] joint | | +---------+---------+---------+---------+---------+---------+---------+---------+---------+ | CONSTIP | [id number] | | Resolve | | Lynn | | Constip | | | ATION | 8 | /11 | d | /11 | L Benavides | | ation | | | | (SNOMED | | | | MD | | | | | | CT) | | | | | | | | +---------+---------+---------+---------+---------+---------+---------+---------+---------+ | ABDOMIN | [id number] | | Resolve | | Lynn | | Abdomin | | | AL PAIN | 1 | /21 | d | /21 | L Benavides | | al pain | | | | (SNOMED | | | | MD | | | | | | CT) | | | | | | | | +---------+---------+---------+---------+---------+---------+---------+---------+---------+ | NEOPLAS | [id number] | | Resolve | | Lynn | [...] skin | | +---------+---------+---------+---------+---------+---------+---------+---------+---------+ | DYSPHAG | [id number] | | Resolve | | Lynn | | Dysphag | | | IA | 0 | /06 | d | /06 | L Benavides | | ia | | | | (SNOMED | | | | MD | | | | | | CT) | | | | | | | | +---------+---------+---------+---------+---------+---------+---------+---------+---------+ | RECTAL | [id number] | | Resolve | | Lynn | | Rectal | | | BLEEDIN | 2 | /06 | d | /06 | L Benavides | | hemorrh | | | G | (SNOMED | | | | MD | | age | | | | CT) | | | | | | | | +---------+---------+---------+---------+---------+---------+---------+---------+---------+ | COLONIC | [id number] | | Resolve | | Lynn | [...] | | | +---------+---------+---------+---------+---------+---------+---------+---------+---------+ | FAMILY | [id number] | | Resolve | | Lynn | [...] colon | | +---------+---------+---------+---------+---------+---------+---------+---------+---------+ | HYPERCA | [id number] | | Active | | Lynn | | Hyperca | | | LCEMIA | 9 | / | | /03 | L Kennedy | | lcemia | | | | (SNOMED | | | | MD | | | | | | CT) | | | | | | | | +---------+---------+---------+---------+---------+---------+---------+---------+---------+ | HX OF | [id number] | | Active | | Claudine | [...] knee | | +---------+---------+---------+---------+---------+---------+---------+---------+---------+ | FAMILY | [id number] | | Removed | | Lynn | [...] colon | | +---------+---------+---------+---------+---------+---------+---------+---------+---------+ | CONNER | [id number] | | Active | | Lynn | | Conner | | | 'S | 06 | /19 | | /19 | L Benavides | | 's | | | ESOPHAG | (SNOMED | | | | MD | | esophag | | | US | CT) | | | | | | us | | +---------+---------+---------+---------+---------+---------+---------+---------+---------+ | COLONIC | [id number] | | Removed | | Son | [...] | | | +---------+---------+---------+---------+---------+---------+---------+---------+---------+ | RECTAL | [id number] | | Removed | | Son | | Rectal | | | BLEEDIN | 2 | /06 | | /06 | Petre | | hemorrh | | | G | (SNOMED | | | | MD | | age | | | | CT) | | | | | | | | +---------+---------+---------+---------+---------+---------+---------+---------+---------+ | DYSPHAG | [id number] | | Removed | | Son | | Dysphag | | | IA | 0 | /06 | | /06 | Petre | | ia | | | | (SNOMED | | | | MD | | | | | | CT) | | | | | | | | +---------+---------+---------+---------+---------+---------+---------+---------+---------+ | HEARTBU | [id number] | | Active | | Son | | Heartbu | | | RN | 0 | /06 | | / | Petre | | rn | | | | (SNOMED | | | | MD | | | | | | CT) | | | | | | | | +---------+---------+---------+---------+---------+---------+---------+---------+---------+ | NEOPLAS | [id number] | | Removed | | Lynn | [...] skin | | +---------+---------+---------+---------+---------+---------+---------+---------+---------+ | COUGH | [id number] | | Resolve | | Lynn | | Cough | | | | 2 | /21 | d | /21 | L Kennedy | | | | | | (SNOMED | | | | MD | | | | | | CT) | | | | | | | | +---------+---------+---------+---------+---------+---------+---------+---------+---------+ | TOBACCO | [id number] | | Active | | Lynn | [...] e | | +---------+---------+---------+---------+---------+---------+---------+---------+---------+ | COUGH | [id number] | | Removed | | Lynn | | Cough | | | | 2 | /21 | | /21 | L Kennedy | | | | | | (SNOMED | | | | MD | | | | | | CT) | | | | | | | | +---------+---------+---------+---------+---------+---------+---------+---------+---------+ | ABDOMIN | [id number] | | Removed | | Lynn | | Abdomin | | | AL PAIN | 1 | /21 | | /21 | L Kennedy | | al pain | | | | (SNOMED | | | | MD | | | | | | CT) | | | | | | | | +---------+---------+---------+---------+---------+---------+---------+---------+---------+ | FAMILY | [id number] | | Active | | Lynn | [...] thyroid | | +---------+---------+---------+---------+---------+---------+---------+---------+---------+ | THYROID | [id number] | | Active | | Lynn | | Thyroid | | | NODULE | 05 | | | /07 | L Kennedy | | nodule | | | | (SNOMED | | | | MD | | | | | | CT) | | | | | | | | +---------+---------+---------+---------+---------+---------+---------+---------+---------+ | CONSTIP | [id number] | | Removed | | Lynn | | Constip | | | ATION | 8 | /11 | | /11 | L Kennedy | | ation | | | | (SNOMED | | | | MD | | | | | | CT) | | | | | | | | +---------+---------+---------+---------+---------+---------+---------+---------+---------+ | STATUS, | [id number] | | Removed | | Lynn | [...] joint | | +---------+---------+---------+---------+---------+---------+---------+---------+---------+ | KNEE | [id number] | | Resolve | | Lynn | | Knee | | | PAIN | 3 | /25 | d | /25 | L Benavides | | pain | | | | (SNOMED | | | | MD | | | | | | CT) | | | | | | | | +---------+---------+---------+---------+---------+---------+---------+---------+---------+ | PREOPER | [id number] | | Resolve | | Lynn | | Preoper | | | ATIVE | 05 | /03 | d | /03 | L Kennedy | | ative | | | EXAMINA | (SNOMED | | | | MD | | procedu | | | TION | CT) | | | | | | res | | +---------+---------+---------+---------+---------+---------+---------+---------+---------+ | PREOPER | [id number] | | Resolve | | Lynn | | Preoper | | | ATIVE | 05 | /10 | d | /10 | L Kennedy | | ative | | | EXAMINA | (SNOMED | | | | MD | | procedu | | | TION | CT) | | | | | | res | | +---------+---------+---------+---------+---------+---------+---------+---------+---------+ | DYSURIA | [id number] | | Removed | | Lynn | | Dysuria | | | | 1 | /11 | | /11 | L Benavides | | | | | | (SNOMED | | | | MD | | | | | | CT) | | | | | | | | +---------+---------+---------+---------+---------+---------+---------+---------+---------+ | HIP | [id number] | | Removed | | Alice | | Hip | | | PAIN, | 2 | /10 | | /10 | [place] | | pain | | | RIGHT | (SNOMED | | | | NCMA | | | | | | CT) | | | | | | | | +---------+---------+---------+---------+---------+---------+---------+---------+---------+ | PREOPER | [id number] | | Removed | | Claudine | | Preoper | | | ATIVE | 05 | /10 | | /10 | | | ative | | | EXAMINA | (SNOMED | | | | Crouche | | procedu | | | TION | CT) | | | | r NCMA | | res | | +---------+---------+---------+---------+---------+---------+---------+---------+---------+ | DEGENER | [id number] | | Removed | | Claudine | [...] | | | | | | | biological chemist | | | | | | | | | | ry | | +---------+---------+---------+---------+---------+---------+---------+---------+---------+ | PREOPER | [id number] | | Removed | | Lynn | | Preoper | | | ATIVE | 05 | | | /03 | L Benavides | | ative | | | EXAMINA | (SNOMED | | | | MD | | procedu | | | TION | CT) | | | | | | res | | +---------+---------+---------+---------+---------+---------+---------+---------+---------+ | LEW | [id number] | | Inactiv | | Lynn | [...] y | | +---------+---------+---------+---------+---------+---------+---------+---------+---------+ | FIBROMY | [id number] | | Active | | Cynthia | | Fibromy | | | ALGIA | 7 | /25 | | /25 | M | | ositis | | | | (SNOMED | | | | [facility] | | | | | | CT) | | | | NCMA | | | | +---------+---------+---------+---------+---------+---------+---------+---------+---------+ | KNEE | [id number] | | Removed | | Cynthia | | Knee | | | PAIN | 3 | /25 | | /25 | M | | pain | | | | (SNOMED | | | | [facility] | | | | | | CT) | | | | NCMA | | | | +---------+---------+---------+---------+---------+---------+---------+---------+---------+ | ARTHRIT | [id number] | | Removed | | Cynthia | | Arthrit | | | IS | | /25 | | /25 | M | | is | | | | (SNOMED | | | | [facility] | | | | | | CT) | | | | NCMA | | | | +---------+---------+---------+---------+---------+---------+---------+---------+---------+ | OSTEOAR | [id number] | | Resolve | | Lynn | [...] hand | | +---------+---------+---------+---------+---------+---------+---------+---------+---------+ | OSTEOAR | [id number] | | Resolve | | Lynn | [...] | | | +---------+---------+---------+---------+---------+---------+---------+---------+---------+ | HYPERLI | [id number] | | Active | | Lynn | | Hyperli | | | PIDEMIA | 4 | /29 | | /29 | L Benvaides | | pidemia | | | - | (SNOMED | | | | MD | | | | | STATIN | CT) | | | | | | | | | INTOLER | | | | | | | | | | ANT | | | | | | | | | +---------+---------+---------+---------+---------+---------+---------+---------+---------+ | HYPERCH | [id number] | | Resolve | | Lynn | | Hyperch | | | OLESTER | 9 | /24 | d | /24 | L Benavides | | olester | | | OLEMIA | (SNOMED | | | | MD | | olemia | | | | CT) | | | | | | | | +---------+---------+---------+---------+---------+---------+---------+---------+---------+ | HYPERCA | [id number] | | Removed | | Lynn | | Hyperca | | | LCEMIA | 9 | /29 | | /29 | L Benavides | | lcemia | | | | (SNOMED | | | | MD | | | | | | CT) | | | | | | | | +---------+---------+---------+---------+---------+---------+---------+---------+---------+ | DEPRESS | [id number] | | Active | | Lynn | | Depress | | | ION | 7 | /29 | | /29 | L Benavides | | james | | | | (SNOMED | | | | MD | | disorde | | | | CT) | | | | | | r | | +---------+---------+---------+---------+---------+---------+---------+---------+---------+ | VISUAL | [id number] | | Resolve | | Lynn | | Visual | | | SCOTOMA | 6 | /24 | d | /24 | L Kennedy | | field | | | TA | (SNOMED | | | | MD | | scotoma | | | | CT) | | | | | | | | +---------+---------+---------+---------+---------+---------+---------+---------+---------+ | BASAL | [id number] | | Resolve | | Lynn | [...] | | | +---------+---------+---------+---------+---------+---------+---------+---------+---------+ | HYPERLI | [id number] | | Resolve | | Lynn | | Hyperli | | | PIDEMIA | 4 | /03 | d | /10 | L Benavides | | pidemia | | | | (SNOMED | | | | MD | | | | | | CT) | | | | | | | | +---------+---------+---------+---------+---------+---------+---------+---------+---------+ | SHOULDE | [id number] | | Resolve | | Lynn | | Shoulde | | | R PAIN | 0 | /10 | d | /10 | L Benavides | | r pain | | | | (SNOMED | | | | MD | | | | | | CT) | | | | | | | | +---------+---------+---------+---------+---------+---------+---------+---------+---------+ | FOOT | [id number] | | Resolve | | Lynn | | Foot | | | PAIN, | 7 | /10 | d | /10 | L Benavides | | pain | | | LEFT | (SNOMED | | | | MD | | | | | | CT) | | | | | | | | +---------+---------+---------+---------+---------+---------+---------+---------+---------+ | PES | [id number] | | Resolve | | Lynn | | Pes | | | PLANUS | 7 | /10 | d | /10 | L Benavides | | planus | | | | (SNOMED | | | | MD | | | | | | CT) | | | | | | | | +---------+---------+---------+---------+---------+---------+---------+---------+---------+ | HAMMER | [id number] | | Resolve | | Lynn | | Hammer | | | TOE | 08 | /10 | d | /10 | L Benavides | | toe | | | | (SNOMED | | | | MD | | | | | | CT) | | | | | | | | +---------+---------+---------+---------+---------+---------+---------+---------+---------+ | SHOULDE | [id number] | | Resolve | | Lynn | [...] region | | +---------+---------+---------+---------+---------+---------+---------+---------+---------+ | ABDOMIN | [id number] | | Resolve | | Lynn | | Abdomin | | | AL PAIN | 1 | /10 | d | /10 | L Benavides | | al pain | | | | (SNOMED | | | | MD | | | | | | CT) | | | | | | | | +---------+---------+---------+---------+---------+---------+---------+---------+---------+ | LOW | [id number] | | Resolve | | Lynn | | Chronic | | | BACK | 09 | /10 | d | /10 | L Kennedy | | low | | | PAIN, | (SNOMED | | | | MD | | back | | | CHRONIC | CT) | | | | | | pain | | +---------+---------+---------+---------+---------+---------+---------+---------+---------+ | URINARY | [id number] | | Resolve | | Lynn | [...] fied | | +---------+---------+---------+---------+---------+---------+---------+---------+---------+ | HYPERCH | [id number] | | Resolve | | Lynn | | Hyperch | | | OLESTER | 9 | / | d | /25 | L Benavides | | olester | | | OLEMIA | (SNOMED | | | | MD | | olemia | | | | CT) | | | | | | | | +---------+---------+---------+---------+---------+---------+---------+---------+---------+ | ROUTINE | [id number] | | Resolve | | Lynn | [...] | | | +---------+---------+---------+---------+---------+---------+---------+---------+---------+ | OTHER | [id number] | | Resolve | | Lynn | [...] | | | +---------+---------+---------+---------+---------+---------+---------+---------+---------+ | ACTINIC | [id number] | | Resolve | | Lynn | | Actinic | | | | 07 | / | d | / | L Kennedy | | | | | KERATOS | (SNOMED | | | | MD | | keratos | | | IS | CT) | | | | | | is | | +---------+---------+---------+---------+---------+---------+---------+---------+---------+ | UNSPECI | [id number] | | Resolve | | Lynn | [...] | | | +---------+---------+---------+---------+---------+---------+---------+---------+---------+ | NECK | [id number] | | Resolve | | Lynn | | Neck | | | PAIN | 5 | /25 | d | /25 | L Benavides | | pain | | | | (SNOMED | | | | MD | | | | | | CT) | | | | | | | | +---------+---------+---------+---------+---------+---------+---------+---------+---------+ | PLANTAR | [id number] | | Resolve | | Lynn | [...] tosis | | +---------+---------+---------+---------+---------+---------+---------+---------+---------+ | ACCIDEN | [id number] | | Resolve | | Lynn | [...] | | | +---------+---------+---------+---------+---------+---------+---------+---------+---------+ | NEOPLAS | [id number] | | Resolve | | Lynn | [...] skin | | +---------+---------+---------+---------+---------+---------+---------+---------+---------+ | ENCOUNT | [id number] | | Resolve | | Lynn | [...] | | | +---------+---------+---------+---------+---------+---------+---------+---------+---------+ | ENCOUNT | [id number] | | Resolve | | Lynn | [...] | | | +---------+---------+---------+---------+---------+---------+---------+---------+---------+ | TRANSIE | [id number] | | Resolve | | Lynn | | Transie | | | NT | 5 | /24 | d | /24 | L Benavides | | nt | | | VISUAL | (SNOMED | | | | MD | | visual | | | LOSS | CT) | | | | | | loss | | +---------+---------+---------+---------+---------+---------+---------+---------+---------+ | SCREENI | [id number] | | Resolve | | Lynn | [...] | | | +---------+---------+---------+---------+---------+---------+---------+---------+---------+ | NEPHREC | [id number] | | Inactiv | | Pretty | | Kidney | | | GUS, | | / | e | /13 | Jorgens | | excisio | | | HX OF | (SNOMED | | | | en DO | | n | | | | CT) | | | | | | | | +---------+---------+---------+---------+---------+---------+---------+---------+---------+ | FATIGUE | [id number] | | Inactiv | | Pretty | | Fatigue | | | | 1 | / | e | | Jorgens | | | | | | (SNOMED | | | | en DO | | | | | | CT) | | | | | | | | +---------+---------+---------+---------+---------+---------+---------+---------+---------+ | OTHER | [id number] | | Inactiv | | Pretty | [...] | | | +---------+---------+---------+---------+---------+---------+---------+---------+---------+ | SCREENI | [id number] | | Removed | | Pretty | [...] colon | | +---------+---------+---------+---------+---------+---------+---------+---------+---------+ | CARPAL | [id number] | | Inactiv | | Ky | | Carpal | | | TUNNEL | 9 | /15 | e | /15 | Bitter | | tunnel | | | SYNDROM | (SNOMED | | | | MD | | syndrom | | | E | CT) | | | | | | e | | +---------+---------+---------+---------+---------+---------+---------+---------+---------+ | OSTEOAR | [id number] | | Resolve | | Ky | [...] hand | | +---------+---------+---------+---------+---------+---------+---------+---------+---------+ | TRIGGER | [id number] | | Resolve | | Ky | | Acquire | right | | FINGER | | /23 | d | /23 | Bitter | | d | thumb | | | (SNOMED | | | | MD | | trigger | | | | CT) | | | | | | finger | | +---------+---------+---------+---------+---------+---------+---------+---------+---------+ | NICOTIN | 7671449 | | Removed | | Ky | | Nicotin | | | E | 8 | | | | Bitter | | e | | | ADDICTI | (SNOMED | | | | MD | | depende | | | ON | CT) | | | | | | nce | | +---------+---------+---------+---------+---------+---------+---------+---------+---------+ | TRIGGER | [id number] | | Removed | | Ky | | Acquire | right | | FINGER | | /23 | | /23 | Bitter | | d | thumb | | | (SNOMED | | | | MD | | trigger | | | | CT) | | | | | | finger | | +---------+---------+---------+---------+---------+---------+---------+---------+---------+ | OSTEOAR | [id number] | | Removed | | Pretty | [...] hand | | +---------+---------+---------+---------+---------+---------+---------+---------+---------+ | CARPAL | [id number] | | Removed | | Pretty | | Carpal | | | TUNNEL | 9 | /15 | | /15 | Jorgens | | tunnel | | | SYNDROM | (SNOMED | | | | en DO | | syndrom | | | E | CT) | | | | | | e | | +---------+---------+---------+---------+---------+---------+---------+---------+---------+ | SINUSIT | [id number] | | Inactiv | | Pretty | [...] is | | +---------+---------+---------+---------+---------+---------+---------+---------+---------+ | SACROIL | [id number] | | Inactiv | | Pretty | [...] joint | | +---------+---------+---------+---------+---------+---------+---------+---------+---------+ | OSTEOAR | [id number] | | Removed | | Emelina | [...] | | | +---------+---------+---------+---------+---------+---------+---------+---------+---------+ | HYPERCH | [id number] | | Removed | | Emelina | | Hyperch | | | OLESTER | 9 | /24 | | /24 | [facility] | | olester | | | OLEMIA | (SNOMED | | | | MA | | olemia | | | | CT) | | | | | | | | +---------+---------+---------+---------+---------+---------+---------+---------+---------+ | TRANSIE | [id number] | | Removed | | Emelina | | Transie | | | NT | 5 | /24 | | / | [facility] | | nt | | | VISUAL | (SNOMED | | | | MA | | visual | | | LOSS | CT) | | | | | | loss | | +---------+---------+---------+---------+---------+---------+---------+---------+---------+ | VISUAL | [id number] | | Removed | | Emelina | | Visual | | | SCOTOMA | 6 | /24 | | /24 | Fan[facility] | | field | | | TA | (SNOMED | | | | MA | | scotoma | | | | CT) | | | | | | | | +---------+---------+---------+---------+---------+---------+---------+---------+---------+ | HEADACH | [id number] | | Inactiv | | Emelina | [...] PROPHYL | (ICD-10 | | | | Ranger | | er for | | | [...] | | | +---------+---------+---------+---------+---------+---------+---------+---------+---------+ | VITAMIN | [id number] | | Inactiv | | Pretty | | Vitamin | | | D | 6 | | e | | Jorgens | | D | | | DEFICIE | (SNOMED | | | | en DO | | deficie | | | NCY | CT) | | | | | | ncy | | +---------+---------+---------+---------+---------+---------+---------+---------+---------+ | ENCOUNT | [id number] | | Removed | | Pretty | [...] | | | +---------+---------+---------+---------+---------+---------+---------+---------+---------+ | BASAL | [id number] | | Removed | | Lynn | [...] | | | +---------+---------+---------+---------+---------+---------+---------+---------+---------+ | ENCOUNT | [id number] | | Removed | | Emelina | [...] | | | +---------+---------+---------+---------+---------+---------+---------+---------+---------+ | NEOPLAS | [id number] | | Removed | | Pretty | [...] skin | | +---------+---------+---------+---------+---------+---------+---------+---------+---------+ | ACCIDEN | [id number] | | Removed | | Pretty | [...] | | | +---------+---------+---------+---------+---------+---------+---------+---------+---------+ | KNEE | [id number] | | Inactiv | | Pretty | | Knee | | | PAIN, | 3 | /12 | e | /12 | Jorgens | | pain | | | BILATER | (SNOMED | | | | en DO | | | | | AL | CT) | | | | | | | | +---------+---------+---------+---------+---------+---------+---------+---------+---------+ | HIP | [id number] | | Inactiv | | Pretty | | Hip | | | PAIN | 2 | /12 | e | /12 | Jorgens | | pain | | | | (SNOMED | | | | en DO | | | | | | CT) | | | | | | | | +---------+---------+---------+---------+---------+---------+---------+---------+---------+ | OSTEOAR | [id number] | | Removed | | Pretty | [...] hand | | +---------+---------+---------+---------+---------+---------+---------+---------+---------+ | CLAUDIC | [id number] | | Inactiv | | Pretty | | Claudic | | | ATION | 00 | /12 | e | /12 | Jorgens | | ation | | | | (SNOMED | | | | en DO | | | | | | CT) | | | | | | | | +---------+---------+---------+---------+---------+---------+---------+---------+---------+ | PERIPHE | [id number] | | Inactiv | | Pretty | [...] disease | | +---------+---------+---------+---------+---------+---------+---------+---------+---------+ | LEG | [id number] | | Inactiv | | Pretty | | Cramp | | | CRAMPS | 04 | | e | /12 | [facility] | | in | | | | (SNOMED | | | | en DO | | lower | | | | CT) | | | | | | limb | | +---------+---------+---------+---------+---------+---------+---------+---------+---------+ | PLANTAR | [id number] | | Removed | | Lionel | [...] tosis | | +---------+---------+---------+---------+---------+---------+---------+---------+---------+ | MYALGIA | [id number] | | Inactiv | | Pretty | | Muscle | | | | 1 | / | e | / | [facility] | | pain | | | | (SNOMED | | | | en DO | | | | | | CT) | | | | | | | | +---------+---------+---------+---------+---------+---------+---------+---------+---------+ | NECK | [id number] | | Removed | | Pretty | | Neck | | | PAIN | 5 | /25 | | /25 | [facility] | | pain | | | | (SNOMED | | | | en DO | | | | | | CT) | | | | | | | | +---------+---------+---------+---------+---------+---------+---------+---------+---------+ | HAND | [id number] | | Removed | | Pretty | | Hand | | | PAIN, | 4 | | | / | [facility] | | pain | | | BILATER | (SNOMED | | | | en DO | | | | | AL | CT) | | | | | | | | +---------+---------+---------+---------+---------+---------+---------+---------+---------+ | ARTHRIT | [id number] | | Inactiv | | Pretty | | Arthrit | | | IS | | | e | | [facility] | | is | | | | (SNOMED | | | | en DO | | | | | | CT) | | | | | | | | +---------+---------+---------+---------+---------+---------+---------+---------+---------+ | UNSPECI | [id number] | | Removed | | Pretty | [...] | | | +---------+---------+---------+---------+---------+---------+---------+---------+---------+ | VACCINE | [id number] | | Inactiv | | Pretty | [...] | | | +---------+---------+---------+---------+---------+---------+---------+---------+---------+ | HYPERCH | [id number] | | Removed | | Pretty | | Hyperch | | | OLESTER | 9 | | | | [facility] | | olester | | | OLEMIA | (SNOMED | | | | en DO | | olemia | | | | CT) | | | | | | | | +---------+---------+---------+---------+---------+---------+---------+---------+---------+ | ACTINIC | [id number] | | Removed | | Pretty | | Actinic | | | | 07 | /25 | | /25 | [facility] | | | | | KERATOS | (SNOMED | | | | en DO | | keratos | | | IS | CT) | | | | | | is | | +---------+---------+---------+---------+---------+---------+---------+---------+---------+ | GERD | [id number] | | Active | | Pretty | [...] LIPOID | (ICD-10 | | | | AGENT | | screeni | | | DISORDE [...] DIABETE | -CM) | | | | AGENT | | screeni | | | S [...] ARTHROP | -CM) | | | | AGENT | | unspeci | | | ATHY | | | | | | | fied | | | MULTIPL | | | | | | | | | | E SITES | | | | | | | | | +---------+---------+---------+---------+---------+---------+---------+---------+---------+ | ARTHRIT | [id number] | | Inactiv | | Sandra | | Arthrit | | | IS | | /30 | e | /30 | [facility] | | is | | | | (SNOMED | | | | AGENT | | | | | | CT) | | | | | | | | +---------+---------+---------+---------+---------+---------+---------+---------+---------+ | OTHER | [id number] | | Removed | | Sandra | | Screeni | | | SCREENI | 2 | /30 | | /30 | [facility] | | ng | | | NG | (SNOMED | | | | AGENT | | mammogr | | | MAMMOGR | CT) | | | | | | aphy | | | AM | | | | | | | | | +---------+---------+---------+---------+---------+---------+---------+---------+---------+ | ROUTINE | [id number] | | Removed | | Sandra | | Gynecol | | | | 1 | / | | / | [facility] | | ogic | | | GYNECOL | (SNOMED | | | | AGENT | | examina | | | OGICAL | CT) | | | | | | tion | | | EXAMINA | | | | | | | | | | TION | | | | | | | | | +---------+---------+---------+---------+---------+---------+---------+---------+---------+ | HYPERLI | [id number] | | Removed | | Sandra | | Hyperli | | | PIDEMIA | 4 | /03 | | /10 | [facility] | | pidemia | | | | (SNOMED | | | | CUSTOMER CARE ASSISTANT | | | | | | CT) | | | | | | | | +---------+---------+---------+---------+---------+---------+---------+---------+---------+ | VAGINAL | [id number] | | Removed | | Lars | [...] fied | | +---------+---------+---------+---------+---------+---------+---------+---------+---------+ | URINARY | [id number] | | Removed | | Lars | [...] on | | +---------+---------+---------+---------+---------+---------+---------+---------+---------+ | LOW | [id number] | | Removed | | Lars | | Chronic | | | BACK | | | | | Ramirez | | low | | | PAIN, | (SNOMED | | | | DO | | back | | | CHRONIC | CT) | | | | | | pain | | +---------+---------+---------+---------+---------+---------+---------+---------+---------+ | ABDOMIN | [id number] | | Removed | | Carly | | Abdomin | | | AL PAIN | 1 | | | | Tony | | al pain | | | | (SNOMED | | | | MANAGER BEHAVIORAL | | | | | | CT) | | | | | | | | +---------+---------+---------+---------+---------+---------+---------+---------+---------+ | SHOULDE | [id number] | | Removed | | Pretty | [...] region | | +---------+---------+---------+---------+---------+---------+---------+---------+---------+ | HAMMER | [id number] | | Removed | | Pretty | | Hammer | | | TOE | 08 | /10 | | /10 | [facility] | | toe | | | | (SNOMED | | | | en DO | | | | | | CT) | | | | | | | | +---------+---------+---------+---------+---------+---------+---------+---------+---------+ | PES | [id number] | | Removed | | Pretty | | Pes | | | PLANUS | 7 | /10 | | /10 | [facility] | | planus | | | | (SNOMED | | | | en DO | | | | | | CT) | | | | | | | | +---------+---------+---------+---------+---------+---------+---------+---------+---------+ | FOOT | [id number] | | Removed | | Pretty | | Foot | | | PAIN, | 7 | /10 | | /10 | [facility] | | pain | | | LEFT | (SNOMED | | | | en DO | | | | | | CT) | | | | | | | | +---------+---------+---------+---------+---------+---------+---------+---------+---------+ | SHOULDE | [id number] | | Removed | | Pretty | | Shoulde | | | R PAIN | 0 | /10 | | /10 | [facility] | | r pain | | | | (SNOMED | | | | en DO | | | | | | CT) | | | | | | | | +---------+---------+---------+---------+---------+---------+---------+---------+---------+ | HYPERTE | [id number] | | Active | | Pretty | [...] 1 tab | | | PITAVASTAT | [id number] | Patience | | MG TABS | [...] 1 cap | | | CEPHALEXIN | 1518149321 | Lynn L | | 500 MG [...] | | 50 MG | | Collins CUSTOMER CARE ASSISTANT | + + + + + + + + | METOPROLOL | 1/2 po | | | METOPROLOL | 8032175155 | Pretty | | SUCCINATE | daily | | | SUCCINATE | 1 | Norah | | ER 50 MG | | | | | | DO | | [id number] | | | | | | | + + + + + + + + | ASPIRIN 81 | 1 every | | | ASPIRIN | 6508197246 | Pretty | | MG TABS | [...] SL every | | | NITROGLYCE | 1387031898 | Pretty | | RIN 0.4 MG [...] 2 tablets | | | CALCIUM | 3967191717 | Lynn L | | 600 MG | daily. 1 | | | | 3 | Kennedy MD | | TABS | in morning | | | | | | | | and 1 at | | | | | | | | bedtime | | | | | | + + + + + + + + | MULTI-AIMEE | 1 tab po q | | | MULTIPLE | 2123124633 | Son | | MIN TABS | day | | | VITAMIN | 0 | Imelda MD | + + + + + + + + | HYZAAR | 1 by mouth | | | LOSARTAN | 2572514553 | Pretty | | 100-25 MG | every day | | | POTASSIUM- | 1 | Norah | | TABS | for blood | | | HCTZ | | DO | | | pressure | | | | | | + + + + + + + + | ALEVE 220 | 1 po Q day | | | NAPROXEN | 4557651189 | Isabel | | MG TABS | for | | | SODIUM | 2 | Lucius MD | | | arthritis | | | | | | | | PRN | | | | | | + + + + + + + + | NASONEX 50 | 2 sprays | | | MOMETASONE | 3213469469 | Lynn L | | MCG/ACT | each | | | FUROATE | 1 | Kennedy MD | | SUSP | nostril | | | | | | | | every day | | | | | | + + + + + + + + | METRONIDAZ | 1 bid x 10 | | | METRONIDAZ | 3395985857 | Sandra | | OLE 500 MG | days | | | OLE | 5 | Collins AGENT | | TABS | | | | | | | + + + + + + + + | ASPIRIN 81 | 1 every | | | ASPIRIN | 5583112024 | Son | | MG TABS | other day | | | | 5 | Tomase MD | | | by mouth | | | | | | | | every | | | | | | | | other day | | | | | | + + + + + + + + | TYLENOL | 1 po qd | | | ACETAMINOP | 7621880309 | Pretty | | ARTHRITIS | prn | | | HEN | 0 | Norah | | PAIN 650 | | | | | | DO | | MG CR-TABS | | | | | | | + + + + + + + + | ZITHROMAX | 2 p.o | | | AZITHROMYC | 7051732759 | Lynn L | | Z-SHAILESH 250 | dialy 1 [...] take 1 | | | OXYCODONE- | 1991556655 | Lynn L | | ACETAMINOP | [...] QOD by | | | ASPIRIN | 1146229779 | Pretty | | MG TABS | mouth | | | | 5 | Norah | | | every | | | | | DO | | | other day | | | | | | + + + + + + + + | ALEVE 220 | 1 tab once | | | NAPROXEN | 8340845606 | Lynn L | | MG TABS | a day as | | | SODIUM | 2 | Kennedy RICO | | | needed for | [...] tab once | | | NAPROXEN | 3455264656 | Lynn L | | MG TABS [...] - 2 | | | HYDROCODON | 3485306632 | Lynn L | | 10-325 MG [...] SL every | | | NITROGLYCE | 4720626768 | Pretty | | RIN 0.4 MG [...] apply to | | | DICLOFENAC | 9241252059 | Crystal | | 1.5 % SOLN | affected | | | SODIUM | 3 | Noel | | | area qid | | | | | PROPERTY CLERK | | | prn | | | | | | + + + + + + + + | ASPIRIN 81 | 1 by mouth | | | ASPIRIN | 0627308048 | Pretty | | MG TABS | every day | | | | 5 | Norah | | | | | | | | DO | + + + + + + + + | EQL | Daily | | | CA | 8992890449 | Eva | | VITAMIN | | | | PHOSPHATE- | 2 | Ranger | | D-3 HIGH | | | [...] po qd | | | ASCORBIC | 9526701981 | Pretty | | ACID 1000 | | | | ACID | 7 | Norah | | MG TABS | | | | | | DO | + + + + + + + + | HYDROCHLOR | Take 1 po | | | HYDROCHLOR | 2143067955 | Sandra | | OTHIAZIDE | qod | | | OTHIAZIDE | 0 | Collins AGENT | | 25 MG TABS | | | | | | | + + + + + + + + | TYLENOL | 1 po qd | | | ACETAMINOP | 9858055709 | Pretty | | ARTHRITIS | prn | | | HEN | 0 | Norah | | PAIN 650 | | | | | | DO | | MG CR-TABS | | | | | | | + + + + + + + + | ALEVE 220 | 1 po QD | | | NAPROXEN | 8353164622 | Pretty | | MG TABS | for | | | SODIUM | 2 | Norah | | | arthritis | | | | | DO | | | PRN | | | | | | + + + + + + + + | PRILOSEC | one po qd | | | OMEPRAZOLE | 1280778644 | Pretty | | OTC 20 MG | | | | MAGNESIUM | 5 | Norah | | TBEC | | | | | | DO | + + + + + + + + | ALEVE 220 | 1 po bid | | | NAPROXEN | 0664371870 | Pretty | | MG TABS | for | | | SODIUM | 2 | Norah | | | arthritis | | | | | DO | + + + + + + + + | ASPIRIN 81 | 1 every | | | ASPIRIN | 0404649615 | Lynn L | | MG TABS [...] po bid | | | NAPROXEN | 8626224816 | Eva | | MG TABS | for | | | SODIUM | 2 | Ranger | | | arthritis | | | | | | | | PRN | | | | | | + + + + + + + + | EXFORGE | 1 by mouth | | | EXFORGE | | Sandra | | 5-320 | two times | | | 5-320 | | Collins AGENT | | | per day | | | | | | + + + + + + + + | GABAPENTIN | 1 at hs | | | GABAPENTIN | 3129808069 | Sandra | | 100 MG | for low | | | | 1 | [facility] CUSTOMER CARE ASSISTANT | | CAPS | back pain | [...] po q | | | MULTIPLE | 1980003177 | Lynn L | | MIN TABS | day | | | VITAMIN | 0 | Kennedy MD | + + + + + + + + | HYDROCODON | ONE TAB | | | HYDROCODON | 8290618825 | Ky | | E-ACETAMIN | Q4-6HR [...] mix and | | | PEG-KCL-NA | 7486849914 | Lynn L | | 100 GM [...] 2 caps | | | OMEPRAZOLE | 4180567584 | Pretty | | 20 MG CPDR [...] one tablet | | | AMLODIPINE | 9180081623 | Pretty | | MG TABS | by mouth | | | BESYLATE | 8 | Norah | | | daily | | | | | DO | + + + + + + + + | LIVALO 4 | 1/2 p.o | | | PITAVASTAT | 3163357262 | Crystal | | MG TABS | daily | | | IN CALCIUM | 0 | Noel | | | | | | | | PROPERTY CLERK | + + + + + + + + | ASCORBIC | 1 po qd | | | ASCORBIC | 4504489335 | Emelina | | ACID 1000 | | | | ACID | 7 | Milano MA | | MG TABS | | | | | | | + + + + + + + + | EQL | Daily | | | CA | 9692193327 | Lynn L | | VITAMIN | [...] take 1-2 | | | OXYCODONE- | 1082371290 | Claudine | | ACETAMINOP | tablets [...] 2 p.o | | | ATORVASTAT | 5061066117 | Pretty | | IN CALCIUM | daily | | | IN CALCIUM | 8 | Norah | | 10 MG | | | | | | DO | | TABS | | | | | | | + + + + + + + + | HYDROCHLOR | Take 1 po | | | HYDROCHLOR | 6021227901 | Pretty | | OTHIAZIDE | qod | | | OTHIAZIDE | 0 | Norah | | 25 MG TABS | | | | | | DO | + + + + + + + + | EXFORGE | 1 po qd | | | AMLODIPINE | 1635533035 | Sandra | | 5-160 MG | along | | | | 5 | [facility] AGENT | | TABS | /07/18 | | | BESYLATE-V | | | | | 160mg | | | ALSARTAN | | | | | diovan | | | | | | + + + + + + + + | ALEVE 220 | 1 by mouth | | | NAPROXEN | 5665766646 | Pretty | | MG TABS | a day as | | | SODIUM | 2 | Norah | | | needed | | | | | DO | + + + + + + + + | D 1000 | 1,000 | | | CHOLECALCI | 1575847413 | Lynn L | | 1000 UNIT | internatio | | | FEROL | 7 | Benavides MD | | TABS | nal units | | | | | | | | once a day | | | | | | + + + + + + + + | ASPIRIN 81 | 1 by mouth | | | ASPIRIN | 6722144219 | Sandra | | MG TABS | every | | | | 5 | [facility] CUSTOMER CARE ASSISTANT | | | other day | | | | | | + + + + + + + + | VITAMIN D | one tablet | | | VITAMIN D | | Sandra | | 2000 UNIT | by mouth | | | 2000 UNIT | | [facility] CUSTOMER CARE ASSISTANT | | CAPS | daily | | | CAPS | | | | (ERGOCALCI | | | | (ERGOCALCI | | | | FEROL) | | | | FEROL) | | | + + + + + + + + | METOPROLOL | 1/2 po | | | METOPROLOL | 9626386948 | Pretty | | SUCCINATE | daily | | | SUCCINATE | 1 | Norah | | ER 50 MG | | | | | | DO | | [id number] | | | | | | | + + + + + + + + | CELEBREX | take 1 | | | CELECOXIB | 9053678924 | Lynn L | | 100 MG | tablet by | | | | 1 | Benavides MD | | CAPS | mouth once | | | | | | | | daily | | | | | | + + + + + + + + | LIVALO 2 | 07/18 tab by | | | PITAVASTAT | 5802358217 | Cynthia M | | MG TABS [...] 2 p.o | | | TRAMADOL-A | 3457601239 | Lynn L | | 37.5-325 | bid prn | | | CETAMINOPH | 0 | Benavides MD | | MG TABS | | | | EN | | | + + + + + + + + | CALCIUM | 2 tablets | | | CALCIUM | 1890648713 | Ky | | 600 MG | daily. 1 | | | | 3 | Bitter MD | | TABS | in morning | | | | | | | | and 1 at | | | | | | | | bedtime | | | | | | + + + + + + + + | PRAVASTATI | take 1/2 | | | PRAVASTATI | 3744612299 | Sandra | | N SODIUM | po daily | | | N SODIUM | 0 | Collins AGENT | | 80 MG TABS | | | | | | | + + + + + + + + | PREMARIN | 1 by mouth | | | ESTROGENS | 9068614801 | Pretty | | 0.625 MG | every day | | | CONJUGATED | 1 | Norah | | TABS | | | | | | DO | + + + + + + + + | LIVALO 2 | 07/18 tab by | | | PITAVASTAT | 1292840224 | Lynn L | | MG TABS [...] mix and | | | NA | 9842019722 | Esperanza | | BOWEL PREP | [...] tab po | | | MULTIPLE | 3695478989 | Pretty | | MIN TABS | qd | | | VITAMIN | 0 | Norah | | | | | | | | DO | + + + + + + + + | DULOXETINE | 1 tablet | | | DULOXETINE | 2547370676 | Patience | | HCL 30 MG | by mouth | | | HCL | 6 | Ramesh | | CPEP | daily | | | | | NCMA | + + + + + + + + | D 1000 | 1,000 | | | CHOLECALCI | 0998633424 | Patience | | 1000 UNIT | internatio | | | FEROL | 7 | Ramesh | | TABS | nal units | | | | | NCMA | | | once a day | | | | | | + + + + + + + + | ALEVE 220 | 1 po Q day | | | NAPROXEN | 8883565623 | Son | | MG TABS | for | | | SODIUM | 2 | Imelda RICO | | | arthritis | | | | | | | | PRN | | | | | | + + + + + + + + | PREMARIN | 1 by mouth | | | ESTROGENS | 4801460623 | Pretty | | 0.625 MG | every day | | | CONJUGATED | 1 | Norah | | TABS | | | | | | DO | + + + + + + + + | ULTRACET | 1 to 2 p.o | | | TRAMADOL-A | 2671470072 | Isabel | | 37.5-325 | bid prn | | | CETAMINOPH | 0 | Lucius MD | | MG TABS | | | | EN | | | + + + + + + + + | LIVALO 4 | /2 p.o | | | PITAVASTAT | 3212774774 | Pretty | | MG TABS | daily | | | IN CALCIUM | 0 | Norah | | | | | | | | DO | + + + + + + + + | HYDROCODON | 1 tab once | | | HYDROCODON | 4687403012 | Lynn L | | E-ACETAMIN | [...] cap by | | | GABAPENTIN | 0760481597 | Lynn L | | 100 MG [...] 2 p.o | | | AZITHROMYC | 7438158247 | Pretty | | Z-SHAILESH 250 | [...] mix and | | | NA | 4419590267 | Son | | BOWEL PREP | [...] by mouth | | | LOSARTAN | 8901874425 | Lynn L | | 100-25 MG | every day | | | POTASSIUM- | 1 | Kennedy MD | | TABS | for blood | | | HCTZ | | | | | pressure | | | | | | + + + + + + + + | NORVASC 5 | one tablet | | | AMLODIPINE | 8292747599 | Lynn L | | MG TABS | by mouth | | | BESYLATE | 8 | Kennedy RICO | | | daily | | | | | | + + + + + + + + | PRILOSEC | 2 caps | | | OMEPRAZOLE | 9682372808 | Lynn L | | 20 MG [...] 1 every | | | PRAMIPEXOL | 8406085242 | Lynn L | | 0.25 MG [...] tab once | | | HYDROCODON | 8120776933 | Lynn L | | E-ACETAMIN | [...] cap by | | | GABAPENTIN | 2953604602 | Lynn L | | 100 MG [...] cap by | | | GABAPENTIN | 7727349634 | Magali | | 100 MG | [...] - 2 | | | HYDROCODON | 9691888287 | Magali | | 10-325 MG | [...] 1 tablet | | | DULOXETINE | 3635155909 | Lynn L | | HCL 30 MG | by mouth | | | HCL | 6 | Kennedy IRCO | | CPEP | daily | | | | | | + + + + + + + + | OXYCODONE- | take 1 | | | OXYCODONE- | 2929517662 | Magali | | ACETAMINOP | tablets [...] 1 cap | | | CEPHALEXIN | 3054629514 | Lynn L | | 500 MG [...] 1 tab | | | PITAVASTAT | 6343025254 | Lynn L | | MG TABS [...] by mouth | | | OMEPRAZOLE | 6856219582 | Kal | | 20 MG | [...] take 1 | | | CELECOXIB | 6488535780 | Lynn L | | 100 MG | tablet by | | | | 1 | Benavides MD | | CAPS | mouth once | | | | | | | | daily | | | | | | + + + + + + + + | MIRAPEX | 1 p.o | | | PRAMIPEXOL | 3200473446 | Pretty | | 0.25 MG | every | | | E | 0 | Norah | | TABS | other day | | | DIHYDROCHL | | DO | | | - bedtime | | | ORIDE | | | + + + + + + + + | HYZAAR | 1 by mouth | | | LOSARTAN | 4528023571 | Pretty | | 100-25 MG | every day | | | POTASSIUM- | 1 | Norah | | TABS | | | | HCTZ | | DO | + + + + + + + + | PRILOSEC | 1 by mouth | | | OMEPRAZOLE | 1346963736 | Pretty | | 20 MG CPDR | every day | | | | 4 | Norah | | | | | | | | DO | + + + + + + + + | MOVIPREP | mix and | | | PEG-KCL-NA | 6210363222 | Son | | 100 GM | [...] p.o qod- | | | PRAMIPEXOL | 9798316394 | Pretty | | 0.25 MG | bedtime | | | E | 0 | Norah | | TABS | | | | DIHYDROCHL | | DO | | | | | | ORIDE | | | + + + + + + + + | VICODIN | 1-2 po q | | | ACETAMINOP | 2773654983 | Pretty | | 5-500 MG | 12 hrs prn | | | HEN-HYDROC | 4 | Norah | | TABS | | | | ODONE | | DO | + + + + + + + + | HYDROCODON | ONE TAB | | | HYDROCODON | 4445767069 | Ky | | E-ACETAMIN | Q4-6HR [...] 1/2 p.o | | | ATORVASTAT | 9895555885 | Pretty | | IN CALCIUM | daily | | | IN CALCIUM | 8 | Norah | | 10 MG | | | | | | DO | | TABS | | | | | | | + + + + + + + + | AUGMENTIN | 2 two | | | AMOXICILLI | 2390027400 | Pretty | | XR | times per | | | N-POT | 8 | Norah | | 1000-62.5 | day | | | CLAVULANAT | | DO | | MG | | | | E | | | | [id number]-[id number] | | | | | | | + + + + + + + + | NASONEX 50 | 2 sprays | | | MOMETASONE | 6849498184 | Pretty | | MCG/ACT | each | | | FUROATE | 1 | Norah | | SUSP | nostril | | | | | DO | | | every day | | | | | | + + + + + + + + | ULTRACET | 1 to 2 p.o | | | TRAMADOL-A | 8871667473 | Pretty | | 37.5-325 | bid prn | | | CETAMINOPH | 0 | Norah | | MG TABS | | | | EN | | DO | + + + + + + + + | NITROGLYCE | 1 SL every | | | NITROGLYCE | 4602530245 | Pretty | | RIN 0.4 MG [...] p.o qhs | | | PRAMIPEXOL | 6398299088 | Pretty | | 0.25 MG | | | | E | 0 | Norah | | TABS | | | | DIHYDROCHL | | DO | | | | | | ORIDE | | | + + + + + + + + | PENNSAID | apply to | | | DICLOFENAC | 5441023751 | Pretty | | 1.5 % SOLN | affected | | | SODIUM | 3 | Norah | | | area qid | | | | | DO | | | prn | | | | | | + + + + + + + + | LIVALO 4 | 1 p.o | | | PITAVASTAT | 6463321128 | Pretty | | MG TABS | daily | | | IN CALCIUM | 0 | Norah | | | | | | | | DO | + + + + + + + + | VICODIN | 1-2 po q | | | ACETAMINOP | 1060406284 | Sandra | | 5-500 MG | 12 hrs | | | HEN-HYDROC | 4 | Collins AGENT | | TABS | | | | ODONE | | | + + + + + + + + | DIOVAN 160 | one tablet | | | VALSARTAN | 1687192475 | Sandra | | MG TABS | by mouth | | | | 4 | Collins AGENT | | | daily | | | | | | + + + + + + + + | METOPROLOL | take one | | | METOPROLOL | 0021515630 | Sandra | | SUCCINATE | po daily | | | SUCCINATE | 1 | Collins AGENT | | ER 50 MG | | | | | | | | [id number] | | | | | | | + + + + + + + + | PRAVASTATI | take 07/18 | | | PRAVASTATI | 1893309508 | Sandar | | N SODIUM | po daily | | | N SODIUM | 0 | Collins CUSTOMER CARE ASSISTANT | | 80 MG TABS | | | | | | | + + + + + + + + | GABAPENTIN | 1 at hs | | | GABAPENTIN | 8358898739 | Lars | | 100 MG | [...] x 10 | | | METRONIDAZ | 8476056679 | Lars | | OLE 500 MG | days | | | OLE | 5 | Ramirez DO | | TABS | | | | | | | + + + + + + + + | TOPROL XL | 1 by mouth | | | METOPROLOL | 9024734119 | Pretty | | 50 MG | every day | | | SUCCINATE | 5 | Norah | | [id number] | | | | | | DO | + + + + + + + + | VICODIN | 1 by mouth | | | ACETAMINOP | 1372678769 | Pretty | | 5-500 MG | every 4 | | | HEN-HYDROC | 1 | Norah | | TABS | to 6 hours | | | ODONE | | DO | | | as needed | | | | | | + + + + + + + + | DIOVAN 160 | 1/2 po qd | | | VALSARTAN | 3994267742 | Pretty | | MG TABS | along | | | | 4 | Norah | | | w/exforge | | | | | DO | | | 5/160mg | | | | | | + + + + + + + + | EXFORGE | 1 po qd | | | AMLODIPINE | 1892976474 | Pretty | | 5-160 MG | [...] SL every | | | NITROGLYCE | 7506391897 | Aniko | | RIN 0.4 MG [...] | | muscle/joint | | | | AGENT | | | pain | | | [...] +------+------+-------+------+-------+------+ + + + | Office Visit: F/[facility]- Eliud [facility]- [facility] Exophagus | + + + +--------+ +---+---+---+ + | | SMOK | Current | | | | Tobacco | | | STATUS | every day | | | | use CPHS | | | | smoker | | | | | + +--------+ +---+---+---+ + + + | Lab Report: [id number] | + + + + +----+---+---+---+ + [...] | CHERI WOODS | | | | carmen | | | | Y Ant | | | | | | | | Phys: | | | | | | | | Hortensia [place] | | | | | | | | humphrey Hernandez MD | | | | | | | | Exam | | | | | | | | Date:Aretha | | | | | | | [...] | | | | | | | [id number] | | | | | | | [...] | | | | | | | 741293.001 | | | | | | | [...] | | | | | | | [phone] | | | | | | | [...] | | | | | | | crystal Nolen MD | | | | | | [...] | | | | | | | Colin, MD | | | | | | [...] | | | | | | | [id number] | | | | | | | | [address] | | | | | | | | [place] | | | | | | | | [address] | | | | | | | | [address] | | | | | | | | [place], [place] | | | | | | | | [address] | | | | | + + [...] +--------+ +---+---+---+ + | | ESM_RR | [id number] | | | B | e-scripts | [...] | | | | | | | [id number] | | | | | | | | `[id number] | | | | | | | [...] +--------+ +---+---+---+ + | | ESM_RR | [id number] | | | B | e-scripts | [...] | | | | | | | [place]*` | | | | | | | | [id number] | | | | | | | | `[id number] | | | | | | | | 30`[address]`L | | | | | | | [...] +---+---+---+ + + + | Rx Refill: [facility] Request for NORVASC 5MG TABS | + + + +--------+ +---+---+---+ + | | ESM_RR | [id number] | | | B | e-scripts | [...] | | | | | | | [id number] | | | | | | | | `[id number] | | | | | | | [...] | ) | + +--------+ +---+---+---+ + Plan of Care + + + + | Type | Date | Detail | + + + + | Appointment | 10:30 AM | Magali [place] MD, [address] | | | | [address], | | | | [place], [address], | | | | | + + + + | Appointment | 11:00 AM | Lynn Benavides MD, [address] | | | | [facility] [address], | | | | [place], [address], | | | | | + + + + | Referral | | PT Evaluation & Treat | | | | [facility], [address] | | | | [address] [facility] [address], | | | | [place], [address] | | | | | + + + + | Referral | | PT Evaluation & Treat | | | | [facility], [address] | | | | [place] [address] [facility] [address], | | | | [place], [address] | | | | | + + + + | Referral | | PT Evaluation & Treat | | | | [facility], [address] | | | | [place] [facility] [address], | | | | [place], [address] | | | | | + + + + +---+ + | | Referral excluded from report: | +---+ + + + + + | Referral | | DEXA Bone Density | | | | Lab - Rad | + + + + | Referral | | Consult Referral | | | | Aliza Weaver MD, [address] | | | [address], | | | | [place], [address] | | | | | + + + + | Referral | | Consult Referral | | | | Son Segura MD, [address] | | | [address] | | | | [facility] [place], [address] | | | | | | | | | + + + + | Referral | | Consult Referral | | | | MD Chyna Bowden, | | | | [address] [facility], | | | | [place], [address] | | | | | + + + + | Referral | | PT Evaluation & Treat | | | | [facility], [address] | | | | [place] [address], | | | | [place], [address] | | | | | + + + + | Referral | | Consult Referral | | | | MD Kevin Forbes, | | | | [address], | | | | [place], [address] | | | | | + + + + | Referral | | Consult Referral | + + + + | Referral | | Consult Referral | | | | Panda Good MD, [address], | | | | [place], [address] | | | | | + + [...] [address], | | | | [place], [address] | | | | | + + [...] [address], | | | | [place], [address] | | | | | + + + + | Referral | | Plastic Surgery Consult | | | | [address] | | [address], | | | | [place], [address] | | | | | + + + + | Referral | | Neurology Consult | | | | MD Luna Bernal, [address] | | | | [address], | | | | [place], [address] | | | | | + + + + | Referral | | Neurology Consult | | | | MD Luna Bernal, [address] | | | | [address], | | | | [place], [address] | | | | | + + [...] + | Pending order | | DENZEL Cast-James | + + + + | Pending [...] + + + + | CHEM 8 77346 | Basic Metabolic | | | | | Panel | | | + + + + + | VIT D2+D3 20645 | Vitamin D, 25-OH by | | | | | LC-MS/MS | | | + + + + + | PTH INT 74568 | PTH (Whole | | | | | Molecule) | | | + + + + + | CBC AUTO 93274 | CBC w/ Auto Diff | | | + + + + + | RISK 54462 | Lipid Profile | | | + + + + + | GLYCO HGB 00441 | Glyco Hemoglobin, | | | | | A1C | | | + + + + + | FREE T4 83417 | T4 Free | | | + + + + + | T3 FREE 62107 | T3 Free | | | + + + + + | TSH 61830 | TSH | | | + + + + + | CHEM PROF | Comprehensive | | | | | Metabolic Panel | | | + + + + + | [id number] 06923 | DENZEL Welch | | | + + + + + | CPT-56387 | DEXA Bone Density | | | + + + + + | SCT- | Medication | | | | [id number] | Reconcilliation | | | + + + + + | CPT- 23739 | Diagnostic | | | | | Ultrasound Neck | | | | | (54998) | | | + + + + + | SCT- | Medication | | | | [id number] | Reconcilliation | | | + + + + + | RISK 92284 | Lipid Profile | | | + + + + + | 51859 | CT Abdomen and | | | | | Pelvis-W Con | | | + + + + + | CBC AUTO 64576 | CBC w/ Auto Diff | | | + + + + + | CHEM PROF | Comprehensive | | | | | Metabolic Panel | | | + + + + + | 56346 | XR Chest-2V | | | + + + + + | CPT-39446 | FNA with Image | | | | | Guidance (58455) | | | + + + + + | CPT- 01846 | US Guidance for | | | | | Needle Placement | | | | | (99430) | | | + + + + + | CPT-G0439 | Annual Wellness | | | | | Visit (Medicare) | | | | | Subsqnt visit | | | + + + + + | CHEM 8 | Basic Metabolic | | | | | Panel | | | + + + + + | FREE T4 39225 | T4 Free | | | + + + + + | T3 FREE 07333 | T3 Free | | | + + + + + | TSH 89258 | TSH | | | + + + + + | 68983 | US Thyroid (Soft | | | | | Tissue Head/Neck | | | | | Exam) | | | + + + + + | UA CULT IF MULTIPLE | Urinalysis Culture | | | | | If Indicat | | | + + + + + | FREE T4 81952 | T4 Free | | | + + + + + | T3 FREE 50644 | T3 Free | | | + + + + + | TSH 69975 | TSH | | | + + + + + | 51889 | XR Hip 2-3V-Right | | | + + + + + +---+ + | | Order excluded from report: | +---+ + +-------+ + + + | 92490 | XR Pelvis-1-2V | | | +-------+ + + + +---+ + | | Order excluded from report: | +---+ + +-------+ + + + | 96972 | XR Hip 2-3V-Left | | | +-------+ + + + +---+ + | | Order excluded from report: | +---+ + + + + + + | CBC AUTO 52386 | CBC w/ Auto Diff | | | + + + + + | RISK 47889 | Lipid Profile | | | + + + + + | CHEM 8 | Basic Metabolic | | | | | Panel | | | + + + + + | CPT-87680 | Fiberoptic Diag | | | | | Laryng (78455) | | | + + + + + | RA SC ONLY 18355 | Rheumatoid Factor, | | | | | Screen Only | | | + + + + + | 27466 | XR Knee 1 or 2V-Rt | | | + + + + + | 47785 | XR Knee 1 or 2V-Lt | | | + + + + + | ESR 58404 | Sedimentation Rate | | | | | (ESR) | | | + + + + + | LEW IF 36481 | LEW With Reflex | | | | | Panel If POS | | | + + + + + | CPT-G0439 | Annual Wellness | | | | | Visit (Medicare) | | | | | Subsqnt visit | | | + + + + + | PTH INT 33221 | PTH (Whole | | | | | Molecule) | | | + + + + + | CHEM 8 | Basic Metabolic | | | | | Panel | | | + + + + + | CPT-44085 | LULY Johns | | | + + + + + | [id number] | [Recorded for [facility]] | | | | | Documentation of | | | | | current medications | | | | | (procedure) | | | + + + + + | [id number] | MU Generic Patient | | | | | Encounter Service | | | | | (from patch) | | | + + + + + | [id number] | [Recorded for [facility]] | | | | | Documentation of | | | | | current medications | | | | | (procedure) | | | + + + + + | [id number] | [Recorded for [facility]] | | | | | Health-related | | | | | behavior | | | + + + + + | CPT-34811 | Lesion, 2-14 | | | | | (56436) | | | + + + + + | [id number] | [Recorded for [facility]] | | | | | Documentation of | | | | | current medications | | | | | (procedure) | | | + + + + + | CPT-31423 | Lesion, 1 (23402) | | | + + + + + | CPT-G8427 | Current Medications | | | | | Documented | | | + + + + + | [id number] | [Recorded for [facility]] | | | | | Documentation of | | | | | current medications | | | | | (procedure) | | | + + + + + | [id number] | MU Generic Patient | | | | | Encounter Service | | | | | (from patch) | | | + + + + + | CPT-G8427 | Current Medications | | | | | Documented | | | + + + + + | [id number] | [Recorded for [facility]] | | | | | Smokes tobacco | | | | | daily (finding) | | | + + + + + | [id number] | [Recorded for [facility]] | | | | | Current every day | | | | | smoker | | | + + + + + | [id number] | [Recorded for [facility]] | | | | | Documentation of | | | | | current medications | | | | | (procedure) | | | + + + + + | [id number] | [Recorded for [facility]] | | | | | Tobacco use and | | | | | exposure | | | + + + + + | [id number] | [Recorded for [facility]] | | | | | Smoking cessation | | | | | education | | | | | (procedure) | | | + + + + + | [id number] | [Recorded for [facility]] | | | | | Documentation of | | | | | current medications | | | | | (procedure) | | | + + + + + | CPT-Q2038 | Fluzone (Inf) High | | | | | dose Med/Atrio | | | + + + + + | CPT-18334 | Vaccine, Influenza | | | | | >3 yrs (V04.81) | | | + + + + + | CPT-23710 | Biopsy, lesion | | | + + + + + | CPT-37003 | Biopsy, lesion | | | + + + + + | CPT-09323 | X-Ray Heel | | | + + + + + | CPT-G8553 | eRx sent | | | + + + + + | CPT-50974 | Lipid Panel | | | | | (Cholesterol) | | | + + + + + | CPT-35244 | Lesion, 2-14 | | | | | (70136) | | | + + + + + | CPT-41273 | Lesion, 1 (90956) | | | + + + + + | CPT-G0008 | Admin Flu Vac | | | | | (mdc/atrio) | | | + + + + + | CPT-19301 | Lesion, 2-14 | | | | | (29277) | | | + + + + + | CPT-59247 | Lesion, 1 (50377) | | | + + + + + | CPT-59789 | Vaccine, Influenza | | | | | >3 yrs (V04.81) | | | + + + + + | 86229 G0202 | MX Mammo Dig | | | | | Screen-Bilat | | | + + + + + | RA SCREEN 90392 | Rheumatoid Factor | | | | | (qual) | | | + + + + + | LEW 30895 | LEW | | | + + + + + | ESR 22201 | Sedimentation Rate | | | | | (ESR) | | | + + + + + | FREE T4 43560 | T4 Free | | | + + + + + | TSH 44707 | TSH | | | + + + + + | RISK 36814 | Lipid Profile | | | + + + + + | CHEM PROF 99042 | CMP (Comprehensive | | | | | Metabolic Panel) | | | + + + + + | MISC TEST PENDING | Other or Misc | | | | | Test/Lab | | | + + + + + | M GEN HSV 69672 | Genital HSV Culture | | | + + + + + | CPT-87308 | LULY Dipstick | | | + + + + + | 77740 G0202 | MX Mammo Dig | | | | | Screen-Bilat | | | + + + + + +---+ + | | Order excluded from report: | +---+ + + + + + + | CHEM PROF 56355 | CMP (Comprehensive | | | | | Metabolic Panel) | | | + + + + + +---+ + | | Order excluded from report: | +---+ + + + + + + | RISK 63970 | Lipid Profile | | | + + + + + +---+ + | | Order excluded from report: | +---+ + + +-----+ + + | TSH 99540 | TSH | | | + +-----+ + + +---+ + | | Order excluded from report: | +---+ + + + + + + | CPT-54878 | Glucose by monitor | | | + + + + + | CPT-19815 | UA Dipstick | | | + + + + + | CPT-91204 | UA Dipstick | | | | | (Office) | | | + + + + + +---+ + | | Order excluded from report: | +---+ + + + + + + | CPT-55934 | Guiaic Stools ([place] | | | | | Care) | | | + + + + + | CPT-66421 | Inj/Asp Large Joint | | | [...] weight E&M | + + +-------+---------+ + Social [...]
[~2019-05-21 06:50] MED LIST: ASPIR-LOW81 MG PO; FISH OIL 1,0001 EAC3 PO; HYZAAR 100-251 EACH PO; MIRAPEX1 MG PO; NEURONTIN100 MG PO; NORVASC5 MG PO; OMEPRAZOLE20 MG PO; PRAVACHOL20 MG PO; VITAMIN B-121000 MCG PO; VITAMIN C1000 MG PO; VITAMIN C500 M4 PO; VITAMIN D32000 UNI1 PO; VITAMIN E1000 UNI3 PO
[2019-05-21] MEDS ORDERED: ALEVE220 MG PO (07:23)
--- NOTE | 2019-05-21 10:54 | NUR ---
MESERET WILLIS INFORMED ME THAT HE FELT PT WAS SOMEWHAT ANXIOUS.I FOUND PT TO BE A LITTLE BIT UNEASY, A BIT DISTANT BUT DID SEEM TO BE MORE AT EASE WE BEGAN TO VISIT MORE. HER [place] WAS PRESENT FOR HER SUPPORT. PT DID REQUEST PRAYER, WILL FOLLOW NEEDED
--- NOTE | 2019-05-21 11:57 | NUR ---
05/21/19 1157 Juli Desai 1147-PATIENT ARRIVED TO PACU ON 6L MASK RR EVEN. EYES OPEN REACTIVE TO VOICE UNABLE TO RATE PAIN. DRESSING TO THROAT CDI GEO DRAIN WITH SANGUINOUS DRAINAGE IN PLACE. BANDAID SMALL AMT OF DRAINAGE TO RIGHT SIDE OF NECK FROM LESION. SR. 1156-PATIENT AWAKE ON 6L RR EVEN. DR. HUTCHISON AT BEDSIDE PATIENT ABLE TO REPEAT "E" TO MD. WHEN PATIENT ASKED IF OK REPEATS "I THINK SO" PATIENT CLOSES EYES.
--- NOTE | 2019-05-21 12:50 | NUR ---
PT ARRIVED FROM PACU BEDSIDE REPORT FROM DAR CARL. PT DROWSY, ALERT TO NAME. SPOUSE AT BEDSIDE. REPORTS NO PAIN OR NAUSEA. V/S STABLE. PT ON 2L OXYGEN FOR 93% OXYGEN SATURATION. NO DISTRESS NOTED. GEO IN PLACE DRESS AT NECK IS CDI
--- NOTE | 2019-05-21 14:35 | NUR ---
PT STATES THAT IF HER HEAD DID NOT HURT SHE WOULD HAVE NO PAIN. PUT ICE PACK ON BACK OF NECK, ELEVATED HEAD OFF OF PILLOW SO BACK OF HEAD DOES NOT TOUCH. [facility] AT[facility] JELL[facility] AND HAD SIPS OF WATER. AND FRIEND IN ROOM. VS STABLE.
--- NOTE | 2019-05-21 16:30 | NUR ---
Met with Jaz and Sreedhar. She is awake. Denies c/o. 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 Does not feel she will need DME to dc. Spouse will help her at home. She has a cane she rarely uses. Feels she can dc to home safely with assistance from spouse when ready for dc.
[2019-05-21] MEDS ORDERED: MIRAPEX0.25 MG PO (17:33)
[2019-05-21] MEDS ORDERED: TOPROL XL25 MG PO (17:34)
--- NOTE | 2019-05-21 17:35 | NUR ---
MED REC COMPLETE
--- NOTE | 2019-05-21 17:49 | NUR ---
PT CONTINUES TO HAVE MIGRAINE. DR HUTCHISON ORDERED PERCO. ADMINISTERED. FOOD CAME AND PT IS EATING SMALL AMT. IN ROOM.
--- NOTE | 2019-05-21 18:10 | NUR ---
PT EMOTIONAL AND CRYING AND SHAKING. TALKED TO DR HUTCHISON IN [place] AND HE ASSESSED. ORDERED DIFFERENT PAIN MED. COMFORTED PT AND WILL BE BACK TO REASSESS SHORTLY.
--- NOTE | 2019-05-21 20:00 | NUR ---
REPORT RECEIVED FROM DAY SHIFT RN. PT LYING IN BED, ALERT AND ORIENTED. DRESSING AT NECK CDI, GEO DRAINING SANGUINEOUS. CPOX READS 91%. RA. PT DENIES NEEDS AT THIS TIME. CALL LIGHT IN REACH.
--- NOTE | 2019-05-21 21:30 | NUR ---
ASSESSMENT COMPLETE. PT LYING IN BED, HOB ELEVATED. NECK DRESSING CDI. GEO DRAINING SEROSANGUINOUS. GEO TUBE STRIPPED DUE TO SOME CLOTTING NOTED IN TUBING. PT DENIES TINGLING IN LIPS OR CHEEKS. SCD'S ON. IVF INFUSING. PT DENIES SURGICAL SITE PAIN, MOSTLY C/O HEADACHE AND BACK OF HEAD PAIN FROM AN INJURY SEVERAL YEARS AGO. PT REFUSES PRN MEDICATION AT THIS TIME. CPOX IN PLACE. PT DENIES NEEDS AT THIS TIME. CALL LIGHT IN REACH.
--- NOTE | 2019-05-21 23:34 | NUR ---
MEDICATED WITH PRN FOR C/O 3/10 HEADACHE/NECK PAIN. PT DENIES NUMBNESS OR TINGLY IN LIPS OR CHEEKS. CPOX 93% ON RA. RR EVEN AND UNLABORED. GATORADE GIVEN PER PT REQUEST. DONUT CUSHION GIVEN TO RELIEVE PRESSURE TO THE BACK OF THE HEAD FROM THE PILLOW. NO OTHER NEEDS AT THIS TIME. CALL LIGHT IN REACH.
--- NOTE | 2019-05-22 03:39 | NUR ---
PT RESTING IN BED WITH EYES CLOSED, RR EVEN AND UNLABORED. CPOX READS 91% ON RA. CALL LIGHT IN REACH.
--- NOTE | 2019-05-22 04:30 | NUR ---
IN TO CHECK ON PT. SHE APPEARS ANXIOUS ABOUT NOT HAVING HER BLOOD PRESSURE AND GERD MEDS. REASSURED PT HER VITAL SIGNS ARE STABLE AND WITHIN MD PARAMETERS AND THAT MD WILL LIKELY RESTART HER HOME MEDS THIS MORNING. PT DENIES INCISIONAL PAIN BUT C/O 4/10 HEADACHE PAIN. REFUSES IV PAIN MED, MEDICATED WITH PO TYLENOL. PT CONTINUES TO USE DONUT CUSHION. RR EVEN AND UNLABORED, 95% ON RA. NO TROUBLE WITH VOICE. DENIES NUMBNESS OR TINGLING IN LIPS OR FACE.
--- NOTE | 2019-05-22 05:15 | NUR ---
PT RESTING IN BED WITH EYES CLOSED. RR EVEN AND UNLABORED. CPOX 93% ON RA.CALL LIGHT IN REACH.
--- NOTE | 2019-05-22 05:44 | NUR ---
S/P TOTAL THYROIDECTOMY. ADHESIVE GAUZE DRESSING OVER NECK INCISION, CDI. GEO DRAIN. MOLE REMOVED FROM RIGHT SIDE OF NECK, COVERED WITH BANDAID. IVF. SCD'S. CPOX, RA. NO S/SX OF HYPOCALCEMIA. MEDICATED WITH PERCO AND TYLENOL. TRACH KIT IN ROOM.
--- NOTE | 2019-05-22 06:38 | NUR ---
MORNING MEDS GIVEN WITHOUT DIFFICULTY. PT APPEARS LESS ANXIOUS. ASSISTED WITH ORDERING BREAKFAST. CPOX 95% ON RA. NECK DRESSING CDI. DENIES PAIN OR NUMBNESS AND TINGLING OF THE FACE. VOICE APPEARS NORMAL. NO OTHER NEEDS AT THIS TIME. CALL LIGHT IN REACH.
--- NOTE | 2019-05-22 07:50 | NUR ---
PATIENT SLEEPING. CALL LIGHT WITHIN REACH.
--- NOTE | 2019-05-22 08:00 | NUR ---
PT IS AWAKE, POSITIONED FOR BREAKFAST TRAY, DECLINED GETTING UP TO CHAIR, REPORTS BILLY IS IMPROVED THIS MORNING, STATES SHE HAS HAD THESE BILLY ON AND OFF SINCE FALL. DENIES NEED FOR PAIN MED, NO NAUSEA, ENC TO DEEP BREATHE, LUNGS CLEAR, NO RESP DIFFICULTIES, LOOKING FORWARD TO BREAKFAST THIS AM. JAYCE THOMAS, GEO IS SECURE. CALL LIGHT IN EASY REACH.
--- NOTE | 2019-05-22 09:00 | NUR ---
ATE 100% OF BREAKFAST, STATES SHE WANTS A NAP THIS MORNING SHE DIDN'T SLEEP MUCH, CONT. TO DENY NEED FOR PAIN MEDICATION.
--- NOTE | 2019-05-22 09:52 | NUR ---
PATIENT RESTING IN BED. IN ROOM. VITAL SIGNS AND I&O DONE. PATIENT COMPLAINS ABOUT HEADACHE AND BACK PAIN. RN NOTIFIED. CALL LIGHT WITHIN REACH. NO OTHER NEEDS AT THIS TIME
[2019-05-22] MEDS ORDERED: LEVOTHYROXINE150 MCG PO (10:38)
[2019-05-22] MEDS ORDERED: HYDROCODON-ACE1 EAC8 PO (10:39)
--- NOTE | 2019-05-22 11:00 | NUR ---
DISCHARGE INSTRUCTIONS REVIEWED WITH PT AND , VERBALIZES UNDERSTANDING OF FOLLOWUP APPOINTMENT AND MEDICATIONS, PERSCRIPTION GIVEN TO PT. PHARMACIST- JOSSELINE IN AND ALSO SPOKE WITH PT RE: MEDS AND NEW PERSCRIPTION. STATES SHE IS READY TO GO HOME.
--- NOTE | 2019-05-22 11:13 | NUR ---
PATIENT SITTING UP ON THE EDGE OF THE BED. AND RN IN ROOM. FINAL VITAL SIGNS WERE OBTAINED PRIOR TO DISCHARGE FROM THE UNIT.
--- NOTE | 2019-05-22 11:39 | OR ---
[facility] [address], [place] [address] Signed DATE OF OPERATION: 05/21/2019 SURGEON: Kimberley Hutchison MD PREOPERATIVE DIAGNOSES: 1. Symptomatic multinodular thyroid (dysphagia). 2. Skin lesion of right superior lateral neck, unknown biologic behavior. POSTOPERATIVE DIAGNOSES: 1. Symptomatic multinodular thyroid (dysphagia). 2. Skin lesion of right superior lateral neck, unknown biologic behavior. PROCEDURES: 1. Total thyroidectomy. 2. Excision of right lateral skin of neck lesion, 1.5 cm excision size. ANESTHESIA: General endotracheal; Amaya Mas, NON DESTRUCTIVE TESTING SCIENTIST. INDICATION: This 74-year-old white woman is a patient of Dr. Tori Aquino locally and subsequently Dr. Jackeline Coe, motorcyles final inspector, in [place]. The patient has been noted to have thyroid nodules and evaluated by Dr. Coe including ultrasound-guided fine-needle aspiration biopsy. Cytology showed the nodule to be benign. Notably, her mother had thyroid cancer. The patient has sensations of "feeling full" in the neck in particular when lying flat, she thinks her neck is "tight." An ultrasound of the thyroid on February 04, 2019, showed multiple nodules, two dominant nodules 2.2 cm in the left lobe and 1.8 cm in the isthmus just to the right of the midline. There were additionally seven nodules, all of them smaller than the aforementioned nodules. Note is made of a calcium level of 10.5 with a PTH of 66. This was in February 2019. She is euthyroid clinically. She did undergo a sestamibi scan, which showed no sign of parathyroid adenoma. Additionally, she was noted to have a skin lesion in the right superior lateral neck which she had not noted before and wishes it to be excised concurrently. Total thyroidectomy has been recommended by Dr. Coe on the basis of a symptomatic multinodular thyroid and family history of thyroid cancer and high probability that progression of the nodules worsen her symptoms of dysphagia and so on. She understands well the risks of bleeding, infection, recurrent laryngeal nerve injury, parathyroid loss or functional loss, need for additional treatment should malignancy actually be Electronically Signed By: KIMBERLEY HUTCHISON MD 05/22/19 1139 PATIENT NAME: ERNST WOODS OPERATIVE REPORT DATE OF : 49 REPORT #: [id number] PHYSICIAN: KIMBERLEY HUTCHISON MD PCP: TORI AQUINO MD REPORT IS CONFIDENTIAL AND NOT TO BE RELEASED WITHOUT AUTHORIZATION [facility] [address], [place] [address] Signed found. FINDINGS: Skin lesion at the right superior neck was papillary in appearance. It was excised and 1.5 cm excision was completed. As regard to the thyroid, the nodules were multiple and rubbery in consistency. Clearly identified was a left parathyroid gland and likely an inferior parathyroid gland on that side. Recurrent nerve on the left side was well identified and certainly unharmed. The right lobe had more nodularity to it. None of them particularly suspicious. Identification of a single right parathyroid gland was noted and was left in situ with a small portion of thyroid gland posteriorly, certainly a centimeter or less in size. The right recurrent laryngeal nerve was identified and unharmed as well. As regard to the skin lesion that was excised completely, Pathology is pending on both specimens. DESCRIPTION OF PROCEDURE: The patient was brought to the operating room, given a general endotracheal anesthetic. Preoperative antibiotics were given. Sequential compression device stockings used. A shoulder roll was placed and after general endotracheal anesthesia, the neck placed in extension. She had multiple natural skin creases from which to choose for incision. The neck was prepared from the earlobe to the sternum widely as well to incorporate the skin lesion in the right lateral neck. After sterile draping, an incision was made along the line of skin wrinkle in the mid neck. Dissection carried through the dermis sharply. The platysmal layer was divided with electrocautery and superior and inferior flaps developed with blunt and electrocautery dissection. Gelpi retractors were then placed. Midline strap muscles were at the midline, retracting the left side first. Sharp dissection was used to separate the sternal hyoid and subsequently sternothyroid muscle. This revealed the underlying thyroid gland. It was not excessively large, but was multinodular. With sharp and blunt dissection, loose areolar tissue laterally was divided. Superior pole was easily mobilized and individual ligation of blood vessels undertaken. Similarly, the lower pole was mobilized. The thyroid was rotated towards the midline with progressive dissection and ligation of small vessels with 4-0 silk ties as appropriate. The recurrent laryngeal nerve was identified incidentally and well out of harm's way as was at least one parathyroid gland and possibly the lower inferior gland of that one was not certain. Ultimately, the thyroid was freed from its posterior attachments and division of ligament of Humphrey, allowed for avascular plane of the trachea. Photographs were taken. Dissection was then undertaken on the right side. With similar dissection, the right gland was mobilized. Clips were applied to blood vessels in the superior pole Electronically Signed By: KIMBERLEY HUTCHISON MD 05/22/19 1139 PATIENT NAME: ERNST WOODS OPERATIVE REPORT DATE OF : 49 REPORT #: [id number] PHYSICIAN: KIMBERLEY HUTCHISON MD PCP: TORI AQUINO MD REPORT IS CONFIDENTIAL AND NOT TO BE RELEASED WITHOUT AUTHORIZATION [facility] [address], [place] [address] Signed bilaterally as necessary in addition to 4-0 silk ties. The right lobe was more nodular, actually the nodules were smaller. A right inferior parathyroid gland was identified in continuity with the small portion of thyroid posteriorly. Rather than sacrifice of the parathyroid gland, a small amount of thyroid tissue was left in situ. Full mobilization of the thyroid was ultimately accomplished towards the midline. Again, ligament of Humphrey divided and freed entirely from the trachea. Photographs were taken. Photographs were also taken of the excised specimen. Irrigation was undertaken. There was good hemostasis. Given the extent of dissection, a small Surya drain was placed in the inferior aspect of the wound covering both right and left peritracheal spaces. Once the sure there was no ongoing bleeding, some Luis was applied to the posterior tracheoesophageal groove areas. The wound was then closed by reapproximating the midline strap muscles with interrupted 2-0 Vicryl, platysmal layer reapproximated with interrupted 3-0 Vicryl, and skin closed with interrupted 4-0 Vicryl. The drain was secured to the skin with nylon suture. Steri-Strips were applied as was a Mepilex silver sponge dressing and an OpSite. The drain was attached to bulb suction. Attention was turned to the right superior lateral neck. Elliptical excision of the skin lesion which was papillary in nature, but not densely pigmented was undertaken, full-thickness excision was undertaken. Electrocautery was used for hemostasis. The wound was closed with interrupted 4-0 nylon. A Band-Aid and bacitracin was applied. The patient was ultimately extubated and transferred to recovery room in good condition having suffered no complication. Sponge, needle, and instrument counts reported as correct x3. Blood loss is less than 25 mL in total. Sponge, needle, and instrument counts reported as correct x3. Kimberley Hutchison MD JM/MODL /[id number] cc: MD Tori Martinez MD Copies: JACKELINE COE MD Electronically Signed By: KIMBERLEY HUTCHISON MD 05/22/19 1139 PATIENT NAME: ERNST WOODS OPERATIVE REPORT DATE OF : 49 REPORT #: [id number] PHYSICIAN: KIMBERLEY HUTCHISON MD PCP: TORI AQUINO MD REPORT IS CONFIDENTIAL AND NOT TO BE RELEASED WITHOUT AUTHORIZATION [address] [address] Signed ~ Electronically Signed By: KIMBERLEY HUTCHISON MD 05/22/19 1139 PATIENT NAME: ERNST WOODS OPERATIVE REPORT DATE OF : 49 REPORT #: [id number] PHYSICIAN: KIMBERLEY HUTCHISON MD PCP: TORI AQUINO MD REPORT IS CONFIDENTIAL AND NOT TO BE RELEASED WITHOUT AUTHORIZATION
--- NOTE | 2019-05-22 12:34 | NUR ---
PT DRESSED, CONTINUALLY STANDING UP AND SITTING ON SIDE OF BED, NEVER LOOKING COMFORTABLE. PT SAID SHE IS READY FOR DC, KNOWS EVERYTHING SHE NEEDS TO. PT ALSO ADMITTED SHE HAS A MIGRAINE, AND JUST WANTS TO GO HOME AND IS WAITING FOR HER PERSCRIPTION TO BE SENT TO [facility] SO THEY CAN PICKUP ON THE WAY HOME. PT'S IS TRYING TO BE SUPPORTIVE. EXTENDED A BLESSING, AND LET MESERET HARRIS KNOW ABOUT PT'S READINESS FOR DC. WILL FOLLOW NEEDED
--- NOTE | 2019-05-27 09:12 | PATH ---
[facility] [address], [place] [address] Signed SPECIMEN(S): A TOTAL THYROID MULTINODULAR GOITER SPECIMEN(S): B RIGHT NECK SPECIMEN SOURCE: A. TOTAL THYROID MULTINODULAR GOITER B. RIGHT NECK CLINICAL HISTORY: Nontoxic multinodular goiter. FINAL PATHOLOGIC DIAGNOSIS: A. Thyroid, total thyroidectomy: - Multinodular goiter with adenomatous change. - One benign lymph node. - Negative for malignancy. B. Skin, right neck, lesion, excision: - Intradermal nevus with congenital features; completely excised. COMMENT: As part of [facility] Quality Improvement Program, this case was reviewed by another member of our pathology staff. NAL:leida:C2NR MICROSCOPIC EXAMINATION: Histologic sections of all submitted blocks are examined by light microscopy. These findings, together with the gross examination, support the pathologic diagnosis. GROSS DESCRIPTION: Two specimens are received in two containers, labeled "PB." A. The specimen, labeled "PB, total thyroid," is received in formalin and consists of a 27 g, 6.5 x 5.6 x 2.5 cm thyroid specimen with a red-brown and nodular thyroid surface. The specimen consists of a 5.6 x 3.1 x 1.7 cm right lobe, a 1.5 x 0.4 x 0.3 cm isthmus and a 5.0 x 3.0 x 2.5 cm left lobe. The thyroid parenchyma is red-brown and granular and throughout the right and left lobes there are numerous pale wright nodules ranging from 0.4 to 2.0 cm in greatest dimension. Multiple nodules include focal areas of hemorrhagic discoloration and abut the thyroid surface. Cassette summary: (A1-A6) Every other slice of left lobe submitted sequentially from inferior PATIENT NAME: ERNST WOODS PATHOLOGY DATE OF : 49 REPORT #: [id number] PHYSICIAN: GYPSY PATHOLOGY PCP: NEIDA ORTA MD REPORT IS CONFIDENTIAL AND NOT TO BE RELEASED WITHOUT AUTHORIZATION [facility] [address], [place] [address] Signed to superior (A7) Isthmus submitted entirely (A8-A11) Agriscience Instructor sections of right lobe B. The specimen, labeled "PB, right neck lesion," is received in formalin and consists of a 1.1 x 0.7 x 0.5 cm ellipse of wright granular skin with a central 0.5 cm diameter wright-pink skin papule. Specimen is entirely submitted in cassette (B1). AM (under the direct supervision of a pathologist) After initial examination of the HE slides Dr. Berman has requested additional sections of the thyroid. (A12-A15) Remainder of the left lobe. AM The Gross Description was prepared using a voice recognition system. The report was reviewed for accuracy; however, sound-alike word errors, addition and/or deletions may occur. If there is any question about this report, please contact Client Services. PERFORMING LABORATORY: The technical component was performed by [facility] [address] (Pest Control Specialist: Catherine Persaud MD; CLIA# [id number]). [facility] [address] [address] (Pest Control Specialist: Bryn Dumas MD; CLIA# [id number]). Diagnostician: Miriam Berman MD Pathologist Electronically Signed 05/27/2019 Copies: ~ PATIENT NAME: ERNST WOODS PATHOLOGY DATE OF : 49 REPORT #: [id number] PHYSICIAN: GYPSY PATHOLOGY PCP: NEIDA ORTA MD REPORT IS CONFIDENTIAL AND NOT TO BE RELEASED WITHOUT AUTHORIZATION
== END 2019-05-22 11:10 | disposition home or self-care (01) ==
LOC: DS 06:50 → MS 12:14
PROVIDERS: ADMIT Surgery
PROC: 0GBJ0ZZ Excision of Thyroid Gland Isthmus, Open Approach (ICD-10-PCS; 2019-05-21)
PROC: 0HB4XZZ Excision of Neck Skin, External Approach (ICD-10-PCS; 2019-05-21)
PROC: 0GTK0ZZ Resection of Thyroid Gland, Open Approach (ICD-10-PCS; principal; 2019-05-21 07:30)
DX: E04.2 Nontoxic multinodular goiter (principal); E83.52 Hypercalcemia; Q82.5 Congenital non-neoplastic nevus; F17.210 Nicotine dependence, cigarettes, uncomplicated; F32.9 Major depressive disorder, single episode, unspecified; K21.9 Gastro-esophageal reflux disease without esophagitis; I10 Essential (primary) hypertension; Z79.899 Other long term (current) drug therapy; Z79.1 Long term (current) use of non-steroidal anti-inflammatories (NSAID); Z88.8 Allergy status to other drugs, medicaments and biological substances; Z88.5 Allergy status to narcotic agent
CPT/HCPCS: 00320; 36415; 82310; 85025; 88305; 88307; G0378; J0131; J0330; J0690; J1100; J1885; J2250; J2405; J2704; J3475; J7121